=== PATIENT | male | born 1940 | race Caucasian/White ===

== ENCOUNTER 2019-11-06 11:01 | Inpatient (IN) ==
--- OUTSIDE RECORDS SUMMARY | 2019-11-06 11:04 | External Medical Summary | Continuity of Care Document ---
:1940 Author Name Aftab Messina Address Unavailable Unavailable , Care Team Providers Name Role Phone Greta DO Unavailable [email or web address] Unavailable Unavailable Problems Active medical history not documented Allergies and Adverse Reactions Allergy history not documented Medications Medications not documented Procedures Procedures not documented Immunizations Immunizations not documented Plan of Treatment Planned Observations Planned Goals not documented Results No Known Results Results not documented
--- OUTSIDE RECORDS SUMMARY | 2019-11-06 11:04 | External Medical Summary | Continuity of Care Document ---
:1940 Author Name Aftab Messina Address Unavailable Unavailable , Care Team Providers Name Role Phone Greta DO Unavailable [email or web address] Unavailable Unavailable Problems Active medical history not documented Allergies and Adverse Reactions Allergy history not documented Medications Medications not documented Procedures Procedures not documented Immunizations Immunizations not documented Plan of Treatment Planned Observations Planned Goals not documented Results No Known Results Results not documented
[2019-11-06] MEDS ORDERED: OPTIRAY 320 125ml IV PRN (11:25)
[2019-11-06 11:27] LABS: Basophils # (auto) 0.03 K/uL (0-0.2); Basophils % (auto) 0.4 %; Eosinophils # (auto) 0.34 K/uL (0-0.5); Eosinophils % (auto) 4.9 %; Hematocrit (blood only) 46.2 % (42-52); Hemoglobin 15.3 g/dL (14.0-18.0); Immature Granulocytes # (auto) 0.02 K/uL (0.00-0.02); Immature Granulocytes % (auto) 0.3 %; Lymphocytes # (auto) 1.77 K/uL (1.2-3.4); Lymphocytes % (auto) 25.2 %; Mean Corpuscular Hgb Conc 33.1 g/dL (32-36); Mean Corpuscular Volume 87.7 fL (80-100); Mean Platelet Volume 10.2 fL (7.4-10.4); Monocytes # (auto) 0.74 K/uL (0.11-0.59); Monocytes % (auto) 10.6 %; Neutrophils # (auto) 4.11 K/uL (1.4-6.5); Neutrophils % (auto) 58.6 %; Platelet Count 167 K/uL (130-400); RDW Coefficient of Variation 13.8 % (11.5-14.5); RDW Standard Deviation 44.4 fL (36.4-46.3); Red Blood Count 5.27 M/uL (4.7-6.1); White Blood Count 7.01 K/uL (4.8-10.8)
--- NOTE | 2019-11-06 11:38 | CT Scan Report ---
CT head/brain wo con CLINICAL HISTORY: Possible acute stroke COMPARISON STUDY: No previous studies for comparison. TECHNIQUE: Axial CT of the brain is performed from the vertex to the skull base. IV contrast was not administered for this examination. A dose lowering technique was utilized adhering to the principles of ALARA. CT DOSE: FINDINGS: No intra or extra-axial mass lesions are visualized. There is no CT evidence of acute cortical infarc tion. There is no evidence of midline shift. There is no acute hemorrhage. No calvarial fractures ar e visualized. There are mild white matter hypodensities likely on a small vessel basis. Minor ventricular prominence is felt to be secondary to volume loss. There is no evidence of acute sinusitis IMPRESSION: No acute intracranial findings ACT 112: Negative or not required by law. Electronically signed by: Martell Guerrero M.D. 11/06/2019 11:37 AM
[2019-11-06 11:39] LABS: INR 1.1 (0.9-1.1); Partial Thromboplastin Time 28.8 Seconds (21.0-31.0); Prothrombin Time 11.2 Seconds (9.0-12.0)
--- NOTE | 2019-11-06 11:44 | CT Scan Report ---
CT angio neck with con CLINICAL HISTORY: Stroke evaluation COMPARISON STUDY: No previous studies for comparison. TECHNIQUE: CT angiography was performed from the aortic arch to the skull base. MIP imaging was perfo rmed. The patient was scanned in a dynamic helical fashion during intravenous administration of 118 c c of Optiray 320. A dose lowering technique was utilized adhering to the principles of ALARA. CT DOSE: 1162.07 mGy.cm Technique: CT angiogram of the carotid and vertebral arteries was obtained using intravenous contrast and 3-D reconstruction. NASCET criteria was utilized. Findings: There is a 1 cm right lobe thyroid calcification. The right carotid revealed no evidence of aneurysm and no evidence of dissection. There is no evidenc e of hemodynamic significant stenosis. Atheromatous changes are present at the level of the carotid b ulb, and cavernous carotid. The left carotid revealed no evidence of hemodynamic significant stenosis. There is no evidence of an eurysm. There is no evidence of dissection. Atheromatous changes are present the level of the carotid bulb and cavernous carotid There is moderately extensive bilateral distal vertebral artery atheromatous calcification. The calci fication limits the accuracy for stenosis measurement. Bilateral vertebral artery stenosis in excess of 60% is however suspected. IMPRESSION: 1. No evidence of hemodynamically significant carotid stenosis 2. Bilateral distal vertebral artery stenosis which is difficult to quantify due to extensive atherom atous calcification ACT 112: Negative or not required by law. Electronically signed by: Martell Guerrero M.D. 11/06/2019 11:43 AM
[2019-11-06 11:46] LABS: Alanine Aminotransferase 28 U/L (12-78); Albumin Level 3.7 gm/dl (3.4-5.0); Aspartate Aminotransferase 19 U/L (15-37); BUN Creatinine Ratio 12.2 (10-20); Blood Urea Nitrogen 18 mg/dl (7-18); Calcium 9.2 mg/dl (8.5-10.1); Carbon Dioxide 27 mmol/L (21-32); Chloride 111 mmol/L (98-107); Creatinine Clr Calc Pharmacy 44.5 ml/min; Est GFR (African American) 52.4; Est GFR (Non-African American) 45.2; Glucose 94 mg/dl (70-99); Potassium 4.1 mmol/L (3.5-5.1); Sodium 138 mmol/L (136-145)
--- NOTE | 2019-11-06 11:48 | CT Scan Report ---
CT angio head w con CLINICAL HISTORY: Stroke evaluation TECHNIQUE: CT angiography of the head was performed in a dynamic helical fashion during intravenous a dministration of 118 cc of Optiray 320. MIP imaging was performed. A dose lowering technique was util ized adhering to the principles of ALARA. CT DOSE: COMPARISON STUDY: No previous studies for comparison. FINDINGS: There is bilateral distal vertebral artery stenosis. Atheromatous changes are present withi n the cavernous and supraclinoid carotids without evidence of hemodynamic significant stenosis. There is no major intracranial branch occlusion. There are no lesion suspicious for aneurysm. There are bi lateral posterior cerebral artery stenotic lesions. IMPRESSION: 1. Bilateral distal vertebral artery stenosis 2. No evidence of major intracranial branch occlusion 3. No evidence of aneurysm. 4. Bilateral posterior cerebral artery stenotic lesions. ACT 112: Negative or not required by law. Electronically signed by: Martell Guerrero M.D. 11/06/2019 11:47 AM
[2019-11-06 11:50] LABS: Alkaline Phosphatase 97 U/L (45-117); Bilirubin,Total 0.7 mg/dl (0.2-1); Globulin 3.6 gm/dl (2.5-4.0); Total Protein 7.3 gm/dl (6.4-8.2); Troponin I < 0.015 ng/ml (0-0.045)
[2019-11-06] MEDS ORDERED: SODIUM CHLORIDE 0.9% 1000ML 1,000 ML IV SCH (12:00)
--- NOTE | 2019-11-06 12:03 | Emergency Department Note ---
History of Present Illness General Chief complaint: Stroke/CVA Symptoms Stated complaint: RIGHT SIDED NUMBNESS, FACIAL DROOPING, DISORIENTED Time Seen by Provider: 11/06/19 11:07 Source: patient and family Mode of arrival: ambulatory Limitations: no limitations History of Present Illness Maximum Pain Intensity: 0 This patient comes in with a complaint of weakness on the right side and slurred speech. He was fine last evening and the son talked to him last around 9:00 PM. He said this morning when he saw him at 5:45 AM he was staggering and appeared to have a facial droop on the right and right-sided weakness. This is all new he also seemed a little confused. He is on Xarelto for A. fib. He had an episode about a month ago where he lost vision in his eye and was seen by Dr. Marion. This recovered. The patient has no visual changes at present. No chest pain or shortness of breath. No fever or chills or fall or trauma. No focal numbness or weakness. He was brought in through triage and placed in room B2. Home Medications Home Medications Medication Instructions Recorded Confirmed Type atenolol 12.5 mg PO BID 11/06/19 11/06/19 History glimepiride 2 mg PO QAM 11/06/19 11/06/19 History omeprazole 40 mg PO DAILY 11/06/19 11/06/19 History rivaroxaban [Xarelto] 15 mg PO PM 11/06/19 11/06/19 History simvastatin 40 mg PO HS 11/06/19 11/06/19 History Allergies Allergy/AdvReac Type Severity Reaction Status Date / Time No Known Allergies Allergy Unknown Verified 01/13/16 13:06 Past Med/Surg History Social History Preferred Language: Polish Feels Safe at Home: Yes Smoking Status: Never smoker Immunizations: Past medical history: Atrial fib, on Xarelto. He also has a history of type 2 diabetes. Hypertension. He had a visual loss that recuperated about a month ago and may have been an amaurosis fugax Social history, he does not smoke. He does not drink. He lives with his son Review of Systems A total of 10 systems reviewed and were otherwise negative Physical Exam Vital Signs Vital Signs - 24 hr 11/06/19 11:02 11/06/19 11:31 11/06/19 11:33 Temperature 36.8 C Temperature Source Oral Pulse Rate 47 L 51 L 53 L Pulse Rate from SpO2 Sensor 52 L 53 L Respiratory Rate 18 17 22 Respiratory Effort / Characteristics Non-Labored Spontaneous Respiratory Depth Normal Respiratory Pattern Regular Blood Pressure 193/87 H 174/75 H Blood Pressure Mean 122 111 Blood Pressure Position Sitting Pulse Oximetry 98 97 99 Oxygen Delivery Method Room Air Sepsis Recent Fever Within 48 Hours No Sepsis New/Unexplained Change in Mental Status No Sepsis Action Taken by Nursing No Action Required 11/06/19 11:40 11/06/19 11:52 11/06/19 12:00 Temperature Temperature Source Pulse Rate 49 L 45 L Pulse Rate from SpO2 Sensor 41 L Respiratory Rate 17 17 Respiratory Effort / Characteristics Respiratory Depth Respiratory Pattern Blood Pressure Blood Pressure Mean Blood Pressure Position Pulse Oximetry 97 96 Oxygen Delivery Method Room Air Sepsis Recent Fever Within 48 Hours Sepsis New/Unexplained Change in Mental Status Sepsis Action Taken by Nursing 11/06/19 12:01 11/06/19 12:02 11/06/19 12:30 Temperature Temperature Source Pulse Rate 47 L 46 L 45 L Pulse Rate from SpO2 Sensor 47 L 46 L 45 L Respiratory Rate 17 18 17 Respiratory Effort / Characteristics Respiratory Depth Respiratory Pattern Blood Pressure 151/83 H 144/91 H Blood Pressure Mean 103 111 Blood Pressure Position Pulse Oximetry 98 97 96 Oxygen Delivery Method Sepsis Recent Fever Within 48 Hours Sepsis New/Unexplained Change in Mental Status Sepsis Action Taken by Nursing 11/06/19 13:00 11/06/19 13:02 11/06/19 13:03 Temperature Temperature Source Pulse Rate 49 L 50 L 49 L Pulse Rate from SpO2 Sensor Respiratory Rate 20 24 21 Respiratory Effort / Characteristics Respiratory Depth Respiratory Pattern Blood Pressure 150/84 H Blood Pressure Mean 115 Blood Pressure Position Pulse Oximetry 98 Oxygen Delivery Method Sepsis Recent Fever Within 48 Hours Sepsis New/Unexplained Change in Mental Status Sepsis Action Taken by Nursing 11/06/19 13:30 11/06/19 13:31 Temperature Temperature Source Pulse Rate 46 L 46 L Pulse Rate from SpO2 Sensor 46 L 46 L Respiratory Rate 19 20 Respiratory Effort / Characteristics Respiratory Depth Respiratory Pattern Blood Pressure 162/79 H Blood Pressure Mean 104 Blood Pressure Position Pulse Oximetry 97 97 Oxygen Delivery Method Sepsis Recent Fever Within 48 Hours Sepsis New/Unexplained Change in Mental Status Sepsis Action Taken by Nursing General: Well developed well nourished older male who appears in no acute distress, breathing comfortably on room air. Normal speech is slightly thick compared to baseline according to his son HEENT: Normal cephalic atraumatic. He may have just a mild facial droop on the right pupils are equal round and reactive to light. Extraocular movements are intact. Oropharynx is pink with moist mucous membranes. No swelling of the mouth lips or tongue. Neck: Supple with a midline trachea. No meningeal signs or stiffness, no JVD or bruits. No Stridor. Chest: Clear to auscultation bilaterally. No wheezes or rhonchi. No increased work of breathing. Heart: Regular rate and rhythm without murmurs or gallops. Abdomen: Soft nontender, nondistended without rebound guarding or rigidity. Extremities: No cyanosis clubbing or edema. No calf tenderness or assymetry Spine/Back. Non tender to palpation. No CVA tenderness Skin: Good turgor without rashes. Neurologic exam: Cranial nerves two through 12 are intact. Motor and sensation are intact and symmetrical throughout. No pronator drift. Course Administered Medications Sodium Chloride (Nss 1000ml) 1,000 mls @ 125 mls/hr IV .Q8H ANASTASIA Stop: 12/06/19 11:59 Last Admin: 11/06/19 11:58 Dose: 125 mls/hr Documented by: [id number] Ioversol (Optiray 320 125ml) 118 ml IV ONCE PRN PRN Reason: Interaction Checking Stop: 11/10/19 11:24 Last Admin: 11/06/19 11:26 Dose: 118 ml Documented by: [id number] Critical Care Time Critical Care Time: Yes Total Critical Care Time: 35 Due to the patient's acute strokelike symptoms and potential need for time- limited interventions with frequent reassessment and consultation with stroke neurology needed, I have personally spent greater than 35 minutes of critical care time in the direct management of this patient. This includes bedside care, interpretation of diagnostic studies, and testing, discussion with consultants, patient, and family members, and other required patient management activities. This 35 minutes is in excess of all separately billable procedures. Medical Decision Making Differential Diagnosis Differential diagnosis includes CVA, intracranial hemorrhage, TIA, vascular disease, cardiac disease, anemia, hypoglycemia, electrolyte or metabolic abnormality, infection Medical Records Attestation: I reviewed the patient's medical records. Home Medications Current Medication List: was personally reviewed by me Laboratory Data Attestation: I reviewed the patient's lab results. Result diagrams: 11/06/19 11:15 11/06/19 11:15 Lab Results 11/06/19 11/06/19 11/06/19 Range/Units 11:15 11:15 11:15 WBC 7.01 (4.8-10.8) K/uL RBC 5.27 (4.7-6.1) M/uL Hgb 15.3 (14.0-18.0) g/dL Hct 46.2 (42-52) % MCV 87.7 (80-100) fL MCH 29.0 (25-34) pg MCHC 33.1 (32-36) g/dL RDW Std Deviation 44.4 (36.4-46.3) fL RDW Coeff of Bryanna 13.8 (11.5-14.5) % Plt Count 167 (130-400) K/uL MPV 10.2 (7.4-10.4) fL Immature Gran % (Auto) 0.3 % Neut % (Auto) 58.6 % Lymph % (Auto) 25.2 % Dickenson % (Auto) 10.6 % Eos % (Auto) 4.9 % Baso % (Auto) 0.4 % Immature Gran # (Auto) 0.02 (0.00-0.02) K/uL Neut # (Auto) 4.11 (1.4-6.5) K/uL Lymph # (Auto) 1.77 (1.2-3.4) K/uL Dickenson # (Auto) 0.74 H (0.11-0.59) K/uL Eos # (Auto) 0.34 (0-0.5) K/uL Baso # (Auto) 0.03 (0-0.2) K/uL PT 11.2 (9.0-12.0) Seconds INR 1.1 (0.9-1.1) APTT 28.8 (21.0-31.0) Seconds PTT Ratio 1.0 Sodium 138 (136-145) mmol/L Potassium 4.1 (3.5-5.1) mmol/L Chloride 111 H (98-107) mmol/L Carbon Dioxide 27 (21-32) mmol/L Anion Gap -1.0 L (3-11) BUN 18 (7-18) mg/dl Creatinine 1.44 H (0.6-1.4) mg/dl Est Cr Clr Drug Dosing 44.5 ml/min Est GFR ( Amer) 52.4 Est GFR (Non-Af Amer) 45.2 BUN/Creatinine Ratio 12.2 (10-20) Glucose 94 (70-99) mg/dl POC Glucose (70-99) mg/dl Calcium 9.2 (8.5-10.1) mg/dl Magnesium 2.0 (1.8-2.4) mg/dl Total Bilirubin 0.7 (0.2-1) mg/dl AST 19 (15-37) U/L ALT 28 (12-78) U/L Alkaline Phosphatase 97 (45-117) U/L Troponin I < 0.015 (0-0.045) ng/ml Total Protein 7.3 (6.4-8.2) gm/dl Albumin 3.7 (3.4-5.0) gm/dl Globulin 3.6 (2.5-4.0) gm/dl Albumin/Globulin Ratio 1.0 (0.9-2) Blood Type Antibody Screen 11/06/19 11/06/19 11/06/19 Range/Units 11:31 11:31 11:57 WBC (4.8-10.8) K/uL RBC (4.7-6.1) M/uL Hgb (14.0-18.0) g/dL Hct (42-52) % MCV (80-100) fL MCH (25-34) pg MCHC (32-36) g/dL RDW Std Deviation (36.4-46.3) fL RDW Coeff of Bryanna (11.5-14.5) % Plt Count (130-400) K/uL MPV (7.4-10.4) fL Immature Gran % (Auto) % Neut % (Auto) % Lymph % (Auto) % Dickenson % (Auto) % Eos % (Auto) % Baso % (Auto) % Immature Gran # (Auto) (0.00-0.02) K/uL Neut # (Auto) (1.4-6.5) K/uL Lymph # (Auto) (1.2-3.4) K/uL Dickenson # (Auto) (0.11-0.59) K/uL Eos # (Auto) (0-0.5) K/uL Baso # (Auto) (0-0.2) K/uL PT (9.0-12.0) Seconds INR (0.9-1.1) APTT (21.0-31.0) Seconds PTT Ratio Sodium (136-145) mmol/L Potassium (3.5-5.1) mmol/L Chloride (98-107) mmol/L Carbon Dioxide (21-32) mmol/L Anion Gap (3-11) BUN (7-18) mg/dl Creatinine (0.6-1.4) mg/dl Est Cr Clr Drug Dosing ml/min Est GFR ( Amer) Est GFR (Non-Af Amer) BUN/Creatinine Ratio (10-20) Glucose (70-99) mg/dl POC Glucose 87 (70-99) mg/dl Calcium (8.5-10.1) mg/dl Magnesium (1.8-2.4) mg/dl Total Bilirubin (0.2-1) mg/dl AST (15-37) U/L ALT (12-78) U/L Alkaline Phosphatase (45-117) U/L Troponin I (0-0.045) ng/ml Total Protein (6.4-8.2) gm/dl Albumin (3.4-5.0) gm/dl Globulin (2.5-4.0) gm/dl Albumin/Globulin Ratio (0.9-2) Blood Type Cancelled O Positive Antibody Screen Cancelled NEGATIVE Imaging Data Radiologist's Impression: CAT scan of the head: No Acute findings CTA of the head and the neck: He does have some atherosclerotic changes mostly posteriorly. Please refer to report ECG Data Attestation: I personally reviewed and interpreted this ECG as follows: Indication: + bradycardia Rate (beats per minute): 48 Rhythm: + sinus bradycardia ECG Intervals/blocks: + Normal QRS, + Normal QT and + Normal [place] ECG [place]: + Normal ECG ST segments: + Normal ST segments Comparison ECG Date: from (01/13/16) Change: no significant change MDM Narrative This patient comes in as described above. He was placed in room B2. I talked to the son and the patient promptly upon his arrival into the room B2 is concerned about his strokelike symptoms and called a stroke alert. It sounds like his last known well however was probably 9:00 last evening when the son saw him at 545 this morning he had symptoms. He is on Xarelto. He was evaluated by Dr. Devine. CAT scan the head was unremarkable CT of the neck and head show some atherosclerotic findings but no acute dissection or aneurysm. IV access had been established. Blood sugar was unremarkable. He has mildly elevated creatinine of 1.4. There is no other electrolyte or metabolic abnormalities. He has nothing to suggest infection. EKG shows sinus bradycardia at 48 however he is on the hypertensive side and tolerating this well. Dr. Devine feels that he does need to be admitted for further stroke evaluation and neurologic work-up. His symptoms have improved and I think he most likely did have a TIA. I have consulted Dr. Rivera to see him in the ER for these measures. Continuous senior project engineer note-due to the patient's strokelike symptoms he was placed on a senior project engineer. I did put an order in for it in the computer as well. He was monitored while he was in the emergency department he was found to be in a sinus bradycardia at a rate of 48 and remained in a sinus bradycardia in the high 40s low 50s. Impression & Plan Cerebrovascular accident, shelter (current) use of anticoagulants, Bradycardia, sinus, Acute right-sided weakness Discharge Plan Visit Data Chief Complaint: Stroke/CVA Symptoms Stated Complaint: RIGHT SIDED NUMBNESS, FACIAL DROOPING, DISORIENTED ED Provider: Jordy Hernandez Discharge Problem: Cerebrovascular accident, terminal clerk (current) use of anticoagulants, Bradycardia, sinus, Acute right-sided weakness Discharge Instructions Interventions: ED Discharge Assessment Last Done: 11/06/19 13:47 Forms Stand Alone Forms: [facility] [employer] Prescriptions Prescriptions: No Action atenolol 25 mg tablet 12.5 mg PO BID RF: 0 omeprazole 40 mg capsule,delayed release(DR/EC) 40 mg PO DAILY RF: 0 simvastatin 40 mg tablet 40 mg PO HS RF: 0 glimepiride 2 mg tablet 2 mg PO QAM RF: 0 Xarelto 15 mg tablet 15 mg PO PM RF: 0 Referrals Referrals: Harper Garcia CRNP [Primary Care Provider] - Discharge Problem: Cerebrovascular accident Qualifiers: CVA mechanism: unspecified Qualified Code(s): I63.9 - Cerebral infarction, unspecified
--- NOTE | 2019-11-06 13:24 | History & Physical Report ---
Date of Service November 06, 2019 Assessment & Plan (1) TIA (transient ischemic attack): Presented with right-sided weakness and right facial droop, slurred speech, significantly elevated blood pressures -Admit to PCU for arrhythmia monitoring Symptoms already almost completely resolved-consistent with likely TIA Not a candidate for TPA as his last known well was over 12 hours prior to presentation and is on Xarelto and is getting better CT angiogram of head and neck with bilateral vertebral artery stenosis approximately 60%-not related to current symptoms -Likely thrombotic event but could have been cardioembolic given his history of paroxysmal atrial fibrillation, however he is on Xarelto and is compliant with taking it -Stroke order set completed -Check MRI of the brain with and without contrast -Neurochecks -Neurology consultation requested -Continue Xarelto-consider adding on aspirin 81 mg daily but will defer to neurology -Continue simvastatin 40 mg daily and check lipid panel in the morning-consider switching to atorvastatin -Check hemoglobin A1c in the morning -Permissive hypertension -Check echo with bubble study -PT/OT/speech therapy consultations -Keep n.p.o. until can pass dysphagia screen -Gentle IV fluids while n.p.o. (2) Acute right-sided weakness: As above (3) Hypertensive urgency: Blood pressure elevated on admission at 198/83, likely response to TIA Permissive hypertension -Okay to continue home atenolol if heart rate will allow -Hydralazine 10 mg IV every 8 hours as needed SBP greater than 200 -Follow blood pressures (4) Paroxysmal atrial fibrillation: History of such, follows with Dr. Vaughn of [facility] cardiology In sinus bradycardia here with rates in the 40s -Continue atenolol 12.5 mg p.o. 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 fib (6) Diabetes mellitus: Patient on glimepiride at home-we will hold this -Sliding scale insulin, Accu-Cheks q. before meals at bedtime -Check hemoglobin A1c in the morning (7) HTN (hypertension), benign: Blood pressure elevated here as above -Continue home atenolol (8) Gout: No acute flares, follows with rheumatology -Continue prednisone 5 mg daily -Continue allopurinol 100 mg daily (9) BPH (benign prostatic hyperplasia): No acute issues -Continue tamsulosin 0.4 mg p.o. nightly (10) GERD (gastroesophageal reflux disease): No acute issues -Continue PPI daily (11) ARABELLA (acute kidney injury): Creatinine 1.44 on admission, suspect acute kidney injury but may be chronic kidney disease-unclear baseline -Follow BMP Renally dose medications as appropriate Avoid nephrotoxins (12) DVT prophylaxis: Xarelto Disposition-admit to PCU for stroke work-up History of Present Illness Chief Complaint: Strokelike symptoms Primary Care Provider: ADILENE Tesfaye This patient is an 79-year-old male with a history of paroxysmal atrial fibrillation on Xarelto, DM 2, HTN, gout, back pain and arthritis, GERD, BPH, nephrolithiasis, who presents to the ER with right-sided weakness and right- sided facial droop with slurred speech. The patient was last known well when seen by his son around 9:30 PM last evening before bed. The son reports when he woke up this morning around 545, his dad was already sitting in a chair in the living room and he noticed when his dad stood up and walked into the kitchen that he kept running his right side into things in his right arm was flopping around. He also noticed a right-sided facial droop at that time and slurred speech. The son reported that he thought maybe it could be due to the patient just taking his medications as a side effect and decided to wait a few hours and see if it would get better. The son went for a walk and when he came home, noted that his dad was still having significant slurred speech and persistent right upper extremity weakness. The patient was able to walk. The patient in the ER was already improving with his strength but continued with facial droop and slurred speech to some degree although much improved as per the son. A telemetry stroke neuro consult was obtained from [place]-they recommended CT angiogram of the head neck which just showed approximately 60% bilateral vertebral artery stenosis. No TPA indicated as last known well was last night and patient symptoms were improving, as well as the fact that he is on Xarelto. He was quite hypertensive in the ER and bradycardic in the 40s in a sinus rhythm. The patient denied headache or lightheadedness, no changes in vision, he is at baseline extremely hard of hearing. The patient denied chest pain or shortness of breath, no palpitations or passing out. Denied nausea or abdominal pain. No recent fevers/chills/sweats. The patient denied any recent cough or cold symptoms. He has been isolated at home and lives with his son. Allergies Allergy/AdvReac Type Severity Reaction Status Date / Time No Known Allergies Allergy Unknown Verified 01/13/16 13:06 Home Medications Home Medications Medication Instructions Recorded Confirmed Type acetaminophen 650 mg PO Q6 PRN 11/06/19 11/06/19 History allopurinol 100 mg PO DAILY 11/06/19 11/06/19 History atenolol 12.5 mg PO BID 11/06/19 11/06/19 History glimepiride 2 mg PO QAM 11/06/19 11/06/19 History omeprazole 40 mg PO DAILY 11/06/19 11/06/19 History prednisone 5 mg PO DAILY 11/06/19 11/06/19 History rivaroxaban [Xarelto] 15 mg PO PM 11/06/19 11/06/19 History simvastatin 40 mg PO HS 11/06/19 11/06/19 History tamsulosin 0.4 mg PO HS 11/06/19 11/06/19 History Past Med/Surg History Medical History BPH (benign prostatic hyperplasia) Chronic back pain Diabetes mellitus GERD (gastroesophageal reflux disease) Gout (Acute) HTN (hypertension), benign Nephrolithiasis Paroxysmal atrial fibrillation Family History Other Family history non-contributory Social History Preferred Language: Romanian Communication Ability: Effective Platemaker Required: No Beliefs That Will Affect Care: None Current Living Situation: Family Current Living Situation Comment: Lives with his son Other Information That Helps Us Care for You: No Feels Safe at Home: Yes Safety Concerns: Feels Safe At This Time Smoking Status: Never smoker Hx Alcohol Use: No Hx Substance Use: No Review of Systems Review of Systems: All systems reviewed & are unremarkable except as noted in HPI & below (Does have some chronic stable angina with exertion and chronic dyspnea on exertion) Physical Exam Constitutional: WD/WN, vitals as above Eyes: PERRL, conjunctivae normal, anicteric sclerae EOM intact bilaterally ENMT: external ear and nose normal, oropharynx normal Neck: trachea midline, no thyromegaly Respiratory: normal respiratory effort, lungs clear to auscultation Cardiovascular: Rate/Rhythm: regular rhythm and + bradycardic Heart Sounds: no murmur Extremities: no edema Chest (Breasts): Chest: normal inspection of chest Gastrointestinal (Abdomen): normal bowel sounds, soft, nontender, no hepatosplenomegaly Musculoskeletal: Extremities: extremities normal to inspection; no cyanosis and no clubbing Skin: no rashes, warm and dry Neurologic: deep tendon reflexes 2+ bilaterally (In biceps, triceps, brachioradialis, patellar; 1+ and Achilles bilaterally), moves all extremities and awake; + CN's not intact (Intact except with mild right facial droop and tongue protruding slightly to the left of midline), no focal motor deficits (5/5 strength throughout upper and lower extremities bilaterally) and not confused Speech / Cognition: + abnormal speech (Speech is slightly slurred); no expressive aphasia, no receptive aphasia and normal cognition Motor/Sensory: no tremor, no pronator drift and no sensory deficit (Intact to light touch throughout upper and lower extremities) Coordination: normal [id number] test and normal rapid alternating movements Psychiatric: A+Ox3, euthymic affect Lymphatic: no lymphedema Results & Data Results & Data ([facility]) Vital Signs (Past 12 Hours) Vital Signs Temp Pulse Resp BP Pulse Ox 11/06/19 13:02 50 L 24 150/84 H 98 11/06/19 13:00 49 L 20 11/06/19 12:30 45 L 17 144/91 H 96 11/06/19 12:02 46 L 18 97 11/06/19 12:01 47 L 17 151/83 H 98 11/06/19 12:00 45 L 17 96 11/06/19 11:52 97 11/06/19 11:40 49 L 17 11/06/19 11:33 53 L 22 174/75 H 99 11/06/19 11:31 51 L 17 97 11/06/19 11:02 36.8 C 47 L 18 193/87 H 98 Laboratory Results 11/06/19 11/06/19 11/06/19 Range/Units 16:20 11:57 11:31 WBC (4.8-10.8) K/uL RBC (4.7-6.1) M/uL Hgb (14.0-18.0) g/dL Hct (42-52) % MCV (80-100) fL MCH (25-34) pg MCHC (32-36) g/dL RDW Std Deviation (36.4-46.3) fL RDW Coeff of Bryanna (11.5-14.5) % Plt Count (130-400) K/uL MPV (7.4-10.4) fL Immature Gran % (Auto) % Neut % (Auto) % Lymph % (Auto) % [place] % (Auto) % Eos % (Auto) % Baso % (Auto) % Immature Gran # (Auto) (0.00-0.02) K/uL Neut # (Auto) (1.4-6.5) K/uL Lymph # (Auto) (1.2-3.4) K/uL [place] # (Auto) (0.11-0.59) K/uL Eos # (Auto) (0-0.5) K/uL Baso # (Auto) (0-0.2) K/uL PT (9.0-12.0) Seconds INR (0.9-1.1) APTT (21.0-31.0) Seconds PTT Ratio Sodium (136-145) mmol/L Potassium (3.5-5.1) mmol/L Chloride (98-107) mmol/L Carbon Dioxide (21-32) mmol/L Anion Gap (3-11) BUN (7-18) mg/dl Creatinine (0.6-1.4) mg/dl Est Cr Clr Drug Dosing ml/min Est GFR ( Amer) Est GFR (Non-Af Amer) BUN/Creatinine Ratio (10-20) Glucose (70-99) mg/dl POC Glucose 116 H 87 (70-99) mg/dl Estimat Average Glucose Hemoglobin A1c Calcium (8.5-10.1) mg/dl Magnesium (1.8-2.4) mg/dl Total Bilirubin (0.2-1) mg/dl AST (15-37) U/L ALT (12-78) U/L Alkaline Phosphatase (45-117) U/L Troponin I (0-0.045) ng/ml Total Protein (6.4-8.2) gm/dl Albumin (3.4-5.0) gm/dl Globulin (2.5-4.0) gm/dl Albumin/Globulin Ratio (0.9-2) Blood Type O Positive Antibody Screen NEGATIVE 11/06/19 11/06/19 11/06/19 Range/Units 11:31 11:16 11:15 WBC (4.8-10.8) K/uL RBC (4.7-6.1) M/uL Hgb (14.0-18.0) g/dL Hct (42-52) % MCV (80-100) fL MCH (25-34) pg MCHC (32-36) g/dL RDW Std Deviation (36.4-46.3) fL RDW Coeff of Bryanna (11.5-14.5) % Plt Count (130-400) K/uL MPV (7.4-10.4) fL Immature Gran % (Auto) % Neut % (Auto) % Lymph % (Auto) % [place] % (Auto) % Eos % (Auto) % Baso % (Auto) % Immature Gran # (Auto) (0.00-0.02) K/uL Neut # (Auto) (1.4-6.5) K/uL Lymph # (Auto) (1.2-3.4) K/uL [place] # (Auto) (0.11-0.59) K/uL Eos # (Auto) (0-0.5) K/uL Baso # (Auto) (0-0.2) K/uL PT (9.0-12.0) Seconds INR (0.9-1.1) APTT (21.0-31.0) Seconds PTT Ratio Sodium 138 (136-145) mmol/L Potassium 4.1 (3.5-5.1) mmol/L Chloride 111 H (98-107) mmol/L Carbon Dioxide 27 (21-32) mmol/L Anion Gap -1.0 L (3-11) BUN 18 (7-18) mg/dl Creatinine 1.44 H (0.6-1.4) mg/dl Est Cr Clr Drug Dosing 44.5 ml/min Est GFR ( Amer) 52.4 Est GFR (Non-Af Amer) 45.2 BUN/Creatinine Ratio 12.2 (10-20) Glucose 94 (70-99) mg/dl POC Glucose (70-99) mg/dl Estimat Average Glucose Pending Hemoglobin A1c Pending Calcium 9.2 (8.5-10.1) mg/dl Magnesium 2.0 (1.8-2.4) mg/dl Total Bilirubin 0.7 (0.2-1) mg/dl AST 19 (15-37) U/L ALT 28 (12-78) U/L Alkaline Phosphatase 97 (45-117) U/L Troponin I < 0.015 (0-0.045) ng/ml Total Protein 7.3 (6.4-8.2) gm/dl Albumin 3.7 (3.4-5.0) gm/dl Globulin 3.6 (2.5-4.0) gm/dl Albumin/Globulin Ratio 1.0 (0.9-2) Blood Type Cancelled Antibody Screen Cancelled 11/06/19 11/06/19 Range/Units 11:15 11:15 WBC 7.01 (4.8-10.8) K/uL RBC 5.27 (4.7-6.1) M/uL Hgb 15.3 (14.0-18.0) g/dL Hct 46.2 (42-52) % MCV 87.7 (80-100) fL MCH 29.0 (25-34) pg MCHC 33.1 (32-36) g/dL RDW Std Deviation 44.4 (36.4-46.3) fL RDW Coeff of Bryanna 13.8 (11.5-14.5) % Plt Count 167 (130-400) K/uL MPV 10.2 (7.4-10.4) fL Immature Gran % (Auto) 0.3 % Neut % (Auto) 58.6 % Lymph % (Auto) 25.2 % [place] % (Auto) 10.6 % Eos % (Auto) 4.9 % Baso % (Auto) 0.4 % Immature Gran # (Auto) 0.02 (0.00-0.02) K/uL Neut # (Auto) 4.11 (1.4-6.5) K/uL Lymph # (Auto) 1.77 (1.2-3.4) K/uL [place] # (Auto) 0.74 H (0.11-0.59) K/uL Eos # (Auto) 0.34 (0-0.5) K/uL Baso # (Auto) 0.03 (0-0.2) K/uL PT 11.2 (9.0-12.0) Seconds INR 1.1 (0.9-1.1) APTT 28.8 (21.0-31.0) Seconds PTT Ratio 1.0 Sodium (136-145) mmol/L Potassium (3.5-5.1) mmol/L Chloride (98-107) mmol/L Carbon Dioxide (21-32) mmol/L Anion Gap (3-11) BUN (7-18) mg/dl Creatinine (0.6-1.4) mg/dl Est Cr Clr Drug Dosing ml/min Est GFR ( Amer) Est GFR (Non-Af Amer) BUN/Creatinine Ratio (10-20) Glucose (70-99) mg/dl POC Glucose (70-99) mg/dl Estimat Average Glucose Hemoglobin A1c Calcium (8.5-10.1) mg/dl Magnesium (1.8-2.4) mg/dl Total Bilirubin (0.2-1) mg/dl AST (15-37) U/L ALT (12-78) U/L Alkaline Phosphatase (45-117) U/L Troponin I (0-0.045) ng/ml Total Protein (6.4-8.2) gm/dl Albumin (3.4-5.0) gm/dl Globulin (2.5-4.0) gm/dl Albumin/Globulin Ratio (0.9-2) Blood Type Antibody Screen Diagnostic Findings CT angio neck with con CLINICAL HISTORY: Stroke evaluation COMPARISON STUDY: No previous studies for comparison. TECHNIQUE: CT angiography was performed from the aortic arch to the skull base. MIP imaging was performed. The patient was scanned in a dynamic helical fashion during intravenous administration of 118 cc of Optiray 320. A dose lowering technique was utilized adhering to the principles of ALARA. CT DOSE: 1162.07 mGy.cm Technique: CT angiogram of the carotid and vertebral arteries was obtained using intravenous contrast and 3-D reconstruction. NASCET criteria was utilized. Findings: There is a 1 cm right lobe thyroid calcification. The right carotid revealed no evidence of aneurysm and no evidence of dissection. There is no evidence of hemodynamic significant stenosis. Atheromatous changes are present at the level of the carotid bulb, and cavernous carotid. The left carotid revealed no evidence of hemodynamic significant stenosis. There is no evidence of aneurysm. There is no evidence of dissection. Atheromatous changes are present the level of the carotid bulb and cavernous carotid There is moderately extensive bilateral distal vertebral artery atheromatous calcification. The calcification limits the accuracy for stenosis measurement. Bilateral vertebral artery stenosis in excess of 60% is however suspected. IMPRESSION: 1. No evidence of hemodynamically significant carotid stenosis 2. Bilateral distal vertebral artery stenosis which is difficult to quantify due to extensive atheromatous calcification CT angio head w con CLINICAL HISTORY: Stroke evaluation TECHNIQUE: CT angiography of the head was performed in a dynamic helical fashion during intravenous administration of 118 cc of Optiray 320. MIP imaging was performed. A dose lowering technique was utilized adhering to the principles of ALARA. CT DOSE: COMPARISON STUDY: No previous studies for comparison. FINDINGS: There is bilateral distal vertebral artery stenosis. Atheromatous changes are present within the cavernous and supraclinoid carotids without evidence of hemodynamic significant stenosis. There is no major intracranial branch occlusion. There are no lesion suspicious for aneurysm. There are bilateral posterior cerebral artery stenotic lesions. IMPRESSION: 1. Bilateral distal vertebral artery stenosis 2. No evidence of major intracranial branch occlusion 3. No evidence of aneurysm. 4. Bilateral posterior cerebral artery stenotic lesions. CT head noncontrast-no acute changes ECG Additional Comments: Sinus bradycardia, no ischemic changes, rate 48 Code Status & VTE Plan Code Status Full code VTE Prophylaxis Plan VTE Prophylaxis will be ordered: Yes PG Care Time/CCT Total # of Minutes Spent Total Time Spent with Patient: Total time spent is greater than 50% in coordination of care (as documented) at patient's floor/unit and/or counseling patient: Coding Level of Care Code 35807 Initial Inpt Care Lvl 3 Diagnoses TIA (transient ischemic attack) G45.9 Acute right-sided weakness R53.1 Hypertensive urgency I16.0 Paroxysmal atrial fibrillation I48.0 alf (current) use of anticoagulants Z79.01 Diabetes mellitus E11.9 HTN (hypertension), benign I10 Gout M10.9 BPH (benign prostatic hyperplasia) N40.0 GERD (gastroesophageal reflux disease) K21.9 ARABELLA (acute kidney injury) N17.9 DVT prophylaxis Z29.9
[2019-11-06] MEDS ORDERED: POLYETHYLENE (MIRALAX) 17 GM PACK PO PRN (14:23)
[2019-11-06] MEDS ORDERED: ONDANSETRON INJ 2 MG/ML 2 ML VIAL IV PRN (14:23)
[2019-11-06] MEDS ORDERED: MAGNESIUM HYDROXIDE SUSP 30 ML UDC PO PRN (14:23)
[2019-11-06] MEDS ORDERED: HydrALAZINE HCL 20 MG/ML VIAL IV PRN (14:23)
[2019-11-06] MEDS ORDERED: DEXTROSE 50% 50 ML SYRINGE IV PRN (14:23)
[2019-11-06] MEDS ORDERED: PHARMACIST DISCHARGE MED REC CONSULT PRN (14:23)
[2019-11-06] MEDS ORDERED: GLUCOSE 10 TABS/TUBE PO PRN (14:23)
[2019-11-06] MEDS ORDERED: GLUCOSE 40% GEL 15 GM TUBE PO PRN (14:23)
[2019-11-06] MEDS ORDERED: ACETAMINOPHEN 325 MG TAB PO PRN (14:23)
[2019-11-06] MEDS ORDERED: ALUMINUM/MAGNESIUM SUSP 30 ML UDC PO PRN (14:23)
[2019-11-06] MEDS ORDERED: CARBOHYDRATES FOR HYPOGLYCEMIA PO PRN (14:23)
[2019-11-06] MEDS ORDERED: GLUCAGON FOR INJ 1 MG VIAL SQ PRN (14:23)
[2019-11-06] MEDS: INSULIN ASPART 100 UNITS/ML 3 ML PEN SC SCH ×2 (16:31→20:31)
[2019-11-06] MEDS ORDERED: GADOBUTROL 10ML VIAL IV PRN (17:40)
--- NOTE | 2019-11-06 17:51 | Magnetic Resonance Report ---
MRI OF THE BRAIN WITHOUT AND WITH IV CONTRAST CLINICAL HISTORY: stroke symptoms SLURRED SPEECH AND RIGHT ARM NUMBNESS. COMPARISON STUDY: CT scan dated 11/06/2019 TECHNIQUE: MRI of the brain was performed from the vertex to the skull base utilizing various T1 and T2 weighted sequences. Following the IV administration of 10 mL of Gadavist contrast, additional enha nced images were obtained. FINDINGS: Sagittal T1, axial diffusion, proton density and T2 weighted axial, coronal FLAIR, and pre and post a xial T1-weighted images were acquired. These were supplemented with post gadolinium coronal T1 weight ed images. No intra or extra-axial mass lesions are visualized. Axial diffusion-weighted images reveal no evidence of acute or subacute infarction. There is mild ventricular prominence which is felt to be secondary to volume loss Proton density T2-weighted and FLAIR images reveal mild foci of increased T2 signal within the white matter, likely on a small vessel basis. There are no abnormal flow voids. There is no evidence of pathologic enhancement. IMPRESSION: 1. No acute intracranial findings 2. No evidence of acute or subacute infarction 3. No evidence of intracranial mass. ACT 112: Negative or not required by law. Electronically signed by: Martell Guerrero M.D. 11/06/2019 5:50 PM
[2019-11-06] MEDS: SODIUM CHLORIDE 0.45 % 1,000 ML IV SCH (18:01)
[2019-11-06] MEDS ORDERED: TAMSULOSIN HCL 0.4 MG CAP PO SCH (21:00)
[2019-11-06] MEDS ORDERED: ATENOLOL 25 MG TABLET PO SCH (21:00)
[2019-11-06] MEDS ORDERED: SIMVASTATIN 40 MG TAB PO SCH (21:00)
[2019-11-06] MEDS ORDERED: RIVAROXABAN 15 MG TAB PO SCH (21:00)
[2019-11-06] MEDS ORDERED: Heparin IV Low Dose *NO* Bolus IV ONE (21:52)
[2019-11-06] MEDS ORDERED: HEPARIN SODIUM/DEXTROSE 25,000 UNITS/500 ML BAG IV SCH (22:00)
--- NOTE | 2019-11-06 23:10 | Communication Note ---
Date of Service: November 06, 2019 Got notified by nursing that pt was NPO and had failed his dysphagia screen so could not receive his PO meds including his Xarelto and Tenormin. Pt stated that he did not take his Xarelto this morning before admission. He was subsequently started on a low dose heparin drip withOUT a bolus per protocol. Given his bradycardia into the 40s, his tenormin was also held. Resident Activity Tracking Resident Involvement: Adjunct Faculty Instructor Coverage Note Care Provided: Adult Hospital Medicine
[2019-11-07 04:37] LABS: Basophils # (auto) 0.02 K/uL (0-0.2); Basophils % (auto) 0.3 %; Eosinophils # (auto) 0.36 K/uL (0-0.5); Eosinophils % (auto) 5.5 %; Hematocrit (blood only) 42.5 % (42-52); Hemoglobin 14.5 g/dL (14.0-18.0); Immature Granulocytes # (auto) 0.01 K/uL (0.00-0.02); Immature Granulocytes % (auto) 0.2 %; Lymphocytes # (auto) 1.84 K/uL (1.2-3.4); Lymphocytes % (auto) 27.9 %; Mean Corpuscular Hemoglobin 29.5 pg (25-34); Mean Corpuscular Hgb Conc 34.1 g/dL (32-36); Mean Corpuscular Volume 86.4 fL (80-100); Mean Platelet Volume 10.3 fL (7.4-10.4); Monocytes # (auto) 0.69 K/uL (0.11-0.59); Monocytes % (auto) 10.5 %; Neutrophils # (auto) 3.67 K/uL (1.4-6.5); Neutrophils % (auto) 55.6 %; Platelet Count 150 K/uL (130-400); RDW Coefficient of Variation 13.5 % (11.5-14.5); RDW Standard Deviation 42.9 fL (36.4-46.3); Red Blood Count 4.92 M/uL (4.7-6.1); White Blood Count 6.59 K/uL (4.8-10.8)
[2019-11-07 04:55] LABS: BUN Creatinine Ratio 13.4 (10-20); Calcium 8.7 mg/dl (8.5-10.1); Creatinine Clr Calc Pharmacy 49.6 ml/min; Est GFR (African American) 56.2; Est GFR (Non-African American) 48.5; Potassium 3.8 mmol/L (3.5-5.1)
[2019-11-07 05:03] LABS: Partial Thromboplastin Ratio 1.7
[2019-11-07 05:06] LABS: Partial Thromboplastin Time 47.7 Seconds (21.0-31.0)
[2019-11-07] MEDS: SODIUM CHLORIDE 0.45 % 1,000 ML IV SCH (06:05)
[2019-11-07 06:41] LABS: Estimated Average Glucose 126 mg/dl
[2019-11-07] MEDS: INSULIN ASPART 100 UNITS/ML 3 ML PEN SC SCH ×2 (08:15→11:55)
[2019-11-07] MEDS ORDERED: allopurinoL 100 MG TAB PO SCH (09:00)
[2019-11-07] MEDS ORDERED: predniSONE 5 MG TAB PO SCH (09:00)
[2019-11-07] MEDS ORDERED: PANTOprazole 40 MG TAB PO SCH (09:00)
--- NOTE | 2019-11-07 09:09 | Neurology Consultation ---
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 TPA was not given due to being well out of the timeframe to give the medication. His symptoms cleared within 24 hours. MRI of the brain shows no acute stroke. All of this is consistent with a transient ischemic attack. 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 Patient is on Xarelto for paroxysmal atrial fibrillation. He is in normal sinus rhythm currently in the 40s and 50s. The patient has a history of hypertension which was not adequately controlled on admission. It is much improved this morning. He has a history of diabetes, but his hemoglobin A1c is 6.0. He has dyslipidemia on simvastatin but his lipid parameters are quite good. Recommendations: 1. Control blood pressure as you are doing, aiming for a mean arterial pressure of 95-100. 2. Continue Xarelto for for his paroxysmal atrial fibrillation but this will not control small vessel ischemic disease. 3. Add 81 mg aspirin tablet daily for small vessel ischemic disease 4. The patient is not a high dose statin candidate given his age and lipid parameters. Continue on current dose of simvastatin. 5. Increase activity as able. 6. Can follow up in Neurology in 3-4 weeks. Overall, I spent a total of 75 minutes with this case including review of records, review of MRI films, direct evaluation the patient at bedside, and discussing the case with the patient at bedside, RN at bedside, and Dr. Kulkarni, including differential diagnosis and treatment options. History of Present Illness Requesting Physician: The patient is an 79-year-old, who I was asked to see at the request of Dr. Rivera, for neurologic consultation regarding stroke versus TIA Attending Physician: Yassine Kulkarni, DO History of Present Illness patient has a history of atrial fibrillation diagnosed between 1 and 2 years ago currently on Xarelto. This was done in [facility] And through his PCP, Harper Garcia, in [place]. he also carries a diagnosis of hypertension and type 2 diabetes as well as gastroesophageal reflux disease and osteoarthritis particularly of the lumbar spine. Patient had gradual loss of vision over several minutes in the left eye approximately 1 month ago and it totally resolved by 15 minutes. There was a concern regarding amaurosis fugax. Patient was not totally blind and was not a curtain coming down but he had a teller of sparkles and colors during this time. There been no vision problem since. Patient was in his usual state of health and had a good day on November 04. He went to bed, between 0582-0410, feeling well. 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 He was not walking very steady. His son saw him sitting at 0545 and noticed the facial droop, slurred speech, confusion, and decreased ability to walk. Patient was not in pain. He had no headache or new vision problems. They waited thinking that it would go away over the next several hours but it did not. He arrived at the emergency room on November 05 at 1102 With a temperature of 36.8, pulse 47, respiratory rate 18, blood pressure 193/87, and O2 saturation 98%. He had somewhat improved speech, right-sided strength and balance. He still had some right facial droop. CBC and Chem profile were unremarkable. EKG was unremarkable. CT scan of the head was unremarkable CT angiography of the head showed bilateral posterior cerebral artery stenosis. CT angiography of the neck showed bilateral distal vertebral stenosis of greater than 60% MRI of the brain showed some mild nonspecific small vessel ischemic disease and moderate generalized atrophy but no acute stroke. Nursing reports no new events overnight and an NIH stroke scale of 0 this morning. Patient self has no pain or headache. No new vision problems and does not feel that he has any weakness, numbness, balance problems, speech or mentation problems. Blood pressure this morning was 145/77 and repeat CBC and Chem profile were unremarkable. Pulse this morning was 44. Triglycerides were 101 and total cholesterol 134. Allergies Allergy/AdvReac Type Severity Reaction Status Date / Time No Known Allergies Allergy Unknown Verified 01/13/16 13:06 Home Medications Home Medications Medication Instructions Recorded Confirmed Type acetaminophen 650 mg PO Q6 PRN 11/06/19 11/06/19 History allopurinol 100 mg PO DAILY 11/06/19 11/06/19 History atenolol 12.5 mg PO BID 11/06/19 11/06/19 History glimepiride 2 mg PO QAM 11/06/19 11/06/19 History omeprazole 40 mg PO DAILY 11/06/19 11/06/19 History prednisone 5 mg PO DAILY 11/06/19 11/06/19 History rivaroxaban [Xarelto] 15 mg PO PM 11/06/19 11/06/19 History simvastatin 40 mg PO HS 11/06/19 11/06/19 History tamsulosin 0.4 mg PO HS 11/06/19 11/06/19 History Patient History Medical History (Updated 11/07/19 @ 09:27 by Dequan Kirkpatrick III, MD) BPH (benign prostatic hyperplasia) Chronic back pain Diabetes mellitus GERD (gastroesophageal reflux disease) Gout (Acute) HTN (hypertension), benign Nephrolithiasis Paroxysmal atrial fibrillation Surgical History S/P cataract surgery Family History Mother , age 81 of ovarian cancer Ovarian cancer Father , in his early 80s of [place] and stroke. Myocardial infarction Stroke Other Family history non-contributory Social History Preferred Language: Brazilian Communication Ability: Effective Satellite Project Site Monitor Required: No Beliefs That Will Affect Care: None Current Living Situation: Family Current Living Situation Comment: Lives with his son current occupational status: retired current occupation: Retired in his early 70s from [employer] Other Information That Helps Us Care for You: No other: he worked outside on [employer] Feels Safe at Home: Yes Safety Concerns: Feels Safe At This Time Smoking Status: Never smoker Hx Alcohol Use: No Hx Substance Use: No Review of Systems Constitutional: no fever, no fatigue and no weakness Eyes: no diplopia, no eye pain and no worsening vision Ear, Nose, Mouth, Throat: + hearing loss ( bilateral); no ear pain, no tinnitus, no dizziness, no snoring, no hoarseness and no dysphagia Respiratory: no cough and no dyspnea Cardiovascular: no chest pain, no palpitations and no lightheadedness Gastrointestinal: no abdominal pain, no nausea and no vomiting Genitourinary: no dysuria and no urinary incontinence Musculoskeletal: + back pain; no neck pain, no radicular pain, no joint pain and no myalgia Integumentary: no rash and no lesions Neurologic: no gait abnormality, no localized weakness, no generalized weakness, no tingling, no numbness, no tremor(s), no abnormal movements, no headache(s), no abnormal speech, no confusion and no memory loss Psychiatric: no depression, no irritability, no anxiety, no difficulty concentrating, no confusion and no hallucinations Endocrine: no fatigue and no flushing Hematologic / Lymphatic: no easy bleeding and no easy bruising Allergy / Immunological: no urticaria and no problem reported Exam (Neuro) Physical Exam: The patient is right-handed. The patient is awake, alert, and attentive. Speech is normal without any aphasia. there may be some very slight dysarthria but he has poor dentition. He can name objects, repeat phrases, and has normal spontaneous speech. Mentation and thought processes are intact, with orientation to person, place and time, and normal fund of knowledge. Attention and concentration are normal. Mood and affect are normal and appropriate. General appearance and grooming are normal. Short and long-term memory are intact to conversation. The discs are sharp with positive venous pulsations bilaterally. There are no exudates, hemorrhages, or blood vessel changes seen. Pupils are 3 mm bilaterally and reactive to light. Extraocular eye muscles are intact without nystagmus. Visual acuity and visual hamm seem normal grossly to confrontation. There are no deficits to sensation in the face in all 3 distributions of the fifth cranial nerve bilaterally. Corneal reflexes are positive bilaterally. Facial strength and symmetry was normal bilaterally. Hearing seems normal to whisper and finger rub bilaterally. Palate moves well without asymmetry. There is normal sternocleidomastoid and trapezius (shoulder shrug) strength bilaterally. Tongue is midline with good strength bilaterally. Neck has a full range of motion without discomfort. There are no cervical bruits bilaterally. There are no cranial or ocular bruits. Heart is without murmur. There is a regular rhythm and rate in the 50s. Cervical, thoracic, and lumbar spine are nontender to palpation. Gait is slightly wide based, with good arm swing, turns, and stance. With outstretched arms there is no drift. There are no resting, postural, or action tremors. There is no ataxia with finger to nose testing. There is good facility in the hands. No other abnormal involuntary movements are noted. He is missing his right index finger (circular saw accident age 54). Motor strength is 5/5 diffusely in the arms bilaterally including deltoids, biceps, triceps, brachioradialis, wrist flexors and extensors, hydroelectric operator, and intrinsic hand muscles. Motor strength is 5/5 diffusely in the legs bilaterally including hip flexors, quadriceps, hamstrings, gastrocnemius, tibialis anterior, tibialis posterior, and Peroneii muscles. Toe extensors are normal and there is good bulk in the extensor digitorum brevis muscles bilaterally. The limbs have good tone without rigidity or spasticity. There is no atrophy noted in the muscles. Muscle bulk is normal, there is no tenderness to palpation, no myotonia to percussion, and no fasciculations seen. Sensory examination is intact to touch and pin throughout all 4 limbs diffusely. Reflexes are 1/4 in the biceps, triceps, brachioradialis, quadriceps, and Achilles tendons bilaterally. There is no clonus bilaterally. Toes are downgoing with plantar stimulation bilaterally. Peripheral pulses are present and of normal quality distally in all 4 limbs. There is no peripheral edema noted in the limbs. Results & Data ([facility]) Vital Signs (Past 12 Hours) Vital Signs Temp Pulse Pulse Resp BP Pulse Ox 11/07/19 07:19 36.6 C 44 L 18 145/77 H 95 11/07/19 03:59 36.3 C L 47 L 18 121/67 97 11/07/19 00:25 47 L 11/07/19 00:12 36.8 C 46 L 19 136/70 96 Diagnostic Findings MRI OF THE BRAIN WITHOUT AND WITH IV CONTRAST CLINICAL HISTORY: stroke symptoms SLURRED SPEECH AND RIGHT ARM NUMBNESS. COMPARISON STUDY: CT scan dated 11/06/2019 TECHNIQUE: MRI of the brain was performed from the vertex to the skull base utilizing various T1 and T2 weighted sequences. Following the IV administration of 10 mL of Gadavist contrast, additional enhanced images were obtained. FINDINGS: Sagittal T1, axial diffusion, proton density and T2 weighted axial, coronal FLAIR, and pre and post axial T1-weighted images were acquired. These were supplemented with post gadolinium coronal T1 weighted images. No intra or extra-axial mass lesions are visualized. Axial diffusion-weighted images reveal no evidence of acute or subacute infarction. There is mild ventricular prominence which is felt to be secondary to volume los s Proton density T2-weighted and FLAIR images reveal mild foci of increased T2 signal within the white matter, likely on a small vessel basis. There are no abnormal flow voids. There is no evidence of pathologic enhancement. IMPRESSION: 1. No acute intracranial findings 2. No evidence of acute or subacute infarction 3. No evidence of intracranial mass. ACT 112: Negative or not required by law. Electronically signed by: Martell Guerrero M.D. 11/06/2019 5:50 PM PG Care Time/CCT Total # of Minutes Spent Total Time Spent with Patient: Total time spent is greater than 50% in coordination of care (as documented) at patient's floor/unit and/or counseling patient: Coding Level of Care Code 50656 Initial Inpt Care Lvl 3 Diagnoses TIA (transient ischemic attack) G45.9 Paroxysmal atrial fibrillation I48.0 HTN (hypertension), benign I10 Diabetes mellitus E11.9 Acute right-sided weakness R53.1 Dysarthria R47.1 Time Spent (min) 75
--- NOTE | 2019-11-07 13:13 | Electrocardiogram Report ---
Test Reason : Blood Pressure : / mmHG Vent. Rate : 048 BPM Atrial Rate : 048 BPM P-R Int : 186 ms QRS Dur : 078 ms QT Int : 450 ms P-R-T Axes : 001 002 023 degrees QTc Int : 402 ms Sinus bradycardia Otherwise normal ECG When compared with ECG of 13-JAN-2016 13:17, Criteria for Inferior infarct are no longer Present Confirmed by Dinh Rodas ([id number]) on 11/07/2019 1:13:31 PM Referred By: Confirmed By:Dinh Rodas
[2019-11-07] MEDS ORDERED: STROKE PATIENT DISCHARGE STA (15:00)
--- NOTE | 2019-11-07 15:12 | Discharge Summary ---
Date of Service November 07, 2019 Admission HPI Per Admitting Provider This patient is an 79-year-old male with a history of paroxysmal atrial fibrillation on Xarelto, DM 2, HTN, gout, back pain and arthritis, GERD, BPH, nephrolithiasis, who presents to the ER with right-sided weakness and right- sided facial droop with slurred speech. The patient was last known well when seen by his son around 9:30 PM last evening before bed. The son reports when he woke up this morning around 545, his dad was already sitting in a chair in the living room and he noticed when his dad stood up and walked into the kitchen that he kept running his right side into things in his right arm was flopping around. He also noticed a right-sided facial droop at that time and slurred speech. The son reported that he thought maybe it could be due to the patient just taking his medications as a side effect and decided to wait a few hours and see if it would get better. The son went for a walk and when he came home, noted that his dad was still having significant slurred speech and persistent right upper extremity weakness. The patient was able to walk. The patient in the ER was already improving with his strength but continued with facial droop and slurred speech to some degree although much improved as per the son. A telemetry stroke neuro consult was obtained from [facility]-they recommended CT angiogram of the head neck which just showed approximately 60% bilateral vertebral artery stenosis. No TPA indicated as last known well was last night and patient symptoms were improving, as well as the fact that he is on Xarelto. He was quite hypertensive in the ER and bradycardic in the 40s in a sinus rhythm. The patient denied headache or lightheadedness, no changes in vision, he is at baseline extremely hard of hearing. The patient denied chest pain or shortness of breath, no palpitations or passing out. Denied nausea or abdominal pain. No recent fevers/chills/sweats. The patient denied any recent cough or cold symptoms. He has been isolated at home and lives with his son. Principal Diagnosis Transient ischemic attack Discharge Exam Constitutional WD/WN, vitals as above Eyes PERRL, conjunctivae normal, anicteric sclerae ENMT external ear and nose normal, oropharynx normal Neck trachea midline, no thyromegaly Respiratory normal respiratory effort, lungs clear to auscultation Cardiovascular Rate/Rhythm: + bradycardic and + irregularly irregular Heart Sounds: normal S1 and normal S2 Vessels: no JVD Extremities: normal capillary refill; no edema Gastrointestinal (Abdomen) normal bowel sounds, soft, nontender, no hepatosplenomegaly Musculoskeletal no cyanosis or clubbing, extremities motor strength 5/5 Skin no rashes, warm and dry Neurologic patellar DTR's 2+ bilat, sensation intact and PERRL, EOMI, accommodation nl, no face palsy, no dysarthria Psychiatric A+Ox3, euthymic affect Lymphatic no cervical or axillary lymphadenopathy Discharge Data Allergies Allergy/AdvReac Type Severity Reaction Status Date / Time No Known Allergies Allergy Unknown Verified 01/13/16 13:06 Consultations 11/06/19 12:03 ED Decision to Admit Stat 11/06/19 14:23 Consult Case Management - Discharge Planning Routine Consult Neurology Routine Ordered Studies 11/06/19 11:16 CT angio head w con Stat CT angio neck with con Stat CT head/brain wo con Stat 11/06/19 15:29 MR brain wo/w con Urgent Hospital Course (1) TIA (transient ischemic attack): Presented with right-sided weakness and right facial droop, slurred speech, significantly elevated blood pressures -Admit to PCU MRI brain without any evidence of acute ischemic stroke evidence of atherosclerosis on CTA head and neck, no severe stenosis to suggest etiology already on anticoagulation for h/o paroxysmal afib Dr. Kirkpatrick evaluated, he recommends adding daily aspirin 81mg daily continue on Simvastatin 40mg, no need for high intensity therapy Hb A1c is 6.0% so it is at goal for blood pressure control, continue on Atenolol 12.5mg daily (he only takes this in the morning under direction of cardiology) will add Lisinopril 20mg daily recommend follow up in one week with PCP for blood pressure check 4-6 weeks for follow up with neurology if possible (2) Acute right-sided weakness: As above completely resolved (3) Hypertensive urgency: Blood pressure elevated on admission at 198/83, likely response to TIA Permissive hypertension as above, resume Atenolol add Lisinopril 20mg daily follow up one week for BP check, adjust medication dosing as needed (4) Paroxysmal atrial fibrillation: History of such, follows with Dr. Vaughn of [facility] cardiology In sinus bradycardia here with rates in the 50's -Continue atenolol 12.5 mg p.o. DAILY (this is how he takes at home, under direction of cardiology) -Telemetry monitoring -Continue Xarelto 15 mg daily (5) MCFP (current) use of anticoagulants: Continue Xarelto for history of A. fib (6) Diabetes mellitus: Patient on glimepiride at home-we will hold this while admitted -Sliding scale insulin, Accu-Cheks q. before meals at bedtime -Check hemoglobin A1c - 6% so he is at goal as far as secondary stroke prevention (7) HTN (hypertension), benign: see above (8) Gout: No acute flares, follows with rheumatology -Continue prednisone 5 mg daily -Continue allopurinol 100 mg daily (9) BPH (benign prostatic hyperplasia): No acute issues -Continue tamsulosin 0.4 mg p.o. nightly (10) GERD (gastroesophageal reflux disease): No acute issues -Continue PPI daily (11) ARABELLA (acute kidney injury): this was initially suspected Cr is 1.36 today, was 1.44 yesterday making adequate urine more accurately reflects his CKD, would not classify this as ARABELLA (12) DVT prophylaxis: Xarelto Disposition - d/c to home Total Time Total Time Spent Total Time Spent (In Minutes): 32 minutes Total Time Includes: Examination of the Patient, Discharge Planning, Medication Reconciliation and Communication With Other Providers (discussion with Dr. Kirkpatrick) Discharge Plan Discharge Items Patient Disposition: Home - Self-Care Reason For Visit: STROKE Discharge Diagnosis: Transient ischemic attack Atrial fibrillation Condition on Discharge: Good Goals: improve medical management of stroke risk factors follow low fat, low sodium diet Activity: Resume your previous activity Driving/Machine Use: Resume 3 days after discharge Weightbearing: Full weightbearing Non-emergency contact: Primary Care Provider and Neurologist Call non-emergency contact if: you have any medication questions and your symptoms worsen Follow-up/Referrals: Harper Garcia CRNP [Primary Care Provider] - (one week, needs seen for stroke follow up and blood pressure check in the office) Diet: Carb Consistent or DM2 and Heart Healthy Addtl Attending Provider Instructions: Medications: - ATENOLOL: continue to take 12.5mg just once in the morning - LISINOPRIL: 20mg daily, this is new blood pressure medication, will give you a dose prior to discharge, start tomorrow at home - ASPIRIN: 81mg daily, Dr. Kirkpatrick, neurology, recommends taking this Transient ischemic attack as we discussed, there were no clear changes on the MRI of your brain neurology has diagnosed you with a TIA recommend adding aspirin 81mg daily and need to improve blood pressure control will add Lisinopril to the Atenolol, please follow up in one week with PCP for blood pressure check in the office continue simvastatin for cholesterol control continue to follow a diabetic diet, your diabetes is well controlled at this time with HbA1c of 6.0% Risk Factors for Stroke: You can reduce your chances of stroke by working with your medical provider to adopt a healthy lifestyle. Some specific ways to lower your chance of stroke are: * If you are a smoker, now is the time to stop smoking cigarettes * If you are diabetic, improve the control of your blood sugars * Avoid excessive amounts of alcohol * Control high blood pressure * Lose weight if you are overweight * Be sure to lead an active lifestyle * Eat a healthy diet low in salt, cholesterol and fat You should know about other risk factors for stroke that you are unable to control. These include: * Age 55 years or older * Male gender * Certain racial groups: , or / * Family History of Stroke, Mini stroke or Heart Attack * Sickle Cell Disease Follow Up: It is important for you to keep your follow up appointments with your medical provider. Who to Call and When: Medical Emergencies: Call 911 immediately if you experience any of the following warning signs and symptoms of Stroke: * Sudden numbness or weakness of the face, arm or leg, especially on one side of the body * Sudden confusion, trouble speaking or understanding * Sudden trouble seeing in one or both eyes * Sudden trouble walking, dizziness, loss of balance or coordination * Sudden severe headache with no cause Do not delay calling 911 if you experience any warning signs or symptoms of a stroke. Delay in seeking medical attention may affect what treatments can be given to you. . Pending Studies at Discharge: No Stand-Alone Forms: My [facility] [employer] Information, Smoking Cessation Medications and DC Order Prescriptions: New lisinopril 20 mg tablet 20 mg PO DAILY Qty: 30 RF: 3 atenolol 25 mg tablet 12.5 mg PO DAILY Qty: 15 RF: 2 aspirin [Aspirin Low Dose] 81 mg tablet,delayed release (DR/EC) 81 mg PO DAILY Qty: 30 RF: 5 Continued omeprazole 40 mg capsule,delayed release(DR/EC) 40 mg PO DAILY RF: 0 simvastatin 40 mg tablet 40 mg PO HS RF: 0 glimepiride 2 mg tablet 2 mg PO QAM RF: 0 Xarelto 15 mg tablet 15 mg PO PM RF: 0 acetaminophen 325 mg Tablet 650 mg PO Q6 PRN (Reason: Pain) RF: 0 prednisone 5 mg tablet 5 mg PO DAILY RF: 0 allopurinol 100 mg tablet 100 mg PO DAILY RF: 0 tamsulosin 0.4 mg capsule 0.4 mg PO HS RF: 0 Discontinued atenolol 25 mg tablet 12.5 mg PO BID RF: 0 Discharge Orders: Discharge Order (Routine); Ordered 11/07/19 Ordered By: Yassine Saenz/Other Patient Handouts: Hypoglycemia, TIA, Atherosclerosis Aspirin Therapy, Atenolol tablets, Lisinopril tablets Admission Data Admit Date/Time: 11/06/19 13:22 Attending Provider: Yassine Kulkarni Admit Provider: Mulu Rivera Primary Care Provider: Harper Garcia Other Providers: Mulu Rivera ; Jordy Esparza Other Interventions: Discharge Summary Assessment (RN) Last Done: 11/07/19 15:53 DC Date/Time DO NOT enter until pt leaves facility: 11/07/19 16:40 Coding Level of Care Code D/C Day Management >30 mins Diagnoses TIA (transient ischemic attack) G45.9 Acute right-sided weakness R53.1 Hypertensive urgency I16.0 Paroxysmal atrial fibrillation I48.0 MCFP (current) use of anticoagulants Z79.01 Diabetes mellitus E11.9 HTN (hypertension), benign I10 Gout M10.9 BPH (benign prostatic hyperplasia) N40.0 GERD (gastroesophageal reflux disease) K21.9 ARABELLA (acute kidney injury) N17.9 DVT prophylaxis Z29.9
--- NOTE | 2019-11-07 15:34 | Pharmacy Report ---
Pharmacist Stroke Counseling - Date of Service November 07, 2019 - Scope: Pharmacy has been consulted to provide medication discharge counseling for this patient admitted with [ischemic stroke] [hemorrhagic stroke] [transient ischemic attack] as per the Pharmacist Discharge Counseling for Stroke Patients Protoc . - Medications on Discharge: Home Medications Medication Instructions Recorded Confirmed acetaminophen 650 mg PO Q6 PRN 11/06/19 11/06/19 allopurinol 100 mg PO DAILY 11/06/19 11/06/19 atenolol 12.5 mg PO DAILY glimepiride 2 mg PO QAM 11/06/19 11/06/19 omeprazole 40 mg PO DAILY 11/06/19 11/06/19 prednisone 5 mg PO DAILY 11/06/19 11/06/19 rivaroxaban [Xarelto] 15 mg PO PM 11/06/19 11/06/19 simvastatin 40 mg PO HS 11/06/19 11/06/19 tamsulosin 0.4 mg PO HS 11/06/19 11/06/19 New Rx's Medication Instructions Recorded aspirin 81 mg PO DAILY lisinopril 20 mg PO DAILY #30 tab 11/07/19 - Action: The above medications, specifically ones for stroke treatment/prophylaxis, have been reviewed in detail with the patient and/or patient insurance verification representative(s) prior to discharge. This includes indication, common adverse reactions, drug interactions, and medication administration. Medication counseling has been employed using the teach-back method to ensure understanding. - Outcome: The patient and/or patient insurance verification representative(s) have demonstrated understanding of the medications. Please note, they are aware that the pharmacist will call them within 72 hours post-discharge to confirm that the appropriate medications are being taken and answer any further medication related questions the patient might have at that time. Contact information Individual to be contacted: patient Relationship to patient (if applicable): n/a Phone number: [phone] Best time to call: any Additional comments: Spoke with patient over the phone to provide discharge counseling. Patient informs me that he lives at home with his son who helps to manage his medications. Confirmed with provider new medications on discharge were lisinopril 20 mg daily, and aspirin 81 mg daily. Spoke with patient regarding new medications and side effects. Provider had mentioned to me that the atenolol 12.5 mg daily was actually a medication the patient had been on prior to admission and was just listed incorrectly on med rec. Confirmed all other medications with patient. Recommended he sits down with his son when he gets home to review discharge papers and makes sure he has all of his medications. States he already uses a pill box at home. No other questions on discharge from patient. Aware we will follow up with him in a couple days. Thank you for allowing pharmacy to be involved in the care of this patient. Please call [phone] or [phone] with any additional questions
[2019-11-07] MEDS ORDERED: lisinopriL 20 MG TAB PO STA (15:46)
--- NOTE | 2019-11-08 09:57 | Pharmacy Report ---
Pharmacist Post D/C Phone Note - Phone Note: Date of phone call: November 08, 2019. Individual with whom pharmacist spoke to: JAGDEEP MENDEZ SR The following questions were reviewed during the phone call with responses listed below each: Can you tell me the medications that you are currently taking as well as when and how you take each medication? -See Table Below When have you missed any doses of your medications? - Patient was just discharged yesterday, will be picking up new medications today What side effects are you having from your medications, specifically, the new medications you were started on? - None, no dizziness, no bruising/bleeding What questions do you have about your medications? - Patient wanted to know if new medications would interact with his current ones. I told him there would be no issues. What problems are you having obtaining your medications? - None. 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 I reminded him that both of these need to be started today. When is your next appointment with your primary care doctor? - Discharge instructions note to f/u in 1 week for BP check As per the Pharmacist Discharge Counseling for Stroke Patients Protocol, this phone call has been completed within 72 hours of discharge. Thank you for allowing us to be involved in the care of this patient. - Home Medications: Home Medications Medication Instructions Recorded Confirmed Xarelto 15 mg PO PM 11/06/19 11/06/19 acetaminophen 650 mg PO Q6 PRN 11/06/19 11/06/19 allopurinol 100 mg PO DAILY 11/06/19 11/06/19 glimepiride 2 mg PO QAM 11/06/19 11/06/19 omeprazole 40 mg PO DAILY 11/06/19 11/06/19 prednisone 5 mg PO DAILY 11/06/19 11/06/19 simvastatin 40 mg PO HS 11/06/19 11/06/19 tamsulosin 0.4 mg PO HS 11/06/19 11/06/19 New Rx's Medication Instructions Recorded aspirin [Aspirin Low Dose] 81 mg PO DAILY #30 tab 11/07/19 atenolol - not a new med, continued from prior to admission 12.5 mg PO DAILY #15 tab 11/07/19 lisinopril 20 mg PO DAILY #30 tab 11/07/19
== END 2019-11-07 16:40 | disposition home or self-care (01) | DRG 69 ==
LOC: ED 11:01 → 2S 13:22 → SUATTDRO 13:22 → 2S 13:47

== ENCOUNTER 2022-01-09 21:14 | Inpatient (IN) ==
[2022-01-09] MEDS ORDERED: SODIUM CHLORIDE 0.9% 1000ML 500 ML IV ONE (21:42)
[2022-01-09] MEDS ORDERED: cefTRIAXone SODIUM 2,000 MG/70 ML BAG IV STA (21:43)
[2022-01-09] MEDS ORDERED: ACETAMINOPHEN 1,000 MG/100 ML VIAL IV STA (21:47)
--- NOTE | 2022-01-09 22:14 | Emergency Department Note ---
History of Present Illness General Chief complaint: Leg Injury/Pain Stated complaint: NEUROPOTHY IN LEGS Time Seen by Provider: 01/09/22 21:29 History of Present Illness This 81-year-old with dementia who lives with the son that gives a history presents to the ER complaining of worsening dementia with increasing leg pain and swelling concerning for infection though started on Keflex today by the GP Location: Lower legs Quality: Red and swollen Severity: Moderate Duration: Past few days Timing: Started few days ago Context: Son was concerned and brought the patient in Modifying factors: better with rest; worse with palpation Patient has dementia and unable to obtain history. History is obtained from the son. Son states he has been more confused this past few days and his legs have become more red and swollen. The family doctor advised him to come to the ER for admission. Home Medications Medication Instructions Recorded Confirmed Type allopurinol 100 mg tablet 100 mg PO DAILY 11/06/19 01/09/22 History glimepiride 2 mg tablet 2 mg PO QAM 11/06/19 01/09/22 History omeprazole 40 mg capsule,delayed 40 mg PO DAILY 11/06/19 01/09/22 History release prednisone 5 mg tablet 5 mg PO DAILY 11/06/19 01/09/22 History rivaroxaban 15 mg tablet (Xarelto) 15 mg PO PM 11/06/19 01/09/22 History tamsulosin 0.4 mg capsule 0.4 mg PO HS 11/06/19 01/09/22 History atenolol 25 mg tablet 12.5 mg PO DAILY #15 tab 11/07/19 01/09/22 Rx lisinopril 20 mg tablet 20 mg PO DAILY #30 tab 11/07/19 01/09/22 Rx atorvastatin 40 mg tablet 40 mg PO DAILY 11/24/21 01/09/22 History empagliflozin 10 mg tablet 10 mg PO DAILY 11/24/21 01/09/22 History (Jardiance) mupirocin 2 % topical ointment 1 applic TOPICAL TID 11/24/21 01/09/22 History torsemide 10 mg tablet 10 mg PO DAILY 11/24/21 01/09/22 History acetaminophen 650 mg 1,300 mg PO Q8H PRN 01/01/22 01/09/22 History tablet,extended release cephalexin 500 mg capsule 500 mg PO BID 01/09/22 01/09/22 History Allergies Allergy/AdvReac Type Severity Reaction Status Date / Time coal tar AdvReac Intermediate INCREASES Verified 01/09/22 21:43 BLEEDING Past Med/Surg History Medical History Atrial fibrillation BPH (benign prostatic hyperplasia) Chronic back pain Diabetes mellitus GERD (gastroesophageal reflux disease) Gout HTN (hypertension), benign Nephrolithiasis Paroxysmal atrial fibrillation Surgical History S/P cataract surgery Family History Mother , age 81 of ovarian cancer Ovarian cancer Father , in his early 80s of [place] and stroke. Myocardial infarction Stroke Other Family history non-contributory Social History Smoking Status: Never smoker Hx Alcohol Use: No Hx Substance Use: No Preferred Language: [place] Communication Ability: Effective Bi Application Developer Required: No Beliefs That Will Affect Care: None Current Living Situation: Family Current Living Situation Comment: Lives with his son current occupational status: retired current occupation: Retired in his early 70s from [employer] other: he worked outside on [employer] Feels Safe at Home: Yes Assistive Devices: None Review of Systems Unobtainable due to cognitive status Physical Exam Vital Signs Vital Signs - 24 hr 01/09/22 21:19 01/09/22 21:30 01/09/22 21:45 Temperature 36.7 C 36.7 C 36.6 C Temperature Source Temporal Artery Scan Oral Oral Pulse Rate 98 H 96 H Pulse Rate [Apical] 96 H 96 H Pulse Rhythm Regular Pulse Rhythm [Apical] Regular Regular Pulse Strength [Apical] Normal Normal Respiratory Rate 18 18 18 Respiratory Effort / Characteristics Non-Labored Spontaneous Non-Labored Spontaneous Non-Labored Spontaneous Respiratory Depth Normal Normal Normal Respiratory Pattern Regular Regular Blood Pressure 195/109 H Blood Pressure [Right Arm] 181/130 H 183/130 H Blood Pressure Mean 137 Blood Pressure Mean [Right Arm] 147 147 Blood Pressure Position [Right Arm] Lying Lying Pulse Oximetry 97 98 96 Oxygen Delivery Method Room Air Room Air Room Air Sepsis Recent Fever Within 48 Hours No Sepsis New/Unexplained Change in Mental Status No Sepsis Action Taken by Nursing No Action Required 01/09/22 23:00 Temperature Temperature Source Pulse Rate Pulse Rate [Apical] 82 Pulse Rhythm Pulse Rhythm [Apical] Regular Pulse Strength [Apical] Normal Respiratory Rate 18 Respiratory Effort / Characteristics Non-Labored Spontaneous Respiratory Depth Normal Respiratory Pattern Regular Blood Pressure Blood Pressure [Right Arm] 162/101 H Blood Pressure Mean Blood Pressure Mean [Right Arm] 121 Blood Pressure Position [Right Arm] Lying Pulse Oximetry 97 Oxygen Delivery Method Room Air Sepsis Recent Fever Within 48 Hours Sepsis New/Unexplained Change in Mental Status Sepsis Action Taken by Nursing VITALS: Vitals are noted on the nurse's note and reviewed by myself. Vital signs hypertensive. GENERAL: Elderly demented male appears comfortable in no acute distress, nondiaphoretic, well-developed well-nourished. SKIN: Lower legs erythematous right greater than left with drainage, the rest of the skin was without rashes, erythema, edema, or bruising. There is no tenting of the skin. Capillary reflex less than 2 seconds. HEAD: Normocephalic atraumatic. EARS: External auditory canals clear, EYES: Pupils equal round and reactive to light and accommodation. Conjunctivae without injection, sclerae without icterus. Extraocular movements intact. NOSE: Patent, turbinates without inflammation or discharge. MOUTH: Mucous membranes moist. Pharynx without erythema or exudate. Uvula midline. Airway patent. Tongue does not deviate. NECK: Supple without nuchal rigidity. No lymphadenopathy. No thyromegaly. Cervical spine is nontender. No JVD. HEART: Regular rate and rhythm LUNGS: Clear to auscultation bilaterally without wheezes, rales or rhonchi. No retractions or accessory muscle use. ABDOMEN: Positive bowel sounds x 4. Normal tympanic percussion. Soft, nontender, without masses or organomegaly. Thapa sign negative. No guarding or rebound tenderness. No CVA tenderness MUSCULOSKELETAL: No muscle atrophy noted. NEURO: Patient was alert but not oriented to person place and time. Normal sensation to light and sharp touch. No focal neurological deficits. Course Administered Medications Discontinued Medications Sodium Chloride (Nss 1000ml) 500 mls @ 999 mls/hr IV .Q31M ONE Stop: 01/09/22 22:12 Last Infusion: 01/09/22 22:20 Dose: 0 mls/hr Documented by: [id number] Admin: 01/09/22 22:07 Dose: 999 mls/hr Documented by: [id number] Ceftriaxone Sodium (Rocephin) 2,000 mg in 70 mls @ 140 mls/hr IV NOW STA Stop: 01/09/22 22:12 Last Infusion: 01/09/22 22:44 Dose: 0 mls/hr Documented by: [id number] Admin: 01/09/22 22:08 Dose: 140 mls/hr Documented by: [id number] Acetaminophen (Ofirmev) 1,000 mg in 100 mls @ 400 mls/hr IV NOW STA Stop: 01/09/22 22:01 Last Infusion: 01/09/22 22:20 Dose: 0 mls/hr Documented by: [id number] Admin: 01/09/22 22:07 Dose: 400 mls/hr Documented by: [id number] Medical Decision Making Medical Records Attestation: I reviewed the patient's medical records. Home Medications Current Medication List: was personally reviewed by me Laboratory Data Attestation: I reviewed the patient's lab results. Result diagrams: 01/09/22 22:00 01/09/22 22:00 Lab Results 01/09/22 01/09/22 01/09/22 Range/Units 21:51 22:00 22:00 WBC 8.12 (4.8-10.8) K/uL RBC 5.30 (4.7-6.1) M/uL Hgb 15.6 (14.0-18.0) g/dL Hct 46.0 (42-52) % MCV 86.8 (80-100) fL MCH 29.4 (25-34) pg MCHC 33.9 (32-36) g/dL RDW Std Deviation 40.2 (36.4-46.3) fL RDW Coeff of Bryanna 12.6 (11.5-14.5) % Plt Count 209 (130-400) K/uL MPV 10.6 H (7.4-10.4) fL Immature Gran % (Auto) 0.4 % Neut % (Auto) 54.9 % Lymph % (Auto) 28.3 % [place] % (Auto) 11.5 % Eos % (Auto) 4.4 % Baso % (Auto) 0.5 % Neut # (Auto) 4.46 (1.4-6.5) K/uL Lymph # (Auto) 2.30 (1.2-3.4) K/uL [place] # (Auto) 0.93 H (0.11-0.59) K/uL Eos # (Auto) 0.36 (0-0.5) K/uL Baso # (Auto) 0.04 (0-0.2) K/uL Immature Gran # (Auto) 0.03 H (0.00-0.02) K/uL PT 10.6 (9.0-12.0) Seconds INR 1.0 (0.9-1.1) APTT 26.6 (21.0-31.0) Seconds PTT Ratio 1.0 Sodium (136-145) mmol/L Potassium (3.5-5.1) mmol/L Chloride (98-107) mmol/L Carbon Dioxide (21-32) mmol/L Anion Gap (3-11) BUN (6-23) mg/dl Creatinine (0.6-1.4) mg/dl Est Cr Clr Drug Dosing ml/min Est GFR ( Amer) ml/min Est GFR (Non-Af Amer) ml/min BUN/Creatinine Ratio (10-20) Glucose (70-99(Fasting)) mg/dl POC Glucose 218 H (70-99) mg/dl Lactate (0.4-2.0) mmol/L Calcium (8.5-10.1) mg/dl Magnesium (1.7-2.4) mg/dl Total Bilirubin (0.2-1.0) mg/dl AST (13-39) U/L ALT (7-52) U/L Alkaline Phosphatase (34-104) U/L Troponin I High Sens (0-20) pg/ml Total Protein (6.0-8.3) gm/dl Albumin (3.4-5.0) gm/dl Globulin (2.5-4.0) gm/dl Albumin/Globulin Ratio (0.9-2) Procalcitonin (0-0.5) ng/ml SARS-CoV-2 (PCR) (Negative) Influenza Type A (PCR) (Neg) Influenza Type B (PCR) (Neg) RSV (RT-PCR) (Neg) 06/16/22 06/16/22 06/16/22 Range/Units 22:00 22:00 22:00 WBC (4.8-10.8) K/uL RBC (4.7-6.1) M/uL Hgb (14.0-18.0) g/dL Hct (42-52) % MCV (80-100) fL MCH (25-34) pg MCHC (32-36) g/dL RDW Std Deviation (36.4-46.3) fL RDW Coeff of Bryanna (11.5-14.5) % Plt Count (130-400) K/uL MPV (7.4-10.4) fL Immature Gran % (Auto) % Neut % (Auto) % Lymph % (Auto) % [place] % (Auto) % Eos % (Auto) % Baso % (Auto) % Neut # (Auto) (1.4-6.5) K/uL Lymph # (Auto) (1.2-3.4) K/uL [place] # (Auto) (0.11-0.59) K/uL Eos # (Auto) (0-0.5) K/uL Baso # (Auto) (0-0.2) K/uL Immature Gran # (Auto) (0.00-0.02) K/uL PT (9.0-12.0) Seconds INR (0.9-1.1) APTT (21.0-31.0) Seconds PTT Ratio Sodium 137 (136-145) mmol/L Potassium 4.0 (3.5-5.1) mmol/L Chloride 103 (98-107) mmol/L Carbon Dioxide 29 (21-32) mmol/L Anion Gap 5 (3-11) BUN 21 (6-23) mg/dl Creatinine 1.33 (0.6-1.4) mg/dl Est Cr Clr Drug Dosing 47.6 ml/min Est GFR ( Amer) 56.9 ml/min Est GFR (Non-Af Amer) 49.1 ml/min BUN/Creatinine Ratio 15.8 (10-20) Glucose 225 H (70-99(Fasting)) mg/dl POC Glucose (70-99) mg/dl Lactate 1.0 (0.4-2.0) mmol/L Calcium 9.1 (8.5-10.1) mg/dl Magnesium 2.0 (1.7-2.4) mg/dl Total Bilirubin 0.7 (0.2-1.0) mg/dl AST 14 (13-39) U/L ALT 12 (7-52) U/L Alkaline Phosphatase 107 H (34-104) U/L Troponin I High Sens 4.8 (0-20) pg/ml Total Protein 6.9 (6.0-8.3) gm/dl Albumin 4.0 (3.4-5.0) gm/dl Globulin 2.9 (2.5-4.0) gm/dl Albumin/Globulin Ratio 1.4 (0.9-2) Procalcitonin < 0.05 (0-0.5) ng/ml SARS-CoV-2 (PCR) (Negative) Influenza Type A (PCR) (Neg) Influenza Type B (PCR) (Neg) RSV (RT-PCR) (Neg) 01/09/22 Range/Units 22:35 WBC (4.8-10.8) K/uL RBC (4.7-6.1) M/uL Hgb (14.0-18.0) g/dL Hct (42-52) % MCV (80-100) fL MCH (25-34) pg MCHC (32-36) g/dL RDW Std Deviation (36.4-46.3) fL RDW Coeff of Bryanna (11.5-14.5) % Plt Count (130-400) K/uL MPV (7.4-10.4) fL Immature Gran % (Auto) % Neut % (Auto) % Lymph % (Auto) % [place] % (Auto) % Eos % (Auto) % Baso % (Auto) % Neut # (Auto) (1.4-6.5) K/uL Lymph # (Auto) (1.2-3.4) K/uL [place] # (Auto) (0.11-0.59) K/uL Eos # (Auto) (0-0.5) K/uL Baso # (Auto) (0-0.2) K/uL Immature Gran # (Auto) (0.00-0.02) K/uL PT (9.0-12.0) Seconds INR (0.9-1.1) APTT (21.0-31.0) Seconds PTT Ratio Sodium (136-145) mmol/L Potassium (3.5-5.1) mmol/L Chloride (98-107) mmol/L Carbon Dioxide (21-32) mmol/L Anion Gap (3-11) BUN (6-23) mg/dl Creatinine (0.6-1.4) mg/dl Est Cr Clr Drug Dosing ml/min Est GFR ( Amer) ml/min Est GFR (Non-Af Amer) ml/min BUN/Creatinine Ratio (10-20) Glucose (70-99(Fasting)) mg/dl POC Glucose (70-99) mg/dl Lactate (0.4-2.0) mmol/L Calcium (8.5-10.1) mg/dl Magnesium (1.7-2.4) mg/dl Total Bilirubin (0.2-1.0) mg/dl AST (13-39) U/L ALT (7-52) U/L Alkaline Phosphatase (34-104) U/L Troponin I High Sens (0-20) pg/ml Total Protein (6.0-8.3) gm/dl Albumin (3.4-5.0) gm/dl Globulin (2.5-4.0) gm/dl Albumin/Globulin Ratio (0.9-2) Procalcitonin (0-0.5) ng/ml SARS-CoV-2 (PCR) NEGATIVE (Negative) Influenza Type A (PCR) Negative (Neg) Influenza Type B (PCR) Negative (Neg) RSV (RT-PCR) Negative (Neg) Imaging Data Attestation: I personally reviewed and interpreted this imaging study as follows: MDM Narrative Prior records reviewed and summarized as above. Triage Nursing notes reviewed. Additional history obtained from family. The patient's history was concerning for swelling and redness of the skin. Differential diagnosis: Etiologies such as cellulitis, abscess, MRSA infection, DVT, necrotizing fasciitis, dermatitis, drug eruption, as well as others were entertained.. Physical examination: The physical examination was consistent with cellulitis ER treatment provided: Rocephin, IV fluids On reassessment the patient felt better. Diagnostics interpreted by me: EKG ordered for increased confusion EKG: Irregularly irregular ventricular rate [address]-T wave changes. Impression A. fib rate controlled interpreted by myself EKG shows no interval abnormalities such as QT prolongation or WPW. There are no findings to suggest Brugada syndrome. Cardiac monitoring in the emergency department reveals no tachycardic or bradycardic dysrhythmia. Hypertrophic cardiomyopathy was considered but there are no clear historical elements pointing toward this. EKG is not suggestive. The QRS voltage is not extremely large and there are no suggestive Q waves. The labs revealed no worrisome leukocytosis Wound culture pending, blood cultures pending Negative lactic. Imaging studies: Chest x-ray with cardiomegaly without acute consolidation pneumothorax or free air per my interpretation Consultation: A consultation was placed with the hospitalist. The case was discussed and diagnostics were reviewed. The patient was evaluated in the ER for further treatment. This appears to be extensive lower leg cellulitis. Patient is more confused than baseline. Medicine was consulted. He will be admitted. By the evaluation outlined above emergent etiologies such as abscess, necrotizing fasciitis, DVT, as well as others were deemed relatively unlikely. The family informed about the findings as listed above. All questions were ans wered and pleased with the treatment. The chart was completed utilizing [employer] Speech voice recognition software. Grammatical errors, random word insertions, pronoun errors, and incomplete sentences are an occassional consequence of this system due to software limitations, ambient noise, and hardware issues. Any formal questions or concerns about the content, text, or information contained within the body of this dictation should be directly addressed to the physician assistant in nursing for clarification. Impression & Plan Cellulitis of lower leg, AMS (altered mental status) Discharge Plan Visit Data Chief Complaint: Leg Injury/Pain Stated Complaint: NEUROPOTHY IN LEGS ED Provider: Aric Tony ED Midlevel Provider: Archana Lundberg Discharge Problem: Cellulitis of lower leg, AMS (altered mental status) Patient Disposition: Admitted As Inpatient Condition: Fair Forms Stand Alone Forms: My [facility] Listen Up Prescriptions Prescriptions: No Action omeprazole 40 mg capsule,delayed release(DR/EC) 40 mg PO DAILY RF: 0 glimepiride 2 mg tablet 2 mg PO QAM RF: 0 Xarelto 15 mg tablet 15 mg PO PM RF: 0 prednisone 5 mg tablet 5 mg PO DAILY RF: 0 allopurinol 100 mg tablet 100 mg PO DAILY RF: 0 tamsulosin 0.4 mg capsule 0.4 mg PO HS RF: 0 lisinopril 20 mg tablet 20 mg PO DAILY Qty: 30 RF: 3 atenolol 25 mg tablet 12.5 mg PO DAILY Qty: 15 RF: 2 atorvastatin 40 mg tablet 40 mg PO DAILY RF: 0 torsemide 10 mg Tablet 10 mg PO DAILY RF: 0 Jardiance 10 mg Tablet 10 mg PO DAILY RF: 0 mupirocin 2 % Ointment 1 applic TOPICAL TID RF: 0 acetaminophen [Tylenol Arthritis] 650 mg Tablet Extended Release 1,300 mg PO Q8H PRN (Reason: Pain) RF: 0 cephalexin 500 mg capsule 500 mg PO BID RF: 0 Referrals Referrals: Larry Diego DO [Primary Care Provider] -
[2022-01-09 22:21] LABS: Basophils # (auto) 0.04 K/uL (0-0.2); Basophils % (auto) 0.5 %; Eosinophils # (auto) 0.36 K/uL (0-0.5); Eosinophils % (auto) 4.4 %; Hemoglobin 15.6 g/dL (14.0-18.0); Immature Granulocytes # (auto) 0.03 K/uL (0.00-0.02); Immature Granulocytes % (auto) 0.4 %; Lymphocytes % (auto) 28.3 %; Mean Corpuscular Hemoglobin 29.4 pg (25-34); Mean Corpuscular Hgb Conc 33.9 g/dL (32-36); Mean Corpuscular Volume 86.8 fL (80-100); Mean Platelet Volume 10.6 fL (7.4-10.4); Monocytes # (auto) 0.93 K/uL (0.11-0.59); Monocytes % (auto) 11.5 %; Neutrophils # (auto) 4.46 K/uL (1.4-6.5); Neutrophils % (auto) 54.9 %; Platelet Count 209 K/uL (130-400); RDW Coefficient of Variation 12.6 % (11.5-14.5); RDW Standard Deviation 40.2 fL (36.4-46.3); White Blood Count 8.12 K/uL (4.8-10.8)
[2022-01-09 22:32] LABS: Partial Thromboplastin Time 26.6 Seconds (21.0-31.0); Prothrombin Time 10.6 Seconds (9.0-12.0)
[2022-01-09 22:40] LABS: Albumin Globulin Ratio 1.4 (0.9-2); BUN Creatinine Ratio 15.8 (10-20); Bilirubin,Total 0.7 mg/dl (0.2-1.0); Calcium 9.1 mg/dl (8.5-10.1); Creatinine Clr Calc Pharmacy 47.6 ml/min; Est GFR (African American) 56.9 ml/min; Est GFR (Non-African American) 49.1 ml/min; Globulin 2.9 gm/dl (2.5-4.0); Total Protein 6.9 gm/dl (6.0-8.3)
[2022-01-09 22:42] LABS: Troponin I High Sensitivity 4.8 pg/ml (0-20)
--- NOTE | 2022-01-09 23:19 | Emergency Department Note ---
ED Visit Note I was consulted by the Advanced Practice Provider. I saw the patient personally and performed a substantive portion of the visit. This includes aspects of the HPI, MDM, diagnostic interpretations, and disposition/plan. .
[2022-01-09 23:24] LABS: Influenza A virus by PCR Negative (Neg); Influenza B virus by PCR Negative (Neg); RSV by PCR Negative (Neg); SARS CoV2 RNA(COVID-19) InHosp NEGATIVE (Negative)
[2022-01-10] MEDS ORDERED: hydrALAZINE HCL 20 MG/ML VIAL IV ONE (00:59)
[2022-01-10] MEDS ORDERED: POLYETHYLENE (MIRALAX) 17 GM PACK PO PRN (02:11)
[2022-01-10] MEDS ORDERED: hydrALAZINE HCL 20 MG/ML VIAL IV PRN (02:11)
[2022-01-10] MEDS ORDERED: DEXTROSE 50% 50 ML SYRINGE IV PRN (02:30)
[2022-01-10] MEDS ORDERED: GLUCAGON FOR INJ 1 MG VIAL IM PRN (02:30)
[2022-01-10] MEDS ORDERED: GLUCOSE 10 TAB/TUBE PO PRN (02:30)
[2022-01-10] MEDS ORDERED: GLUCOSE 40% GEL 15 GM TUBE PO PRN (02:30)
--- NOTE | 2022-01-10 02:52 | History and Physical Report ---
DATE OF ADMISSION: 01/09/2022. CHIEF COMPLAINT: Lower extremity cellulitis and wounds. HISTORY OF PRESENT ILLNESS: This is an 81-year-old male with past medical history significant for type 2 diabetes, hyperlipidemia, history of hyperkalemia, hypertension, history of sinus bradycardia, history of longstanding persistent atrial fibrillation, history of calculus of kidney, history of BPH, chronic kidney disease stage III, gout, aspirin intolerance. The patient lives with his son, was brought in because of ongoing infection of lower extremities. Son says this infection has been going on since last summer. He used to see the family doctor, office was closed and he did not follow through with doctors for a long time, and saw this [facility] doctor recently, and also advised to come to the hospital because he is a diabetic and infection is not getting better. The son says also since May he is getting more delirious and hallucinating at home. He speaks to the people who are not in the house. He is falling frequently. He has no concentration. Sometimes in the middle of night, he runs outside flashing light on the neighbor's house. He says that he is having a difficult time to take care of him at home. Son is also on disability. He wanted to be admitted to the hospital and decide what to do next. Son also says the patient had TIAs, mini strokes in the past. In October 2019, when he was in the hospital, MRI scan was done without any evidence of stroke. At that time, he had acute right-sided weakness, which has completely resolved. He is on Xarelto and atenolol for his AFib. He is on prednisone for gout. As per son, he eats regular food. Once in a while, when he eats fast he sometimes chokes. He ambulates without any support, but falls frequently. Denies any recent fevers. Denies any nausea or vomiting. Denies any abdominal pain. No recent diarrhea, he uses stool softeners for a long time for constipation. The patient is alert and awake, oriented to name only. Could not get much history from the patient. ALLERGIES: COAL TAR. PAST MEDICAL HISTORY: As mentioned above. PAST SURGICAL HISTORY: Cystouretheroscopy for stone removal, fissurectomy, sphincterotomy, tonsillectomy, cataracts, bilateral. MEDICATIONS: The patient is on Tylenol Arthritis 1000 mg p.o. q. 8 hours p.r.n., allopurinol 100 mg p.o. daily, atenolol 12.5 mg p.o. daily, atorvastatin 40 mg p.o. daily, cephalexin 500 mg p.o. b.i.d., Jardiance 10 mg p.o. daily, glimepiride 2 mg p.o. daily, lisinopril 20 mg p.o. daily, mupirocin one application topical t.i.d., omeprazole 40 mg p.o. daily, prednisone 5 mg p.o. daily, Flomax 0.4 mg p.o. at bedtime, torsemide 10 mg p.o. daily, Xarelto 15 mg p.o. p.m. FAMILY HISTORY: Significant for mother has colon cancer; father has diabetes, heart disorder and stroke. SOCIAL HISTORY: , no smoking, no alcohol, no drug use. REVIEW OF SYSTEMS: As per HPI. Rest of review of systems is negative. PHYSICAL EXAMINATION: GENERAL: The patient is old and frail, not in acute distress. VITAL SIGNS: Temperature 36.6, pulse 82, respiratory rate 18, blood pressure 162/101, oxygen 97% on room air. HEENT: Pupils equal, round and reactive to light. Oral mucosa moist. NECK: No JVD, no neck masses. CARDIOVASCULAR: S1 and S2 heard. Regular rate and rhythm. No murmur, no gallop. RESPIRATORY SYSTEM: Normal AP diameter. No accessory muscle use. No wheezing, no crackles. ABDOMEN: Soft. Bowel sounds are present, nontender, no distention. CENTRAL NERVOUS SYSTEM: Alert and awake, oriented to name only. No facial droop. Sometimes obeys simple commands. Moves extremities. EXTREMITIES: Bilateral lower extremity edema present with erythematous changes. On the right otto in the posterior aspect, a 4 x 4 cm open ulcer seen. LABORATORY DATA: WBC 8.1, hemoglobin 15.6, hematocrit 46, platelets 209. PT 10.6, INR 1, APTT 26.6. Sodium 137, potassium 4, chloride 103, bicarbonate 29, BUN 21, creatinine 1.3, serum glucose 225, lactate 1, calcium 9.1, magnesium 2, total bilirubin 0.7, AST 14, ALT 12, alkaline phosphatase 107. Troponin 1 high sensitivity 4.8. Procalcitonin less than 0.05. SARS-CoV-2 PCR negative. Influenza A and B PCR negative. RSV PCR negative. IMAGING DATA: Chest x-ray, no acute findings. EKG: Atrial fibrillation at the rate of 88, no significant change was found. ASSESSMENT AND PLAN: This is an 81-year-old male who presents with worsening dementia and hallucinations at home and son having a hard time taking care of him and also ongoing lower extremity infection and wounds. 1. Bilateral lower extremity cellulitis: Right lower extremity wound. ER started on Rocephin, which will be continued, wound care, monitor any for response. 2. Dementia: Worsening. Delirium, hallucinations at home. Son who is on disability having a hard time taking care of him, may need placement. Social service to help with placement. 3. Diabetes: Hold glimepiride and Jardiance. Will place on insulin sliding scale. Monitor the blood sugar, follow HbA1c level. 4. History of atrial fibrillation: On atenolol and Xarelto. 5. History of gout: On allopurinol and prednisone. 6. History of hypertension: On lisinopril. 7. Chronic diastolic congestive heart failure and lower extremity edema: On torsemide. 8. Gastroesophageal reflux disease: On PPI. 9. Benign prostatic hypertrophy: On Flomax. 10. Deep venous thrombosis prophylaxis: The patient is on Xarelto. DISPOSITION: Admit to medical floor. PT/OT. Social service to help with discharge planning. CODE STATUS: DNR/DNI as per my discussion with the son. Job ID: [id number] MTDD
[2022-01-10 04:10] LABS: Appearance Urine Clear (Clear); Bilirubin Urine Negative (Negative); Blood Urine Negative (Negative); Color Urine Yellow; Glucose Urine UA Trace (Negative); Ketones Urine Negative (Negative); Leukocyte Esterase Urine Negative (Negative); Nitrite Urine Negative (Negative); Protein Urine Negative (Negative); Specific Gravity Urine 1.016 (1.000-1.030); Urobilinogen Urine Negative (Negative)
[2022-01-10 06:27] LABS: Basophils # (auto) 0.03 K/uL (0-0.2); Basophils % (auto) 0.3 %; Eosinophils # (auto) 0.27 K/uL (0-0.5); Eosinophils % (auto) 2.8 %; Hematocrit (blood only) 46.5 % (42-52); Hemoglobin 15.8 g/dL (14.0-18.0); Immature Granulocytes # (auto) 0.01 K/uL (0.00-0.02); Immature Granulocytes % (auto) 0.1 %; Lymphocytes # (auto) 2.15 K/uL (1.2-3.4); Lymphocytes % (auto) 22.7 %; Mean Corpuscular Hemoglobin 29.4 pg (25-34); Mean Corpuscular Volume 86.6 fL (80-100); Mean Platelet Volume 10.3 fL (7.4-10.4); Monocytes # (auto) 1.11 K/uL (0.11-0.59); Monocytes % (auto) 11.7 %; Neutrophils # (auto) 5.92 K/uL (1.4-6.5); Neutrophils % (auto) 62.4 %; Platelet Count 200 K/uL (130-400); RDW Coefficient of Variation 12.6 % (11.5-14.5); Red Blood Count 5.37 M/uL (4.7-6.1); White Blood Count 9.49 K/uL (4.8-10.8)
[2022-01-10 06:58] LABS: Creatinine Clr Calc Pharmacy 54.3 ml/min; Est GFR (African American) 68.5 ml/min; Est GFR (Non-African American) 59.1 ml/min; Magnesium 1.8 mg/dl (1.7-2.4); Potassium 4.3 mmol/L (3.5-5.1)
[2022-01-10] MEDS: ACETAMINOPHEN 325 MG TAB PO PRN ×2 (07:06→19:27)
[2022-01-10 07:47] LABS: Estimated Average Glucose 237 mg/dl; Hemoglobin A1C 9.9 % (4.5-5.6)
--- NOTE | 2022-01-10 08:16 | XRay Report ---
SINGLE VIEW CHEST CLINICAL HISTORY: Sepsis. Lower extremity edema FINDINGS: An AP, portable, upright chest radiograph is compared to study dated 01/01/2022. The heart is enlarged noting atherosclerotic calcification of the thoracic aorta. The pulmonary vasculature is no ncongested. Chronic interstitial thickening is similar to previous. Scarring/atelectasis is noted at the lung bases. The lungs and pleural spaces are otherwise clear. No pneumothorax is seen. The skelet al structures are osteopenic. The bony thorax is grossly intact. IMPRESSION: Cardiomegaly with no active disease in the chest. ACT 112: Negative or not required by law. Electronically signed by: David Ramirez M.D. 01/10/2022 8:14 AM
[2022-01-10] MEDS: INSULIN ASPART PER UNIT SC SCH ×4 (08:25→21:01)
[2022-01-10] MEDS: predniSONE 5 MG TAB PO SCH (08:26)
[2022-01-10] MEDS: ATORVASTATIN 40 MG TAB PO SCH (08:26)
[2022-01-10] MEDS: TORSEMIDE 10 MG TAB PO SCH (08:26)
[2022-01-10] MEDS: allopurinoL 100 MG TAB PO SCH (08:26)
[2022-01-10] MEDS: ATENOLOL 25 MG TABLET PO SCH (08:26)
[2022-01-10] MEDS: lisinopril 20 MG TAB PO SCH (08:27)
[2022-01-10] MEDS: MUPIROCIN 2% OINT 22 GM TUBE TOP SCH ×3 (08:27→20:53)
[2022-01-10] MEDS: PANTOprazole 40 MG TAB PO SCH (08:27)
--- NOTE | 2022-01-10 11:36 | Electrocardiogram Report ---
Test Reason : Blood Pressure : / mmHG Vent. Rate : 088 BPM Atrial Rate : 241 BPM P-R Int : 000 ms QRS Dur : 092 ms QT Int : 346 ms P-R-T Axes : 000 003 -30 degrees QTc Int : 418 ms Poor data quality, interpretation may be adversely affected Atrial fibrillation Abnormal ECG When compared with ECG of 01-JAN-2022 13:15, No significant change was found Confirmed by Keshawn Abreu ([id number]) on 01/10/2022 11:36:22 AM Referred By: Larry Diego Confirmed By:Orlando Abreu
[2022-01-10] MEDS: RIVAROXABAN 15 MG TAB PO SCH (18:00)
[2022-01-10] MEDS: cefTRIAXone SODIUM 2,000 MG in DEXTROSE 5% 50 ML IV SCH (20:48)
[2022-01-10] MEDS: TAMSULOSIN HCL 0.4 MG CAP PO SCH (20:52)
--- NOTE | 2022-01-10 22:19 | Hospitalist Progress Note ---
Date of Service January 10, 2022 Assessment & Plan (1) Cellulitis: Plan: Bilateral lower extremity cellulitis: Currently on IV Rocephin Blood cx no growth Will get RLE arterial doppler Continue monitor Dementia: Will monitor for delirium Pt will need social service tlike placement Diabetes type 2 Recent hab1c 9.9 Continue to hold glimepiride and Jardiance. Continue Lantus and novolog sliding scale History of atrial fibrillation: Rate control Continue atenolol and Xarelto. History of gout: On allopurinol and prednisone. Hypertension Continue lisinopril. Chronic diastolic congestive heart failure Continue Torsemide Gastroesophageal reflux disease Continue PPI. BPH Continue Flomax. Deep venous thrombosis prophylaxis: On Xarelto. Admission and Anticipated Discharge Date Admission Date: January 09, 2022 Subjective Patient was seen and evaluated for follow-up. There on extremity cellulitis Lying in bed with no acute distress eating lunch Denies any chest pain, palpitation, dizziness, shortness of breath, and fever. Review of Systems Review of Systems: All systems reviewed & are unremarkable except as noted in Subjective Physical Exam Physical Exam: General- No acute distress Head- atraumatic Eyes- PERRL, EOMI, ENT- oropharynx clear Neck- supple, no JVD Lungs- clear to auscultation Heart- regular rhythm; no murmur Abdomen- normal bowel sounds, soft, nontender Extremities- no calf tenderness, Bilateral lower extremity edema and erythematous, + 4x4 cm ulcer in posterior right otto Neuro- alert, oriented, PERRL, EOMI; no facial palsy; no dysarthria Skin- warm & dry Results & Data Results & Data ([facility]) Vital Signs (Past 12 Hours) Vital Signs Temp Pulse Resp BP Pulse Ox 01/10/22 22:09 36.7 C 75 16 120/63 95 01/10/22 14:55 36.7 C 72 16 126/60 94
[2022-01-10] MEDS ORDERED: OLANZapine 10 MG/2.1 ML SDV IM STA (22:59)
[2022-01-11] MEDS ORDERED: OLANZapine 10 MG/2.1 ML SDV IM ONE (01:02)
[2022-01-11] MEDS ORDERED: OLANZapine 10 MG/2.1 ML SDV IM STA (01:20)
[2022-01-11] MEDS ORDERED: OLANZapine 10 MG/2.1 ML SDV IM PRN (07:46)
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
[2022-01-11] MEDS: INSULIN ASPART PER UNIT SC SCH ×4 (08:58→21:34)
[2022-01-11] MEDS: lisinopril 20 MG TAB PO SCH ×2 (09:03→09:23)
[2022-01-11] MEDS: ATORVASTATIN 40 MG TAB PO SCH (09:03)
[2022-01-11] MEDS: MUPIROCIN 2% OINT 22 GM TUBE TOP SCH ×3 (09:03→21:34)
[2022-01-11] MEDS: PANTOprazole 40 MG TAB PO SCH (09:03)
[2022-01-11] MEDS: TORSEMIDE 10 MG TAB PO SCH ×2 (09:03→09:23)
[2022-01-11] MEDS: ATENOLOL 25 MG TABLET PO SCH ×2 (09:03→09:23)
[2022-01-11] MEDS: allopurinoL 100 MG TAB PO SCH (09:03)
[2022-01-11] MEDS: predniSONE 5 MG TAB PO SCH ×2 (09:03→09:23)
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
[2022-01-11] MEDS: OLANZapine 5 MG TABLET PO SCH ×3 (13:15→21:39)
[2022-01-11] MEDS: RIVAROXABAN 15 MG TAB PO SCH (17:25)
[2022-01-11] MEDS: cefTRIAXone SODIUM 2,000 MG in DEXTROSE 5% 50 ML IV SCH (21:29)
[2022-01-11] MEDS: TAMSULOSIN HCL 0.4 MG CAP PO SCH ×2 (21:37→21:39)
--- NOTE | 2022-01-11 23:24 | Hospitalist Progress Note ---
Date of Service January 11, 2022 Assessment & Plan (1) Cellulitis: Plan: Bilateral lower extremity cellulitis: Currently on IV Rocephin Blood cx no growth Arterial Doppler of right lower extremity pending Continue monitor Dementia: Delirium with agitation Psych on board Continue Zyprexa 5 mg p.o. twice daily and as needed IV Will report to DMV about his driving license Pt will need social service like placement Diabetes type 2 Recent hab1c 9.9 Continue to hold glimepiride and Jardiance. Continue Lantus and novolog sliding scale History of atrial fibrillation: Rate control Continue atenolol and Xarelto. History of gout: On allopurinol and prednisone. Hypertension Continue lisinopril. Chronic diastolic congestive heart failure Continue Torsemide Gastroesophageal reflux disease Continue PPI. BPH Continue Flomax. Deep venous thrombosis prophylaxis: On Xarelto. Admission and Anticipated Discharge Date Admission Date: January 09, 2022 Subjective Patient was seen and evaluated for follow-up of lower extremity cellulitis Confused and agitated. he was placed on soft restraint Denies any chest pain, palpitation, dizziness, shortness of breath, and fever. Review of Systems Review of Systems: All systems reviewed & are unremarkable except as noted in Subjective Physical Exam Physical Exam: General-confused, agitated Head- atraumatic Eyes- PERRL, EOMI, ENT- oropharynx clear Neck- supple, no JVD Lungs- clear to auscultation Heart- regular rhythm; no murmur Abdomen- normal bowel sounds, soft, nontender Extremities- no calf tenderness, Bilateral lower extremity edema and erythematous, + 4x4 cm ulcer in posterior right otto Neuro- alert, oriented, PERRL, EOMI; no facial palsy; no dysarthria Skin- warm & dry Results & Data Results & Data ([facility]) Vital Signs (Past 12 Hours) Vital Signs Temp Pulse Resp BP Pulse Ox 01/11/22 22:20 36.7 C 84 18 141/92 H 96 01/11/22 15:33 37.2 C 85 18 122/79 92 01/11/22 11:45 93 H 22 146/75 H 93
[2022-01-12] MEDS: INSULIN ASPART PER UNIT SC SCH ×4 (08:35→20:43)
[2022-01-12] MEDS: OLANZapine 5 MG TABLET PO SCH ×2 (09:02→22:04)
[2022-01-12] MEDS: ATENOLOL 25 MG TABLET PO SCH (09:03)
[2022-01-12] MEDS: TORSEMIDE 10 MG TAB PO SCH (09:04)
[2022-01-12] MEDS: predniSONE 5 MG TAB PO SCH (09:04)
[2022-01-12] MEDS: lisinopril 20 MG TAB PO SCH (09:04)
[2022-01-12] MEDS: MUPIROCIN 2% OINT 22 GM TUBE TOP SCH ×3 (09:04→20:40)
[2022-01-12] MEDS: allopurinoL 100 MG TAB PO SCH (09:13)
[2022-01-12] MEDS: ATORVASTATIN 40 MG TAB PO SCH (09:13)
[2022-01-12] MEDS: PANTOprazole 40 MG TAB PO SCH (09:14)
[2022-01-12] MEDS: RIVAROXABAN 15 MG TAB PO SCH (16:54)
[2022-01-12] MEDS: cefTRIAXone SODIUM 2,000 MG in DEXTROSE 5% 50 ML IV SCH (20:34)
[2022-01-12] MEDS: TAMSULOSIN HCL 0.4 MG CAP PO SCH (22:04)
--- NOTE | 2022-01-12 23:35 | Hospitalist Progress Note ---
Date of Service January 12, 2022 Assessment & Plan (1) Cellulitis: Plan: Bilateral lower extremity cellulitis: Wound cx grew staph aureus MSSA Currently on IV Rocephin Blood cx no growth Arterial Doppler of right lower extremity pending clinically improves Dementia: Delirium with agitation Psych on board Continue Zyprexa 5 mg p.o. twice daily and as needed IV Will report to DMV about his driving license Pt will need social service like placement Diabetes type 2 Recent hab1c 9.9 Continue to hold glimepiride and Jardiance. Continue Lantus and novolog sliding scale History of atrial fibrillation: Rate control Continue atenolol and Xarelto. History of gout: On allopurinol and prednisone. Hypertension Continue lisinopril. Chronic diastolic congestive heart failure Continue Torsemide Gastroesophageal reflux disease Continue PPI. BPH Continue Flomax. Deep venous thrombosis prophylaxis: On Xarelto. Admission and Anticipated Discharge Date Admission Date: January 09, 2022 Subjective Patient was seen and evaluated for follow-up of lower extremity cellulitis He was less agitated and confused this morning Look more awake today Lower extremity cellulitis improve Denies any chest pain, palpitation, dizziness, shortness of breath, and fever. Review of Systems Review of Systems: All systems reviewed & are unremarkable except as noted in Subjective Physical Exam Physical Exam: General-confused, agitated Head- atraumatic Eyes- PERRL, EOMI, ENT- oropharynx clear Neck- supple, no JVD Lungs- clear to auscultation Heart- regular rhythm; no murmur Abdomen- normal bowel sounds, soft, nontender Extremities- no calf tenderness, Bilateral lower extremity edema and erythematous, + 4x4 cm ulcer in posterior right otto Neuro- alert, oriented, PERRL, EOMI; no facial palsy; no dysarthria Skin- warm & dry Results & Data Results & Data ([facility]) Vital Signs (Past 12 Hours) Vital Signs Temp Pulse Resp BP Pulse Ox 01/12/22 22:14 36.5 C 95 H 20 150/82 H 94 01/12/22 15:53 36.4 C L 96 H 24 111/71 92
[2022-01-13 08:05] LABS: Hematocrit (blood only) 50.8 % (42-52); Hemoglobin 17.4 g/dL (14.0-18.0); Mean Corpuscular Hemoglobin 30.1 pg (25-34); Mean Corpuscular Hgb Conc 34.3 g/dL (32-36); Mean Corpuscular Volume 87.9 fL (80-100); Mean Platelet Volume 10.6 fL (7.4-10.4); Platelet Count 237 K/uL (130-400); RDW Coefficient of Variation 12.8 % (11.5-14.5); RDW Standard Deviation 41.2 fL (36.4-46.3); Red Blood Count 5.78 M/uL (4.7-6.1); White Blood Count 11.65 K/uL (4.8-10.8)
[2022-01-13 08:32] LABS: BUN Creatinine Ratio 24.4 (10-20); Calcium 9.6 mg/dl (8.5-10.1); Creatinine Clr Calc Pharmacy 38.7 ml/min; Est GFR (African American) 45.5 ml/min; Est GFR (Non-African American) 39.3 ml/min; Potassium 3.9 mmol/L (3.5-5.1)
[2022-01-13] MEDS: OLANZapine 5 MG TABLET PO SCH ×2 (09:19→21:13)
[2022-01-13] MEDS: lisinopril 20 MG TAB PO SCH (09:19)
[2022-01-13] MEDS: allopurinoL 100 MG TAB PO SCH (09:19)
[2022-01-13] MEDS: PANTOprazole 40 MG TAB PO SCH (09:19)
[2022-01-13] MEDS: predniSONE 5 MG TAB PO SCH (09:19)
[2022-01-13] MEDS: MUPIROCIN 2% OINT 22 GM TUBE TOP SCH ×3 (09:19→21:17)
[2022-01-13] MEDS: ATENOLOL 25 MG TABLET PO SCH (09:19)
[2022-01-13] MEDS: ATORVASTATIN 40 MG TAB PO SCH (09:19)
[2022-01-13] MEDS: TORSEMIDE 10 MG TAB PO SCH (09:19)
[2022-01-13] MEDS: INSULIN ASPART PER UNIT SC SCH ×4 (09:25→21:17)
--- NOTE | 2022-01-13 14:59 | Ultrasound Report ---
US arterial duplex LE RT CLINICAL HISTORY: right LE ulcer TECHNIQUE: Real-time grayscale and color and spectral Doppler ultrasound imaging of the bilateral low er extremity arteries was performed. Measurements calculated based on NASCET criteria. COMPARISON: None available at the time of this dictation. FINDINGS: Exam is limited by patient tolerance. Ankle brachial index cannot be performed. RIGHT: Common femoral artery: Triphasic waveforms. Peak systolic velocity (PSV) 64 cm/s. Deep femoral artery: Triphasic waveforms. PSV 57 cm/s. Superficial femoral artery: Triphasic waveforms. PSV 54 cm/s. Popliteal artery: Triphasic waveforms. PSV 32 cm/s. Anterior tibial artery: Monophasic waveforms. PSV 36 cm/s. Posterior tibial artery: Monophasic waveforms. PSV 42 cm/s. Peroneal artery: Monophasic waveforms. PSV 63 cm/s. Dorsalis pedis: Monophasic waveforms. PSV 39 cm/s. Moderate atherosclerotic plaque is seen. Reference ranges: Normal Ankle/Brachial Index (GUILLE) 1.0-1.4; 0.91-0.99 borderline; < or = 0.9 abnormal (0.7-0.89 mild, 0.51-0.69 moderate, < or = 0.5 severe peripheral arterial disease). Normal Toe/Brachial Index (TBI) > or = 0.6; < 0.6 abnormal (0.34-0.59 mild, 0.12-0.34 moderate, < or = 0.11 severe peripheral arterial disease). IMPRESSION: Moderate atherosclerotic plaque is seen. No elevated velocities are seen, however monophasic flow is seen below the popliteal artery. ACT 112: Negative or not required by law. Electronically signed by: Yassine Archer M.D. 01/13/2022 2:57 PM
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
[2022-01-13] MEDS: RIVAROXABAN 15 MG TAB PO SCH (17:41)
[2022-01-13] MEDS: SODIUM CHLORIDE 0.9% 500 ML IV SCH (18:13)
[2022-01-13] MEDS: cefTRIAXone SODIUM 2,000 MG in DEXTROSE 5% 50 ML IV SCH (20:23)
[2022-01-13] MEDS: TAMSULOSIN HCL 0.4 MG CAP PO SCH (21:13)
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
[2022-01-14 06:04] LABS: Hematocrit (blood only) 48.9 % (42-52); Hemoglobin 16.4 g/dL (14.0-18.0); Mean Corpuscular Hemoglobin 29.2 pg (25-34); Mean Corpuscular Hgb Conc 33.5 g/dL (32-36); Mean Platelet Volume 10.7 fL (7.4-10.4); Platelet Count 215 K/uL (130-400); RDW Coefficient of Variation 12.8 % (11.5-14.5); RDW Standard Deviation 40.9 fL (36.4-46.3); Red Blood Count 5.62 M/uL (4.7-6.1); White Blood Count 9.45 K/uL (4.8-10.8)
[2022-01-14] MEDS: SODIUM CHLORIDE 0.9% 500 ML IV SCH (06:18)
[2022-01-14 06:29] LABS: BUN Creatinine Ratio 28.6 (10-20); Calcium 8.9 mg/dl (8.5-10.1); Creatinine Clr Calc Pharmacy 36.8 ml/min; Est GFR (African American) 42.9 ml/min
[2022-01-14] MEDS: predniSONE 5 MG TAB PO SCH (07:40)
[2022-01-14] MEDS: OLANZapine 5 MG TABLET PO SCH ×2 (07:40→21:18)
[2022-01-14] MEDS: ATENOLOL 25 MG TABLET PO SCH (07:40)
[2022-01-14] MEDS: ATORVASTATIN 40 MG TAB PO SCH (07:40)
[2022-01-14] MEDS: PANTOprazole 40 MG TAB PO SCH (07:40)
[2022-01-14] MEDS: allopurinoL 100 MG TAB PO SCH (07:40)
[2022-01-14] MEDS: MUPIROCIN 2% OINT 22 GM TUBE TOP SCH ×3 (07:41→21:18)
[2022-01-14] MEDS: INSULIN ASPART PER UNIT SC SCH ×4 (08:32→21:14)
--- NOTE | 2022-01-14 13:35 | Hospitalist Progress Note ---
Date of Service January 14, 2022 Assessment & Plan (1) Cellulitis: Plan: Bilateral lower extremity cellulitis: Wound cx grew staph aureus MSSA Currently on IV Rocephin Blood cx no growth Arterial Doppler of right lower extremity showed Moderate atherosclerotic plaque is seen. No elevated velocities are seen, however monophasic flow is seen below the popliteal artery. clinically improves Dementia: Delirium with agitation Continue to show abnormal behavior and code grew called Psych on board Continue Zyprexa 5 mg p.o. twice daily and as needed IV Continue restraint as needed if pt becomes violent Consider 1 to 1 observation for now Completed report to DM about his driving license Pt will need dementia unit for placement Diabetes type 2 Recent hab1c 9.9 Continue to hold glimepiride and Jardiance. Continue Lantus and novolog sliding scale History of atrial fibrillation: Rate control Continue atenolol and Xarelto. History of gout: On allopurinol and prednisone. Hypertension Continue lisinopril. Chronic diastolic congestive heart failure Continue Torsemide Gastroesophageal reflux disease Continue PPI. BPH Continue Flomax. Deep venous thrombosis prophylaxis: On Xarelto. Admission and Anticipated Discharge Date Admission Date: January 09, 2022 Subjective Patient was seen and evaluated for follow-up of lower extremity cellulitis and agitation Early today pt was calm and was able to follow command But later code colindres called because pt was trying to get to another patient home Currently he is on restraint and calm after Zyprexa IM given Denies any chest pain, palpitation, dizziness, shortness of breath, and fever. Review of Systems 2 Review of Systems: All systems reviewed & are unremarkable except as noted in Subjective Physical Exam Physical Exam: General-confused, agitated Head- atraumatic Eyes- PERRL, EOMI, ENT- oropharynx clear Neck- supple, no JVD Lungs- clear to auscultation Heart- regular rhythm; no murmur Abdomen- normal bowel sounds, soft, nontender Extremities- no calf tenderness,Bilateral lower extremity edema and erythematous, + 4x4 cm ulcer in posterior right otto Neuro- alert, oriented, PERRL, EOMI; no facial palsy; no dysarthria Skin- warm & dry Results & Data Results & Data ([facility]) Vital Signs (Past 12 Hours) Vital Signs Temp Pulse Resp BP Pulse Ox 01/14/22 07:30 36.6 C 105 H 16 109/63 93
--- NOTE | 2022-01-14 16:20 | Communication Note ---
Date of Service: January 14, 2022 Interim progress reviewed. Notes reflect less agitation yesterday compared to am prior but code schmidt this afternoon, back in soft restraints. Minor elevation in CPK this am. Did require IM, now increased to [address] Panda. In case where 5 mg IM Zyprexa is ineffective on top of regular dose, option would be for repeat or Haldol 5 mg IM (IV if on tele) as can be coadmin with IM Ativan 1 mg or IV (Zyprexa cannot). Could consider shifting am dose of Zyprexa or adding clonidine patch to taget afternoon.
[2022-01-14] MEDS: RIVAROXABAN 15 MG TAB PO SCH (17:45)
[2022-01-14] MEDS ORDERED: SODIUM CHLORIDE 0.9% 1000ML 1,000 ML IV SCH (19:00)
[2022-01-14] MEDS: cefTRIAXone SODIUM 2,000 MG in DEXTROSE 5% 50 ML IV SCH (21:11)
[2022-01-14] MEDS: TAMSULOSIN HCL 0.4 MG CAP PO SCH (21:18)
[2022-01-15] MEDS: ACETAMINOPHEN 325 MG TAB PO PRN (00:37)
[2022-01-15] MEDS: INSULIN ASPART PER UNIT SC SCH ×4 (08:56→21:27)
[2022-01-15] MEDS: allopurinoL 100 MG TAB PO SCH (08:56)
[2022-01-15] MEDS: ATENOLOL 25 MG TABLET PO SCH (08:56)
[2022-01-15] MEDS: MUPIROCIN 2% OINT 22 GM TUBE TOP SCH ×3 (08:57→21:16)
[2022-01-15] MEDS: PANTOprazole 40 MG TAB PO SCH (08:57)
[2022-01-15] MEDS: ATORVASTATIN 40 MG TAB PO SCH (08:57)
[2022-01-15] MEDS: predniSONE 5 MG TAB PO SCH (08:57)
[2022-01-15] MEDS: OLANZapine 5 MG TABLET PO SCH ×2 (12:51→21:16)
--- NOTE | 2022-01-15 15:58 | Psychiatric Progress Note ---
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 Intermittent agitation responds to Zyprexa. (1) AMS (altered mental status): continue current medication regimen as ordered by hospitalist. will follow. Interval History Identifying Information 81 yo male who lives with his son in [place]. Patient admit for cellulitis and mental status change. Consult if for agitation. Chief Complaint management of agitation Subjective Subjective Patient was seen & assessed and interval progress reviewed with nursing. remains in soft restraints. less agitated today. no IMs since last review. Physical Exam Psychiatric unable to provide meaningful history/updates Vital Signs (Past 24 Hours) Last Vital Signs Temp 37.2 C 01/15/22 15:22 Pulse 92 H 01/15/22 06:13 Resp 24 01/15/22 15:22 BP 128/84 01/15/22 15:22 Pulse Ox 92 01/15/22 15:22 Results & Data ([facility]) Laboratory Results Laboratory Results - last 24 hr 01/14/22 01/14/22 01/15/22 17:10 20:53 08:07 POC Glucose 188 H 96 165 H 01/15/22 11:51 POC Glucose 200 H Current Inpatient Medications Current Inpatient Medications: Current Inpatient Medications Acetaminophen (Acetaminophen 325 Mg Tab) 650 mg PO Q4H PRN PRN Reason: pain/fever Stop: 02/09/22 02:10 Last Admin: 01/15/22 00:37 Dose: 650 mg Documented by: Allopurinol (Allopurinol 100 Mg Tab) 100 mg PO DAILY [facility] Stop: 02/09/22 08:59 Last Admin: 01/15/22 08:56 Dose: 100 mg Documented by: Atenolol (Atenolol 25 Mg Tablet) 12.5 mg PO DAILY [facility] Stop: 02/09/22 08:59 Last Admin: 01/15/22 08:56 Dose: 12.5 mg Documented by: Atorvastatin Calcium (Atorvastatin 40 Mg Tab) 40 mg PO DAILY [facility] Stop: 02/09/22 08:59 Last Admin: 01/15/22 08:57 Dose: 40 mg Documented by: Dextrose (Dextrose 50% 50 Ml Syringe) 25 - 50 ml IV UD PRN; Protocol PRN Reason: Hypoglycemia Protocol Stop: 02/09/22 02:29 Glucagon (Glucagon For Inj 1 Mg Vial) 1 mg IM UD PRN; Protocol PRN Reason: Hypoglycemia Protocol Stop: 02/09/22 02:29 Glucose (Glucose 40% Gel 15 Gm Tube) 15 - 30 gm PO UD PRN; Protocol PRN Reason: Hypoglycemia Protocol Stop: 02/09/22 02:29 Glucose (Glucose 10 Tabs/Tube) 4 - 8 tabs PO UD PRN; Protocol PRN Reason: Hypoglycemia Protocol Stop: 02/09/22 02:29 Hydralazine HCl (Hydralazine Hcl 20 Mg/Ml Vial) 5 mg IV Q6H PRN PRN Reason: Hypertension Stop: 02/09/22 02:10 Cefazolin Sodium (Ancef 1000mg) 1,000 mg in 7.5 mls @ 2.5 mls/min IV Q8H [facility]; Protocol Stop: 01/17/22 19:59 Insulin Aspart (Insulin Aspart Per Unit) 0 units SC ACHS [facility] Stop: 02/09/22 07:29 Last Admin: 01/15/22 12:51 Dose: 7 units Documented by: Lisinopril (Lisinopril 20 Mg Tab) 20 mg PO DAILY [facility] Stop: 02/09/22 08:59 Last Admin: 01/13/22 09:19 Dose: 20 mg Documented by: Miscellaneous (Carbohydrates For Hypoglycemia ) 15 - 30 gm PO UD PRN PRN Reason: Hypoglycemia Treatment Stop: 02/09/22 02:29 Mupirocin (Mupirocin 2% Oint 22 Gm Tube) 1 appln TOP TID [facility] Stop: 02/09/22 08:59 Last Admin: 01/15/22 12:52 Dose: 1 appln Documented by: Olanzapine (Olanzapine 10 Mg/2.1 Ml Sdv) 5 mg IM Q8H PRN PRN Reason: agitation Stop: 02/10/22 07:59 Olanzapine (Olanzapine 5 Mg Tablet) 5 mg PO HS [facility] Stop: 02/13/22 20:59 Last Admin: 01/14/22 21:18 Dose: 5 mg Documented by: Olanzapine (Olanzapine 5 Mg Tablet) 5 mg PO DAILY@1300 [facility] Stop: 02/14/22 12:59 Last Admin: 01/15/22 12:51 Dose: 5 mg Documented by: Pantoprazole Sodium (Pantoprazole 40 Mg Tab) 40 mg PO DAILY [facility] Stop: 02/09/22 08:59 Last Admin: 01/15/22 08:57 Dose: 40 mg Documented by: Polyethylene Glycol (Polyethylene (Miralax) 17 Gm Pack) 17 gm PO DAILY PRN PRN Reason: Constipation Stop: 02/09/22 02:10 Prednisone (Prednisone 5 Mg Tab) 5 mg PO DAILY [facility] Stop: 02/09/22 08:59 Last Admin: 01/15/22 08:57 Dose: 5 mg Documented by: Rivaroxaban (Rivaroxaban 15 Mg Tab) 15 mg PO QDD [facility] Stop: 02/09/22 16:29 Last Admin: 01/14/22 17:45 Dose: 15 mg Documented by: Tamsulosin HCl (Tamsulosin Hcl 0.4 Mg Cap) 0.4 mg PO HS [facility] Stop: 02/09/22 20:59 Last Admin: 01/14/22 21:18 Dose: 0.4 mg Documented by: Torsemide (Torsemide 10 Mg Tab) 10 mg PO DAILY [facility] Stop: 02/09/22 08:59 Last Admin: 01/13/22 09:19 Dose: 10 mg Documented by:
--- NOTE | 2022-01-15 17:06 | Hospitalist Progress Note ---
Date of Service January 15, 2022 Assessment & Plan (1) Cellulitis: Plan: Bilateral lower extremity cellulitis: Wound cx grew staph aureus MSSA Currently on IV Rocephin-has been changed to intravenous cefazolin from 01/15/2022 Blood cx no growth Arterial Doppler of right lower extremity showed Moderate atherosclerotic plaque is seen. No elevated velocities are seen, however monophasic flow is seen below the popliteal artery. clinically improves -we will continue current intravenous antibiotic Likely to switch to oral Keflex on discharge Dementia: Delirium with agitation Continue to show abnormal behavior and code grew called Psych on board Continue Zyprexa 5 mg p.o. twice daily and as needed IV Continue restraint as needed if pt becomes violent Consider 1 to 1 observation for now Completed report to [employer] about his driving license Pt will need dementia unit for placement -awaiting placement Still requiring restraint Diabetes type 2 Recent hab1c 9.9 Continue to hold glimepiride and Jardiance. Continue Lantus and novolog sliding scale History of atrial fibrillation: Rate control Continue atenolol and Xarelto. History of gout: On allopurinol and prednisone. Hypertension Continue lisinopril. Chronic diastolic congestive heart failure Continue Torsemide Gastroesophageal reflux disease Continue PPI. BPH Continue Flomax. Deep venous thrombosis prophylaxis: On Xarelto. Admission and Anticipated Discharge Date Admission Date: January 09, 2022 Subjective 01/15/2022 The patient was seen and examined in medical floor He has significant dementia but not being aggressive today Denies any significant symptoms Review of Systems Review of Systems: Unobtainable due to cognitive status Physical Exam Physical Exam: Lying in bed comfortably Constitutional: well developed, well nourished and + obese Eyes: PERRL, conjunctivae normal, anicteric sclerae ENMT: external ear and nose normal, oropharynx normal Neck: trachea midline, no thyromegaly Respiratory: no respiratory distress Auscultation: lungs clear to auscultation bilaterally Cardiovascular: Rate/Rhythm: regular rate and regular rhythm; not tachycardic Heart Sounds: normal S1 and normal S2; no murmur Extremities: no edema Gastrointestinal (Abdomen): Inspection/Auscultation: normal bowel sounds; abdomen not distended Percussion/Palpation: abdomen soft; abdomen nontender Musculoskeletal: No acute arthritis in any joint Neurologic: Alert and awake. Pleasantly confused with profound dementia Lymphatic: no cervical or axillary lymphadenopathy Results & Data Results & Data ([facility]) Vital Signs (Past 12 Hours) Vital Signs Temp Pulse Resp BP Pulse Ox 01/15/22 15:22 37.2 C 24 128/84 92 01/15/22 06:13 36.4 C L 92 H 18 147/75 H 96 Medications Administered Current Inpatient Medications Acetaminophen (Acetaminophen 325 Mg Tab) 650 mg PO Q4H PRN PRN Reason: pain/fever Stop: 02/09/22 02:10 Last Admin: 01/15/22 00:37 Dose: 650 mg Documented by: Allopurinol (Allopurinol 100 Mg Tab) 100 mg PO DAILY [facility] Stop: 02/09/22 08:59 Last Admin: 01/15/22 08:56 Dose: 100 mg Documented by: Atenolol (Atenolol 25 Mg Tablet) 12.5 mg PO DAILY [facility] Stop: 02/09/22 08:59 Last Admin: 01/15/22 08:56 Dose: 12.5 mg Documented by: Atorvastatin Calcium (Atorvastatin 40 Mg Tab) 40 mg PO DAILY [facility] Stop: 02/09/22 08:59 Last Admin: 01/15/22 08:57 Dose: 40 mg Documented by: Dextrose (Dextrose 50% 50 Ml Syringe) 25 - 50 ml IV UD PRN; Protocol PRN Reason: Hypoglycemia Protocol Stop: 02/09/22 02:29 Glucagon (Glucagon For Inj 1 Mg Vial) 1 mg IM UD PRN; Protocol PRN Reason: Hypoglycemia Protocol Stop: 02/09/22 02:29 Glucose (Glucose 40% Gel 15 Gm Tube) 15 - 30 gm PO UD PRN; Protocol PRN Reason: Hypoglycemia Protocol Stop: 02/09/22 02:29 Glucose (Glucose 10 Tabs/Tube) 4 - 8 tabs PO UD PRN; Protocol PRN Reason: Hypoglycemia Protocol Stop: 02/09/22 02:29 Hydralazine HCl (Hydralazine Hcl 20 Mg/Ml Vial) 5 mg IV Q6H PRN PRN Reason: Hypertension Stop: 02/09/22 02:10 Cefazolin Sodium (Ancef 1000mg) 1,000 mg in 7.5 mls @ 2.5 mls/min IV Q8H [facility]; Protocol Stop: 01/17/22 19:59 Insulin Aspart (Insulin Aspart Per Unit) 0 units SC ACHS [facility] Stop: 02/09/22 07:29 Last Admin: 01/15/22 12:51 Dose: 7 units Documented by: Lisinopril (Lisinopril 20 Mg Tab) 20 mg PO DAILY [facility] Stop: 02/09/22 08:59 Last Admin: 01/13/22 09:19 Dose: 20 mg Documented by: Miscellaneous (Carbohydrates For Hypoglycemia ) 15 - 30 gm PO UD PRN PRN Reason: Hypoglycemia Treatment Stop: 02/09/22 02:29 Mupirocin (Mupirocin 2% Oint 22 Gm Tube) 1 appln TOP TID [facility] Stop: 02/09/22 08:59 Last Admin: 01/15/22 12:52 Dose: 1 appln Documented by: Olanzapine (Olanzapine 10 Mg/2.1 Ml Sdv) 5 mg IM Q8H PRN PRN Reason: agitation Stop: 02/10/22 07:59 Olanzapine (Olanzapine 5 Mg Tablet) 5 mg PO HS [facility] Stop: 02/13/22 20:59 Last Admin: 01/14/22 21:18 Dose: 5 mg Documented by: Olanzapine (Olanzapine 5 Mg Tablet) 5 mg PO DAILY@1300 [facility] Stop: 02/14/22 12:59 Last Admin: 01/15/22 12:51 Dose: 5 mg Documented by: Pantoprazole Sodium (Pantoprazole 40 Mg Tab) 40 mg PO DAILY [facility] Stop: 02/09/22 08:59 Last Admin: 01/15/22 08:57 Dose: 40 mg Documented by: Polyethylene Glycol (Polyethylene (Miralax) 17 Gm Pack) 17 gm PO DAILY PRN PRN Reason: Constipation Stop: 02/09/22 02:10 Prednisone (Prednisone 5 Mg Tab) 5 mg PO DAILY [facility] Stop: 02/09/22 08:59 Last Admin: 01/15/22 08:57 Dose: 5 mg Documented by: Rivaroxaban (Rivaroxaban 15 Mg Tab) 15 mg PO QDD [facility] Stop: 02/09/22 16:29 Last Admin: 01/14/22 17:45 Dose: 15 mg Documented by: Tamsulosin HCl (Tamsulosin Hcl 0.4 Mg Cap) 0.4 mg PO HS [facility] Stop: 02/09/22 20:59 Last Admin: 01/14/22 21:18 Dose: 0.4 mg Documented by: Torsemide (Torsemide 10 Mg Tab) 10 mg PO DAILY [facility] Stop: 02/09/22 08:59 Last Admin: 01/13/22 09:19 Dose: 10 mg Documented by:
[2022-01-15] MEDS: RIVAROXABAN 15 MG TAB PO SCH (18:01)
[2022-01-15] MEDS: ceFAZolin 1000MG 1,000 MG/7.5 ML SYR IV SCH (21:15)
[2022-01-15] MEDS: TAMSULOSIN HCL 0.4 MG CAP PO SCH (21:16)
[2022-01-16] MEDS: ceFAZolin 1000MG 1,000 MG/7.5 ML SYR IV SCH ×2 (04:57→13:00)
[2022-01-16] MEDS: ATENOLOL 25 MG TABLET PO SCH (08:08)
[2022-01-16] MEDS: allopurinoL 100 MG TAB PO SCH (08:08)
[2022-01-16] MEDS: ACETAMINOPHEN 325 MG TAB PO PRN (08:08)
[2022-01-16] MEDS: PANTOprazole 40 MG TAB PO SCH (08:08)
[2022-01-16] MEDS: ATORVASTATIN 40 MG TAB PO SCH (08:08)
[2022-01-16] MEDS: predniSONE 5 MG TAB PO SCH (08:08)
[2022-01-16] MEDS: MUPIROCIN 2% OINT 22 GM TUBE TOP SCH ×3 (08:09→21:56)
[2022-01-16] MEDS: INSULIN ASPART PER UNIT SC SCH ×4 (08:49→21:45)
[2022-01-16] MEDS: OLANZapine 5 MG TABLET PO SCH ×2 (13:00→21:56)
--- NOTE | 2022-01-16 16:46 | Hospitalist Progress Note ---
Date of Service January 16, 2022 Assessment & Plan (1) Cellulitis: Plan: Bilateral lower extremity cellulitis: Wound cx grew staph aureus MSSA Currently on IV Rocephin-has been changed to intravenous cefazolin from 01/15/2022 Blood cx no growth Arterial Doppler of right lower extremity showed Moderate atherosclerotic plaque is seen. No elevated velocities are seen, however monophasic flow is seen below the popliteal artery. clinically improves -we will continue current intravenous antibiotic Likely to switch to oral Keflex on discharge Cellulitis is much better and will change antibiotic to oral Keflex Dementia: Delirium with agitation Continue to show abnormal behavior and code grew called Psych on board Continue Zyprexa 5 mg p.o. twice daily and as needed IV Continue restraint as needed if pt becomes violent Consider 1 to 1 observation for now Completed report to [employer] about his driving license Pt will need dementia unit for placement -awaiting placement Still requiring restraint- Diabetes type 2 Recent hab1c 9.9 Continue to hold glimepiride and Jardiance. Continue Lantus and novolog sliding scale History of atrial fibrillation: Rate control Continue atenolol and Xarelto. History of gout: On allopurinol and prednisone. Hypertension Continue lisinopril. Chronic diastolic congestive heart failure Continue Torsemide Gastroesophageal reflux disease Continue PPI. BPH Continue Flomax. Deep venous thrombosis prophylaxis: On Xarelto. Admission and Anticipated Discharge Date Admission Date: January 09, 2022 Subjective 01/15/2022 The patient was seen and examined in medical floor He has significant dementia but not being aggressive today Denies any significant symptoms 01/16/2022 The patient was seen and examined in medical floor in presence of the son He remains stable Still requiring restraint in bed Has not been aggressive Speech is not clear Review of Systems Review of Systems: Unobtainable due to cognitive status Physical Exam Physical Exam: Lying in bed comfortably Constitutional: well developed, well nourished and + obese Eyes: PERRL, conjunctivae normal, anicteric sclerae ENMT: external ear and nose normal, oropharynx normal Neck: trachea midline, no thyromegaly Respiratory: no respiratory distress Auscultation: lungs clear to auscultation bilaterally Cardiovascular: Rate/Rhythm: regular rate and regular rhythm; not tachycardic Heart Sounds: normal S1 and normal S2; no murmur Extremities: no edema Gastrointestinal (Abdomen): Inspection/Auscultation: normal bowel sounds; abdomen not distended Percussion/Palpation: abdomen soft; abdomen nontender Neurologic: Alert and awake. Confused. Moving all extremities Lymphatic: no cervical or axillary lymphadenopathy Results & Data Results & Data ([facility]) Vital Signs (Past 12 Hours) Vital Signs Temp Pulse Resp BP BP Pulse Ox 01/16/22 15:32 36.6 C 83 18 137/84 90 01/16/22 08:05 36.6 C 92 H 18 156/84 H 98 Medications Administered Current Inpatient Medications Acetaminophen (Acetaminophen 325 Mg Tab) 650 mg PO Q4H PRN PRN Reason: pain/fever Stop: 02/09/22 02:10 Last Admin: 01/16/22 08:08 Dose: 650 mg Documented by: Allopurinol (Allopurinol 100 Mg Tab) 100 mg PO DAILY [facility] Stop: 02/09/22 08:59 Last Admin: 01/16/22 08:08 Dose: 100 mg Documented by: Atenolol (Atenolol 25 Mg Tablet) 12.5 mg PO DAILY [facility] Stop: 02/09/22 08:59 Last Admin: 01/16/22 08:08 Dose: 12.5 mg Documented by: Atorvastatin Calcium (Atorvastatin 40 Mg Tab) 40 mg PO DAILY [facility] Stop: 02/09/22 08:59 Last Admin: 01/16/22 08:08 Dose: 40 mg Documented by: Dextrose (Dextrose 50% 50 Ml Syringe) 25 - 50 ml IV UD PRN; Protocol PRN Reason: Hypoglycemia Protocol Stop: 02/09/22 02:29 Glucagon (Glucagon For Inj 1 Mg Vial) 1 mg IM UD PRN; Protocol PRN Reason: Hypoglycemia Protocol Stop: 02/09/22 02:29 Glucose (Glucose 40% Gel 15 Gm Tube) 15 - 30 gm PO UD PRN; Protocol PRN Reason: Hypoglycemia Protocol Stop: 02/09/22 02:29 Glucose (Glucose 10 Tabs/Tube) 4 - 8 tabs PO UD PRN; Protocol PRN Reason: Hypoglycemia Protocol Stop: 02/09/22 02:29 Hydralazine HCl (Hydralazine Hcl 20 Mg/Ml Vial) 5 mg IV Q6H PRN PRN Reason: Hypertension Stop: 02/09/22 02:10 Cefazolin Sodium (Ancef 1000mg) 1,000 mg in 7.5 mls @ 2.5 mls/min IV Q8H [facility]; Protocol Stop: 01/17/22 19:59 Last Admin: 01/16/22 13:00 Dose: 2.5 mls/min Documented by: Insulin Aspart (Insulin Aspart Per Unit) 0 units SC ACHS [facility] Stop: 02/09/22 07:29 Last Admin: 01/16/22 12:49 Dose: 3 units Documented by: Lisinopril (Lisinopril 20 Mg Tab) 20 mg PO DAILY [facility] Stop: 02/09/22 08:59 Last Admin: 01/13/22 09:19 Dose: 20 mg Documented by: Miscellaneous (Carbohydrates For Hypoglycemia ) 15 - 30 gm PO UD PRN PRN Reason: Hypoglycemia Treatment Stop: 02/09/22 02:29 Mupirocin (Mupirocin 2% Oint 22 Gm Tube) 1 appln TOP TID [facility] Stop: 02/09/22 08:59 Last Admin: 01/16/22 13:01 Dose: 1 appln Documented by: Olanzapine (Olanzapine 10 Mg/2.1 Ml Sdv) 5 mg IM Q8H PRN PRN Reason: agitation Stop: 02/10/22 07:59 Olanzapine (Olanzapine 5 Mg Tablet) 5 mg PO HS [facility] Stop: 02/13/22 20:59 Last Admin: 01/15/22 21:16 Dose: 5 mg Documented by: Olanzapine (Olanzapine 5 Mg Tablet) 5 mg PO DAILY@1300 [facility] Stop: 02/14/22 12:59 Last Admin: 01/16/22 13:00 Dose: 5 mg Documented by: Pantoprazole Sodium (Pantoprazole 40 Mg Tab) 40 mg PO DAILY [facility] Stop: 02/09/22 08:59 Last Admin: 01/16/22 08:08 Dose: 40 mg Documented by: Polyethylene Glycol (Polyethylene (Miralax) 17 Gm Pack) 17 gm PO DAILY PRN PRN Reason: Constipation Stop: 02/09/22 02:10 Prednisone (Prednisone 5 Mg Tab) 5 mg PO DAILY [facility] Stop: 02/09/22 08:59 Last Admin: 01/16/22 08:08 Dose: 5 mg Documented by: Rivaroxaban (Rivaroxaban 15 Mg Tab) 15 mg PO QDD [facility] Stop: 02/09/22 16:29 Last Admin: 01/15/22 18:01 Dose: 15 mg Documented by: Tamsulosin HCl (Tamsulosin Hcl 0.4 Mg Cap) 0.4 mg PO HS [facility] Stop: 02/09/22 20:59 Last Admin: 01/15/22 21:16 Dose: 0.4 mg Documented by: Torsemide (Torsemide 10 Mg Tab) 10 mg PO DAILY [facility] Stop: 02/09/22 08:59 Last Admin: 01/13/22 09:19 Dose: 10 mg Documented by:
[2022-01-16] MEDS: RIVAROXABAN 15 MG TAB PO SCH (17:22)
[2022-01-16] MEDS: TAMSULOSIN HCL 0.4 MG CAP PO SCH (21:56)
[2022-01-16] MEDS: cephALEXin 500 MG CAP PO SCH (21:56)
[2022-01-17] MEDS: cephALEXin 500 MG CAP PO SCH ×3 (08:26→19:17)
[2022-01-17] MEDS: PANTOprazole 40 MG TAB PO SCH (08:26)
[2022-01-17] MEDS: allopurinoL 100 MG TAB PO SCH (08:26)
[2022-01-17] MEDS: ATENOLOL 25 MG TABLET PO SCH (08:26)
[2022-01-17] MEDS: ATORVASTATIN 40 MG TAB PO SCH (08:26)
[2022-01-17] MEDS: predniSONE 5 MG TAB PO SCH (08:27)
[2022-01-17] MEDS: MUPIROCIN 2% OINT 22 GM TUBE TOP SCH ×3 (08:27→19:17)
[2022-01-17] MEDS: INSULIN ASPART PER UNIT SC SCH ×4 (08:28→21:59)
[2022-01-17 09:43] LABS: Creatinine Clr Calc Pharmacy 54.7 ml/min; Est GFR (African American) 69.3 ml/min; Est GFR (Non-African American) 59.8 ml/min
[2022-01-17] MEDS ORDERED: COUGH DROP (SUGAR FREE) LOZ 24 LOZ/1 BOX BUCCAL ONE (09:47)
[2022-01-17] MEDS: OLANZapine 5 MG TABLET PO SCH ×2 (13:06→19:17)
--- NOTE | 2022-01-17 13:34 | Communication Note ---
Date of Service: January 17, 2022 Interim progress reviewed. No IM since last contact. Comfortable in bed upon rounding. Tolerating Zyprexa. No additional recs at this time.
[2022-01-17] MEDS: ACETAMINOPHEN 325 MG TAB PO PRN (14:11)
--- NOTE | 2022-01-17 16:24 | Hospitalist Progress Note ---
Date of Service January 17, 2022 Assessment & Plan (1) Cellulitis: Plan: Bilateral lower extremity cellulitis: Wound cx grew staph aureus MSSA Currently on IV Rocephin-has been changed to intravenous cefazolin from 01/15/2022 Blood cx no growth Arterial Doppler of right lower extremity showed Moderate atherosclerotic plaque is seen. No elevated velocities are seen, however monophasic flow is seen below the popliteal artery. clinically improves -we will continue current intravenous antibiotic Likely to switch to oral Keflex on discharge Cellulitis is much better and will change antibiotic to oral Keflex Will finish the course of antibiotic Dementia: Delirium with agitation Continue to show abnormal behavior and code grew called Psych on board Continue Zyprexa 5 mg p.o. twice daily and as needed IV Continue restraint as needed if pt becomes violent Consider 1 to 1 observation for now Completed report to [employer] about his driving license Pt will need dementia unit for placement -awaiting placement On office-based today without any evidence of vegetation, confusion and communicating normally Has not been requiring any restraint Diabetes type 2 Recent hab1c 9.9 Continue to hold glimepiride and Jardiance. Continue Lantus and novolog sliding scale History of atrial fibrillation: Rate control Continue atenolol and Xarelto. History of gout: On allopurinol and prednisone. Hypertension Continue lisinopril. Chronic diastolic congestive heart failure Continue Torsemide Gastroesophageal reflux disease Continue PPI. BPH Continue Flomax. Deep venous thrombosis prophylaxis: On Xarelto. Admission and Anticipated Discharge Date Admission Date: January 09, 2022 Subjective 01/15/2022 The patient was seen and examined in medical floor He has significant dementia but not being aggressive today Denies any significant symptoms 01/16/2022 The patient was seen and examined in medical floor in presence of the son He remains stable Still requiring restraint in bed Has not been aggressive Speech is not clear 01/17/2022 The patient was seen and examined in medical floor He is in his best today Has had a normal conversation with me this morning Has been feeling a lot better and has not been requiring any restraint Physical Exam Physical Exam: Lying in bed comfortably Constitutional: well developed, well nourished and + obese Eyes: PERRL, conjunctivae normal, anicteric sclerae ENMT: external ear and nose normal, oropharynx normal Neck: trachea midline, no thyromegaly Respiratory: no respiratory distress Auscultation: lungs clear to auscultation bilaterally Cardiovascular: Rate/Rhythm: regular rate and regular rhythm; not tachycardic Heart Sounds: normal S1 and normal S2; no murmur Extremities: no edema Gastrointestinal (Abdomen): Inspection/Auscultation: normal bowel sounds; abdomen not distended Percussion/Palpation: abdomen soft; abdomen nontender Musculoskeletal: No acute arthritis in any joint Neurologic: Alert and awake today. Conversing normally. Moving all extremities Lymphatic: no cervical or axillary lymphadenopathy Results & Data Results & Data ([facility]) Vital Signs (Past 12 Hours) Vital Signs Temp Pulse Resp BP BP Pulse Ox 01/17/22 15:39 36.6 C 86 17 116/81 97 01/17/22 07:22 36.6 C 80 18 143/91 H 98 Laboratory Results [facility] 01/17/22 08:46 Creatinine 1.13 Medications Administered Current Inpatient Medications Acetaminophen (Acetaminophen 325 Mg Tab) 650 mg PO Q4H PRN PRN Reason: pain/fever Stop: 02/09/22 02:10 Last Admin: 01/17/22 14:11 Dose: 650 mg Documented by: Allopurinol (Allopurinol 100 Mg Tab) 100 mg PO DAILY [facility] Stop: 02/09/22 08:59 Last Admin: 01/17/22 08:26 Dose: 100 mg Documented by: Atenolol (Atenolol 25 Mg Tablet) 12.5 mg PO DAILY [facility] Stop: 02/09/22 08:59 Last Admin: 01/17/22 08:26 Dose: 12.5 mg Documented by: Atorvastatin Calcium (Atorvastatin 40 Mg Tab) 40 mg PO DAILY [facility] Stop: 02/09/22 08:59 Last Admin: 01/17/22 08:26 Dose: 40 mg Documented by: Cephalexin HCl (Cephalexin 500 Mg Cap) 500 mg PO BID [facility]; Protocol Stop: 01/23/22 20:59 Dextrose (Dextrose 50% 50 Ml Syringe) 25 - 50 ml IV UD PRN; Protocol PRN Reason: Hypoglycemia Protocol Stop: 02/09/22 02:29 Glucagon (Glucagon For Inj 1 Mg Vial) 1 mg IM UD PRN; Protocol PRN Reason: Hypoglycemia Protocol Stop: 02/09/22 02:29 Glucose (Glucose 40% Gel 15 Gm Tube) 15 - 30 gm PO UD PRN; Protocol PRN Reason: Hypoglycemia Protocol Stop: 02/09/22 02:29 Glucose (Glucose 10 Tabs/Tube) 4 - 8 tabs PO UD PRN; Protocol PRN Reason: Hypoglycemia Protocol Stop: 02/09/22 02:29 Hydralazine HCl (Hydralazine Hcl 20 Mg/Ml Vial) 5 mg IV Q6H PRN PRN Reason: Hypertension Stop: 02/09/22 02:10 Insulin Aspart (Insulin Aspart Per Unit) 0 units SC ACHS [facility] Stop: 02/09/22 07:29 Last Admin: 01/17/22 13:04 Dose: 9 units Documented by: Lisinopril (Lisinopril 20 Mg Tab) 20 mg PO DAILY [facility] Stop: 02/09/22 08:59 Last Admin: 01/13/22 09:19 Dose: 20 mg Documented by: Miscellaneous (Carbohydrates For Hypoglycemia ) 15 - 30 gm PO UD PRN PRN Reason: Hypoglycemia Treatment Stop: 02/09/22 02:29 Mupirocin (Mupirocin 2% Oint 22 Gm Tube) 1 appln TOP TID [facility] Stop: 02/09/22 08:59 Last Admin: 01/17/22 13:07 Dose: 1 appln Documented by: Olanzapine (Olanzapine 10 Mg/2.1 Ml Sdv) 5 mg IM Q8H PRN PRN Reason: agitation Stop: 02/10/22 07:59 Olanzapine (Olanzapine 5 Mg Tablet) 5 mg PO HS [facility] Stop: 02/13/22 20:59 Last Admin: 01/16/22 21:56 Dose: 5 mg Documented by: Olanzapine (Olanzapine 5 Mg Tablet) 5 mg PO DAILY@1300 [facility] Stop: 02/14/22 12:59 Last Admin: 01/17/22 13:06 Dose: 5 mg Documented by: Pantoprazole Sodium (Pantoprazole 40 Mg Tab) 40 mg PO DAILY [facility] Stop: 02/09/22 08:59 Last Admin: 01/17/22 08:26 Dose: 40 mg Documented by: Polyethylene Glycol (Polyethylene (Miralax) 17 Gm Pack) 17 gm PO DAILY PRN PRN Reason: Constipation Stop: 02/09/22 02:10 Prednisone (Prednisone 5 Mg Tab) 5 mg PO DAILY [facility] Stop: 02/09/22 08:59 Last Admin: 01/17/22 08:27 Dose: 5 mg Documented by: Rivaroxaban (Rivaroxaban 15 Mg Tab) 15 mg PO QDD [facility] Stop: 02/09/22 16:29 Last Admin: 01/16/22 17:22 Dose: 15 mg Documented by: Tamsulosin HCl (Tamsulosin Hcl 0.4 Mg Cap) 0.4 mg PO HS [facility] Stop: 02/09/22 20:59 Last Admin: 01/16/22 21:56 Dose: 0.4 mg Documented by: Torsemide (Torsemide 10 Mg Tab) 10 mg PO DAILY [facility] Stop: 02/09/22 08:59 Last Admin: 01/13/22 09:19 Dose: 10 mg Documented by:
[2022-01-17] MEDS: RIVAROXABAN 15 MG TAB PO SCH (17:22)
[2022-01-17] MEDS: OLANZapine 10 MG/2.1 ML SDV IM PRN (18:50)
[2022-01-17] MEDS: TAMSULOSIN HCL 0.4 MG CAP PO SCH (19:17)
[2022-01-18] MEDS: allopurinoL 100 MG TAB PO SCH (09:19)
[2022-01-18] MEDS: ATENOLOL 25 MG TABLET PO SCH (09:19)
[2022-01-18] MEDS: MUPIROCIN 2% OINT 22 GM TUBE TOP SCH ×3 (09:19→20:18)
[2022-01-18] MEDS: PANTOprazole 40 MG TAB PO SCH (09:19)
[2022-01-18] MEDS: ATORVASTATIN 40 MG TAB PO SCH (09:19)
[2022-01-18] MEDS: predniSONE 5 MG TAB PO SCH (09:19)
[2022-01-18] MEDS: cephALEXin 500 MG CAP PO SCH ×2 (09:19→20:18)
[2022-01-18] MEDS: INSULIN ASPART PER UNIT SC SCH ×4 (09:22→21:13)
[2022-01-18] MEDS: OLANZapine 5 MG TABLET PO SCH ×2 (12:44→20:18)
--- NOTE | 2022-01-18 14:48 | Hospitalist Progress Note ---
Date of Service January 18, 2022 Assessment & Plan (1) Cellulitis: Plan: Bilateral lower extremity cellulitis: Wound cx grew staph aureus MSSA Currently on IV Rocephin-has been changed to intravenous cefazolin from 01/15/2022 Blood cx no growth Arterial Doppler of right lower extremity showed Moderate atherosclerotic plaque is seen. No elevated velocities are seen, however monophasic flow is seen below the popliteal artery. clinically improves -we will continue current intravenous antibiotic Likely to switch to oral Keflex on discharge Cellulitis is much better and will change antibiotic to oral Keflex Will finish the course of antibiotic Cellulitis seems to be resolved Dementia: Delirium with agitation Continue to show abnormal behavior and code grew called Psych on board Continue Zyprexa 5 mg p.o. twice daily and as needed IV Continue restraint as needed if pt becomes violent Consider 1 to 1 observation for now Completed report to [employer] about his driving license Pt will need dementia unit for placement -awaiting placement On office-based today without any evidence of vegetation, confusion and communicating normally Has not been requiring any restraint Remains medically stable for the last 2-3 days and has not been requiring any sitter and restraint Diabetes type 2 Recent hab1c 9.9 Continue to hold glimepiride and Jardiance. Continue Lantus and novolog sliding scale History of atrial fibrillation: Rate control Continue atenolol and Xarelto. History of gout: On allopurinol and prednisone. Hypertension Continue lisinopril. Chronic diastolic congestive heart failure Continue Torsemide Gastroesophageal reflux disease Continue PPI. BPH Continue Flomax. Deep venous thrombosis prophylaxis: On Xarelto. Admission and Anticipated Discharge Date Admission Date: January 09, 2022 Subjective 01/15/2022 The patient was seen and examined in medical floor He has significant dementia but not being aggressive today Denies any significant symptoms 01/16/2022 The patient was seen and examined in medical floor in presence of the son He remains stable Still requiring restraint in bed Has not been aggressive Speech is not clear 01/17/2022 The patient was seen and examined in medical floor He is in his best today Has had a normal conversation with me this morning Has been feeling a lot better and has not been requiring any restraint 01/18/2022 The patient was seen and examined in medical floor He remains stable and has been eating and drinking normally Complains some pain at the back Review of Systems Review of Systems: Unobtainable due to cognitive status Physical Exam Physical Exam: Lying in bed comfortably Constitutional: well developed, well nourished and + obese Eyes: PERRL, conjunctivae normal, anicteric sclerae ENMT: external ear and nose normal, oropharynx normal Neck: trachea midline, no thyromegaly Respiratory: no respiratory distress Auscultation: lungs clear to auscultation bilaterally Cardiovascular: Rate/Rhythm: regular rate and regular rhythm; not tachycardic Heart Sounds: normal S1 and normal S2; no murmur Extremities: no edema Gastrointestinal (Abdomen): Inspection/Auscultation: normal bowel sounds; abdomen not distended Percussion/Palpation: abdomen soft; abdomen nontender Musculoskeletal: No acute arthritis in any joint Neurologic: Alert and awake. Communicating reasonably. Pleasantly confused Lymphatic: no cervical or axillary lymphadenopathy Results & Data Results & Data ([facility]) Vital Signs (Past 12 Hours) Vital Signs Temp Pulse Resp BP Pulse Ox 01/18/22 14:19 36.8 C 82 17 118/80 99 01/18/22 07:08 36.7 C 76 17 119/76 97 Medications Administered Current Inpatient Medications Acetaminophen (Acetaminophen 325 Mg Tab) 650 mg PO Q4H PRN PRN Reason: pain/fever Stop: 02/09/22 02:10 Last Admin: 01/17/22 14:11 Dose: 650 mg Documented by: Allopurinol (Allopurinol 100 Mg Tab) 100 mg PO DAILY [facility] Stop: 02/09/22 08:59 Last Admin: 01/18/22 09:19 Dose: 100 mg Documented by: Atenolol (Atenolol 25 Mg Tablet) 12.5 mg PO DAILY [facility] Stop: 02/09/22 08:59 Last Admin: 01/18/22 09:19 Dose: 12.5 mg Documented by: Atorvastatin Calcium (Atorvastatin 40 Mg Tab) 40 mg PO DAILY [facility] Stop: 02/09/22 08:59 Last Admin: 01/18/22 09:19 Dose: 40 mg Documented by: Cephalexin HCl (Cephalexin 500 Mg Cap) 500 mg PO BID [facility]; Protocol Stop: 01/23/22 20:59 Last Admin: 01/18/22 09:19 Dose: 500 mg Documented by: Dextrose (Dextrose 50% 50 Ml Syringe) 25 - 50 ml IV UD PRN; Protocol PRN Reason: Hypoglycemia Protocol Stop: 02/09/22 02:29 Glucagon (Glucagon For Inj 1 Mg Vial) 1 mg IM UD PRN; Protocol PRN Reason: Hypoglycemia Protocol Stop: 02/09/22 02:29 Glucose (Glucose 40% Gel 15 Gm Tube) 15 - 30 gm PO UD PRN; Protocol PRN Reason: Hypoglycemia Protocol Stop: 02/09/22 02:29 Glucose (Glucose 10 Tabs/Tube) 4 - 8 tabs PO UD PRN; Protocol PRN Reason: Hypoglycemia Protocol Stop: 02/09/22 02:29 Hydralazine HCl (Hydralazine Hcl 20 Mg/Ml Vial) 5 mg IV Q6H PRN PRN Reason: Hypertension Stop: 02/09/22 02:10 Insulin Aspart (Insulin Aspart Per Unit) 0 units SC [facility] Stop: 02/09/22 07:29 Last Admin: 01/18/22 12:43 Dose: 6 units Documented by: Lisinopril (Lisinopril 20 Mg Tab) 20 mg PO DAILY [facility] Stop: 02/09/22 08:59 Last Admin: 01/13/22 09:19 Dose: 20 mg Documented by: Miscellaneous (Carbohydrates For Hypoglycemia ) 15 - 30 gm PO UD PRN PRN Reason: Hypoglycemia Treatment Stop: 02/09/22 02:29 Mupirocin (Mupirocin 2% Oint 22 Gm Tube) 1 appln TOP TID [facility] Stop: 02/09/22 08:59 Last Admin: 01/18/22 09:19 Dose: 1 appln Documented by: Olanzapine (Olanzapine 10 Mg/2.1 Ml Sdv) 5 mg IM Q8H PRN PRN Reason: agitation Stop: 02/10/22 07:59 Last Admin: 01/17/22 18:50 Dose: 5 mg Documented by: Olanzapine (Olanzapine 5 Mg Tablet) 5 mg PO HS [facility] Stop: 02/13/22 20:59 Last Admin: 01/17/22 19:17 Dose: 5 mg Documented by: Olanzapine (Olanzapine 5 Mg Tablet) 5 mg PO DAILY@1300 [facility] Stop: 02/14/22 12:59 Last Admin: 01/18/22 12:44 Dose: 5 mg Documented by: Pantoprazole Sodium (Pantoprazole 40 Mg Tab) 40 mg PO DAILY [facility] Stop: 02/09/22 08:59 Last Admin: 01/18/22 09:19 Dose: 40 mg Documented by: Polyethylene Glycol (Polyethylene (Miralax) 17 Gm Pack) 17 gm PO DAILY PRN PRN Reason: Constipation Stop: 02/09/22 02:10 Prednisone (Prednisone 5 Mg Tab) 5 mg PO DAILY [facility] Stop: 02/09/22 08:59 Last Admin: 01/18/22 09:19 Dose: 5 mg Documented by: Rivaroxaban (Rivaroxaban 15 Mg Tab) 15 mg PO QDD [facility] Stop: 02/09/22 16:29 Last Admin: 01/17/22 17:22 Dose: 15 mg Documented by: Tamsulosin HCl (Tamsulosin Hcl 0.4 Mg Cap) 0.4 mg PO HS [facility] Stop: 02/09/22 20:59 Last Admin: 01/17/22 19:17 Dose: 0.4 mg Documented by: Torsemide (Torsemide 10 Mg Tab) 10 mg PO DAILY [facility] Stop: 02/09/22 08:59 Last Admin: 01/13/22 09:19 Dose: 10 mg Documented by:
[2022-01-18] MEDS: RIVAROXABAN 15 MG TAB PO SCH (16:27)
[2022-01-18] MEDS: ACETAMINOPHEN 325 MG TAB PO PRN (16:27)
[2022-01-18] MEDS: TAMSULOSIN HCL 0.4 MG CAP PO SCH (20:18)
[2022-01-19 06:12] LABS: Creatinine Clr Calc Pharmacy 63.1 ml/min; Est GFR (African American) 82.3 ml/min
[2022-01-19] MEDS: cephALEXin 500 MG CAP PO SCH ×4 (08:05→20:22)
[2022-01-19] MEDS: ATENOLOL 25 MG TABLET PO SCH (08:06)
[2022-01-19] MEDS: MUPIROCIN 2% OINT 22 GM TUBE TOP SCH ×3 (08:06→20:23)
[2022-01-19] MEDS: ATORVASTATIN 40 MG TAB PO SCH (08:06)
[2022-01-19] MEDS: PANTOprazole 40 MG TAB PO SCH (08:06)
[2022-01-19] MEDS: predniSONE 5 MG TAB PO SCH (08:06)
[2022-01-19] MEDS: allopurinoL 100 MG TAB PO SCH (08:06)
[2022-01-19] MEDS: INSULIN ASPART PER UNIT SC SCH ×4 (08:44→21:02)
[2022-01-19] MEDS: ACETAMINOPHEN 325 MG TAB PO PRN ×2 (09:07→23:09)
[2022-01-19] MEDS: OLANZapine 5 MG TABLET PO SCH ×2 (12:35→20:22)
[2022-01-19] MEDS: RIVAROXABAN 15 MG TAB PO SCH (16:57)
[2022-01-19] MEDS: TAMSULOSIN HCL 0.4 MG CAP PO SCH (20:22)
[2022-01-20] MEDS: OLANZapine 10 MG/2.1 ML SDV IM PRN (00:36)
[2022-01-20] MEDS: allopurinoL 100 MG TAB PO SCH (07:59)
[2022-01-20] MEDS: PANTOprazole 40 MG TAB PO SCH (07:59)
[2022-01-20] MEDS: cephALEXin 500 MG CAP PO SCH ×4 (07:59→21:41)
[2022-01-20] MEDS: predniSONE 5 MG TAB PO SCH (07:59)
[2022-01-20] MEDS: ATENOLOL 25 MG TABLET PO SCH (07:59)
[2022-01-20] MEDS: ATORVASTATIN 40 MG TAB PO SCH (07:59)
[2022-01-20] MEDS: MUPIROCIN 2% OINT 22 GM TUBE TOP SCH ×3 (08:00→21:42)
[2022-01-20] MEDS: INSULIN ASPART PER UNIT SC SCH ×4 (08:28→20:38)
[2022-01-20] MEDS: LIDOCAINE 5% 1 PATCH TD SCH (08:58)
[2022-01-20] MEDS: OLANZapine 5 MG TABLET PO SCH ×2 (12:10→21:42)
--- NOTE | 2022-01-20 15:58 | Hospitalist Progress Note ---
Date of Service January 19, 2022 Assessment & Plan (1) Cellulitis: Plan: Bilateral lower extremity cellulitis: Wound cx grew staph aureus MSSA Currently on IV Rocephin-has been changed to intravenous cefazolin from 01/15/2022 Blood cx no growth Arterial Doppler of right lower extremity showed Moderate atherosclerotic plaque is seen. No elevated velocities are seen, however monophasic flow is seen below the popliteal artery. clinically improves -we will continue current intravenous antibiotic Likely to switch to oral Keflex on discharge Cellulitis is much better and will change antibiotic to oral Keflex Will finish the course of antibiotic Cellulitis seems to be resolved Dementia: Delirium with agitation Continue to show abnormal behavior and code grew called Psych on board Continue Zyprexa 5 mg p.o. twice daily and as needed IV Continue restraint as needed if pt becomes violent Consider 1 to 1 observation for now Completed report to [facility] about his driving license Pt will need dementia unit for placement -awaiting placement On office-based today without any evidence of vegetation, confusion and communicating normally Has not been requiring any restraint Remains medically stable for the last 2-3 days and has not been requiring any sitter and restraint No further issues Diabetes type 2 Recent hab1c 9.9 Continue to hold glimepiride and Jardiance. Continue Lantus and novolog sliding scale History of atrial fibrillation: Rate control Continue atenolol and Xarelto. History of gout: On allopurinol and prednisone. Hypertension Continue lisinopril. Chronic diastolic congestive heart failure Continue Torsemide Gastroesophageal reflux disease Continue PPI. BPH Continue Flomax. Deep venous thrombosis prophylaxis: On Xarelto. Admission and Anticipated Discharge Date Admission Date: January 09, 2022 Subjective 01/15/2022 The patient was seen and examined in medical floor He has significant dementia but not being aggressive today Denies any significant symptoms 01/16/2022 The patient was seen and examined in medical floor in presence of the son He remains stable Still requiring restraint in bed Has not been aggressive Speech is not clear 01/17/2022 The patient was seen and examined in medical floor He is in his best today Has had a normal conversation with me this morning Has been feeling a lot better and has not been requiring any restraint 01/18/2022 The patient was seen and examined in medical floor He remains stable and has been eating and drinking normally Complains some pain at the back 01/19/2022 The patient was seen and examined in medical floor He has been stable without any significant symptoms Physical Exam Physical Exam: Lying in bed comfortably Constitutional: well developed, well nourished and + obese Eyes: PERRL, conjunctivae normal, anicteric sclerae ENMT: external ear and nose normal, oropharynx normal Neck: trachea midline, no thyromegaly Respiratory: no respiratory distress Auscultation: lungs clear to auscultation bilaterally Cardiovascular: Rate/Rhythm: regular rate and regular rhythm; not tachycardic Heart Sounds: normal S1 and normal S2; no murmur Extremities: no edema Gastrointestinal (Abdomen): Inspection/Auscultation: normal bowel sounds; abdomen not distended Percussion/Palpation: abdomen soft; abdomen nontender Lymphatic: no cervical or axillary lymphadenopathy Results & Data Results & Data ([facility]) Vital Signs (Past 12 Hours) Vital Signs Temp Pulse Resp BP Pulse Ox 01/20/22 15:53 36.6 C 77 16 134/63 97 01/20/22 08:07 36.6 C 70 16 126/87 95 Medications Administered Current Inpatient Medications Acetaminophen (Acetaminophen 325 Mg Tab) 650 mg PO Q4H PRN PRN Reason: pain/fever Stop: 02/09/22 02:10 Last Admin: 01/19/22 23:09 Dose: 650 mg Documented by: Allopurinol (Allopurinol 100 Mg Tab) 100 mg PO DAILY [facility] Stop: 02/09/22 08:59 Last Admin: 01/20/22 07:59 Dose: 100 mg Documented by: Atenolol (Atenolol 25 Mg Tablet) 12.5 mg PO DAILY [facility] Stop: 02/09/22 08:59 Last Admin: 01/20/22 07:59 Dose: 12.5 mg Documented by: Atorvastatin Calcium (Atorvastatin 40 Mg Tab) 40 mg PO DAILY [facility] Stop: 02/09/22 08:59 Last Admin: 01/20/22 07:59 Dose: 40 mg Documented by: Cephalexin HCl (Cephalexin 500 Mg Cap) 500 mg PO QID [facility]; Protocol Stop: 01/24/22 20:59 Last Admin: 01/20/22 12:10 Dose: 500 mg Documented by: Dextrose (Dextrose 50% 50 Ml Syringe) 25 - 50 ml IV UD PRN; Protocol PRN Reason: Hypoglycemia Protocol Stop: 02/09/22 02:29 Diclofenac Sodium (Diclofenac Sod 1% Gel 100 Gm Tube) 2 gm EXT QID PRN; Protocol PRN Reason: joint pain Stop: 02/19/22 04:31 Glucagon (Glucagon For Inj 1 Mg Vial) 1 mg IM UD PRN; Protocol PRN Reason: Hypoglycemia Protocol Stop: 02/09/22 02:29 Glucose (Glucose 40% Gel 15 Gm Tube) 15 - 30 gm PO UD PRN; Protocol PRN Reason: Hypoglycemia Protocol Stop: 02/09/22 02:29 Glucose (Glucose 10 Tabs/Tube) 4 - 8 tabs PO UD PRN; Protocol PRN Reason: Hypoglycemia Protocol Stop: 02/09/22 02:29 Hydralazine HCl (Hydralazine Hcl 20 Mg/Ml Vial) 5 mg IV Q6H PRN PRN Reason: Hypertension Stop: 02/09/22 02:10 Insulin Aspart (Insulin Aspart Per Unit) 0 units SC ACHS [facility] Stop: 02/09/22 07:29 Last Admin: 01/20/22 12:11 Dose: 12 units Documented by: Lidocaine (Lidocaine 5% 1 Patch) 1 patch TD QAM [facility] Stop: 02/19/22 04:34 Last Admin: 01/20/22 08:58 Dose: 1 patch Documented by: Lisinopril (Lisinopril 20 Mg Tab) 20 mg PO DAILY [facility] Stop: 02/09/22 08:59 Last Admin: 01/13/22 09:19 Dose: 20 mg Documented by: Miscellaneous (Carbohydrates For Hypoglycemia ) 15 - 30 gm PO UD PRN PRN Reason: Hypoglycemia Treatment Stop: 02/09/22 02:29 Miscellaneous (Remove Lidoderm Patch) 1 ea N/A DAILY@2100 [facility] Stop: 02/19/22 20:59 Mupirocin (Mupirocin 2% Oint 22 Gm Tube) 1 appln TOP TID [facility] Stop: 02/09/22 08:59 Last Admin: 01/20/22 13:23 Dose: 1 appln Documented by: Olanzapine (Olanzapine 10 Mg/2.1 Ml Sdv) 5 mg IM Q8H PRN PRN Reason: agitation Stop: 02/10/22 07:59 Last Admin: 01/20/22 00:36 Dose: 5 mg Documented by: Olanzapine (Olanzapine 5 Mg Tablet) 5 mg PO HS [facility] Stop: 02/13/22 20:59 Last Admin: 01/19/22 20:22 Dose: 5 mg Documented by: Olanzapine (Olanzapine 5 Mg Tablet) 5 mg PO DAILY@1300 [facility] Stop: 02/14/22 12:59 Last Admin: 01/20/22 12:10 Dose: 5 mg Documented by: Pantoprazole Sodium (Pantoprazole 40 Mg Tab) 40 mg PO DAILY [facility] Stop: 02/09/22 08:59 Last Admin: 01/20/22 07:59 Dose: 40 mg Documented by: Polyethylene Glycol (Polyethylene (Miralax) 17 Gm Pack) 17 gm PO DAILY PRN PRN Reason: Constipation Stop: 02/09/22 02:10 Prednisone (Prednisone 5 Mg Tab) 5 mg PO DAILY [facility] Stop: 02/09/22 08:59 Last Admin: 01/20/22 07:59 Dose: 5 mg Documented by: Rivaroxaban (Rivaroxaban 15 Mg Tab) 15 mg PO QDD [facility] Stop: 02/09/22 16:29 Last Admin: 01/19/22 16:57 Dose: 15 mg Documented by: Tamsulosin HCl (Tamsulosin Hcl 0.4 Mg Cap) 0.4 mg PO HS [facility] Stop: 02/09/22 20:59 Last Admin: 01/19/22 20:22 Dose: 0.4 mg Documented by: Torsemide (Torsemide 10 Mg Tab) 10 mg PO DAILY [facility] Stop: 02/09/22 08:59 Last Admin: 01/13/22 09:19 Dose: 10 mg Documented by:
--- NOTE | 2022-01-20 16:03 | Hospitalist Progress Note ---
Date of Service January 20, 2022 Assessment & Plan (1) Cellulitis: Plan: Bilateral lower extremity cellulitis: Wound cx grew staph aureus MSSA Currently on IV Rocephin-has been changed to intravenous cefazolin from 01/15/2022 Blood cx no growth Arterial Doppler of right lower extremity showed Moderate atherosclerotic plaque is seen. No elevated velocities are seen, however monophasic flow is seen below the popliteal artery. clinically improves -we will continue current intravenous antibiotic Likely to switch to oral Keflex on discharge Cellulitis is much better and will change antibiotic to oral Keflex Will finish the course of antibiotic Cellulitis is resolved Dementia: Delirium with agitation Continue to show abnormal behavior and code grew called Psych on board Continue Zyprexa 5 mg p.o. twice daily and as needed IV Continue restraint as needed if pt becomes violent Consider 1 to 1 observation for now Completed report to [facility] about his driving license Pt will need dementia unit for placement -awaiting placement On office-based today without any evidence of vegetation, confusion and communicating normally Has not been requiring any restraint Remains medically stable for the last 2-3 days and has not been requiring any sitter and restraint Awaiting placement Diabetes type 2 Recent hab1c 9.9 Continue to hold glimepiride and Jardiance. Continue Lantus and novolog sliding scale History of atrial fibrillation: Rate control Continue atenolol and Xarelto. History of gout: On allopurinol and prednisone. Hypertension Continue lisinopril. Chronic diastolic congestive heart failure Continue Torsemide Gastroesophageal reflux disease Continue PPI. BPH Continue Flomax. Deep venous thrombosis prophylaxis: On Xarelto. Admission and Anticipated Discharge Date Admission Date: January 09, 2022 Subjective 01/15/2022 The patient was seen and examined in medical floor He has significant dementia but not being aggressive today Denies any significant symptoms 01/16/2022 The patient was seen and examined in medical floor in presence of the son He remains stable Still requiring restraint in bed Has not been aggressive Speech is not clear 01/17/2022 The patient was seen and examined in medical floor He is in his best today Has had a normal conversation with me this morning Has been feeling a lot better and has not been requiring any restraint 01/18/2022 The patient was seen and examined in medical floor He remains stable and has been eating and drinking normally Complains some pain at the back 01/19/2022 The patient was seen and examined in medical floor He has been stable without any significant symptoms 01/20/2022 The patient was seen and examined in medical floor He has been stable for the last few days Remains confused but not been aggressive and has been listening Review of Systems Review of Systems: Unobtainable due to cognitive status Physical Exam Physical Exam: Lying in bed comfortably Constitutional: well developed, well nourished and + obese Eyes: PERRL, conjunctivae normal, anicteric sclerae ENMT: external ear and nose normal, oropharynx normal Neck: trachea midline, no thyromegaly Respiratory: no respiratory distress Auscultation: lungs clear to auscultation bilaterally Cardiovascular: Rate/Rhythm: regular rate and regular rhythm; not tachycardic Heart Sounds: normal S1 and normal S2; no murmur Extremities: no edema Gastrointestinal (Abdomen): Inspection/Auscultation: normal bowel sounds; abdomen not distended Percussion/Palpation: abdomen soft; abdomen nontender Musculoskeletal: No acute arthritis in any joint Neurologic: Alert, awake. Pleasantly confused with history of dementia Lymphatic: no cervical or axillary lymphadenopathy Results & Data Results & Data ([facility]) Vital Signs (Past 12 Hours) Vital Signs Temp Pulse Resp BP Pulse Ox 01/20/22 15:53 36.6 C 77 16 134/63 97 01/20/22 08:07 36.6 C 70 16 126/87 95 Medications Administered Current Inpatient Medications Acetaminophen (Acetaminophen 325 Mg Tab) 650 mg PO Q4H PRN PRN Reason: pain/fever Stop: 02/09/22 02:10 Last Admin: 01/19/22 23:09 Dose: 650 mg Documented by: Allopurinol (Allopurinol 100 Mg Tab) 100 mg PO DAILY [facility] Stop: 02/09/22 08:59 Last Admin: 01/20/22 07:59 Dose: 100 mg Documented by: Atenolol (Atenolol 25 Mg Tablet) 12.5 mg PO DAILY [facility] Stop: 02/09/22 08:59 Last Admin: 01/20/22 07:59 Dose: 12.5 mg Documented by: Atorvastatin Calcium (Atorvastatin 40 Mg Tab) 40 mg PO DAILY [facility] Stop: 02/09/22 08:59 Last Admin: 01/20/22 07:59 Dose: 40 mg Documented by: Cephalexin HCl (Cephalexin 500 Mg Cap) 500 mg PO QID [facility]; Protocol Stop: 01/24/22 20:59 Last Admin: 01/20/22 12:10 Dose: 500 mg Documented by: Dextrose (Dextrose 50% 50 Ml Syringe) 25 - 50 ml IV UD PRN; Protocol PRN Reason: Hypoglycemia Protocol Stop: 02/09/22 02:29 Diclofenac Sodium (Diclofenac Sod 1% Gel 100 Gm Tube) 2 gm EXT QID PRN; Protocol PRN Reason: joint pain Stop: 02/19/22 04:31 Glucagon (Glucagon For Inj 1 Mg Vial) 1 mg IM UD PRN; Protocol PRN Reason: Hypoglycemia Protocol Stop: 02/09/22 02:29 Glucose (Glucose 40% Gel 15 Gm Tube) 15 - 30 gm PO UD PRN; Protocol PRN Reason: Hypoglycemia Protocol Stop: 02/09/22 02:29 Glucose (Glucose 10 Tabs/Tube) 4 - 8 tabs PO UD PRN; Protocol PRN Reason: Hypoglycemia Protocol Stop: 02/09/22 02:29 Hydralazine HCl (Hydralazine Hcl 20 Mg/Ml Vial) 5 mg IV Q6H PRN PRN Reason: Hypertension Stop: 02/09/22 02:10 Insulin Aspart (Insulin Aspart Per Unit) 0 units SC ACHS [facility] Stop: 02/09/22 07:29 Last Admin: 01/20/22 12:11 Dose: 12 units Documented by: Lidocaine (Lidocaine 5% 1 Patch) 1 patch TD QAM [facility] Stop: 02/19/22 04:34 Last Admin: 01/20/22 08:58 Dose: 1 patch Documented by: Lisinopril (Lisinopril 20 Mg Tab) 20 mg PO DAILY [facility] Stop: 02/09/22 08:59 Last Admin: 01/13/22 09:19 Dose: 20 mg Documented by: Miscellaneous (Carbohydrates For Hypoglycemia ) 15 - 30 gm PO UD PRN PRN Reason: Hypoglycemia Treatment Stop: 02/09/22 02:29 Miscellaneous (Remove Lidoderm Patch) 1 ea N/A DAILY@2100 [facility] Stop: 02/19/22 20:59 Mupirocin (Mupirocin 2% Oint 22 Gm Tube) 1 appln TOP TID [facility] Stop: 02/09/22 08:59 Last Admin: 01/20/22 13:23 Dose: 1 appln Documented by: Olanzapine (Olanzapine 10 Mg/2.1 Ml Sdv) 5 mg IM Q8H PRN PRN Reason: agitation Stop: 02/10/22 07:59 Last Admin: 01/20/22 00:36 Dose: 5 mg Documented by: Olanzapine (Olanzapine 5 Mg Tablet) 5 mg PO HS [facility] Stop: 02/13/22 20:59 Last Admin: 01/19/22 20:22 Dose: 5 mg Documented by: Olanzapine (Olanzapine 5 Mg Tablet) 5 mg PO DAILY@1300 [facility] Stop: 02/14/22 12:59 Last Admin: 01/20/22 12:10 Dose: 5 mg Documented by: Pantoprazole Sodium (Pantoprazole 40 Mg Tab) 40 mg PO DAILY [facility] Stop: 02/09/22 08:59 Last Admin: 01/20/22 07:59 Dose: 40 mg Documented by: Polyethylene Glycol (Polyethylene (Miralax) 17 Gm Pack) 17 gm PO DAILY PRN PRN Reason: Constipation Stop: 02/09/22 02:10 Prednisone (Prednisone 5 Mg Tab) 5 mg PO DAILY [facility] Stop: 02/09/22 08:59 Last Admin: 01/20/22 07:59 Dose: 5 mg Documented by: Rivaroxaban (Rivaroxaban 15 Mg Tab) 15 mg PO QDD [facility] Stop: 02/09/22 16:29 Last Admin: 01/19/22 16:57 Dose: 15 mg Documented by: Tamsulosin HCl (Tamsulosin Hcl 0.4 Mg Cap) 0.4 mg PO HS [facility] Stop: 02/09/22 20:59 Last Admin: 01/19/22 20:22 Dose: 0.4 mg Documented by: Torsemide (Torsemide 10 Mg Tab) 10 mg PO DAILY [facility] Stop: 02/09/22 08:59 Last Admin: 01/13/22 09:19 Dose: 10 mg Documented by:
[2022-01-20] MEDS: RIVAROXABAN 15 MG TAB PO SCH (16:51)
[2022-01-20] MEDS: TAMSULOSIN HCL 0.4 MG CAP PO SCH (21:42)
[2022-01-21] MEDS: ACETAMINOPHEN 325 MG TAB PO PRN (00:07)
[2022-01-21] MEDS: DICLOFENAC SOD 1% GEL 100 GM TUBE EXT PRN (03:04)
[2022-01-21 06:32] LABS: Creatinine Clr Calc Pharmacy 52.4 ml/min; Est GFR (African American) 65.7 ml/min; Est GFR (Non-African American) 56.7 ml/min
[2022-01-21] MEDS: PANTOprazole 40 MG TAB PO SCH (08:37)
[2022-01-21] MEDS: MUPIROCIN 2% OINT 22 GM TUBE TOP SCH ×3 (08:37→20:49)
[2022-01-21] MEDS: predniSONE 5 MG TAB PO SCH (08:37)
[2022-01-21] MEDS: cephALEXin 500 MG CAP PO SCH ×2 (08:37→20:50)
[2022-01-21] MEDS: allopurinoL 100 MG TAB PO SCH (08:37)
[2022-01-21] MEDS: LIDOCAINE 5% 1 PATCH TD SCH (08:37)
[2022-01-21] MEDS: ATORVASTATIN 40 MG TAB PO SCH (08:37)
[2022-01-21] MEDS: ATENOLOL 25 MG TABLET PO SCH (08:37)
[2022-01-21] MEDS: INSULIN ASPART PER UNIT SC SCH ×4 (08:43→20:47)
[2022-01-21] MEDS: OLANZapine 5 MG TABLET PO SCH ×2 (12:20→20:50)
[2022-01-21] MEDS: INSULIN GLARGINE SOLOSTAR 100 UNITS/ML 3 ML PEN SC SCH (12:20)
[2022-01-21] MEDS: RIVAROXABAN 15 MG TAB PO SCH (17:16)
--- NOTE | 2022-01-21 17:53 | Hospitalist Progress Note ---
Date of Service January 21, 2022 Assessment & Plan (1) Cellulitis: Plan: Bilateral lower extremity cellulitis: Wound cx grew staph aureus MSSA Currently on IV Rocephin-has been changed to intravenous cefazolin from 01/15/2022 Blood cx no growth Arterial Doppler of right lower extremity showed Moderate atherosclerotic plaque is seen. No elevated velocities are seen, however monophasic flow is seen below the popliteal artery. clinically improves -we will continue current intravenous antibiotic Likely to switch to oral Keflex on discharge Cellulitis is much better and will change antibiotic to oral Keflex Will finish the course of antibiotic Cellulitis is resolved Dementia: Delirium with agitation Continue to show abnormal behavior and code grew called Psych on board Continue Zyprexa 5 mg p.o. twice daily and as needed IV Continue restraint as needed if pt becomes violent Consider 1 to 1 observation for now Completed report to [facility] about his driving license Pt will need dementia unit for placement -awaiting placement On office-based today without any evidence of vegetation, confusion and communicating normally Has not been requiring any restraint Remains medically stable for the last 2-3 days and has not been requiring any sitter and restraint Awaiting placement-has been having his best days for the last few days No acute confusion and has been listening Diabetes type 2 Recent hab1c 9.9 Continue to hold glimepiride and Jardiance. Continue Lantus and novolog sliding scale Can be given oral hypoglycemic agent on discharge History of atrial fibrillation: Rate control Continue atenolol and Xarelto. History of gout: On allopurinol and prednisone. Hypertension Continue lisinopril. Chronic diastolic congestive heart failure Continue Torsemide Gastroesophageal reflux disease Continue PPI. BPH Continue Flomax. Deep venous thrombosis prophylaxis: On Xarelto. Admission and Anticipated Discharge Date Admission Date: January 09, 2022 Subjective 01/15/2022 The patient was seen and examined in medical floor He has significant dementia but not being aggressive today Denies any significant symptoms 01/16/2022 The patient was seen and examined in medical floor in presence of the son He remains stable Still requiring restraint in bed Has not been aggressive Speech is not clear 01/17/2022 The patient was seen and examined in medical floor He is in his best today Has had a normal conversation with me this morning Has been feeling a lot better and has not been requiring any restraint 01/18/2022 The patient was seen and examined in medical floor He remains stable and has been eating and drinking normally Complains some pain at the back 01/19/2022 The patient was seen and examined in medical floor He has been stable without any significant symptoms 01/20/2022 The patient was seen and examined in medical floor He has been stable for the last few days Remains confused but not been aggressive and has been listening 01/21/2022 The patient was seen and examined in medical floor He was seen in presence of the son He remains pleasantly confused but otherwise asymptomatic Review of Systems Review of Systems: All systems reviewed and are unremarkable except as noted below Physical Exam Physical Exam: Lying in bed comfortably Constitutional: well developed, well nourished and + obese Eyes: PERRL, conjunctivae normal, anicteric sclerae ENMT: external ear and nose normal, oropharynx normal Neck: trachea midline, no thyromegaly Respiratory: no respiratory distress Auscultation: lungs clear to auscultation bilaterally Cardiovascular: Rate/Rhythm: regular rate and regular rhythm; not tachycardic Heart Sounds: normal S1 and normal S2; no murmur Extremities: no edema Gastrointestinal (Abdomen): Inspection/Auscultation: normal bowel sounds; a bdomen not distended Percussion/Palpation: abdomen soft; abdomen nontender Musculoskeletal: No acute arthritis in any joint Neurologic: Alert and awake. Pleasantly confused with severe dementia. Moves all extremities Lymphatic: no cervical or axillary lymphadenopathy Results & Data Results & Data ([facility]) Vital Signs (Past 12 Hours) Vital Signs Temp Pulse Resp BP Pulse Ox 01/21/22 15:49 36.8 C 91 H 16 117/63 96 01/21/22 07:28 36.9 C 73 16 122/77 97 Medications Administered Current Inpatient Medications Acetaminophen (Acetaminophen 325 Mg Tab) 650 mg PO Q4H PRN PRN Reason: pain/fever Stop: 02/09/22 02:10 Last Admin: 01/21/22 00:07 Dose: 650 mg Documented by: Allopurinol (Allopurinol 100 Mg Tab) 100 mg PO DAILY [facility] Stop: 02/09/22 08:59 Last Admin: 01/21/22 08:37 Dose: 100 mg Documented by: Atenolol (Atenolol 25 Mg Tablet) 12.5 mg PO DAILY [facility] Stop: 02/09/22 08:59 Last Admin: 01/21/22 08:37 Dose: 12.5 mg Documented by: Atorvastatin Calcium (Atorvastatin 40 Mg Tab) 40 mg PO DAILY [facility] Stop: 02/09/22 08:59 Last Admin: 01/21/22 08:37 Dose: 40 mg Documented by: Cephalexin HCl (Cephalexin 500 Mg Cap) 500 mg PO BID [facility]; Protocol Stop: 01/24/22 20:59 Last Admin: 01/21/22 08:37 Dose: 500 mg Documented by: Dextrose (Dextrose 50% 50 Ml Syringe) 25 - 50 ml IV UD PRN; Protocol PRN Reason: Hypoglycemia Protocol Stop: 02/09/22 02:29 Diclofenac Sodium (Diclofenac Sod 1% Gel 100 Gm Tube) 2 gm EXT QID PRN; Protocol PRN Reason: joint pain Stop: 02/19/22 04:31 Last Admin: 01/21/22 03:04 Dose: 2 gm Documented by: Glucagon (Glucagon For Inj 1 Mg Vial) 1 mg IM UD PRN; Protocol PRN Reason: Hypoglycemia Protocol Stop: 02/09/22 02:29 Glucose (Glucose 40% Gel 15 Gm Tube) 15 - 30 gm PO UD PRN; Protocol PRN Reason: Hypoglycemia Protocol Stop: 02/09/22 02:29 Glucose (Glucose 10 Tabs/Tube) 4 - 8 tabs PO UD PRN; Protocol PRN Reason: Hypoglycemia Protocol Stop: 02/09/22 02:29 Hydralazine HCl (Hydralazine Hcl 20 Mg/Ml Vial) 5 mg IV Q6H PRN PRN Reason: Hypertension Stop: 02/09/22 02:10 Insulin Aspart (Insulin Aspart Per Unit) 0 units SC ACHS [facility] Stop: 02/09/22 07:29 Last Admin: 01/21/22 17:16 Dose: 9 units Documented by: Insulin Glargine (Insulin Glargine Solostar 100 Units/Ml 3 Ml Pen) 10 units SC DAILY [facility] Stop: 02/20/22 11:29 Last Admin: 01/21/22 12:20 Dose: 10 units Documented by: Lidocaine (Lidocaine 5% 1 Patch) 1 patch TD QAM [facility] Stop: 02/19/22 04:34 Last Admin: 01/21/22 08:37 Dose: 1 patch Documented by: Lisinopril (Lisinopril 20 Mg Tab) 20 mg PO DAILY [facility] Stop: 02/09/22 08:59 Last Admin: 01/13/22 09:19 Dose: 20 mg Documented by: Miscellaneous (Carbohydrates For Hypoglycemia ) 15 - 30 gm PO UD PRN PRN Reason: Hypoglycemia Treatment Stop: 02/09/22 02:29 Miscellaneous (Remove Lidoderm Patch) 1 ea N/A DAILY@2100 [facility] Stop: 02/19/22 20:59 Last Admin: 01/20/22 21:42 Dose: 1 ea Documented by: Mupirocin (Mupirocin 2% Oint 22 Gm Tube) 1 appln TOP TID [facility] Stop: 02/09/22 08:59 Last Admin: 01/21/22 13:21 Dose: 1 appln Documented by: Olanzapine (Olanzapine 10 Mg/2.1 Ml Sdv) 5 mg IM Q8H PRN PRN Reason: agitation Stop: 02/10/22 07:59 Last Admin: 01/20/22 00:36 Dose: 5 mg Documented by: Olanzapine (Olanzapine 5 Mg Tablet) 5 mg PO HS [facility] Stop: 02/13/22 20:59 Last Admin: 01/20/22 21:42 Dose: 5 mg Documented by: Olanzapine (Olanzapine 5 Mg Tablet) 5 mg PO DAILY@1300 [facility] Stop: 02/14/22 12:59 Last Admin: 01/21/22 12:20 Dose: 5 mg Documented by: Pantoprazole Sodium (Pantoprazole 40 Mg Tab) 40 mg PO DAILY [facility] Stop: 02/09/22 08:59 Last Admin: 01/21/22 08:37 Dose: 40 mg Documented by: Polyethylene Glycol (Polyethylene (Miralax) 17 Gm Pack) 17 gm PO DAILY PRN PRN Reason: Constipation Stop: 02/09/22 02:10 Prednisone (Prednisone 5 Mg Tab) 5 mg PO DAILY [facility] Stop: 02/09/22 08:59 Last Admin: 01/21/22 08:37 Dose: 5 mg Documented by: Rivaroxaban (Rivaroxaban 15 Mg Tab) 15 mg PO QDD [facility] Stop: 02/09/22 16:29 Last Admin: 01/21/22 17:16 Dose: 15 mg Documented by: Tamsulosin HCl (Tamsulosin Hcl 0.4 Mg Cap) 0.4 mg PO HS [facility] Stop: 02/09/22 20:59 Last Admin: 01/20/22 21:42 Dose: 0.4 mg Documented by: Torsemide (Torsemide 10 Mg Tab) 10 mg PO DAILY [facility] Stop: 02/09/22 08:59 Last Admin: 01/13/22 09:19 Dose: 10 mg Documented by:
[2022-01-21] MEDS: TAMSULOSIN HCL 0.4 MG CAP PO SCH (20:49)
[2022-01-22 07:12] LABS: Creatinine Clr Calc Pharmacy 54.3 ml/min; Est GFR (African American) 68.5 ml/min; Est GFR (Non-African American) 59.1 ml/min
[2022-01-22] MEDS: allopurinoL 100 MG TAB PO SCH (07:53)
[2022-01-22] MEDS: predniSONE 5 MG TAB PO SCH (07:53)
[2022-01-22] MEDS: PANTOprazole 40 MG TAB PO SCH (07:53)
[2022-01-22] MEDS: ATENOLOL 25 MG TABLET PO SCH (07:53)
[2022-01-22] MEDS: cephALEXin 500 MG CAP PO SCH ×2 (07:54→20:45)
[2022-01-22] MEDS: ATORVASTATIN 40 MG TAB PO SCH (07:54)
[2022-01-22] MEDS: MUPIROCIN 2% OINT 22 GM TUBE TOP SCH ×3 (07:55→20:46)
[2022-01-22] MEDS: LIDOCAINE 5% 1 PATCH TD SCH (07:55)
[2022-01-22] MEDS: INSULIN GLARGINE SOLOSTAR 100 UNITS/ML 3 ML PEN SC SCH (08:21)
[2022-01-22] MEDS: INSULIN ASPART PER UNIT SC SCH ×4 (08:22→21:00)
[2022-01-22] MEDS: OLANZapine 5 MG TABLET PO SCH ×2 (12:24→20:45)
--- NOTE | 2022-01-22 15:16 | Hospitalist Progress Note ---
Date of Service January 22, 2022 Assessment & Plan (1) Cellulitis: Plan: Bilateral lower extremity cellulitis: Wound cx grew staph aureus MSSA Completed a course of antibiotics during his hospital stay and no further evidence of cellulitis. Wound present on admission has healed. Arterial Doppler of right lower extremity showed Moderate atherosclerotic plaque is seen. No elevated velocities are seen, however monophasic flow is seen below the popliteal artery. Clinically improved. Dementia: Delirium with agitation Prior provider completed report to [employer] about his driving license Pt will need dementia unit for placement -awaiting placement Currently cooperative. Diabetes type 2-at inpatient goal Recent hab1c 9.9 Continue to hold glimepiride and Jardiance. Continue Lantus and novolog sliding scale History of atrial fibrillation: Rate control Continue atenolol and Xarelto. History of gout: On allopurinol and chronic low dose prednisone. Hypertension Continue lisinopril. Chronic diastolic congestive heart failure-chronic, stable. Continue Torsemide Gastroesophageal reflux disease-chronic, stable. Continue PPI. BPH Continue Flomax. Xarelto Full Code Dispo-to SNF DO Derek Perry Hospitalist Admission and Anticipated Discharge Date Admission Date: January 09, 2022 Subjective 81-year-old demented male presented with increased leg pain and concerns for infection. Admitted for bilateral lower extremity cellulitis and started on Rocephin. Source is a traumatic ulceration on right posterior calf, treated with wound care. He is completed a full course of antibiotics at this point and has no complaints. Review of Systems Review of Systems: Patient denies pain, or other issues. Review of systems is limited secondary to dementia. Physical Exam Physical Exam: CONSTITUTIONAL: WNWD, vitals as above, generally well- appearing, NAD EYES: normal conjunctivae, no scleral icterus ENT: external ear and nose normal, MMM NECK: trachea midline, RESPIRATORY: clear to auscultation bilaterally, no crackles, rales or wheezes, normal respiratory effort CARDIOVASCULAR: regular rate and rhythm, S1 and 2 heard without murmurs, gallops or rubs, no JVD, no peripheral edema, CHEST: inspection of chest was normal GASTROINTESTINAL: soft, nontender, ND, no guarding MUSCULOSKELETAL: strength 5/5 throughout, head is normocephalic and atraumatic, neck supple, normal palpation of chest wall without tenderness SKIN: warm and dry NEUROLOGIC: CN 2-12 grossly intact, cannot obtain if sensation deficit 2/2 de mentia, normal cognition, normal speech, no tremor PSYCHIATRIC: alert cooperative and disoriented. Pleasant Results & Data Results & Data ([facility]) Vital Signs (Past 12 Hours) Vital Signs Temp Pulse Resp BP Pulse Ox 01/22/22 07:56 36.5 C 60 16 156/90 H 99 Laboratory Results BMP 01/22/22 06:13 Creatinine 1.14 Medications Administered Current Inpatient Medications Acetaminophen (Acetaminophen 325 Mg Tab) 650 mg PO Q4H PRN PRN Reason: pain/fever Stop: 02/09/22 02:10 Last Admin: 01/21/22 00:07 Dose: 650 mg Documented by: Allopurinol (Allopurinol 100 Mg Tab) 100 mg PO DAILY [facility] Stop: 02/09/22 08:59 Last Admin: 01/22/22 07:53 Dose: 100 mg Documented by: Atenolol (Atenolol 25 Mg Tablet) 12.5 mg PO DAILY [facility] Stop: 02/09/22 08:59 Last Admin: 01/22/22 07:53 Dose: 12.5 mg Documented by: Atorvastatin Calcium (Atorvastatin 40 Mg Tab) 40 mg PO DAILY [facility] Stop: 02/09/22 08:59 Last Admin: 01/22/22 07:54 Dose: 40 mg Documented by: Cephalexin HCl (Cephalexin 500 Mg Cap) 500 mg PO BID [facility]; Protocol Stop: 01/24/22 20:59 Last Admin: 01/22/22 07:54 Dose: 500 mg Documented by: Dextrose (Dextrose 50% 50 Ml Syringe) 25 - 50 ml IV UD PRN; Protocol PRN Reason: Hypoglycemia Protocol Stop: 02/09/22 02:29 Diclofenac Sodium (Diclofenac Sod 1% Gel 100 Gm Tube) 2 gm EXT QID PRN; Pro tocol PRN Reason: joint pain Stop: 02/19/22 04:31 Last Admin: 01/21/22 03:04 Dose: 2 gm Documented by: Glucagon (Glucagon For Inj 1 Mg Vial) 1 mg IM UD PRN; Protocol PRN Reason: Hypoglycemia Protocol Stop: 02/09/22 02:29 Glucose (Glucose 40% Gel 15 Gm Tube) 15 - 30 gm PO UD PRN; Protocol PRN Reason: Hypoglycemia Protocol Stop: 02/09/22 02:29 Glucose (Glucose 10 Tabs/Tube) 4 - 8 tabs PO UD PRN; Protocol PRN Reason: Hypoglycemia Protocol Stop: 02/09/22 02:29 Insulin Aspart (Insulin Aspart Per Unit) 0 units SC ACHS [facility] Stop: 02/09/22 07:29 Last Admin: 01/22/22 12:23 Dose: 9 units Documented by: Insulin Glargine (Insulin Glargine Solostar 100 Units/Ml 3 Ml Pen) 10 units SC DAILY [facility] Stop: 02/20/22 11:29 Last Admin: 01/22/22 08:21 Dose: 10 units Documented by: Lidocaine (Lidocaine 5% 1 Patch) 1 patch TD QAM [facility] Stop: 02/19/22 04:34 Last Admin: 01/22/22 07:55 Dose: 1 patch Documented by: Lisinopril (Lisinopril 20 Mg Tab) 20 mg PO DAILY [facility] Stop: 02/09/22 08:59 Last Admin: 01/13/22 09:19 Dose: 20 mg Documented by: Miscellaneous (Carbohydrates For Hypoglycemia ) 15 - 30 gm PO UD PRN PRN Reason: Hypoglycemia Treatment Stop: 02/09/22 02:29 Miscellaneous (Remove Lidoderm Patch) 1 ea N/A DAILY@2100 [facility] Stop: 02/19/22 20:59 Last Admin: 01/21/22 20:49 Dose: 1 ea Documented by: Mupirocin (Mupirocin 2% Oint 22 Gm Tube) 1 appln TOP TID [facility] Stop: 02/09/22 08:59 Last Admin: 01/22/22 13:00 Dose: 1 appln Documented by: Olanzapine (Olanzapine 5 Mg Tablet) 5 mg PO HS [facility] Stop: 02/13/22 20:59 Last Admin: 01/21/22 20:50 Dose: 5 mg Documented by: Olanzapine (Olanzapine 5 Mg Tablet) 5 mg PO DAILY@1300 [facility] Stop: 02/14/22 12:59 Last Admin: 01/22/22 12:24 Dose: 5 mg Documented by: Pantoprazole Sodium (Pantoprazole 40 Mg Tab) 40 mg PO DAILY [facility] Stop: 02/09/22 08:59 Last Admin: 01/22/22 07:53 Dose: 40 mg Documented by: Polyethylene Glycol (Polyethylene (Miralax) 17 Gm Pack) 17 gm PO DAILY PRN PRN Reason: Constipation Stop: 02/09/22 02:10 Prednisone (Prednisone 5 Mg Tab) 5 mg PO DAILY [facility] Stop: 02/09/22 08:59 Last Admin: 01/22/22 07:53 Dose: 5 mg Documented by: Rivaroxaban (Rivaroxaban 15 Mg Tab) 15 mg PO QDD [facility] Stop: 02/09/22 16:29 Last Admin: 01/21/22 17:16 Dose: 15 mg Documented by: Tamsulosin HCl (Tamsulosin Hcl 0.4 Mg Cap) 0.4 mg PO HS [facility] Stop: 02/09/22 20:59 Last Admin: 01/21/22 20:49 Dose: 0.4 mg Documented by: Torsemide (Torsemide 10 Mg Tab) 10 mg PO DAILY [facility] Stop: 02/09/22 08:59 Last Admin: 01/13/22 09:19 Dose: 10 mg Documented by:
[2022-01-22] MEDS: RIVAROXABAN 15 MG TAB PO SCH (17:29)
[2022-01-22] MEDS: TAMSULOSIN HCL 0.4 MG CAP PO SCH (20:46)
[2022-01-23] MEDS: ACETAMINOPHEN 325 MG TAB PO PRN (00:09)
[2022-01-23 06:40] LABS: Mean Corpuscular Hgb Conc 34.1 g/dL (32-36); Platelet Count 222 K/uL (130-400); RDW Coefficient of Variation 12.6 % (11.5-14.5); RDW Standard Deviation 39.9 fL (36.4-46.3); White Blood Count 11.47 K/uL (4.8-10.8)
[2022-01-23 07:09] LABS: BUN Creatinine Ratio 19.5 (10-20); Calcium 8.7 mg/dl (8.5-10.1); Creatinine Clr Calc Pharmacy 54.7 ml/min; Est GFR (African American) 69.3 ml/min; Est GFR (Non-African American) 59.8 ml/min; Potassium 3.9 mmol/L (3.5-5.1)
[2022-01-23] MEDS: PANTOprazole 40 MG TAB PO SCH (08:27)
[2022-01-23] MEDS: ATORVASTATIN 40 MG TAB PO SCH (08:27)
[2022-01-23] MEDS: predniSONE 5 MG TAB PO SCH (08:27)
[2022-01-23] MEDS: TORSEMIDE 10 MG TAB PO SCH (08:28)
[2022-01-23] MEDS: allopurinoL 100 MG TAB PO SCH (08:29)
[2022-01-23] MEDS: ATENOLOL 25 MG TABLET PO SCH (08:29)
[2022-01-23] MEDS: cephALEXin 500 MG CAP PO SCH ×2 (08:30→20:56)
[2022-01-23] MEDS: LIDOCAINE 5% 1 PATCH TD SCH (08:31)
[2022-01-23] MEDS: lisinopril 20 MG TAB PO SCH (08:31)
[2022-01-23] MEDS: INSULIN GLARGINE SOLOSTAR 100 UNITS/ML 3 ML PEN SC SCH (08:32)
[2022-01-23] MEDS: MUPIROCIN 2% OINT 22 GM TUBE TOP SCH ×3 (08:34→20:56)
[2022-01-23] MEDS: INSULIN ASPART PER UNIT SC SCH ×4 (09:24→20:55)
[2022-01-23] MEDS: OLANZapine 5 MG TABLET PO SCH ×2 (13:23→20:56)
--- NOTE | 2022-01-23 13:53 | Hospitalist Progress Note ---
Date of Service January 23, 2022 Assessment & Plan (1) Cellulitis: Plan: Bilateral lower extremity cellulitis: Wound cx grew staph aureus MSSA Completed a course of antibiotics during his hospital stay and no further evidence of cellulitis. Wound present on admission has healed. Arterial Doppler of right lower extremity showed Moderate atherosclerotic plaque is seen. No elevated velocities are seen, however monophasic flow is seen below the popliteal artery. Clinically improved. Dementia: Delirium with agitation Prior provider completed report to [employer] about his driving license Pt will need dementia unit for placement -awaiting placement Currently cooperative. Diabetes type 2-at inpatient goal Recent hab1c 9.9 Continue to hold glimepiride and Jardiance. Continue Lantus and novolog sliding scale History of atrial fibrillation: Rate control Continue atenolol and Xarelto. History of gout: On allopurinol and chronic low dose prednisone. Hypertension Continue lisinopril. Chronic diastolic congestive heart failure-chronic, stable. Continue Torsemide Gastroesophageal reflux disease-chronic, stable. Continue PPI. BPH Continue Flomax. Xarelto Full Code Dispo-to SNF awaiting placement. Esme Jamison DO [facility] Hospitalist Admission and Anticipated Discharge Date Admission Date: January 09, 2022 Subjective 81-year-old demented male presented with increased leg pain and concerns for infection. Admitted for bilateral lower extremity cellulitis and started on Rocephin. Source is a traumatic ulceration on right posterior calf, treated with wound care. He is completed a full course of antibiotics at this point and has no complaints. Review of Systems Review of Systems: Patient denies pain, or other issues. Review of systems is limited secondary to dementia. Physical Exam Physical Exam: CONSTITUTIONAL: WNWD, vitals as above, generally well- appearing, NAD EYES: normal conjunctivae, no scleral icterus ENT: external ear and nose normal, MMM NECK: trachea midline, RESPIRATORY: clear to auscultation bilaterally, no crackles, rales or wheezes, normal respiratory effort CARDIOVASCULAR: regular rate and rhythm, S1 and 2 heard without murmurs, gallops or rubs, no JVD, no peripheral edema, CHEST: inspection of chest was normal GASTROINTESTINAL: soft, nontender, ND, no guarding MUSCULOSKELETAL: strength 5/5 throughout, head is normocephalic and atraumatic, neck supple, normal palpation of chest wall without tenderness SKIN: warm and dry NEUROLOGIC: CN 2-12 grossly intact, cannot obtain if sensation deficit 2/2 dementia, normal cognition, normal speech, no tremor PSYCHIATRIC: alert cooperative and disoriented. Pleasant Results & Data Results & Data ([facility]) Vital Signs (Past 12 Hours) Vital Signs Temp Pulse Resp BP Pulse Ox 01/23/22 08:30 78 131/81 01/23/22 07:10 36.6 C 67 16 118/80 97 Laboratory Results Short CBC 01/23/22 Range/Units 06:12 WBC 11.47 H (4.8-10.8) K/uL Hgb 15.0 (14.0-18.0) g/dL Hct 44.0 (42-52) % Plt Count 222 (130-400) K/uL BMP 01/23/22 06:12 Sodium 141 Potassium 3.9 Chloride 105 Carbon Dioxide 31 BUN 22 Creatinine 1.13 Glucose 122 H Calcium 8.7 Medications Administered Current Inpatient Medications Acetaminophen (Acetaminophen 325 Mg Tab) 650 mg PO Q4H PRN PRN Reason: pain/fever Stop: 02/09/22 02:10 Last Admin: 01/23/22 00:09 Dose: 650 mg Documented by: Allopurinol (Allopurinol 100 Mg Tab) 100 mg PO DAILY [facility] Stop: 02/09/22 08:59 Last Admin: 01/23/22 08:29 Dose: 100 mg Documented by: Atenolol (Atenolol 25 Mg Tablet) 12.5 mg PO DAILY [facility] Stop: 02/09/22 08:59 Last Admin: 01/23/22 08:29 Dose: 12.5 mg Documented by: Atorvastatin Calcium (Atorvastatin 40 Mg Tab) 40 mg PO DAILY [facility] Stop: 02/09/22 08:59 Last Admin: 01/23/22 08:27 Dose: 40 mg Documented by: Cephalexin HCl (Cephalexin 500 Mg Cap) 500 mg PO BID [facility]; Protocol Stop: 01/24/22 20:59 Last Admin: 01/23/22 08:30 Dose: 500 mg Documented by: Dextrose (Dextrose 50% 50 Ml Syringe) 25 - 50 ml IV UD PRN; Protocol PRN Reason: Hypoglycemia Protocol Stop: 02/09/22 02:29 Diclofenac Sodium (Diclofenac Sod 1% Gel 100 Gm Tube) 2 gm EXT QID PRN; Protocol PRN Reason: joint pain Stop: 02/19/22 04:31 Last Admin: 01/21/22 03:04 Dose: 2 gm Documented by: Glucagon (Glucagon For Inj 1 Mg Vial) 1 mg IM UD PRN; Protocol PRN Reason: Hypoglycemia Protocol Stop: 02/09/22 02:29 Glucose (Glucose 40% Gel 15 Gm Tube) 15 - 30 gm PO UD PRN; Protocol PRN Reason: Hypoglycemia Protocol Stop: 02/09/22 02:29 Glucose (Glucose 10 Tabs/Tube) 4 - 8 tabs PO UD PRN; Protocol PRN Reason: Hypoglycemia Protocol Stop: 02/09/22 02:29 Insulin Aspart (Insulin Aspart Per Unit) 0 units SC ACHS [facility] Stop: 02/09/22 07:29 Last Admin: 01/23/22 12:24 Dose: 13 units Documented by: Insulin Glargine (Insulin Glargine Solostar 100 Units/Ml 3 Ml Pen) 10 units SC DAILY [facility] Stop: 02/20/22 11:29 Last Admin: 01/23/22 08:32 Dose: 10 units Documented by: Lidocaine (Lidocaine 5% 1 Patch) 1 patch TD QAM [facility] Stop: 02/19/22 04:34 Last Admin: 01/23/22 08:31 Dose: 1 patch Documented by: Lisinopril (Lisinopril 20 Mg Tab) 20 mg PO DAILY [facility] Stop: 02/09/22 08:59 Last Admin: 01/23/22 08:31 Dose: 20 mg Documented by: Miscellaneous (Carbohydrates For Hypoglycemia ) 15 - 30 gm PO UD PRN PRN Reason: Hypoglycemia Treatment Stop: 02/09/22 02:29 Miscellaneous (Remove Lidoderm Patch) 1 ea N/A DAILY@2100 [facility] Stop: 02/19/22 20:59 Last Admin: 01/22/22 20:46 Dose: 1 ea Documented by: Mupirocin (Mupirocin 2% Oint 22 Gm Tube) 1 appln TOP TID [facility] Stop: 02/09/22 08:59 Last Admin: 01/23/22 08:34 Dose: 1 appln Documented by: Olanzapine (Olanzapine 5 Mg Tablet) 5 mg PO HS [facility] Stop: 02/13/22 20:59 Last Admin: 01/22/22 20:45 Dose: 5 mg Documented by: Olanzapine (Olanzapine 5 Mg Tablet) 5 mg PO DAILY@1300 [facility] Stop: 02/14/22 12:59 Last Admin: 01/23/22 13:23 Dose: 5 mg Documented by: Pantoprazole Sodium (Pantoprazole 40 Mg Tab) 40 mg PO DAILY [facility] Stop: 02/09/22 08:59 Last Admin: 01/23/22 08:27 Dose: 40 mg Documented by: Polyethylene Glycol (Polyethylene (Miralax) 17 Gm Pack) 17 gm PO DAILY PRN PRN Reason: Constipation Stop: 02/09/22 02:10 Prednisone (Prednisone 5 Mg Tab) 5 mg PO DAILY [facility] Stop: 02/09/22 08:59 Last Admin: 01/23/22 08:27 Dose: 5 mg Documented by: Rivaroxaban (Rivaroxaban 15 Mg Tab) 15 mg PO QDD [facility] Stop: 02/09/22 16:29 Last Admin: 01/22/22 17:29 Dose: 15 mg Documented by: Tamsulosin HCl (Tamsulosin Hcl 0.4 Mg Cap) 0.4 mg PO HS [facility] Stop: 02/09/22 20:59 Last Admin: 01/22/22 20:46 Dose: 0.4 mg Documented by: Torsemide (Torsemide 10 Mg Tab) 10 mg PO DAILY [facility] Stop: 02/09/22 08:59 Last Admin: 01/23/22 08:28 Dose: 10 mg Documented by:
[2022-01-23] MEDS: RIVAROXABAN 15 MG TAB PO SCH (17:11)
[2022-01-23] MEDS: TAMSULOSIN HCL 0.4 MG CAP PO SCH (20:56)
[2022-01-24] MEDS: ACETAMINOPHEN 325 MG TAB PO PRN ×2 (04:10→15:34)
[2022-01-24] MEDS: cephALEXin 500 MG CAP PO SCH (07:43)
[2022-01-24] MEDS: allopurinoL 100 MG TAB PO SCH (07:44)
[2022-01-24] MEDS: predniSONE 5 MG TAB PO SCH (07:44)
[2022-01-24] MEDS: ATENOLOL 25 MG TABLET PO SCH (07:44)
[2022-01-24] MEDS: TORSEMIDE 10 MG TAB PO SCH (07:44)
[2022-01-24] MEDS: ATORVASTATIN 40 MG TAB PO SCH (07:46)
[2022-01-24] MEDS: lisinopril 20 MG TAB PO SCH (07:46)
[2022-01-24] MEDS: LIDOCAINE 5% 1 PATCH TD SCH (07:46)
[2022-01-24] MEDS: PANTOprazole 40 MG TAB PO SCH (07:46)
[2022-01-24] MEDS: MUPIROCIN 2% OINT 22 GM TUBE TOP SCH ×3 (07:47→20:45)
[2022-01-24] MEDS: INSULIN ASPART PER UNIT SC SCH ×4 (08:54→20:45)
[2022-01-24] MEDS: INSULIN GLARGINE SOLOSTAR 100 UNITS/ML 3 ML PEN SC SCH (08:55)
[2022-01-24] MEDS: OLANZapine 5 MG TABLET PO SCH ×2 (12:55→20:45)
[2022-01-24] MEDS: RIVAROXABAN 15 MG TAB PO SCH (17:36)
--- NOTE | 2022-01-24 18:18 | Hospitalist Progress Note ---
Date of Service January 24, 2022 Assessment & Plan (1) Cellulitis: Plan: Bilateral lower extremity cellulitis: Wound cx grew staph aureus MSSA Completed a course of antibiotics during his hospital stay and no further evidence of cellulitis. Wound present on admission has healed. Arterial Doppler of right lower extremity showed Moderate atherosclerotic plaque is seen. No elevated velocities are seen, however monophasic flow is seen below the popliteal artery. Clinically improved. Dementia: Delirium with agitation Prior provider completed report to [employer] about his driving license Pt will need dementia unit for placement -awaiting placement Currently cooperative. Diabetes type 2-at inpatient goal Recent hab1c 9.9 Continue to hold glimepiride and Jardiance. Continue Lantus and novolog sliding scale History of atrial fibrillation: Rate control Continue atenolol and Xarelto. History of gout: On allopurinol and chronic low dose prednisone. Hypertension Continue lisinopril. Chronic diastolic congestive heart failure-chronic, stable. Continue Torsemide Gastroesophageal reflux disease-chronic, stable. Continue PPI. BPH Continue Flomax. Xarelto Full Code Dispo-to SNF awaiting placement. Esme Jamison DO [facility] Hospitalist Admission and Anticipated Discharge Date Admission Date: January 09, 2022 Subjective 81-year-old demented male presented with increased leg pain and concerns for infection. Admitted for bilateral lower extremity cellulitis and started on Rocephin. Source is a traumatic ulceration on right posterior calf, treated with wound care. He is completed a full course of antibiotics at this point and has no complaints. Pleasant, watching TV in bed No issues today Tolerating PO Awaiting rehab placement Review of Systems Review of Systems: Patient denies pain, or other issues. Review of systems is limited secondary to dementia. Physical Exam Physical Exam: CONSTITUTIONAL: WNWD, vitals as above, generally well- appearing, NAD EYES: normal conjunctivae, no scleral icterus ENT: external ear and nose normal, MMM NECK: trachea midline, RESPIRATORY: clear to auscultation bilaterally, no crackles, rales or wheezes, normal respiratory effort CARDIOVASCULAR: regular rate and rhythm, S1 and 2 heard without murmurs, gallops or rubs, no JVD, no peripheral edema, CHEST: inspection of chest was normal GASTROINTESTINAL: soft, nontender, ND, no guarding MUSCULOSKELETAL: strength 5/5 throughout, head is normocephalic and atraumatic, neck supple, normal palpation of chest wall without tenderness SKIN: warm and dry NEUROLOGIC: CN 2-12 grossly intact, cannot obtain if sensation deficit 2/2 dementia, normal cognition, normal speech, no tremor PSYCHIATRIC: alert cooperative and disoriented. Pleasant Results & Data Results & Data ([facility]) Vital Signs (Past 12 Hours) Vital Signs Temp Pulse Resp BP Pulse Ox 01/24/22 15:03 36.6 C 82 16 104/72 95 01/24/22 06:40 36.7 C 61 18 104/69 97
[2022-01-24] MEDS: TAMSULOSIN HCL 0.4 MG CAP PO SCH (20:45)
[2022-01-25] MEDS: ACETAMINOPHEN 325 MG TAB PO PRN ×2 (06:51→14:02)
[2022-01-25] MEDS: INSULIN ASPART PER UNIT SC SCH ×4 (08:54→20:51)
[2022-01-25] MEDS: INSULIN GLARGINE SOLOSTAR 100 UNITS/ML 3 ML PEN SC SCH ×2 (08:54→20:51)
[2022-01-25] MEDS: MUPIROCIN 2% OINT 22 GM TUBE TOP SCH ×3 (09:18→20:42)
[2022-01-25] MEDS: TORSEMIDE 10 MG TAB PO SCH (09:18)
[2022-01-25] MEDS: LIDOCAINE 5% 1 PATCH TD SCH (09:18)
[2022-01-25] MEDS: ATENOLOL 25 MG TABLET PO SCH (09:19)
[2022-01-25] MEDS: allopurinoL 100 MG TAB PO SCH (09:19)
[2022-01-25] MEDS: PANTOprazole 40 MG TAB PO SCH (09:19)
[2022-01-25] MEDS: lisinopril 20 MG TAB PO SCH (09:19)
[2022-01-25] MEDS: ATORVASTATIN 40 MG TAB PO SCH (09:19)
[2022-01-25] MEDS: predniSONE 5 MG TAB PO SCH (09:19)
--- NOTE | 2022-01-25 13:31 | Hospitalist Progress Note ---
Date of Service January 25, 2022 Assessment & Plan (1) Cellulitis: Plan: Bilateral lower extremity cellulitis: Wound cx grew staph aureus MSSA Completed a course of antibiotics during his hospital stay and no further evidence of cellulitis. Wound present on admission has healed. Arterial Doppler of right lower extremity showed Moderate atherosclerotic plaque is seen. No elevated velocities are seen, however monophasic flow is seen below the popliteal artery. Clinically improved. Dementia: Delirium with agitation Prior provider completed report to [employer] about his driving license Pt will need dementia unit for placement -awaiting placement Currently cooperative. Diabetes type 2-at inpatient goal Recent hab1c 9.9 Continue to hold glimepiride and Jardiance. Continue Lantus and novolog sliding scale History of atrial fibrillation: Rate control Continue atenolol and Xarelto. History of gout: On allopurinol and chronic low dose prednisone. Hypertension Continue lisinopril. Chronic diastolic congestive heart failure-chronic, stable. Continue Torsemide Gastroesophageal reflux disease-chronic, stable. Continue PPI. BPH Continue Flomax. Xarelto Full Code Dispo-to SNF awaiting placement. Esme Jamison DO [facility] Hospitalist Admission and Anticipated Discharge Date Admission Date: January 09, 2022 Subjective 81-year-old demented male presented with increased leg pain and concerns for infection. Admitted for bilateral lower extremity cellulitis and started on Rocephin. Source is a traumatic ulceration on right posterior calf, treated with wound care. He is completed a full course of antibiotics at this point and has no complaints. Pleasant, reading newspaper in bedside chair today No issues Denies pain Tolerating PO Awaiting rehab placement Review of Systems Review of Systems: Patient denies pain, or other issues. Physical Exam Physical Exam: CONSTITUTIONAL: WNWD, vitals as above, generally well- appearing, NAD EYES: normal conjunctivae, no scleral icterus ENT: external ear and nose normal, MMM NECK: trachea midline, RESPIRATORY: clear to auscultation bilaterally, no crackles, rales or wheezes, normal respiratory effort CARDIOVASCULAR: regular rate and rhythm, S1 and 2 heard without murmurs, gallops or rubs, no JVD, no peripheral edema, CHEST: inspection of chest was normal GASTROINTESTINAL: soft, nontender, ND, no guarding MUSCULOSKELETAL: strength 5/5 throughout, head is normocephalic and atraumatic, neck supple, normal palpation of chest wall without tenderness SKIN: warm and dry NEUROLOGIC: CN 2-12 grossly intact, cannot obtain if sensation deficit 2/2 dementia, normal cognition, normal speech, no tremor PSYCHIATRIC: alert cooperative and oriented to self. Pleasant Results & Data Results & Data ([facility]) Vital Signs (Past 12 Hours) Vital Signs Temp Pulse Resp BP Pulse Ox 01/25/22 07:59 36.6 C 73 16 113/72 98 Medications Administered Current Inpatient Medications Acetaminophen (Acetaminophen 325 Mg Tab) 650 mg PO Q4H PRN PRN Reason: pain/fever Stop: 02/09/22 02:10 Last Admin: 01/25/22 06:51 Dose: 650 mg Documented by: Allopurinol (Allopurinol 100 Mg Tab) 100 mg PO DAILY [facility] Stop: 02/09/22 08:59 Last Admin: 01/25/22 09:19 Dose: 100 mg Documented by: Atenolol (Atenolol 25 Mg Tablet) 12.5 mg PO DAILY [facility] Stop: 02/09/22 08:59 Last Admin: 01/25/22 09:19 Dose: 12.5 mg Documented by: Atorvastatin Calcium (Atorvastatin 40 Mg Tab) 40 mg PO DAILY [facility] Stop: 02/09/22 08:59 Last Admin: 01/25/22 09:19 Dose: 40 mg Documented by: Dextrose (Dextrose 50% 50 Ml Syringe) 25 - 50 ml IV UD PRN; Protocol PRN Reason: Hypoglycemia Protocol Stop: 02/09/22 02:29 Diclofenac Sodium (Diclofenac Sod 1% Gel 100 Gm Tube) 2 gm EXT QID PRN; Protocol PRN Reason: joint pain Stop: 02/19/22 04:31 Last Admin: 01/21/22 03:04 Dose: 2 gm Documented by: Glucagon (Glucagon For Inj 1 Mg Vial) 1 mg IM UD PRN; Protocol PRN Reason: Hypoglycemia Protocol Stop: 02/09/22 02:29 Glucose (Glucose 40% Gel 15 Gm Tube) 15 - 30 gm PO UD PRN; Protocol PRN Reason: Hypoglycemia Protocol Stop: 02/09/22 02:29 Glucose (Glucose 10 Tabs/Tube) 4 - 8 tabs PO UD PRN; Protocol PRN Reason: Hypoglycemia Protocol Stop: 02/09/22 02:29 Insulin Aspart (Insulin Aspart Per Unit) 0 units SC ACHS [facility] Stop: 02/09/22 07:29 Last Admin: 01/25/22 12:52 Dose: 7 units Documented by: Insulin Glargine (Insulin Glargine Solostar 100 Units/Ml 3 Ml Pen) 15 units SC BID [facility] Stop: 02/24/22 08:59 Last Admin: 01/25/22 08:54 Dose: 15 units Documented by: Lidocaine (Lidocaine 5% 1 Patch) 1 patch TD QAM [facility] Stop: 02/19/22 04:34 Last Admin: 01/25/22 09:18 Dose: 1 patch Documented by: Lisinopril (Lisinopril 20 Mg Tab) 20 mg PO DAILY [facility] Stop: 02/09/22 08:59 Last Admin: 01/25/22 09:19 Dose: 20 mg Documented by: Miscellaneous (Carbohydrates For Hypoglycemia ) 15 - 30 gm PO UD PRN PRN Reason: Hypoglycemia Treatment Stop: 02/09/22 02:29 Miscellaneous (Remove Lidoderm Patch) 1 ea N/A DAILY@2100 [facility] Stop: 02/19/22 20:59 Last Admin: 01/24/22 20:44 Dose: 1 ea Documented by: Mupirocin (Mupirocin 2% Oint 22 Gm Tube) 1 appln TOP TID [facility] Stop: 02/09/22 08:59 Last Admin: 01/25/22 09:18 Dose: 1 appln Documented by: Olanzapine (Olanzapine 5 Mg Tablet) 5 mg PO HS [facility] Stop: 02/13/22 20:59 Last Admin: 01/24/22 20:45 Dose: 5 mg Documented by: Olanzapine (Olanzapine 5 Mg Tablet) 5 mg PO DAILY@1300 [facility] Stop: 02/14/22 12:59 Last Admin: 01/24/22 12:55 Dose: 5 mg Documented by: Pantoprazole Sodium (Pantoprazole 40 Mg Tab) 40 mg PO DAILY [facility] Stop: 02/09/22 08:59 Last Admin: 01/25/22 09:19 Dose: 40 mg Documented by: Polyethylene Glycol (Polyethylene (Miralax) 17 Gm Pack) 17 gm PO DAILY PRN PRN Reason: Constipation Stop: 02/09/22 02:10 Prednisone (Prednisone 5 Mg Tab) 5 mg PO DAILY [facility] Stop: 02/09/22 08:59 Last Admin: 01/25/22 09:19 Dose: 5 mg Documented by: Rivaroxaban (Rivaroxaban 15 Mg Tab) 15 mg PO QDD [facility] Stop: 02/09/22 16:29 Last Admin: 01/24/22 17:36 Dose: 15 mg Documented by: Tamsulosin HCl (Tamsulosin Hcl 0.4 Mg Cap) 0.4 mg PO HS [facility] Stop: 02/09/22 20:59 Last Admin: 01/24/22 20:45 Dose: 0.4 mg Documented by: Torsemide (Torsemide 10 Mg Tab) 10 mg PO DAILY [facility] Stop: 02/09/22 08:59 Last Admin: 01/25/22 09:18 Dose: 10 mg Documented by:
[2022-01-25] MEDS: OLANZapine 5 MG TABLET PO SCH ×2 (13:57→20:43)
[2022-01-25] MEDS: DICLOFENAC SOD 1% GEL 100 GM TUBE EXT PRN ×2 (13:57→20:42)
[2022-01-25] MEDS: ACETAMINOPHEN 500 MG TAB PO SCH ×2 (14:26→20:53)
[2022-01-25] MEDS: RIVAROXABAN 15 MG TAB PO SCH (17:26)
--- NOTE | 2022-01-25 17:49 | XRay Report ---
XR lumbar spine 2-3V CLINICAL HISTORY: lower back pain, flank pain on right, dementia TECHNIQUE: 3 views of the lumbar spine were obtained. Comparison: Comparison is made to lumbar spine radiographs 07/16/2020 FINDINGS: There is no evidence of an acute fracture. Degenerative changes are seen in the lumbar spine. The ali gnment is normal. Vascular calcifications are noted. IMPRESSION: Severe degenerative change without evidence of acute fracture. ACT 112: Negative or not required by law. Electronically signed by: Yassine Archer M.D. 01/25/2022 5:47 PM
[2022-01-25] MEDS: TAMSULOSIN HCL 0.4 MG CAP PO SCH (20:43)
[2022-01-26] MEDS: ACETAMINOPHEN 500 MG TAB PO SCH ×3 (05:54→21:10)
[2022-01-26] MEDS: TORSEMIDE 10 MG TAB PO SCH (08:39)
[2022-01-26] MEDS: PANTOprazole 40 MG TAB PO SCH (08:39)
[2022-01-26] MEDS: lisinopril 20 MG TAB PO SCH (08:39)
[2022-01-26] MEDS: MUPIROCIN 2% OINT 22 GM TUBE TOP SCH ×3 (08:40→20:26)
[2022-01-26] MEDS: allopurinoL 100 MG TAB PO SCH (08:40)
[2022-01-26] MEDS: LIDOCAINE 5% 1 PATCH TD SCH (08:40)
[2022-01-26] MEDS: predniSONE 5 MG TAB PO SCH (08:40)
[2022-01-26] MEDS: ATENOLOL 25 MG TABLET PO SCH (08:40)
[2022-01-26] MEDS: ATORVASTATIN 40 MG TAB PO SCH (08:40)
[2022-01-26] MEDS: INSULIN GLARGINE SOLOSTAR 100 UNITS/ML 3 ML PEN SC SCH ×2 (08:49→20:24)
[2022-01-26] MEDS: INSULIN ASPART PER UNIT SC SCH ×4 (08:49→20:32)
[2022-01-26] MEDS ORDERED: IBUPROFEN 200 MG TAB PO STA (09:55)
[2022-01-26] MEDS: OLANZapine 5 MG TABLET PO SCH ×2 (12:59→20:25)
--- NOTE | 2022-01-26 14:12 | Hospitalist Progress Note ---
Date of Service January 26, 2022 Assessment & Plan (1) Cellulitis: Plan: Bilateral lower extremity cellulitis: Wound cx grew staph aureus MSSA Completed a course of antibiotics during his hospital stay and no further evidence of cellulitis. Wound present on admission has healed. Arterial Doppler of right lower extremity showed Moderate atherosclerotic plaque is seen. No elevated velocities are seen, however monophasic flow is seen below the popliteal artery. Clinically improved. Cont medical management of PAD. Further workup of this as outpatient as needed. Dysphagia- Just reported today Nurse reports no observed chking or coughing with meals recently Pt is a poor historian. 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 Prior provider completed report to [employer] about his driving license Pt will need dementia unit for placement -awaiting placement Currently cooperative. Diabetes type 2-at inpatient goal Recent hab1c 9.9 Continue to hold glimepiride and Jardiance. Continue Lantus and novolog sliding scale Currently at inpatient goal. History of atrial fibrillation: Rate control Continueatenolol and Xarelto. History of gout: On allopurinol and chronic low dose prednisone. Hypertension Continue lisinopril. Chronic diastolic congestive heart failure-chronic, stable. Continue Torsemide Gastroesophageal reflux disease-chronic, stable. Continue PPI. BPH Continue Flomax. Xarelto Full Code Dispo-to SNF awaiting placement. Esme Jamison DO [facility] Hospitalist Admission and Anticipated Discharge Date Admission Date: January 09, 2022 Subjective 81-year-old demented male presented with increased leg pain and concerns for infection. Admitted for bilateral lower extremity cellulitis and started on Rocephin. Source is a traumatic ulceration on right posterior calf, treated with wound care. He is completed a full course of antibiotics at this point. Patient is pleasant and mentating better today Clearly articulates that he is having coughing in response to eating and has had difficulty swallowing for the past 3 months Also reports a persistent lower back pain, evidence of severe osteoarthritis on x-ray last night. Improved after ibuprofen per nurse. Review of Systems Review of Systems: All systems reviewed negative except as indicated above. Physical Exam Physical Exam: CONSTITUTIONAL: WNWD, vitals as above, generally well- appearing, NAD EYES: normal conjunctivae, no scleral icterus ENT: external ear and nose normal, MMM NECK: trachea midline, RESPIRATORY: clear to auscultation bilaterally, no crackles, rales or wheezes, normal respiratory effort CARDIOVASCULAR: regular rate and rhythm, S1 and 2 heard without murmurs, gallops or rubs, no JVD, no peripheral edema, CHEST: inspection of chest was normal GASTROINTESTINAL: soft, nontender, ND, no guarding MUSCULOSKELETAL: strength 5/5 throughout, head is normocephalic and atraumatic, neck supple, normal palpation of chest wall without tenderness SKIN: warm and dry NEUROLOGIC: CN 2-12 grossly intact, cannot obtain if sensation deficit 2/2 dementia, normal cognition, normal speech, no tremor PSYCHIATRIC: alert cooperative and oriented to self. Pleasant Results & Data Results & Data ([facility]) Vital Signs (Past 12 Hours) Vital Signs Temp Pulse Resp BP Pulse Ox 01/26/22 08:01 36.5 C 67 16 122/72 97 Medications Administered Current Inpatient Medications Acetaminophen (Acetaminophen 500 Mg Tab) 1,000 mg PO Q8 [facility] Stop: 02/24/22 14:29 Last Admin: 01/26/22 05:54 Dose: 1,000 mg Documented by: Allopurinol (Allopurinol 100 Mg Tab) 100 mg PO DAILY [facility] Stop: 02/09/22 08:59 Last Admin: 01/26/22 08:40 Dose: 100 mg Documented by: Atenolol (Atenolol 25 Mg Tablet) 12.5 mg PO DAILY [facility] Stop: 02/09/22 08:59 Last Admin: 01/26/22 08:40 Dose: 12.5 mg Documented by: Atorvastatin Calcium (Atorvastatin 40 Mg Tab) 40 mg PO DAILY [facility] Stop: 02/09/22 08:59 Last Admin: 01/26/22 08:40 Dose: 40 mg Documented by: Dextrose (Dextrose 50% 50 Ml Syringe) 25 - 50 ml IV UD PRN; Protocol PRN Reason: Hypoglycemia Protocol Stop: 02/09/22 02:29 Diclofenac Sodium (Diclofenac Sod 1% Gel 100 Gm Tube) 2 gm EXT QID PRN; Protocol PRN Reason: joint pain Stop: 02/19/22 04:31 Last Admin: 01/25/22 20:42 Dose: 2 gm Documented by: Glucagon (Glucagon For Inj 1 Mg Vial) 1 mg IM UD PRN; Protocol PRN Reason: Hypoglycemia Protocol Stop: 02/09/22 02:29 Glucose (Glucose 40% Gel 15 Gm Tube) 15 - 30 gm PO UD PRN; Protocol PRN Reason: Hypoglycemia Protocol Stop: 02/09/22 02:29 Glucose (Glucose 10 Tabs/Tube) 4 - 8 tabs PO UD PRN; Protocol PRN Reason: Hypoglycemia Protocol Stop: 02/09/22 02:29 Insulin Aspart (Insulin Aspart Per Unit) 0 units SC ACHS [facility] Stop: 02/09/22 07:29 Last Admin: 01/26/22 12:49 Dose: 13 units Documented by: Insulin Glargine (Insulin Glargine Solostar 100 Units/Ml 3 Ml Pen) 15 units SC BID [facility] Stop: 02/24/22 08:59 Last Admin: 01/26/22 08:49 Dose: 15 units Documented by: Lidocaine (Lidocaine 5% 1 Patch) 1 patch TD QAM [facility] Stop: 02/19/22 04:34 Last Admin: 01/26/22 08:40 Dose: 1 patch Documented by: Lisinopril (Lisinopril 20 Mg Tab) 20 mg PO DAILY [facility] Stop: 02/09/22 08:59 Last Admin: 01/26/22 08:39 Dose: 20 mg Documented by: Miscellaneous (Carbohydrates For Hypoglycemia ) 15 - 30 gm PO UD PRN PRN Reason: Hypoglycemia Treatment Stop: 02/09/22 02:29 Miscellaneous (Remove Lidoderm Patch) 1 ea N/A DAILY@2100 [facility] Stop: 02/19/22 20:59 Last Admin: 01/25/22 20:43 Dose: 1 ea Documented by: Mupirocin (Mupirocin 2% Oint 22 Gm Tube) 1 appln TOP TID [facility] Stop: 02/09/22 08:59 Last Admin: 01/26/22 08:40 Dose: 1 appln Documented by: Olanzapine (Olanzapine 5 Mg Tablet) 5 mg PO HS [facility] Stop: 02/13/22 20:59 Last Admin: 01/25/22 20:43 Dose: 5 mg Documented by: Olanzapine (Olanzapine 5 Mg Tablet) 5 mg PO DAILY@1300 [facility] Stop: 02/14/22 12:59 Last Admin: 01/26/22 12:59 Dose: 5 mg Documented by: Pantoprazole Sodium (Pantoprazole 40 Mg Tab) 40 mg PO DAILY [facility] Stop: 02/09/22 08:59 Last Admin: 01/26/22 08:39 Dose: 40 mg Documented by: Polyethylene Glycol (Polyethylene (Miralax) 17 Gm Pack) 17 gm PO DAILY PRN PRN Reason: Constipation Stop: 02/09/22 02:10 Prednisone (Prednisone 5 Mg Tab) 5 mg PO DAILY [facility] Stop: 02/09/22 08:59 Last Admin: 01/26/22 08:40 Dose: 5 mg Documented by: Rivaroxaban (Rivaroxaban 15 Mg Tab) 15 mg PO QDD [facility] Stop: 02/09/22 16:29 Last Admin: 01/25/22 17:26 Dose: 15 mg Documented by: Tamsulosin HCl (Tamsulosin Hcl 0.4 Mg Cap) 0.4 mg PO HS [facility] Stop: 02/09/22 20:59 Last Admin: 01/25/22 20:43 Dose: 0.4 mg Documented by: Torsemide (Torsemide 10 Mg Tab) 10 mg PO DAILY [facility] Stop: 02/09/22 08:59 Last Admin: 01/26/22 08:39 Dose: 10 mg Documented by:
[2022-01-26] MEDS: RIVAROXABAN 15 MG TAB PO SCH (17:00)
[2022-01-26] MEDS: TAMSULOSIN HCL 0.4 MG CAP PO SCH (20:25)
[2022-01-26] MEDS: DICLOFENAC SOD 1% GEL 100 GM TUBE EXT PRN (20:26)
[2022-01-27] MEDS: ACETAMINOPHEN 500 MG TAB PO SCH ×3 (05:31→20:39)
[2022-01-27] MEDS: allopurinoL 100 MG TAB PO SCH (07:30)
[2022-01-27] MEDS: TORSEMIDE 10 MG TAB PO SCH (07:30)
[2022-01-27] MEDS: ATORVASTATIN 40 MG TAB PO SCH (07:30)
[2022-01-27] MEDS: PANTOprazole 40 MG TAB PO SCH (07:30)
[2022-01-27] MEDS: lisinopril 20 MG TAB PO SCH (07:30)
[2022-01-27] MEDS: predniSONE 5 MG TAB PO SCH (07:31)
[2022-01-27] MEDS: ATENOLOL 25 MG TABLET PO SCH (07:31)
[2022-01-27] MEDS: LIDOCAINE 5% 1 PATCH TD SCH (07:32)
[2022-01-27] MEDS: MUPIROCIN 2% OINT 22 GM TUBE TOP SCH ×3 (07:32→20:40)
[2022-01-27] MEDS: INSULIN GLARGINE SOLOSTAR 100 UNITS/ML 3 ML PEN SC SCH ×2 (08:13→20:46)
[2022-01-27] MEDS: INSULIN ASPART PER UNIT SC SCH ×4 (08:14→20:40)
[2022-01-27] MEDS: OLANZapine 5 MG TABLET PO SCH ×2 (12:16→20:39)
--- NOTE | 2022-01-27 14:10 | Hospitalist Progress Note ---
Date of Service January 27, 2022 Assessment & Plan (1) Cellulitis: Plan: Bilateral lower extremity cellulitis: Wound cx grew staph aureus MSSA Completed a course of antibiotics during his hospital stay and no further evidence of cellulitis. Wound present on admission has healed. Arterial Doppler of right lower extremity showed Moderate atherosclerotic plaque is seen. No elevated velocities are seen, however monophasic flow is seen below the popliteal artery. Clinically improved. Cont medical management of PAD. Further workup of this as outpatient as needed. Dry cough We will give Mucinex Dysphagia- Just reported today Nurse reports no observed chking or coughing with meals recently Pt is a poor historian. 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 Prior provider completed report to [employer] about his driving license Pt will need dementia unit for placement -awaiting placement Currently cooperative. Diabetes type 2-at inpatient goal Recent hab1c 9.9 Continue to hold glimepiride and Jardiance. Continue Lantus and novolog sliding scale Currently at inpatient goal. History of atrial fibrillation: Rate control Continueatenolol and Xarelto. History of gout: On allopurinol and chronic low dose prednisone. Hypertension Continue lisinopril. Chronic diastolic congestive heart failure-chronic, stable. Continue Torsemide Gastroesophageal reflux disease-chronic, stable. Continue PPI. BPH Continue Flomax. Xarelto Full Code Dispo-to SNF awaiting placement. Admission and Anticipated Discharge Date Admission Date: January 09, 2022 Subjective 01/27/2022 The patient was seen and examined in medical floor He remains stable and complains to have some cough without any phlegm He recognized me and communicating normally Review of Systems Review of Systems: All systems reviewed and are unremarkable except as noted below Respiratory: Has cough without any phlegm Musculoskeletal: Back pain seems to be minimal Physical Exam Physical Exam: Lying in bed comfortably Constitutional: well developed, well nourished and + obese Eyes: PERRL, conjunctivae normal, anicteric sclerae ENMT: external ear and nose normal, oropharynx normal Neck: trachea midline, no thyromegaly Respiratory: no respiratory distress Auscultation: lungs clear to auscultation bilaterally Cardiovascular: Rate/Rhythm: regular rate and regular rhythm; not tachycardic Heart Sounds: normal S1 and normal S2; no murmur Extremities: no edema Gastrointestinal (Abdomen): Inspection/Auscultation: normal bowel sounds; abdomen not distended Percussion/Palpation: abdomen soft; abdomen nontender Musculoskeletal: No acute arthritis in any joint Neurologic: Pleasantly confused Lymphatic: no cervical or axillary lymphadenopathy Results & Data Results & Data ([facility]) Vital Signs (Past 12 Hours) Vital Signs Temp Pulse Resp BP Pulse Ox 01/27/22 07:26 36.6 C 73 16 100/67 97 Medications Administered Current Inpatient Medications Acetaminophen (Acetaminophen 500 Mg Tab) 1,000 mg PO Q8 [facility] Stop: 02/24/22 14:29 Last Admin: 01/27/22 12:16 Dose: 1,000 mg Documented by: Allopurinol (Allopurinol 100 Mg Tab) 100 mg PO DAILY [facility] Stop: 02/09/22 08:59 Last Admin: 01/27/22 07:30 Dose: 100 mg Documented by: Atenolol (Atenolol 25 Mg Tablet) 12.5 mg PO DAILY [facility] Stop: 02/09/22 08:59 Last Admin: 01/27/22 07:31 Dose: 12.5 mg Documented by: Atorvastatin Calcium (Atorvastatin 40 Mg Tab) 40 mg PO DAILY [facility] Stop: 02/09/22 08:59 Last Admin: 01/27/22 07:30 Dose: 40 mg Documented by: Dextrose (Dextrose 50% 50 Ml Syringe) 25 - 50 ml IV UD PRN; Protocol PRN Reason: Hypoglycemia Protocol Stop: 02/09/22 02:29 Diclofenac Sodium (Diclofenac Sod 1% Gel 100 Gm Tube) 2 gm EXT QID PRN; Protocol PRN Reason: joint pain Stop: 02/19/22 04:31 Last Admin: 01/26/22 20:26 Dose: 2 gm Documented by: Glucagon (Glucagon For Inj 1 Mg Vial) 1 mg IM UD PRN; Protocol PRN Reason: Hypoglycemia Protocol Stop: 02/09/22 02:29 Glucose (Glucose 40% Gel 15 Gm Tube) 15 - 30 gm PO UD PRN; Protocol PRN Reason: Hypoglycemia Protocol Stop: 02/09/22 02:29 Glucose (Glucose 10 Tabs/Tube) 4 - 8 tabs PO UD PRN; Protocol PRN Reason: Hypoglycemia Protocol Stop: 02/09/22 02:29 Insulin Aspart (Insulin Aspart Per Unit) 0 units SC ACHS [facility] Stop: 02/09/22 07:29 Last Admin: 01/27/22 12:12 Dose: 9 units Documented by: Insulin Glargine (Insulin Glargine Solostar 100 Units/Ml 3 Ml Pen) 15 units SC BID [facility] Stop: 02/24/22 08:59 Last Admin: 01/27/22 08:13 Dose: 15 units Documented by: Lidocaine (Lidocaine 5% 1 Patch) 1 patch TD QAM [facility] Stop: 02/19/22 04:34 Last Admin: 01/27/22 07:32 Dose: 1 patch Documented by: Lisinopril (Lisinopril 20 Mg Tab) 20 mg PO DAILY [facility] Stop: 02/09/22 08:59 Last Admin: 01/27/22 07:30 Dose: 20 mg Documented by: Miscellaneous (Carbohydrates For Hypoglycemia ) 15 - 30 gm PO UD PRN PRN Reason: Hypoglycemia Treatment Stop: 02/09/22 02:29 Miscellaneous (Remove Lidoderm Patch) 1 ea N/A DAILY@2100 [facility] Stop: 02/19/22 20:59 Last Admin: 01/26/22 20:26 Dose: 1 ea Documented by: Mupirocin (Mupirocin 2% Oint 22 Gm Tube) 1 appln TOP TID [facility] Stop: 02/09/22 08:59 Last Admin: 01/27/22 12:16 Dose: 1 appln Documented by: Olanzapine (Olanzapine 5 Mg Tablet) 5 mg PO HS [facility] Stop: 02/13/22 20:59 Last Admin: 01/26/22 20:25 Dose: 5 mg Documented by: Olanzapine (Olanzapine 5 Mg Tablet) 5 mg PO DAILY@1300 [facility] Stop: 02/14/22 12:59 Last Admin: 01/27/22 12:16 Dose: 5 mg Documented by: Pantoprazole Sodium (Pantoprazole 40 Mg Tab) 40 mg PO DAILY [facility] Stop: 02/09/22 08:59 Last Admin: 01/27/22 07:30 Dose: 40 mg Documented by: Polyethylene Glycol (Polyethylene (Miralax) 17 Gm Pack) 17 gm PO DAILY PRN PRN Reason: Constipation Stop: 02/09/22 02:10 Prednisone (Prednisone 5 Mg Tab) 5 mg PO DAILY [facility] Stop: 02/09/22 08:59 Last Admin: 01/27/22 07:31 Dose: 5 mg Documented by: Rivaroxaban (Rivaroxaban 15 Mg Tab) 15 mg PO QDD [facility] Stop: 02/09/22 16:29 Last Admin: 01/26/22 17:00 Dose: 15 mg Documented by: Tamsulosin HCl (Tamsulosin Hcl 0.4 Mg Cap) 0.4 mg PO HS [facility] Stop: 02/09/22 20:59 Last Admin: 01/26/22 20:25 Dose: 0.4 mg Documented by: Torsemide (Torsemide 10 Mg Tab) 10 mg PO DAILY [facility] Stop: 02/09/22 08:59 Last Admin: 01/27/22 07:30 Dose: 10 mg Documented by:
[2022-01-27] MEDS: RIVAROXABAN 15 MG TAB PO SCH (17:04)
[2022-01-27] MEDS: TAMSULOSIN HCL 0.4 MG CAP PO SCH (20:39)
[2022-01-27] MEDS: guaiFENesin 600 MG TABCR PO SCH (20:39)
[2022-01-28] MEDS: ACETAMINOPHEN 500 MG TAB PO SCH ×3 (05:03→20:26)
[2022-01-28] MEDS: ATORVASTATIN 40 MG TAB PO SCH (08:16)
[2022-01-28] MEDS: predniSONE 5 MG TAB PO SCH (08:16)
[2022-01-28] MEDS: TORSEMIDE 10 MG TAB PO SCH (08:16)
[2022-01-28] MEDS: PANTOprazole 40 MG TAB PO SCH (08:16)
[2022-01-28] MEDS: ATENOLOL 25 MG TABLET PO SCH (08:16)
[2022-01-28] MEDS: lisinopril 20 MG TAB PO SCH (08:17)
[2022-01-28] MEDS: allopurinoL 100 MG TAB PO SCH (08:17)
[2022-01-28] MEDS: LIDOCAINE 5% 1 PATCH TD SCH (08:18)
[2022-01-28] MEDS: guaiFENesin 600 MG TABCR PO SCH ×2 (08:18→20:25)
[2022-01-28] MEDS: INSULIN GLARGINE SOLOSTAR 100 UNITS/ML 3 ML PEN SC SCH ×2 (08:18→20:42)
[2022-01-28] MEDS: INSULIN ASPART PER UNIT SC SCH ×4 (08:19→20:41)
[2022-01-28] MEDS: MUPIROCIN 2% OINT 22 GM TUBE TOP SCH ×3 (08:19→20:26)
[2022-01-28] MEDS: OLANZapine 5 MG TABLET PO SCH ×2 (12:28→20:26)
--- NOTE | 2022-01-28 16:58 | Hospitalist Progress Note ---
Date of Service January 28, 2022 Assessment & Plan (1) Cellulitis: Plan: Bilateral lower extremity cellulitis: Wound cx grew staph aureus MSSA Completed a course of antibiotics during his hospital stay and no further evidence of cellulitis. Wound present on admission has healed. Arterial Doppler of right lower extremity showed Moderate atherosclerotic plaque is seen. No elevated velocities are seen, however monophasic flow is seen below the popliteal artery. Clinically improved. Cont medical management of PAD. Further workup of this as outpatient as needed. Dry cough We will give Mucinex No more cough today Dysphagia- Just reported today Nurse reports no observed chking or coughing with meals recently Pt is a poor historian. 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 Prior provider completed report to [employer] about his driving license Pt will need dementia unit for placement -awaiting placement Currently cooperative. Diabetes type 2-at inpatient goal Recent hab1c 9.9 Continue to hold glimepiride and Jardiance. Continue Lantus and novolog sliding scale Currently at inpatient goal. History of atrial fibrillation: Rate control Continueatenolol and Xarelto. History of gout: On allopurinol and chronic low dose prednisone. Hypertension Continue lisinopril. Chronic diastolic congestive heart failure-chronic, stable. Continue Torsemide Gastroesophageal reflux disease-chronic, stable. Continue PPI. BPH Continue Flomax. Xarelto Full Code Dispo-to SNF awaiting placement. Admission and Anticipated Discharge Date Admission Date: January 09, 2022 Subjective 01/27/2022 The patient was seen and examined in medical floor He remains stable and complains to have some cough without any phlegm He recognized me and communicating normally 01/28/2022 Patient was seen and examined in medical floor He remained stable for the last few days Pleasantly confused but has been conversing normally and denies any significant symptoms Review of Systems Review of Systems: All systems reviewed and are unremarkable except as noted below Respiratory: Has cough without any phlegm Musculoskeletal: Back pain seems to be minimal Physical Exam Physical Exam: Lying in bed comfortably Constitutional: well developed, well nourished and + obese Eyes: PERRL, conjunctivae normal, anicteric sclerae ENMT: external ear and nose normal, oropharynx normal Neck: trachea midline, no thyromegaly Respiratory: no respiratory distress Auscultation: lungs clear to auscultation bilaterally Cardiovascular: Rate/Rhythm: regular rate and regular rhythm; not tachycardic Heart Sounds: normal S1 and normal S2; no murmur Extremities: no edema Gastrointestinal (Abdomen): Inspection/Auscultation: normal bowel sounds; abdomen not distended Percussion/Palpation: abdomen soft; abdomen nontender Musculoskeletal: No more back pain Neurologic: Alert, awake. Pleasantly confused Lymphatic: no cervical or axillary lymphadenopathy Results & Data Results & Data ([facility]) Vital Signs (Past 12 Hours) Vital Signs Temp Pulse Resp BP Pulse Ox 01/28/22 14:27 36.6 C 93 H 16 90/57 L 98 01/28/22 07:08 36.6 C 66 16 100/65 96 Medications Administered Current Inpatient Medications Acetaminophen (Acetaminophen 500 Mg Tab) 1,000 mg PO Q8 [facility] Stop: 02/24/22 14:29 Last Admin: 01/28/22 13:36 Dose: 1,000 mg Documented by: Allopurinol (Allopurinol 100 Mg Tab) 100 mg PO DAILY [facility] Stop: 02/09/22 08:59 Last Admin: 01/28/22 08:17 Dose: 100 mg Documented by: Atenolol (Atenolol 25 Mg Tablet) 12.5 mg PO DAILY [facility] Stop: 02/09/22 08:59 Last Admin: 01/28/22 08:16 Dose: 12.5 mg Documented by: Atorvastatin Calcium (Atorvastatin 40 Mg Tab) 40 mg PO DAILY [facility] Stop: 02/09/22 08:59 Last Admin: 01/28/22 08:16 Dose: 40 mg Documented by: Dextrose (Dextrose 50% 50 Ml Syringe) 25 - 50 ml IV UD PRN; Protocol PRN Reason: Hypoglycemia Protocol Stop: 02/09/22 02:29 Diclofenac Sodium (Diclofenac Sod 1% Gel 100 Gm Tube) 2 gm EXT QID PRN; Protocol PRN Reason: joint pain Stop: 02/19/22 04:31 Last Admin: 01/26/22 20:26 Dose: 2 gm Documented by: Glucagon (Glucagon For Inj 1 Mg Vial) 1 mg IM UD PRN; Protocol PRN Reason: Hypoglycemia Protocol Stop: 02/09/22 02:29 Glucose (Glucose 40% Gel 15 Gm Tube) 15 - 30 gm PO UD PRN; Protocol PRN Reason: Hypoglycemia Protocol Stop: 02/09/22 02:29 Glucose (Glucose 10 Tabs/Tube) 4 - 8 tabs PO UD PRN; Protocol PRN Reason: Hypoglycemia Protocol Stop: 02/09/22 02:29 Guaifenesin (Guaifenesin 600 Mg Tabcr) 600 mg PO Q12 [facility] Stop: 02/26/22 20:59 Last Admin: 01/28/22 08:18 Dose: 600 mg Documented by: Insulin Aspart (Insulin Aspart Per Unit) 0 units SC ACHS [facility] Stop: 02/09/22 07:29 Last Admin: 01/28/22 12:27 Dose: 8 units Documented by: Insulin Glargine (Insulin Glargine Solostar 100 Units/Ml 3 Ml Pen) 15 units SC BID [facility] Stop: 02/24/22 08:59 Last Admin: 01/28/22 08:18 Dose: 15 units Documented by: Lidocaine (Lidocaine 5% 1 Patch) 1 patch TD QAM [facility] Stop: 02/19/22 04:34 Last Admin: 01/28/22 08:18 Dose: 1 patch Documented by: Lisinopril (Lisinopril 20 Mg Tab) 20 mg PO DAILY [facility] Stop: 02/09/22 08:59 Last Admin: 01/28/22 08:17 Dose: 20 mg Documented by: Miscellaneous (Carbohydrates For Hypoglycemia ) 15 - 30 gm PO UD PRN PRN Reason: Hypoglycemia Treatment Stop: 02/09/22 02:29 Miscellaneous (Remove Lidoderm Patch) 1 ea N/A DAILY@2100 [facility] Stop: 02/19/22 20:59 Last Admin: 01/27/22 20:39 Dose: 1 ea Documented by: Mupirocin (Mupirocin 2% Oint 22 Gm Tube) 1 appln TOP TID [facility] Stop: 02/09/22 08:59 Last Admin: 01/28/22 13:39 Dose: 1 appln Documented by: Olanzapine (Olanzapine 5 Mg Tablet) 5 mg PO HS [facility] Stop: 02/13/22 20:59 Last Admin: 01/27/22 20:39 Dose: 5 mg Documented by: Olanzapine (Olanzapine 5 Mg Tablet) 5 mg PO DAILY@1300 [facility] Stop: 02/14/22 12:59 Last Admin: 01/28/22 12:28 Dose: 5 mg Documented by: Pantoprazole Sodium (Pantoprazole 40 Mg Tab) 40 mg PO DAILY [facility] Stop: 02/09/22 08:59 Last Admin: 01/28/22 08:16 Dose: 40 mg Documented by: Polyethylene Glycol (Polyethylene (Miralax) 17 Gm Pack) 17 gm PO DAILY PRN PRN Reason: Constipation Stop: 02/09/22 02:10 Prednisone (Prednisone 5 Mg Tab) 5 mg PO DAILY [facility] Stop: 02/09/22 08:59 Last Admin: 01/28/22 08:16 Dose: 5 mg Documented by: Rivaroxaban (Rivaroxaban 15 Mg Tab) 15 mg PO QDD [facility] Stop: 02/09/22 16:29 Last Admin: 01/27/22 17:04 Dose: 15 mg Documented by: Tamsulosin HCl (Tamsulosin Hcl 0.4 Mg Cap) 0.4 mg PO HS [facility] Stop: 02/09/22 20:59 Last Admin: 01/27/22 20:39 Dose: 0.4 mg Documented by: Torsemide (Torsemide 10 Mg Tab) 10 mg PO DAILY [facility] Stop: 02/09/22 08:59 Last Admin: 01/28/22 08:16 Dose: 10 mg Documented by:
[2022-01-28] MEDS: RIVAROXABAN 15 MG TAB PO SCH (17:27)
[2022-01-28] MEDS: TAMSULOSIN HCL 0.4 MG CAP PO SCH (20:26)
[2022-01-29] MEDS: ACETAMINOPHEN 500 MG TAB PO SCH ×3 (05:49→21:32)
[2022-01-29] MEDS: guaiFENesin 600 MG TABCR PO SCH ×2 (07:59→21:31)
[2022-01-29] MEDS: lisinopril 20 MG TAB PO SCH (07:59)
[2022-01-29] MEDS: ATORVASTATIN 40 MG TAB PO SCH (07:59)
[2022-01-29] MEDS: TORSEMIDE 10 MG TAB PO SCH (08:00)
[2022-01-29] MEDS: allopurinoL 100 MG TAB PO SCH (08:00)
[2022-01-29] MEDS: predniSONE 5 MG TAB PO SCH (08:00)
[2022-01-29] MEDS: ATENOLOL 25 MG TABLET PO SCH (08:00)
[2022-01-29] MEDS: PANTOprazole 40 MG TAB PO SCH (08:00)
[2022-01-29] MEDS: LIDOCAINE 5% 1 PATCH TD SCH (08:01)
[2022-01-29] MEDS: MUPIROCIN 2% OINT 22 GM TUBE TOP SCH ×3 (08:01→21:30)
[2022-01-29] MEDS: INSULIN GLARGINE SOLOSTAR 100 UNITS/ML 3 ML PEN SC SCH ×2 (08:07→21:35)
[2022-01-29] MEDS: INSULIN ASPART PER UNIT SC SCH ×4 (08:08→21:35)
[2022-01-29] MEDS: OLANZapine 5 MG TABLET PO SCH ×2 (12:12→21:30)
--- NOTE | 2022-01-29 16:27 | Hospitalist Progress Note ---
Date of Service January 29, 2022 Assessment & Plan (1) Cellulitis: Plan: Bilateral lower extremity cellulitis: Wound cx grew staph aureus MSSA Completed a course of antibiotics during his hospital stay and no further evidence of cellulitis. Wound present on admission has healed. Arterial Doppler of right lower extremity showed Moderate atherosclerotic plaque is seen. No elevated velocities are seen, however monophasic flow is seen below the popliteal artery. Clinically improved. Cont medical management of PAD. Further workup of this as outpatient as needed. No more cellulitis but has chronic skin changes in the legs Dry cough We will give Mucinex No more cough today Dysphagia- Just reported today Nurse reports no observed chking or coughing with meals recently Pt is a poor historian. 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 Prior provider completed report to [employer] about his driving license Pt will need dementia unit for placement -awaiting placement Currently cooperative without any evidence of delirium Diabetes type 2-at inpatient goal Recent hab1c 9.9 Continue to hold glimepiride and Jardiance. Continue Lantus and novolog sliding scale Currently at inpatient goal. History of atrial fibrillation: Rate control Continueatenolol and Xarelto. History of gout: On allopurinol and chronic low dose prednisone. Hypertension Continue lisinopril. Chronic diastolic congestive heart failure-chronic, stable. Continue Torsemide Gastroesophageal reflux disease-chronic, stable. Continue PPI. BPH Continue Flomax. Xarelto Full Code Dispo-to SNF awaiting placement. Admission and Anticipated Discharge Date Admission Date: January 09, 2022 Subjective 01/27/2022 The patient was seen and examined in medical floor He remains stable and complains to have some cough without any phlegm He recognized me and communicating normally 01/28/2022 Patient was seen and examined in medical floor He remained stable for the last few days Pleasantly confused but has been conversing normally and denies any significant symptoms 01/29/2022 The patient was seen and examined in medical floor He remained stable and is ready to be discharged from the hospital Awaiting placement Review of Systems Review of Systems: All systems reviewed and are unremarkable except as noted below Respiratory: Has cough without any phlegm Musculoskeletal: Back pain seems to be minimal Physical Exam Physical Exam: Lying in bed comfortably Constitutional: well developed, well nourished and + obese Eyes: PERRL, conjunctivae normal, anicteric sclerae ENMT: external ear and nose normal, oropharynx normal Neck: trachea midline, no thyromegaly Respiratory: no respiratory distress Auscultation: lungs clear to auscultation bilaterally Cardiovascular: Rate/Rhythm: regular rate and regular rhythm; not tachycardic Heart Sounds: normal S1 and normal S2; no murmur Extremities: no edema Gastrointestinal (Abdomen): Inspection/Auscultation: normal bowel sounds; abdomen not distended Percussion/Palpation: abdomen soft; abdomen nontender Musculoskeletal: Complains to have some back pain but no other significant symptoms Skin: Chronic skin color changes in the lower extremities Neurologic: Alert and awake. Pleasantly confused. Communicating reasonably Lymphatic: no cervical or axillary lymphadenopathy Results & Data Results & Data ([facility]) Vital Signs (Past 12 Hours) Vital Signs Temp Pulse Resp BP Pulse Ox 01/29/22 15:03 36.7 C 75 16 90/65 L 97 01/29/22 07:29 36.7 C 66 16 115/73 98 Medications Administered Current Inpatient Medications Acetaminophen (Acetaminophen 500 Mg Tab) 1,000 mg PO Q8 [facility] Stop: 02/24/22 14:29 Last Admin: 01/29/22 12:52 Dose: 1,000 mg Documented by: Allopurinol (Allopurinol 100 Mg Tab) 100 mg PO DAILY [facility] Stop: 02/09/22 08:59 Last Admin: 01/29/22 08:00 Dose: 100 mg Documented by: Atenolol (Atenolol 25 Mg Tablet) 12.5 mg PO DAILY [facility] Stop: 02/09/22 08:59 Last Admin: 01/29/22 08:00 Dose: 12.5 mg Documented by: Atorvastatin Calcium (Atorvastatin 40 Mg Tab) 40 mg PO DAILY [facility] Stop: 02/09/22 08:59 Last Admin: 01/29/22 07:59 Dose: 40 mg Documented by: Dextrose (Dextrose 50% 50 Ml Syringe) 25 - 50 ml IV UD PRN; Protocol PRN Reason: Hypoglycemia Protocol Stop: 02/09/22 02:29 Diclofenac Sodium (Diclofenac Sod 1% Gel 100 Gm Tube) 2 gm EXT QID PRN; Protocol PRN Reason: joint pain Stop: 02/19/22 04:31 Last Admin: 01/26/22 20:26 Dose: 2 gm Documented by: Glucagon (Glucagon For Inj 1 Mg Vial) 1 mg IM UD PRN; Protocol PRN Reason: Hypoglycemia Protocol Stop: 02/09/22 02:29 Glucose (Glucose 40% Gel 15 Gm Tube) 15 - 30 gm PO UD PRN; Protocol PRN Reason: Hypoglycemia Protocol Stop: 02/09/22 02:29 Glucose (Glucose 10 Tabs/Tube) 4 - 8 tabs PO UD PRN; Protocol PRN Reason: Hypoglycemia Protocol Stop: 02/09/22 02:29 Guaifenesin (Guaifenesin 600 Mg Tabcr) 600 mg PO Q12 [facility] Stop: 02/26/22 20:59 Last Admin: 01/29/22 07:59 Dose: 600 mg Documented by: Insulin Aspart (Insulin Aspart Per Unit) 0 units SC ACHS [facility] Stop: 02/09/22 07:29 Last Admin: 01/29/22 12:12 Dose: 8 units Documented by: Insulin Glargine (Insulin Glargine Solostar 100 Units/Ml 3 Ml Pen) 15 units SC BID [facility] Stop: 02/24/22 08:59 Last Admin: 01/29/22 08:07 Dose: 15 units Documented by: Lidocaine (Lidocaine 5% 1 Patch) 1 patch TD QAM [facility] Stop: 02/19/22 04:34 Last Admin: 01/29/22 08:01 Dose: 1 patch Documented by: Lisinopril (Lisinopril 20 Mg Tab) 20 mg PO DAILY [facility] Stop: 02/09/22 08:59 Last Admin: 01/29/22 07:59 Dose: 20 mg Documented by: Miscellaneous (Carbohydrates For Hypoglycemia ) 15 - 30 gm PO UD PRN PRN Reason: Hypoglycemia Treatment Stop: 02/09/22 02:29 Miscellaneous (Remove Lidoderm Patch) 1 ea N/A DAILY@2100 [facility] Stop: 02/19/22 20:59 Last Admin: 01/28/22 20:26 Dose: 1 ea Documented by: Mupirocin (Mupirocin 2% Oint 22 Gm Tube) 1 appln TOP TID [facility] Stop: 02/09/22 08:59 Last Admin: 01/29/22 12:52 Dose: 1 appln Documented by: Olanzapine (Olanzapine 5 Mg Tablet) 5 mg PO HS [facility] Stop: 02/13/22 20:59 Last Admin: 01/28/22 20:26 Dose: 5 mg Documented by: Olanzapine (Olanzapine 5 Mg Tablet) 5 mg PO DAILY@1300 [facility] Stop: 02/14/22 12:59 Last Admin: 01/29/22 12:12 Dose: 5 mg Documented by: Pantoprazole Sodium (Pantoprazole 40 Mg Tab) 40 mg PO DAILY [facility] Stop: 02/09/22 08:59 Last Admin: 01/29/22 08:00 Dose: 40 mg Documented by: Polyethylene Glycol (Polyethylene (Miralax) 17 Gm Pack) 17 gm PO DAILY PRN PRN Reason: Constipation Stop: 02/09/22 02:10 Prednisone (Prednisone 5 Mg Tab) 5 mg PO DAILY [facility] Stop: 02/09/22 08:59 Last Admin: 01/29/22 08:00 Dose: 5 mg Documented by: Rivaroxaban (Rivaroxaban 15 Mg Tab) 15 mg PO QDD [facility] Stop: 02/09/22 16:29 Last Admin: 01/28/22 17:27 Dose: 15 mg Documented by: Tamsulosin HCl (Tamsulosin Hcl 0.4 Mg Cap) 0.4 mg PO HS [facility] Stop: 02/09/22 20:59 Last Admin: 01/28/22 20:26 Dose: 0.4 mg Documented by: Torsemide (Torsemide 10 Mg Tab) 10 mg PO DAILY [facility] Stop: 02/09/22 08:59 Last Admin: 01/29/22 08:00 Dose: 10 mg Documented by:
[2022-01-29] MEDS: RIVAROXABAN 15 MG TAB PO SCH (17:11)
[2022-01-29] MEDS: TAMSULOSIN HCL 0.4 MG CAP PO SCH (21:32)
[2022-01-30] MEDS: ACETAMINOPHEN 500 MG TAB PO SCH ×3 (05:42→21:00)
[2022-01-30] MEDS: ATORVASTATIN 40 MG TAB PO SCH (08:05)
[2022-01-30] MEDS: LIDOCAINE 5% 1 PATCH TD SCH (08:05)
[2022-01-30] MEDS: PANTOprazole 40 MG TAB PO SCH (08:05)
[2022-01-30] MEDS: TORSEMIDE 10 MG TAB PO SCH (08:05)
[2022-01-30] MEDS: predniSONE 5 MG TAB PO SCH (08:06)
[2022-01-30] MEDS: ATENOLOL 25 MG TABLET PO SCH (08:06)
[2022-01-30] MEDS: allopurinoL 100 MG TAB PO SCH (08:07)
[2022-01-30] MEDS: lisinopril 20 MG TAB PO SCH (08:07)
[2022-01-30] MEDS: MUPIROCIN 2% OINT 22 GM TUBE TOP SCH ×3 (08:08→20:55)
[2022-01-30] MEDS: guaiFENesin 600 MG TABCR PO SCH ×2 (08:09→20:57)
[2022-01-30] MEDS: INSULIN GLARGINE SOLOSTAR 100 UNITS/ML 3 ML PEN SC SCH ×2 (09:02→20:54)
[2022-01-30] MEDS: INSULIN ASPART PER UNIT SC SCH ×4 (09:05→20:58)
[2022-01-30] MEDS: OLANZapine 5 MG TABLET PO SCH ×2 (12:45→20:57)
--- NOTE | 2022-01-30 16:35 | Hospitalist Progress Note ---
Date of Service January 30, 2022 Assessment & Plan (1) Cellulitis: Plan: Bilateral lower extremity cellulitis: Wound cx grew staph aureus MSSA Completed a course of antibiotics during his hospital stay and no further evidence of cellulitis. Wound present on admission has healed. Arterial Doppler of right lower extremity showed Moderate atherosclerotic plaque is seen. No elevated velocities are seen, however monophasic flow is seen below the popliteal artery. Clinically improved. Cont medical management of PAD. Further workup of this as outpatient as needed. No more cellulitis but has chronic skin changes in the legs Dry cough We will give Mucinex No more cough today Dysphagia- Just reported today Nurse reports no observed chking or coughing with meals recently Pt is a poor historian. 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 Prior provider completed report to [employer] about his driving license Pt will need dementia unit for placement -awaiting placement Currently cooperative without any evidence of delirium No acute delirium Diabetes type 2-at inpatient goal Recent hab1c 9.9 Continue to hold glimepiride and Jardiance. Continue Lantus and novolog sliding scale Currently at inpatient goal. History of atrial fibrillation: Rate control Continueatenolol and Xarelto. History of gout: On allopurinol and chronic low dose prednisone. Hypertension Continue lisinopril. Chronic diastolic congestive heart failure-chronic, stable. Continue Torsemide We will check PRP tomorrow Gastroesophageal reflux disease-chronic, stable. Continue PPI. BPH Continue Flomax. Xarelto Full Code Dispo-to SNF awaiting placement. Admission and Anticipated Discharge Date Admission Date: January 09, 2022 Subjective 01/27/2022 The patient was seen and examined in medical floor He remains stable and complains to have some cough without any phlegm He recognized me and communicating normally 01/28/2022 Patient was seen and examined in medical floor He remained stable for the last few days Pleasantly confused but has been conversing normally and denies any significant symptoms 01/29/2022 The patient was seen and examined in medical floor He remained stable and is ready to be discharged from the hospital Awaiting placement 01/30/2022 The patient was seen and examined in medical floor He denies any more symptoms and has been stable Waiting to be transferred Review of Systems Review of Systems: All systems reviewed and are unremarkable except as noted below Respiratory: Has cough without any phlegm Musculoskeletal: Back pain seems to be minimal Physical Exam Physical Exam: Lying in bed comfortably Constitutional: well developed, well nourished and + obese Eyes: PERRL, conjunctivae normal, anicteric sclerae ENMT: external ear and nose normal, oropharynx normal Neck: trachea midline, no thyromegaly Respiratory: no respiratory distress Auscultation: lungs clear to auscultation bilaterally Cardiovascular: Rate/Rhythm: regular rate and regular rhythm; not tachycardic Heart Sounds: normal S1 and normal S2; no murmur Extremities: no edema Gastrointestinal (Abdomen): Inspection/Auscultation: normal bowel sounds; abdomen not distended Percussion/Palpation: abdomen soft; abdomen nontender Musculoskeletal: Minimal back pain at rest. No acute arthritis in any other joint Neurologic: Alert and awake. Communicating normally. Pleasantly confused Lymphatic: no cervical or axillary lymphadenopathy Results & Data Results & Data ([facility]) Vital Signs (Past 12 Hours) Vital Signs Temp Pulse Resp BP Pulse Ox 01/30/22 14:44 36.6 C 60 16 115/70 98 01/30/22 08:04 54 L 110/75 01/30/22 07:31 36.4 C L 58 L 16 160/69 H 97 Medications Administered Current Inpatient Medications Acetaminophen (Acetaminophen 500 Mg Tab) 1,000 mg PO Q8 [facility] Stop: 02/24/22 14:29 Last Admin: 01/30/22 13:35 Dose: 1,000 mg Documented by: Allopurinol (Allopurinol 100 Mg Tab) 100 mg PO DAILY [facility] Stop: 02/09/22 08:59 Last Admin: 01/30/22 08:07 Dose: 100 mg Documented by: Atenolol (Atenolol 25 Mg Tablet) 12.5 mg PO DAILY [facility] Stop: 02/09/22 08:59 Last Admin: 01/30/22 08:06 Dose: Not Given Documented by: Atorvastatin Calcium (Atorvastatin 40 Mg Tab) 40 mg PO DAILY [facility] Stop: 02/09/22 08:59 Last Admin: 01/30/22 08:05 Dose: 40 mg Documented by: Dextrose (Dextrose 50% 50 Ml Syringe) 25 - 50 ml IV UD PRN; Protocol PRN Reason: Hypoglycemia Protocol Stop: 02/09/22 02:29 Diclofenac Sodium (Diclofenac Sod 1% Gel 100 Gm Tube) 2 gm EXT QID PRN; Protocol PRN Reason: joint pain Stop: 02/19/22 04:31 Last Admin: 01/26/22 20:26 Dose: 2 gm Documented by: Glucagon (Glucagon For Inj 1 Mg Vial) 1 mg IM UD PRN; Protocol PRN Reason: Hypoglycemia Protocol Stop: 02/09/22 02:29 Glucose (Glucose 40% Gel 15 Gm Tube) 15 - 30 gm PO UD PRN; Protocol PRN Reason: Hypoglycemia Protocol Stop: 02/09/22 02:29 Glucose (Glucose 10 Tabs/Tube) 4 - 8 tabs PO UD PRN; Protocol PRN Reason: Hypoglycemia Protocol Stop: 02/09/22 02:29 Guaifenesin (Guaifenesin 600 Mg Tabcr) 600 mg PO Q12 [facility] Stop: 02/26/22 20:59 Last Admin: 01/30/22 08:09 Dose: 600 mg Documented by: Insulin Aspart (Insulin Aspart Per Unit) 0 units SC ACHS [facility] Stop: 02/09/22 07:29 Last Admin: 01/30/22 12:42 Dose: 11 units Documented by: Insulin Glargine (Insulin Glargine Solostar 100 Units/Ml 3 Ml Pen) 15 units SC BID [facility] Stop: 02/24/22 08:59 Last Admin: 01/30/22 09:02 Dose: 15 units Documented by: Lidocaine (Lidocaine 5% 1 Patch) 1 patch TD QAM [facility] Stop: 02/19/22 04:34 Last Admin: 01/30/22 08:05 Dose: 1 patch Documented by: Lisinopril (Lisinopril 20 Mg Tab) 20 mg PO DAILY [facility] Stop: 02/09/22 08:59 Last Admin: 01/30/22 08:07 Dose: 20 mg Documented by: Miscellaneous (Carbohydrates For Hypoglycemia ) 15 - 30 gm PO UD PRN PRN Reason: Hypoglycemia Treatment Stop: 02/09/22 02:29 Miscellaneous (Remove Lidoderm Patch) 1 ea N/A DAILY@2100 [facility] Stop: 02/19/22 20:59 Last Admin: 01/29/22 21:32 Dose: 1 ea Documented by: Mupirocin (Mupirocin 2% Oint 22 Gm Tube) 1 appln TOP TID [facility] Stop: 02/09/22 08:59 Last Admin: 01/30/22 13:34 Dose: 1 appln Documented by: Olanzapine (Olanzapine 5 Mg Tablet) 5 mg PO HS [facility] Stop: 02/13/22 20:59 Last Admin: 01/29/22 21:30 Dose: 5 mg Documented by: Olanzapine (Olanzapine 5 Mg Tablet) 5 mg PO DAILY@1300 [facility] Stop: 02/14/22 12:59 Last Admin: 01/30/22 12:45 Dose: 5 mg Documented by: Pantoprazole Sodium (Pantoprazole 40 Mg Tab) 40 mg PO DAILY [facility] Stop: 02/09/22 08:59 Last Admin: 01/30/22 08:05 Dose: 40 mg Documented by: Polyethylene Glycol (Polyethylene (Miralax) 17 Gm Pack) 17 gm PO DAILY PRN PRN Reason: Constipation Stop: 02/09/22 02:10 Prednisone (Prednisone 5 Mg Tab) 5 mg PO DAILY [facility] Stop: 02/09/22 08:59 Last Admin: 01/30/22 08:06 Dose: 5 mg Documented by: Rivaroxaban (Rivaroxaban 15 Mg Tab) 15 mg PO QDD [facility] Stop: 02/09/22 16:29 Last Admin: 01/29/22 17:11 Dose: 15 mg Documented by: Tamsulosin HCl (Tamsulosin Hcl 0.4 Mg Cap) 0.4 mg PO HS [facility] Stop: 02/09/22 20:59 Last Admin: 01/29/22 21:32 Dose: 0.4 mg Documented by: Torsemide (Torsemide 10 Mg Tab) 10 mg PO DAILY [facility] Stop: 02/09/22 08:59 Last Admin: 01/30/22 08:05 Dose: 10 mg Documented by:
[2022-01-30] MEDS: RIVAROXABAN 15 MG TAB PO SCH (16:51)
[2022-01-30] MEDS: TAMSULOSIN HCL 0.4 MG CAP PO SCH (20:56)
[2022-01-31] MEDS: ACETAMINOPHEN 500 MG TAB PO SCH ×3 (06:09→21:33)
[2022-01-31 06:46] LABS: BUN Creatinine Ratio 33.6 (10-20); Calcium 8.9 mg/dl (8.5-10.1); Creatinine Clr Calc Pharmacy 50.7 ml/min; Est GFR (African American) 63.2 ml/min; Est GFR (Non-African American) 54.5 ml/min; Potassium 4.1 mmol/L (3.5-5.1)
[2022-01-31] MEDS: INSULIN GLARGINE SOLOSTAR 100 UNITS/ML 3 ML PEN SC SCH ×2 (08:39→21:30)
[2022-01-31] MEDS: INSULIN ASPART PER UNIT SC SCH ×4 (08:39→21:30)
[2022-01-31] MEDS: TORSEMIDE 10 MG TAB PO SCH (08:44)
[2022-01-31] MEDS: predniSONE 5 MG TAB PO SCH (08:44)
[2022-01-31] MEDS: PANTOprazole 40 MG TAB PO SCH (08:44)
[2022-01-31] MEDS: lisinopril 20 MG TAB PO SCH (08:44)
[2022-01-31] MEDS: ATORVASTATIN 40 MG TAB PO SCH (08:45)
[2022-01-31] MEDS: ATENOLOL 25 MG TABLET PO SCH (08:45)
[2022-01-31] MEDS: guaiFENesin 600 MG TABCR PO SCH ×2 (08:45→21:32)
[2022-01-31] MEDS: LIDOCAINE 5% 1 PATCH TD SCH (08:46)
[2022-01-31] MEDS: allopurinoL 100 MG TAB PO SCH (08:46)
[2022-01-31] MEDS: MUPIROCIN 2% OINT 22 GM TUBE TOP SCH ×3 (08:47→21:32)
[2022-01-31] MEDS: OLANZapine 5 MG TABLET PO SCH ×2 (13:39→21:31)
--- NOTE | 2022-01-31 15:18 | Hospitalist Progress Note ---
Date of Service January 31, 2022 Assessment & Plan (1) Cellulitis: Plan: Bilateral lower extremity cellulitis: Wound cx grew staph aureus MSSA Completed a course of antibiotics during his hospital stay and no further evidence of cellulitis. Wound present on admission has healed. Arterial Doppler of right lower extremity showed Moderate atherosclerotic plaque is seen. No elevated velocities are seen, however monophasic flow is seen below the popliteal artery. Clinically improved. Cont medical management of PAD. Further workup of this as outpatient as needed. No more cellulitis but has chronic skin changes in the legs No edema of the legs and no more evidence of cellulitis Dry cough We will give Mucinex No more cough today Dysphagia- Just reported today Nurse reports no observed chking or coughing with meals recently Pt is a poor historian. 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 Prior provider completed report to [employer] about his driving license Pt will need dementia unit for placement -awaiting placement Currently cooperative without any evidence of delirium No acute delirium Diabetes type 2-at inpatient goal Recent hab1c 9.9 Continue to hold glimepiride and Jardiance. Continue Lantus and novolog sliding scale Currently at inpatient goal. History of atrial fibrillation: Rate control Continueatenolol and Xarelto. History of gout: On allopurinol and chronic low dose prednisone. Hypertension Continue lisinopril. Chronic diastolic congestive heart failure-chronic, stable. Continue Torsemide We will check PRP tomorrow Gastroesophageal reflux disease-chronic, stable. Continue PPI. BPH Continue Flomax. Xarelto Full Code Dispo-to SNF awaiting placement. Admission and Anticipated Discharge Date Admission Date: January 09, 2022 Subjective 01/27/2022 The patient was seen and examined in medical floor He remains stable and complains to have some cough without any phlegm He recognized me and communicating normally 01/28/2022 Patient was seen and examined in medical floor He remained stable for the last few days Pleasantly confused but has been conversing normally and denies any significant symptoms 01/29/2022 The patient was seen and examined in medical floor He remained stable and is ready to be discharged from the hospital Awaiting placement 01/30/2022 The patient was seen and examined in medical floor He denies any more symptoms and has been stable Waiting to be transferred 01/31/2022 The patient was seen and examined in medical floor He remains stable without any complaints He was asking when he is getting out of the hospital Review of Systems Review of Systems: All systems reviewed and are unremarkable except as noted below Respiratory: Has cough without any phlegm Musculoskeletal: Back pain seems to be minimal Physical Exam Physical Exam: Lying in bed comfortably Constitutional: well developed, well nourished and + obese Eyes: PERRL, conjunctivae normal, anicteric sclerae ENMT: external ear and nose normal, oropharynx normal Neck: trachea midline, no thyromegaly Respiratory: no respiratory distress Auscultation: lungs clear to auscultation bilaterally Cardiovascular: Rate/Rhythm: regular rate and regular rhythm; not tachycardic Heart Sounds: normal S1 and normal S2; no murmur Extremities: no edema Gastrointestinal (Abdomen): Inspection/Auscultation: normal bowel sounds; abdomen not distended Percussion/Palpation: abdomen soft; abdomen nontender Musculoskeletal: No acute arthritis in any joint Neurologic: Alert, awake and pleasantly confused. Conversing normally Lymphatic: no cervical or axillary lymphadenopathy Results & Data Results & Data ([facility]) Vital Signs (Past 12 Hours) Vital Signs Temp Pulse Resp BP Pulse Ox 01/31/22 06:44 36.7 C 87 18 103/69 96 Laboratory Results [facility] 01/31/22 06:03 Sodium 139 Potassium 4.1 Chloride 106 Carbon Dioxide 28 BUN 41 H Creatinine 1.22 Glucose 137 H Calcium 8.9 Medications Administered Current Inpatient Medications Acetaminophen (Acetaminophen 500 Mg Tab) 1,000 mg PO Q8 [facility] Stop: 02/24/22 14:29 Last Admin: 01/31/22 13:39 Dose: 1,000 mg Documented by: Allopurinol (Allopurinol 100 Mg Tab) 100 mg PO DAILY [facility] Stop: 02/09/22 08:59 Last Admin: 01/31/22 08:46 Dose: 100 mg Documented by: Atenolol (Atenolol 25 Mg Tablet) 12.5 mg PO DAILY [facility] Stop: 02/09/22 08:59 Last Admin: 01/31/22 08:45 Dose: 12.5 mg Documented by: Atorvastatin Calcium (Atorvastatin 40 Mg Tab) 40 mg PO DAILY [facility] Stop: 02/09/22 08:59 Last Admin: 01/31/22 08:45 Dose: 40 mg Documented by: Dextrose (Dextrose 50% 50 Ml Syringe) 25 - 50 ml IV UD PRN; Protocol PRN Reason: Hypoglycemia Protocol Stop: 02/09/22 02:29 Diclofenac Sodium (Diclofenac Sod 1% Gel 100 Gm Tube) 2 gm EXT QID PRN; Protocol PRN Reason: joint pain Stop: 02/19/22 04:31 Last Admin: 01/26/22 20:26 Dose: 2 gm Documented by: Glucagon (Glucagon For Inj 1 Mg Vial) 1 mg IM UD PRN; Protocol PRN Reason: Hypoglycemia Protocol Stop: 02/09/22 02:29 Glucose (Glucose 40% Gel 15 Gm Tube) 15 - 30 gm PO UD PRN; Protocol PRN Reason: Hypoglycemia Protocol Stop: 02/09/22 02:29 Glucose (Glucose 10 Tabs/Tube) 4 - 8 tabs PO UD PRN; Protocol PRN Reason: Hypoglycemia Protocol Stop: 02/09/22 02:29 Guaifenesin (Guaifenesin 600 Mg Tabcr) 600 mg PO Q12 [facility] Stop: 02/26/22 20:59 Last Admin: 01/31/22 08:45 Dose: 600 mg Documented by: Insulin Aspart (Insulin Aspart Per Unit) 0 units SC ACHS [facility] Stop: 02/09/22 07:29 Last Admin: 01/31/22 13:34 Dose: 8 units Documented by: Insulin Glargine (Insulin Glargine Solostar 100 Units/Ml 3 Ml Pen) 15 units SC BID [facility] Stop: 02/24/22 08:59 Last Admin: 01/31/22 08:39 Dose: 15 units Documented by: Lidocaine (Lidocaine 5% 1 Patch) 1 patch TD QAM [facility] Stop: 02/19/22 04:34 Last Admin: 01/31/22 08:46 Dose: 1 patch Documented by: Lisinopril (Lisinopril 20 Mg Tab) 20 mg PO DAILY [facility] Stop: 02/09/22 08:59 Last Admin: 01/31/22 08:44 Dose: 20 mg Documented by: Miscellaneous (Carbohydrates For Hypoglycemia ) 15 - 30 gm PO UD PRN PRN Reason: Hypoglycemia Treatment Stop: 02/09/22 02:29 Miscellaneous (Remove Lidoderm Patch) 1 ea N/A DAILY@2100 [facility] Stop: 02/19/22 20:59 Last Admin: 01/30/22 20:50 Dose: Not Given Documented by: Mupirocin (Mupirocin 2% Oint 22 Gm Tube) 1 appln TOP TID [facility] Stop: 02/09/22 08:59 Last Admin: 01/31/22 13:40 Dose: 1 appln Documented by: Olanzapine (Olanzapine 5 Mg Tablet) 5 mg PO HS [facility] Stop: 02/13/22 20:59 Last Admin: 01/30/22 20:57 Dose: 5 mg Documented by: Olanzapine (Olanzapine 5 Mg Tablet) 5 mg PO DAILY@1300 [facility] Stop: 02/14/22 12:59 Last Admin: 01/31/22 13:39 Dose: 5 mg Documented by: Pantoprazole Sodium (Pantoprazole 40 Mg Tab) 40 mg PO DAILY [facility] Stop: 02/09/22 08:59 Last Admin: 01/31/22 08:44 Dose: 40 mg Documented by: Polyethylene Glycol (Polyethylene (Miralax) 17 Gm Pack) 17 gm PO DAILY PRN PRN Reason: Constipation Stop: 02/09/22 02:10 Prednisone (Prednisone 5 Mg Tab) 5 mg PO DAILY [facility] Stop: 02/09/22 08:59 Last Admin: 01/31/22 08:44 Dose: 5 mg Documented by: Rivaroxaban (Rivaroxaban 15 Mg Tab) 15 mg PO QDD [facility] Stop: 02/09/22 16:29 Last Admin: 01/30/22 16:51 Dose: 15 mg Documented by: Tamsulosin HCl (Tamsulosin Hcl 0.4 Mg Cap) 0.4 mg PO HS [facility] Stop: 02/09/22 20:59 Last Admin: 01/30/22 20:56 Dose: 0.4 mg Documented by: Torsemide (Torsemide 10 Mg Tab) 10 mg PO DAILY [facility] Stop: 02/09/22 08:59 Last Admin: 01/31/22 08:44 Dose: 10 mg Documented by:
[2022-01-31] MEDS: RIVAROXABAN 15 MG TAB PO SCH (16:34)
[2022-01-31] MEDS: TAMSULOSIN HCL 0.4 MG CAP PO SCH (21:33)
[2022-02-01] MEDS: ACETAMINOPHEN 500 MG TAB PO SCH ×3 (05:50→22:19)
[2022-02-01] MEDS: LIDOCAINE 5% 1 PATCH TD SCH (07:58)
[2022-02-01] MEDS: ATORVASTATIN 40 MG TAB PO SCH (08:01)
[2022-02-01] MEDS: lisinopril 20 MG TAB PO SCH (08:01)
[2022-02-01] MEDS: MUPIROCIN 2% OINT 22 GM TUBE TOP SCH ×3 (08:01→22:18)
[2022-02-01] MEDS: ATENOLOL 25 MG TABLET PO SCH (08:02)
[2022-02-01] MEDS: guaiFENesin 600 MG TABCR PO SCH ×2 (08:02→22:16)
[2022-02-01] MEDS: allopurinoL 100 MG TAB PO SCH (08:02)
[2022-02-01] MEDS: predniSONE 5 MG TAB PO SCH (08:02)
[2022-02-01] MEDS: TORSEMIDE 10 MG TAB PO SCH (08:02)
[2022-02-01] MEDS: PANTOprazole 40 MG TAB PO SCH (08:02)
[2022-02-01] MEDS: INSULIN ASPART PER UNIT SC SCH ×4 (08:48→22:17)
[2022-02-01] MEDS: INSULIN GLARGINE SOLOSTAR 100 UNITS/ML 3 ML PEN SC SCH ×2 (08:49→22:17)
[2022-02-01] MEDS: OLANZapine 5 MG TABLET PO SCH ×2 (12:59→22:18)
--- NOTE | 2022-02-01 14:35 | Hospitalist Progress Note ---
Date of Service February 01, 2022 Assessment & Plan (1) Cellulitis: Plan: Bilateral lower extremity cellulitis: Wound cx grew staph aureus MSSA Completed a course of antibiotics during his hospital stay and no further evidence of cellulitis. Wound present on admission has healed. Arterial Doppler of right lower extremity showed Moderate atherosclerotic plaque is seen. No elevated velocities are seen, however monophasic flow is seen below the popliteal artery. Clinically improved. Cont medical management of PAD. Further workup of this as outpatient as needed. No more cellulitis but has chronic skin changes in the legs No edema of the legs and no more evidence of cellulitis Dry cough We will give Mucinex No more cough today Dysphagia- Just reported today Nurse reports no observed chking or coughing with meals recently Pt is a poor historian. 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 Prior provider completed report to [employer] about his driving license Pt will need dementia unit for placement -awaiting placement Currently cooperative without any evidence of delirium No acute delirium Diabetes type 2-at inpatient goal Recent hab1c 9.9 Continue to hold glimepiride and Jardiance. Continue Lantus and novolog sliding scale Currently at inpatient goal. History of atrial fibrillation: Rate control Continueatenolol and Xarelto. History of gout: On allopurinol and chronic low dose prednisone. Hypertension Continue lisinopril. Chronic diastolic congestive heart failure-chronic, stable. Continue Torsemide We will check PRP tomorrow Gastroesophageal reflux disease-chronic, stable. Continue PPI. BPH Continue Flomax. Xarelto Full Code Dispo-to SNF awaiting placement. Medically stable and awaiting placement Admission and Anticipated Discharge Date Admission Date: January 09, 2022 Subjective 01/27/2022 The patient was seen and examined in medical floor He remains stable and complains to have some cough without any phlegm He recognized me and communicating normally 01/28/2022 Patient was seen and examined in medical floor He remained stable for the last few days Pleasantly confused but has been conversing normally and denies any significant symptoms 01/29/2022 The patient was seen and examined in medical floor He remained stable and is ready to be discharged from the hospital Awaiting placement 01/30/2022 The patient was seen and examined in medical floor He denies any more symptoms and has been stable Waiting to be transferred 01/31/2022 The patient was seen and examined in medical floor He remains stable without any complaints He was asking when he is getting out of the hospital 02/01/2022 Patient was seen and examined in the medical floor He has been stable without any complaints Review of Systems Review of Systems: All systems reviewed and are unremarkable except as noted below Respiratory: Has cough without any phlegm Musculoskeletal: Back pain seems to be minimal Physical Exam Physical Exam: Sitting on a chair without any acute distress Constitutional: well developed, well nourished and + obese Eyes: PERRL, conjunctivae normal, anicteric sclerae ENMT: external ear and nose normal, oropharynx normal Neck: trachea midline, no thyromegaly Respiratory: no respiratory distress Auscultation: lungs clear to auscultation bilaterally Cardiovascular: Rate/Rhythm: regular rate and regular rhythm; not tachycardic Heart Sounds: normal S1 and normal S2; no murmur Extremities: no edema Gastrointestinal (Abdomen): Inspection/Auscultation: normal bowel sounds; abdomen not distended Percussion/Palpation: abdomen soft; abdomen nontender Musculoskeletal: No more back pain and denies any pain in the legs Neurologic: Alert, awake. Pleasantly confused Lymphatic: no cervical or axillary lymphadenopathy Results & Data Results & Data ([facility]) Vital Signs (Past 12 Hours) Vital Signs Temp Pulse Resp BP Pulse Ox 02/01/22 07:12 36.6 C 74 16 111/70 97 Diagnostic Findings Current Inpatient Medications Acetaminophen (Acetaminophen 500 Mg Tab) 1,000 mg PO Q8 [facility] Stop: 02/24/22 14:29 Last Admin: 02/01/22 12:59 Dose: 1,000 mg Documented by: Allopurinol (Allopurinol 100 Mg Tab) 100 mg PO DAILY [facility] Stop: 02/09/22 08:59 Last Admin: 02/01/22 08:02 Dose: 100 mg Documented by: Atenolol (Atenolol 25 Mg Tablet) 12.5 mg PO DAILY [facility] Stop: 02/09/22 08:59 Last Admin: 02/01/22 08:02 Dose: 12.5 mg Documented by: Atorvastatin Calcium (Atorvastatin 40 Mg Tab) 40 mg PO DAILY [facility] Stop: 02/09/22 08:59 Last Admin: 02/01/22 08:01 Dose: 40 mg Documented by: Dextrose (Dextrose 50% 50 Ml Syringe) 25 - 50 ml IV UD PRN; Protocol PRN Reason: Hypoglycemia Protocol Stop: 02/09/22 02:29 Diclofenac Sodium (Diclofenac Sod 1% Gel 100 Gm Tube) 2 gm EXT QID PRN; Protocol PRN Reason: joint pain Stop: 02/19/22 04:31 Last Admin: 01/26/22 20:26 Dose: 2 gm Documented by: Glucagon (Glucagon For Inj 1 Mg Vial) 1 mg IM UD PRN; Protocol PRN Reason: Hypoglycemia Protocol Stop: 02/09/22 02:29 Glucose (Glucose 40% Gel 15 Gm Tube) 15 - 30 gm PO UD PRN; Protocol PRN Reason: Hypoglycemia Protocol Stop: 02/09/22 02:29 Glucose (Glucose 10 Tabs/Tube) 4 - 8 tabs PO UD PRN; Protocol PRN Reason: Hypoglycemia Protocol Stop: 02/09/22 02:29 Guaifenesin (Guaifenesin 600 Mg Tabcr) 600 mg PO Q12 [facility] Stop: 02/26/22 20:59 Last Admin: 02/01/22 08:02 Dose: 600 mg Documented by: Insulin Aspart (Insulin Aspart Per Unit) 0 units SC ACHS [facility] Stop: 02/09/22 07:29 Last Admin: 02/01/22 12:57 Dose: 8 units Documented by: Insulin Glargine (Insulin Glargine Solostar 100 Units/Ml 3 Ml Pen) 15 units SC BID [facility] Stop: 02/24/22 08:59 Last Admin: 02/01/22 08:49 Dose: 15 units Documented by: Lidocaine (Lidocaine 5% 1 Patch) 1 patch TD QAM [facility] Stop: 02/19/22 04:34 Last Admin: 02/01/22 07:58 Dose: 1 patch Documented by: Lisinopril (Lisinopril 20 Mg Tab) 20 mg PO DAILY [facility] Stop: 02/09/22 08:59 Last Admin: 02/01/22 08:01 Dose: 20 mg Documented by: Miscellaneous (Carbohydrates For Hypoglycemia ) 15 - 30 gm PO UD PRN PRN Reason: Hypoglycemia Treatment Stop: 02/09/22 02:29 Miscellaneous (Remove Lidoderm Patch) 1 ea N/A DAILY@2100 [facility] Stop: 02/19/22 20:59 Last Admin: 01/31/22 21:35 Dose: 1 ea Documented by: Mupirocin (Mupirocin 2% Oint 22 Gm Tube) 1 appln TOP TID [facility] Stop: 02/09/22 08:59 Last Admin: 02/01/22 12:59 Dose: 1 appln Documented by: Olanzapine (Olanzapine 5 Mg Tablet) 5 mg PO HS [facility] Stop: 02/13/22 20:59 Last Admin: 01/31/22 21:31 Dose: 5 mg Documented by: Olanzapine (Olanzapine 5 Mg Tablet) 5 mg PO DAILY@1300 [facility] Stop: 02/14/22 12:59 Last Admin: 02/01/22 12:59 Dose: 5 mg Documented by: Pantoprazole Sodium (Pantoprazole 40 Mg Tab) 40 mg PO DAILY [facility] Stop: 02/09/22 08:59 Last Admin: 02/01/22 08:02 Dose: 40 mg Documented by: Polyethylene Glycol (Polyethylene (Miralax) 17 Gm Pack) 17 gm PO DAILY PRN PRN Reason: Constipation Stop: 02/09/22 02:10 Prednisone (Prednisone 5 Mg Tab) 5 mg PO DAILY [facility] Stop: 02/09/22 08:59 Last Admin: 02/01/22 08:02 Dose: 5 mg Documented by: Rivaroxaban (Rivaroxaban 15 Mg Tab) 15 mg PO QDD [facility] Stop: 02/09/22 16:29 Last Admin: 01/31/22 16:34 Dose: 15 mg Documented by: Tamsulosin HCl (Tamsulosin Hcl 0.4 Mg Cap) 0.4 mg PO HS [facility] Stop: 02/09/22 20:59 Last Admin: 01/31/22 21:33 Dose: 0.4 mg Documented by: Torsemide (Torsemide 10 Mg Tab) 10 mg PO DAILY [facility] Stop: 02/09/22 08:59 Last Admin: 02/01/22 08:02 Dose: 10 mg Documented by:
[2022-02-01] MEDS: RIVAROXABAN 15 MG TAB PO SCH (15:34)
[2022-02-01] MEDS: TAMSULOSIN HCL 0.4 MG CAP PO SCH (22:20)
[2022-02-02] MEDS: ACETAMINOPHEN 500 MG TAB PO SCH ×3 (06:04→20:03)
[2022-02-02] MEDS ORDERED: OLANZapine 10 MG/2.1 ML SDV IM STA (06:47)
[2022-02-02] MEDS ORDERED: OLANZapine 10 MG/2.1 ML SDV IM ONE (06:49)
[2022-02-02] MEDS ORDERED: SODIUM CHLORIDE 0.9% 1000ML 1,000 ML IV ONE (07:06)
[2022-02-02 07:28] LABS: Basophils # (auto) 0.06 K/uL (0-0.2); Basophils % (auto) 0.7 %; Eosinophils # (auto) 0.22 K/uL (0-0.50); Eosinophils % (auto) 2.5 %; Hemoglobin 15.9 g/dl (14.0-18.0); Immature Granulocytes # (auto) 0.05 K/uL (0.00-0.02); Immature Granulocytes % (auto) 0.6 %; Lymphocytes # (auto) 3.08 K/uL (1.2-3.4); Lymphocytes % (auto) 34.7 %; Mean Corpuscular Hemoglobin 28.8 pg (25.0-34.0); Mean Corpuscular Hgb Conc 33.1 g/dL (32.0-36.0); Mean Platelet Volume 10.5 fL (9.4-12.4); Monocytes # (auto) 0.71 K/uL (0.24-0.82); Neutrophils # (auto) 4.76 K/uL (1.4-6.5); Neutrophils % (auto) 53.5 %; Platelet Count 195 K/uL (130-400); RDW Coefficient of Variation 12.5 % (11.5-14.5); RDW Standard Deviation 39.7 fL (36.4-46.3); Red Blood Count 5.52 M/uL (4.63-6.08); White Blood Count 8.88 K/ul (4.8-10.8)
[2022-02-02 07:45] LABS: BUN Creatinine Ratio 30.8 (10-20); Calcium 9.3 mg/dl (8.5-10.1); Creatinine Clr Calc Pharmacy 51.6 ml/min; Est GFR (African American) 64.4 ml/min; Est GFR (Non-African American) 55.6 ml/min; Magnesium 1.9 mg/dl (1.7-2.4); Potassium 3.9 mmol/L (3.5-5.1)
[2022-02-02] MEDS: ATORVASTATIN 40 MG TAB PO SCH (09:23)
[2022-02-02] MEDS: guaiFENesin 600 MG TABCR PO SCH ×2 (09:23→20:03)
[2022-02-02] MEDS: predniSONE 5 MG TAB PO SCH (09:24)
[2022-02-02] MEDS: ATENOLOL 25 MG TABLET PO SCH (09:24)
[2022-02-02] MEDS: PANTOprazole 40 MG TAB PO SCH (09:25)
[2022-02-02] MEDS: lisinopril 20 MG TAB PO SCH (09:26)
[2022-02-02] MEDS: allopurinoL 100 MG TAB PO SCH (09:26)
[2022-02-02] MEDS: LIDOCAINE 5% 1 PATCH TD SCH (09:26)
[2022-02-02] MEDS: MUPIROCIN 2% OINT 22 GM TUBE TOP SCH ×3 (09:27→20:04)
[2022-02-02] MEDS: INSULIN ASPART PER UNIT SC SCH ×4 (09:31→21:14)
[2022-02-02] MEDS: INSULIN GLARGINE SOLOSTAR 100 UNITS/ML 3 ML PEN SC SCH (09:39)
[2022-02-02] MEDS: LANTUS PER UNIT CHARGE SC SCH ×2 (09:42→21:57)
[2022-02-02 09:59] LABS: Appearance Urine Clear (Clear); Bilirubin Urine Negative (Negative); Blood Urine Negative (Negative); Color Urine Yellow; Glucose Urine UA Negative (Negative); Ketones Urine Negative (Negative); Leukocyte Esterase Urine Negative (Negative); Nitrite Urine Negative (Negative); Protein Urine Negative (Negative); Specific Gravity Urine 1.016 (1.000-1.030); Urobilinogen Urine Negative (Negative); pH Urine 5.5 (4.5-7.5)
[2022-02-02] MEDS: OLANZapine 5 MG TABLET PO SCH ×2 (12:10→20:03)
--- NOTE | 2022-02-02 14:14 | Hospitalist Progress Note ---
Date of Service February 02, 2022 Assessment & Plan (1) Cellulitis: Plan: Acute confusion last night Received a dose of Zyprexa Relevant blood counts are unremarkable Condition resolved this morning He is upset that he has been in this hospital so long and wants to get out associate project manager is trying to find a place for him Overall condition is stable as below Bilateral lower extremity cellulitis: Wound cx grew staph aureus MSSA Completed a course of antibiotics during his hospital stay and no further evidence of cellulitis. Wound present on admission has healed. Arterial Doppler of right lower extremity showed Moderate atherosclerotic plaque is seen. No elevated velocities are seen, however monophasic flow is seen below the popliteal artery. Clinically improved. Cont medical management of PAD. Further workup of this as outpatient as needed. No more cellulitis but has chronic skin changes in the legs No edema of the legs and no more evidence of cellulitis Dry cough We will give Mucinex No more cough today Dysphagia- Just reported today Nurse reports no observed chking or coughing with meals recently Pt is a poor historian. 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 Prior provider completed report to [employer] about his driving license Pt will need dementia unit for placement -awaiting placement Currently cooperative without any evidence of delirium No acute delirium Diabetes type 2-at inpatient goal Recent hab1c 9.9 Continue to hold glimepiride and Jardiance. Continue Lantus and novolog sliding scale Currently at inpatient goal. History of atrial fibrillation: Rate control Continueatenolol and Xarelto. History of gout: On allopurinol and chronic low dose prednisone. Hypertension Continue lisinopril. Chronic diastolic congestive heart failure-chronic, stable. Continue Torsemide We will check PRP tomorrow Gastroesophageal reflux disease-chronic, stable. Continue PPI. BPH Continue Flomax. Xarelto Full Code Dispo-to SNF awaiting placement. Medically stable and awaiting placement Admission and Anticipated Discharge Date Admission Date: January 09, 2022 Subjective 01/27/2022 The patient was seen and examined in medical floor He remains stable and complains to have some cough without any phlegm He recognized me and communicating normally 01/28/2022 Patient was seen and examined in medical floor He remained stable for the last few days Pleasantly confused but has been conversing normally and denies any significant symptoms 01/29/2022 The patient was seen and examined in medical floor He remained stable and is ready to be discharged from the hospital Awaiting placement 01/30/2022 The patient was seen and examined in medical floor He denies any more symptoms and has been stable Waiting to be transferred 01/31/2022 The patient was seen and examined in medical floor He remains stable without any complaints He was asking when he is getting out of the hospital 02/01/2022 Patient was seen and examined in the medical floor He has been stable without any complaints 02/02/2022 The patient was seen and examined in medical floor He has had agitation with aggressiveness last night and required administration of Zyprexa He has been behaving during the examination Has been upset that he is in the hospital for so long Review of Systems Review of Systems: All systems reviewed and are unremarkable except as noted below Respiratory: Has cough without any phlegm Musculoskeletal: Back pain seems to be minimal Physical Exam Physical Exam: Sitting on a chair without any acute distress Constitutional: well developed, well nourished and + obese Eyes: PERRL, conjunctivae normal, anicteric sclerae ENMT: external ear and nose normal, oropharynx normal Neck: trachea midline, no thyromegaly Respiratory: no respiratory distress Auscultation: lungs clear to auscultation bilaterally Cardiovascular: Rate/Rhythm: regular rate and regular rhythm; not tachycardic Heart Sounds: normal S1 and normal S2; no murmur Extremities: no edema Gastrointestinal (Abdomen): Inspection/Auscultation: normal bowel sounds; abdomen not distended Percussion/Palpation: abdomen soft; abdomen nontender Musculoskeletal: No acute arthritis involving any joint Neurologic: Alert and awake. Communicating normally. May be pleasantly co nfused from dementia Lymphatic: no cervical or axillary lymphadenopathy Results & Data Results & Data ([facility]) Vital Signs (Past 12 Hours) Vital Signs Temp Pulse Resp BP Pulse Ox 02/02/22 09:17 80 102/71 02/02/22 07:44 36.5 C 73 16 137/83 99 Laboratory Results Short CBC 02/02/22 Range/Units 07:14 WBC 8.88 (4.8-10.8) K/ul Hgb 15.9 (14.0-18.0) g/dl Hct 48.0 (40.1-51.0) % Plt Count 195 (130-400) K/uL BMP 02/02/22 07:14 Sodium 138 Potassium 3.9 Chloride 102 Carbon Dioxide 31 BUN 37 H Creatinine 1.20 Glucose 106 H Calcium 9.3 Urine 02/02/22 Range/Units 09:55 Urine Color Yellow Urine Appearance Clear (Clear) Urine pH 5.5 (4.5-7.5) Ur Specific [place] 1.016 (1.000-1.030) Urine Protein Negative (Negative) Urine Glucose (UA) Negative (Negative) Medications Administered Current Inpatient Medications Acetaminophen (Acetaminophen 500 Mg Tab) 1,000 mg PO Q8 [facility] Stop: 02/24/22 14:29 Last Admin: 02/02/22 06:04 Dose: 1,000 mg Documented by: Allopurinol (Allopurinol 100 Mg Tab) 100 mg PO DAILY [facility] Stop: 02/09/22 08:59 Last Admin: 02/02/22 09:26 Dose: 100 mg Documented by: Atenolol (Atenolol 25 Mg Tablet) 12.5 mg PO DAILY [facility] Stop: 02/09/22 08:59 Last Admin: 02/02/22 09:24 Dose: 12.5 mg Documented by: Atorvastatin Calcium (Atorvastatin 40 Mg Tab) 40 mg PO DAILY [facility] Stop: 02/09/22 08:59 Last Admin: 02/02/22 09:23 Dose: 40 mg Documented by: Dextrose (Dextrose 50% 50 Ml Syringe) 25 - 50 ml IV UD PRN; Protocol PRN Reason: Hypoglycemia Protocol Stop: 02/09/22 02:29 Diclofenac Sodium (Diclofenac Sod 1% Gel 100 Gm Tube) 2 gm EXT QID PRN; Protocol PRN Reason: joint pain Stop: 02/19/22 04:31 Last Admin: 01/26/22 20:26 Dose: 2 gm Documented by: Glucagon (Glucagon For Inj 1 Mg Vial) 1 mg IM UD PRN; Protocol PRN Reason: Hypoglycemia Protocol Stop: 02/09/22 02:29 Glucose (Glucose 40% Gel 15 Gm Tube) 15 - 30 gm PO UD PRN; Protocol PRN Reason: Hypoglycemia Protocol Stop: 02/09/22 02:29 Glucose (Glucose 10 Tabs/Tube) 4 - 8 tabs PO UD PRN; Protocol PRN Reason: Hypoglycemia Protocol Stop: 02/09/22 02:29 Guaifenesin (Guaifenesin 600 Mg Tabcr) 600 mg PO Q12 [facility] Stop: 02/26/22 20:59 Last Admin: 02/02/22 09:23 Dose: 600 mg Documented by: Sodium Chloride (Nss 1000ml) 1,000 mls @ 60 mls/hr IV .[id number] Stop: 02/02/22 23:45 Insulin Aspart (Insulin Aspart Per Unit) 0 units SC ACHS [facility] Stop: 02/09/22 07:29 Last Admin: 02/02/22 13:17 Dose: 10 units Documented by: Insulin Glargine (Lantus Per Unit Charge) 15 units SC BID [facility] Stop: 03/04/22 09:44 Last Admin: 02/02/22 09:42 Dose: 15 units Documented by: Lidocaine (Lidocaine 5% 1 Patch) 1 patch TD QAM [facility] Stop: 02/19/22 04:34 Last Admin: 02/02/22 09:26 Dose: 1 patch Documented by: Lisinopril (Lisinopril 20 Mg Tab) 20 mg PO DAILY [facility] Stop: 02/09/22 08:59 Last Admin: 02/02/22 09:26 Dose: 20 mg Documented by: Miscellaneous (Carbohydrates For Hypoglycemia ) 15 - 30 gm PO UD PRN PRN Reason: Hypoglycemia Treatment Stop: 02/09/22 02:29 Miscellaneous (Remove Lidoderm Patch) 1 ea N/A DAILY@2100 [facility] Stop: 02/19/22 20:59 Last Admin: 02/01/22 22:20 Dose: 1 ea Documented by: Mupirocin (Mupirocin 2% Oint 22 Gm Tube) 1 appln TOP TID [facility] Stop: 02/09/22 08:59 Last Admin: 02/02/22 09:27 Dose: 1 appln Documented by: Olanzapine (Olanzapine 5 Mg Tablet) 5 mg PO HS [facility] Stop: 02/13/22 20:59 Last Admin: 02/01/22 22:18 Dose: 5 mg Documented by: Olanzapine (Olanzapine 5 Mg Tablet) 5 mg PO DAILY@1300 [facility] Stop: 02/14/22 12:59 Last Admin: 02/02/22 12:10 Dose: 5 mg Documented by: Olanzapine (Olanzapine 10 Mg/2.1 Ml Sdv) 2.5 mg IM Q4H PRN PRN Reason: Anxiety/Agitation Stop: 03/04/22 06:47 Pantoprazole Sodium (Pantoprazole 40 Mg Tab) 40 mg PO DAILY [facility] Stop: 02/09/22 08:59 Last Admin: 02/02/22 09:25 Dose: 40 mg Documented by: Polyethylene Glycol (Polyethylene (Miralax) 17 Gm Pack) 17 gm PO DAILY PRN PRN Reason: Constipation Stop: 02/09/22 02:10 Prednisone (Prednisone 5 Mg Tab) 5 mg PO DAILY [facility] Stop: 02/09/22 08:59 Last Admin: 02/02/22 09:24 Dose: 5 mg Documented by: Rivaroxaban (Rivaroxaban 15 Mg Tab) 15 mg PO QDD [facility] Stop: 02/09/22 16:29 Last Admin: 02/01/22 15:34 Dose: 15 mg Documented by: Tamsulosin HCl (Tamsulosin Hcl 0.4 Mg Cap) 0.4 mg PO HS [facility] Stop: 02/09/22 20:59 Last Admin: 02/01/22 22:20 Dose: 0.4 mg Documented by: Torsemide (Torsemide 10 Mg Tab) 10 mg PO DAILY [facility] Stop: 02/09/22 08:59 Last Admin: 02/01/22 08:02 Dose: 10 mg Documented by:
[2022-02-02] MEDS: RIVAROXABAN 15 MG TAB PO SCH (17:10)
[2022-02-02] MEDS: TAMSULOSIN HCL 0.4 MG CAP PO SCH (20:03)
[2022-02-03] MEDS: ACETAMINOPHEN 500 MG TAB PO SCH ×4 (04:57→23:05)
[2022-02-03] MEDS: PANTOprazole 40 MG TAB PO SCH (08:50)
[2022-02-03] MEDS: predniSONE 5 MG TAB PO SCH (08:50)
[2022-02-03] MEDS: allopurinoL 100 MG TAB PO SCH (08:50)
[2022-02-03] MEDS: guaiFENesin 600 MG TABCR PO SCH ×2 (08:50→21:56)
[2022-02-03] MEDS: ATORVASTATIN 40 MG TAB PO SCH (08:50)
[2022-02-03] MEDS: lisinopril 20 MG TAB PO SCH (08:50)
[2022-02-03] MEDS: ATENOLOL 25 MG TABLET PO SCH (08:51)
[2022-02-03] MEDS: INSULIN ASPART PER UNIT SC SCH ×4 (08:55→21:49)
[2022-02-03] MEDS: LANTUS PER UNIT CHARGE SC SCH ×2 (08:55→21:49)
[2022-02-03] MEDS: LIDOCAINE 5% 1 PATCH TD SCH (09:07)
[2022-02-03] MEDS: MUPIROCIN 2% OINT 22 GM TUBE TOP SCH ×3 (09:08→21:54)
--- NOTE | 2022-02-03 13:14 | Hospitalist Progress Note ---
Date of Service February 03, 2022 Assessment & Plan (1) Cellulitis: Plan: Acute confusion last night Received a dose of Zyprexa Relevant blood counts are unremarkable Condition resolved this morning He is upset that he has been in this hospital so long and wants to get out manager safe is trying to find a place for him And another episode of agitation last night but remained calm this morning without any significant symptoms Bilateral lower extremity cellulitis: Wound cx grew staph aureus MSSA Completed a course of antibiotics during his hospital stay and no further evidence of cellulitis. Wound present on admission has healed. Arterial Doppler of right lower extremity showed Moderate atherosclerotic plaque is seen. No elevated velocities are seen, however monophasic flow is seen below the popliteal artery. Clinically improved. Cont medical management of PAD. Further workup of this as outpatient as needed. No more cellulitis but has chronic skin changes in the legs No edema of the legs and no more evidence of cellulitis Dry cough We will give Mucinex No more cough today Dysphagia- Just reported today Nurse reports no observed chking or coughing with meals recently Pt is a poor historian. 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 Prior provider completed report to [employer] about his driving license Pt will need dementia unit for placement -awaiting placement Currently cooperative without any evidence of delirium Has had an attack of agitation last night but none since this morning Diabetes type 2-at inpatient goal Recent hab1c 9.9 Continue to hold glimepiride and Jardiance. Continue Lantus and novolog sliding scale Currently at inpatient goal. History of atrial fibrillation: Rate control Continueatenolol and Xarelto. History of gout: On allopurinol and chronic low dose prednisone. Hypertension Continue lisinopril. Chronic diastolic congestive heart failure-chronic, stable. Continue Torsemide We will check PRP tomorrow Gastroesophageal reflux disease-chronic, stable. Continue PPI. BPH Continue Flomax. Xarelto Full Code Dispo-to SNF awaiting placement. Medically stable and awaiting placement Admission and Anticipated Discharge Date Admission Date: January 09, 2022 Subjective 01/27/2022 The patient was seen and examined in medical floor He remains stable and complains to have some cough without any phlegm He recognized me and communicating normally 01/28/2022 Patient was seen and examined in medical floor He remained stable for the last few days Pleasantly confused but has been conversing normally and denies any significant symptoms 01/29/2022 The patient was seen and examined in medical floor He remained stable and is ready to be discharged from the hospital Awaiting placement 01/30/2022 The patient was seen and examined in medical floor He denies any more symptoms and has been stable Waiting to be transferred 01/31/2022 The patient was seen and examined in medical floor He remains stable without any complaints He was asking when he is getting out of the hospital 02/01/2022 Patient was seen and examined in the medical floor He has been stable without any complaints 02/02/2022 The patient was seen and examined in medical floor He has had agitation with aggressiveness last night and required administration of Zyprexa He has been behaving during the examination Has been upset that he is in the hospital for so long 02/03/2022 The patient was seen and examined in medical floor He has had another episode of agitation last night Remained quite stable this morning and wants to leave the hospital Denies any significant symptoms Review of Systems Review of Systems: Unobtainable due to cognitive status Physical Exam Physical Exam: Sitting on a chair without any acute distress Constitutional: well developed, well nourished and + obese Eyes: PERRL, conjunctivae normal, anicteric sclerae ENMT: external ear and nose normal, oropharynx normal Neck: trachea midline, no thyromegaly Respiratory: no respiratory distress Auscultation: lungs clear to auscultation bilaterally Cardiovascular: Rate/Rhythm: regular rate and regular rhythm; not tachycardic Heart Sounds: normal S1 and normal S2; no murmur Extremities: no edema Gastrointestinal (Abdomen): Inspection/Auscultation: normal bowel sounds; abdomen not distended Percussion/Palpation: abdomen soft; abdomen nontender Musculoskeletal: No acute arthritis involving any joint Neurologic: Alert and awake. Pleasantly confused. No focal neurodeficit Lymphatic: no cervical or axillary lymphadenopathy Results & Data Results & Data ([facility]) Vital Signs (Past 12 Hours) Vital Signs Temp Pulse Resp BP Pulse Ox 02/03/22 07:36 36.5 C 85 16 130/84 99 Medications Administered Current Inpatient Medications Acetaminophen (Acetaminophen 500 Mg Tab) 1,000 mg PO Q8 [facility] Stop: 02/24/22 14:29 Last Admin: 02/03/22 04:57 Dose: 1,000 mg Documented by: Allopurinol (Allopurinol 100 Mg Tab) 100 mg PO DAILY [facility] Stop: 02/09/22 08:59 Last Admin: 02/03/22 08:50 Dose: 100 mg Documented by: Atenolol (Atenolol 25 Mg Tablet) 12.5 mg PO DAILY [facility] Stop: 02/09/22 08:59 Last Admin: 02/03/22 08:51 Dose: 12.5 mg Documented by: Atorvastatin Calcium (Atorvastatin 40 Mg Tab) 40 mg PO DAILY [facility] Stop: 02/09/22 08:59 Last Admin: 02/03/22 08:50 Dose: 40 mg Documented by: Dextrose (Dextrose 50% 50 Ml Syringe) 25 - 50 ml IV UD PRN; Protocol PRN Reason: Hypoglycemia Protocol Stop: 02/09/22 02:29 Diclofenac Sodium (Diclofenac Sod 1% Gel 100 Gm Tube) 2 gm EXT QID PRN; Protocol PRN Reason: joint pain Stop: 02/19/22 04:31 Last Admin: 01/26/22 20:26 Dose: 2 gm Documented by: Glucagon (Glucagon For Inj 1 Mg Vial) 1 mg IM UD PRN; Protocol PRN Reason: Hypoglycemia Protocol Stop: 02/09/22 02:29 Glucose (Glucose 40% Gel 15 Gm Tube) 15 - 30 gm PO UD PRN; Protocol PRN Reason: Hypoglycemia Protocol Stop: 02/09/22 02:29 Glucose (Glucose 10 Tabs/Tube) 4 - 8 tabs PO UD PRN; Protocol PRN Reason: Hypoglycemia Protocol Stop: 02/09/22 02:29 Guaifenesin (Guaifenesin 600 Mg Tabcr) 600 mg PO Q12 [facility] Stop: 02/26/22 20:59 Last Admin: 02/03/22 08:50 Dose: 600 mg Documented by: Insulin Aspart (Insulin Aspart Per Unit) 0 units SC ACHS [facility] Stop: 02/09/22 07:29 Last Admin: 02/03/22 13:03 Dose: 12 units Documented by: Insulin Glargine (Lantus Per Unit Charge) 15 units SC BID [facility] Stop: 03/04/22 09:44 Last Admin: 02/03/22 08:55 Dose: 15 units Documented by: Lidocaine (Lidocaine 5% 1 Patch) 1 patch TD QAM [facility] Stop: 02/19/22 04:34 Last Admin: 02/03/22 09:07 Dose: 1 patch Documented by: Lisinopril (Lisinopril 20 Mg Tab) 20 mg PO DAILY [facility] Stop: 02/09/22 08:59 Last Admin: 02/03/22 08:50 Dose: 20 mg Documented by: Miscellaneous (Carbohydrates For Hypoglycemia ) 15 - 30 gm PO UD PRN PRN Reason: Hypoglycemia Treatment Stop: 02/09/22 02:29 Miscellaneous (Remove Lidoderm Patch) 1 ea N/A DAILY@2100 [facility] Stop: 02/19/22 20:59 Last Admin: 02/02/22 21:15 Dose: 1 ea Documented by: Mupirocin (Mupirocin 2% Oint 22 Gm Tube) 1 appln TOP TID [facility] Stop: 02/09/22 08:59 Last Admin: 02/03/22 09:08 Dose: 1 appln Documented by: Olanzapine (Olanzapine 5 Mg Tablet) 5 mg PO HS [facility] Stop: 02/13/22 20:59 Last Admin: 02/02/22 20:03 Dose: 5 mg Documented by: Olanzapine (Olanzapine 5 Mg Tablet) 5 mg PO DAILY@1300 [facility] Stop: 02/14/22 12:59 Last Admin: 02/02/22 12:10 Dose: 5 mg Documented by: Olanzapine (Olanzapine 10 Mg/2.1 Ml Sdv) 2.5 mg IM Q4H PRN PRN Reason: Anxiety/Agitation Stop: 03/04/22 06:47 Pantoprazole Sodium (Pantoprazole 40 Mg Tab) 40 mg PO DAILY [facility] Stop: 02/09/22 08:59 Last Admin: 02/03/22 08:50 Dose: 40 mg Documented by: Polyethylene Glycol (Polyethylene (Miralax) 17 Gm Pack) 17 gm PO DAILY PRN PRN Reason: Constipation Stop: 02/09/22 02:10 Prednisone (Prednisone 5 Mg Tab) 5 mg PO DAILY [facility] Stop: 02/09/22 08:59 Last Admin: 02/03/22 08:50 Dose: 5 mg Documented by: Rivaroxaban (Rivaroxaban 15 Mg Tab) 15 mg PO QDD [facility] Stop: 02/09/22 16:29 Last Admin: 02/02/22 17:10 Dose: 15 mg Documented by: Tamsulosin HCl (Tamsulosin Hcl 0.4 Mg Cap) 0.4 mg PO HS [facility] Stop: 02/09/22 20:59 Last Admin: 02/02/22 20:03 Dose: 0.4 mg Documented by: Torsemide (Torsemide 10 Mg Tab) 10 mg PO DAILY [facility] Stop: 02/09/22 08:59 Last Admin: 02/01/22 08:02 Dose: 10 mg Documented by:
[2022-02-03] MEDS: OLANZapine 5 MG TABLET PO SCH ×2 (15:24→20:02)
[2022-02-03] MEDS: RIVAROXABAN 15 MG TAB PO SCH (16:56)
[2022-02-03] MEDS: OLANZapine 10 MG/2.1 ML SDV IM PRN (19:03)
[2022-02-03] MEDS ORDERED: OLANZapine 10 MG/2.1 ML SDV IM STA (19:54)
[2022-02-03] MEDS: TAMSULOSIN HCL 0.4 MG CAP PO SCH (21:56)
[2022-02-03] MEDS ORDERED: HALOPERIDOL LACTATE 5 MG/ML 1 ML VIAL IM STA (22:36)
[2022-02-03 23:22] LABS: Basophils # (auto) 0.05 K/uL (0-0.2); Basophils % (auto) 0.5 %; Eosinophils # (auto) 0.14 K/uL (0-0.50); Eosinophils % (auto) 1.3 %; Hematocrit (blood only) 43.2 % (40.1-51.0); Hemoglobin 14.4 g/dl (14.0-18.0); Immature Granulocytes # (auto) 0.05 K/uL (0.00-0.02); Immature Granulocytes % (auto) 0.5 %; Lymphocytes # (auto) 2.27 K/uL (1.2-3.4); Lymphocytes % (auto) 21.2 %; Mean Corpuscular Hgb Conc 33.3 g/dL (32.0-36.0); Mean Corpuscular Volume 86.9 fL (80.0-100.0); Mean Platelet Volume 10.7 fL (9.4-12.4); Monocytes # (auto) 0.73 K/uL (0.24-0.82); Monocytes % (auto) 6.8 %; Neutrophils # (auto) 7.49 K/uL (1.4-6.5); Neutrophils % (auto) 69.7 %; Platelet Count 185 K/uL (130-400); RDW Coefficient of Variation 12.5 % (11.5-14.5); RDW Standard Deviation 39.6 fL (36.4-46.3); Red Blood Count 4.97 M/uL (4.63-6.08); White Blood Count 10.73 K/ul (4.8-10.8)
[2022-02-03 23:45] LABS: BUN Creatinine Ratio 30.5 (10-20); Calcium 9.3 mg/dl (8.5-10.1); Creatinine Clr Calc Pharmacy 58.9 ml/min; Est GFR (African American) 75.7 ml/min; Est GFR (Non-African American) 65.3 ml/min; Potassium 4.1 mmol/L (3.5-5.1)
[2022-02-04] MEDS: ACETAMINOPHEN 500 MG TAB PO SCH ×3 (05:55→21:06)
[2022-02-04] MEDS: MUPIROCIN 2% OINT 22 GM TUBE TOP SCH ×3 (09:01→20:02)
[2022-02-04] MEDS: INSULIN ASPART PER UNIT SC SCH ×4 (09:42→21:03)
[2022-02-04] MEDS ORDERED: OLANZapine 5 MG TABLET PO STA (10:55)
--- NOTE | 2022-02-04 10:57 | Communication Note ---
Date of Service: February 04, 2022 1 to 1 sitter Please take of restraint for now.can be applied later if combative
[2022-02-04] MEDS: LIDOCAINE 5% 1 PATCH TD SCH (11:12)
[2022-02-04] MEDS: predniSONE 5 MG TAB PO SCH (11:13)
[2022-02-04] MEDS: PANTOprazole 40 MG TAB PO SCH (11:13)
[2022-02-04] MEDS: guaiFENesin 600 MG TABCR PO SCH ×2 (11:13→20:01)
[2022-02-04] MEDS: lisinopril 20 MG TAB PO SCH (11:13)
[2022-02-04] MEDS: ATENOLOL 25 MG TABLET PO SCH (11:14)
[2022-02-04] MEDS: ATORVASTATIN 40 MG TAB PO SCH (11:14)
[2022-02-04] MEDS: allopurinoL 100 MG TAB PO SCH (11:15)
[2022-02-04] MEDS: LANTUS PER UNIT CHARGE SC SCH ×2 (11:19→21:03)
[2022-02-04] MEDS: OLANZapine 5 MG TABLET PO SCH ×2 (11:37→20:01)
--- NOTE | 2022-02-04 16:00 | Hospitalist Progress Note ---
Date of Service February 04, 2022 Assessment & Plan (1) Cellulitis: Plan: Acute confusion last night-this happens to be mostly at night Received a dose of Zyprexa Relevant blood counts are unremarkable Condition resolved this morning He is upset that he has been in this hospital so long and wants to get out manager client service is trying to find a place for him And another episode of agitation last night but remained calm this morning without any significant symptoms He has been cooperative with me this morning and the restraint where discontinued He was given his Zyprexa early in of this morning and was put on one-to-one sitter He needs tender loving care Bilateral lower extremity cellulitis: Wound cx grew staph aureus MSSA Completed a course of antibiotics during his hospital stay and no further evidence of cellulitis. Wound present on admission has healed. Arterial Doppler of right lower extremity showed Moderate atherosclerotic plaque is seen. No elevated velocities are seen, however monophasic flow is seen below the popliteal artery. Clinically improved. Cont medical management of PAD. Further workup of this as outpatient as needed. No more cellulitis but has chronic skin changes in the legs No edema of the legs and no more evidence of cellulitis Dry cough We will give Mucinex No more cough today Dysphagia- Just reported today Nurse reports no observed chking or coughing with meals recently Pt is a poor historian. 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 Prior provider completed report to [employer] about his driving license Pt will need dementia unit for placement -awaiting placement Currently cooperative without any evidence of delirium Has had an attack of agitation last night but none since this morning Diabetes type 2-at inpatient goal Recent hab1c 9.9 Continue to hold glimepiride and Jardiance. Continue Lantus and novolog sliding scale Currently at inpatient goal. History of atrial fibrillation: Rate control Continueatenolol and Xarelto. History of gout: On allopurinol and chronic low dose prednisone. Hypertension Continue lisinopril. Chronic diastolic congestive heart failure-chronic, stable. Continue Torsemide We will check PRP tomorrow Gastroesophageal reflux disease-chronic, stable. Continue PPI. BPH Continue Flomax. Xarelto Full Code Dispo-to SNF awaiting placement. Medically stable and awaiting placement Admission and Anticipated Discharge Date Admission Date: January 09, 2022 Subjective 01/27/2022 The patient was seen and examined in medical floor He remains stable and complains to have some cough without any phlegm He recognized me and communicating normally 01/28/2022 Patient was seen and examined in medical floor He remained stable for the last few days Pleasantly confused but has been conversing normally and denies any significant symptoms 01/29/2022 The patient was seen and examined in medical floor He remained stable and is ready to be discharged from the hospital Awaiting placement 01/30/2022 The patient was seen and examined in medical floor He denies any more symptoms and has been stable Waiting to be transferred 01/31/2022 The patient was seen and examined in medical floor He remains stable without any complaints He was asking when he is getting out of the hospital 02/01/2022 Patient was seen and examined in the medical floor He has been stable without any complaints 02/02/2022 The patient was seen and examined in medical floor He has had agitation with aggressiveness last night and required administration of Zyprexa He has been behaving during the examination Has been upset that he is in the hospital for so long 02/03/2022 The patient was seen and examined in medical floor He has had another episode of agitation last night Remained quite stable this morning and wants to leave the hospital Denies any significant symptoms 02/04/2022 The patient was seen and examined in medical floor He has had episode of agitation last night and early this morning which required physical restraint When I saw him he was still in restraint and asked for help He is behaving normally, he does not have any aggressiveness and he wanted to follow the plan of management Review of Systems Review of Systems: All systems reviewed and are unremarkable except as noted below Respiratory: Has cough without any phlegm Musculoskeletal: Back pain seems to be minimal Physical Exam Physical Exam: Lying in bed without any acute distress but is very anxious and did not look angry Constitutional: well developed, well nourished and + obese Eyes: PERRL, conjunctivae normal, anicteric sclerae ENMT: external ear and nose normal, oropharynx normal Neck: trachea midline, no thyromegaly Respiratory: no respiratory distress Auscultation: lungs clear to auscultation bilaterally Cardiovascular: Rate/Rhythm: regular rate and regular rhythm; not tachycardic Heart Sounds: normal S1 and normal S2; no murmur Extremities: no edema Gastrointestinal (Abdomen): Inspection/Auscultation: normal bowel sounds; abdomen not distended Percussion/Palpation: abdomen soft; abdomen nontender Musculoskeletal: No acute arthritis in any joint Neurologic: Alert and awake. Pleasantly confused but communicating normally Lymphatic: no cervical or axillary lymphadenopathy Results & Data Results & Data ([facility]) Vital Signs (Past 12 Hours) Vital Signs Temp Pulse Resp BP Pulse Ox 02/04/22 07:36 36.4 C L 81 16 126/66 97
[2022-02-04] MEDS: RIVAROXABAN 15 MG TAB PO SCH (17:32)
[2022-02-04] MEDS: TAMSULOSIN HCL 0.4 MG CAP PO SCH (20:02)
[2022-02-04] MEDS: OLANZapine 10 MG/2.1 ML SDV IM PRN (20:11)
[2022-02-05] MEDS: OLANZapine 10 MG/2.1 ML SDV IM PRN (01:18)
[2022-02-05] MEDS: ACETAMINOPHEN 500 MG TAB PO SCH ×3 (06:41→21:05)
[2022-02-05] MEDS: CARBOHYDRATES FOR HYPOGLYCEMIA PO PRN (08:37)
[2022-02-05] MEDS: guaiFENesin 600 MG TABCR PO SCH ×2 (08:41→19:26)
[2022-02-05] MEDS: PANTOprazole 40 MG TAB PO SCH (08:41)
[2022-02-05] MEDS: predniSONE 5 MG TAB PO SCH (08:41)
[2022-02-05] MEDS: lisinopril 20 MG TAB PO SCH (08:41)
[2022-02-05] MEDS: ATORVASTATIN 40 MG TAB PO SCH (08:42)
[2022-02-05] MEDS: ATENOLOL 25 MG TABLET PO SCH (08:42)
[2022-02-05] MEDS: allopurinoL 100 MG TAB PO SCH (08:43)
[2022-02-05] MEDS: MUPIROCIN 2% OINT 22 GM TUBE TOP SCH ×3 (08:45→19:26)
[2022-02-05] MEDS: LIDOCAINE 5% 1 PATCH TD SCH (08:47)
[2022-02-05] MEDS: INSULIN ASPART PER UNIT SC SCH ×4 (10:07→21:04)
[2022-02-05] MEDS: LANTUS PER UNIT CHARGE SC SCH ×2 (10:11→21:05)
[2022-02-05] MEDS: OLANZapine 5 MG TABLET PO SCH (12:02)
[2022-02-05] MEDS: RIVAROXABAN 15 MG TAB PO SCH (16:47)
--- NOTE | 2022-02-05 18:07 | Hospitalist Progress Note ---
Date of Service February 05, 2022 Assessment & Plan (1) Cellulitis: Plan Dementia Delirium -Has been receiving Zyprexa 5mg at 1pm and 5pm at 9pm -Remains calm and cooperative during day but appears to have more confusion overnight requiring restraints and IM zyprexa -will increase 9pm Zyprexa to 7.5mg -Prior provider completed report to [facility] about his driving license Bilateral lower extremity cellulitis: Wound cx grew staph aureus MSSA Completed a course of antibiotics during his hospital stay and no further evidence of cellulitis. Wound present on admission has healed. Arterial Doppler of right lower extremity showed Moderate atherosclerotic plaque is seen. No elevated velocities are seen, however monophasic flow is seen below the popliteal artery. 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 Continue Lantus and novolog sliding scale History of atrial fibrillation: Rate control Continueatenolol and Xarelto. History of gout: On allopurinol and chronic low dose prednisone. Hypertension Continue lisinopril. Chronic diastolic congestive heart failure-chronic, stable. Continue Torsemide Gastroesophageal reflux disease-chronic, stable. Continue PPI. BPH Continue Flomax. Xarelto Full Code Dispo-to SNF awaiting placement. Medically stable and awaiting placement Admission and Anticipated Discharge Date Admission Date: January 09, 2022 Subjective Patient was taken off restraints today, he has been calm and cooperative Son visited today Physical Exam Physical Exam: Pleasantly demented, no acute distress, sitting in chair Respiratory: breathing comfortably on room air, no wheezing/rhonchi/rales Cardiovascular: regular rate and rhythm, no murmurs/rubs/gallops Gastrointestinal (Abdomen): soft, non tender, non distended Musculoskeletal: no edema Neurologic: awake, spontaneously moving extremities, pleasantly demented Results & Data Results & Data ([facility]) Vital Signs (Past 12 Hours) Vital Signs Temp Pulse Resp BP BP Pulse Ox O2 Del Method 02/05/22 15:53 37 C 78 18 109/71 96 Room Air 02/05/22 08:39 36.4 C L 92 H 20 151/103 H 163/104 H 97 02/05/22 07:30 Room Air
[2022-02-05] MEDS: OLANZAPINE 2.5 MG TAB PO SCH (19:27)
[2022-02-05] MEDS: TAMSULOSIN HCL 0.4 MG CAP PO SCH (19:28)
[2022-02-06] MEDS: ACETAMINOPHEN 500 MG TAB PO SCH ×3 (05:21→19:56)
[2022-02-06] MEDS: predniSONE 5 MG TAB PO SCH (08:05)
[2022-02-06] MEDS: ATORVASTATIN 40 MG TAB PO SCH (08:05)
[2022-02-06] MEDS: lisinopril 20 MG TAB PO SCH (08:05)
[2022-02-06] MEDS: ATENOLOL 25 MG TABLET PO SCH (08:05)
[2022-02-06] MEDS: LIDOCAINE 5% 1 PATCH TD SCH (08:05)
[2022-02-06] MEDS: guaiFENesin 600 MG TABCR PO SCH ×2 (08:05→19:57)
[2022-02-06] MEDS: allopurinoL 100 MG TAB PO SCH (08:05)
[2022-02-06] MEDS: PANTOprazole 40 MG TAB PO SCH (08:06)
[2022-02-06] MEDS: MUPIROCIN 2% OINT 22 GM TUBE TOP SCH ×3 (08:07→19:58)
[2022-02-06] MEDS: INSULIN ASPART PER UNIT SC SCH ×5 (09:00→21:00)
[2022-02-06] MEDS: LANTUS PER UNIT CHARGE SC SCH ×2 (09:01→20:41)
[2022-02-06] MEDS: OLANZapine 5 MG TABLET PO SCH (12:47)
--- NOTE | 2022-02-06 13:24 | Hospitalist Progress Note ---
Date of Service February 06, 2022 Assessment & Plan (1) Cellulitis: Plan Dementia Delirium -Night time delirium has improved -continue Zyprexa 5mg at 1pm and 7.5mg at 9pm Bilateral lower extremity cellulitis: Wound cx grew staph aureus MSSA Completed a course of antibiotics during his hospital stay and no further evidence of cellulitis. Wound present on admission has healed. Arterial Doppler of right lower extremity showed Moderate atherosclerotic plaque is seen. No elevated velocities are seen, however monophasic flow is seen below the popliteal artery. 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 Continue Lantus and novolog sliding scale History of atrial fibrillation: Rate control Continueatenolol and Xarelto. History of gout: On allopurinol and chronic low dose prednisone. Hypertension Continue lisinopril. Chronic diastolic congestive heart failure-chronic, stable. Continue Torsemide Gastroesophageal reflux disease-chronic, stable. Continue PPI. BPH Continue Flomax. Xarelto Full Code Dispo-to SNF awaiting placement. Medically stable and awaiting placement Admission and Anticipated Discharge Date Admission Date: January 09, 2022 Subjective No agitation overnight He has been off restraints for >24 hours and has not received any PRN behavior medications after adjustment of his evening Zyprexa yesterday Very calm and pleasant today, no new complaints Physical Exam Physical Exam: Sitting in chair, watching tv, just finished lunch Respiratory: Breathing comfortably on room air, no wheezing/rhonchi/rales Cardiovascular: Regular rate and rhythm, no murmurs/rubs/gallops Gastrointestinal (Abdomen): hypoactive, soft, non tender Musculoskeletal: no edema Neurologic: awake, alert, spontaneously moving extremities Results & Data Results & Data ([facility]) Vital Signs (Past 12 Hours) Vital Signs Temp Pulse Resp BP Pulse Ox O2 Del Method 02/06/22 07:17 36.6 C 67 16 137/83 95 Room Air Medications Administered Current Inpatient Medications Acetaminophen (Acetaminophen 500 Mg Tab) 1,000 mg PO Q8 [facility] Stop: 02/24/22 14:29 Last Admin: 02/06/22 05:21 Dose: 1,000 mg Allopurinol (Allopurinol 100 Mg Tab) 100 mg PO DAILY [facility] Stop: 02/09/22 08:59 Last Admin: 02/06/22 08:05 Dose: 100 mg Atenolol (Atenolol 25 Mg Tablet) 12.5 mg PO DAILY [facility] Stop: 02/09/22 08:59 Last Admin: 02/06/22 08:05 Dose: 12.5 mg Atorvastatin Calcium (Atorvastatin 40 Mg Tab) 40 mg PO DAILY [facility] Stop: 02/09/22 08:59 Last Admin: 02/06/22 08:05 Dose: 40 mg Dextrose (Dextrose 50% 50 Ml Syringe) 25 - 50 ml IV UD PRN; Protocol PRN Reason: Hypoglycemia Protocol Stop: 02/09/22 02:29 Diclofenac Sodium (Diclofenac Sod 1% Gel 100 Gm Tube) 2 gm EXT QID PRN; Protocol PRN Reason: joint pain Stop: 02/19/22 04:31 Last Admin: 01/26/22 20:26 Dose: 2 gm Glucagon (Glucagon For Inj 1 Mg Vial) 1 mg IM UD PRN; Protocol PRN Reason: Hypoglycemia Protocol Stop: 02/09/22 02:29 Glucose (Glucose 40% Gel 15 Gm Tube) 15 - 30 gm PO UD PRN; Protocol PRN Reason: Hypoglycemia Protocol Stop: 02/09/22 02:29 Glucose (Glucose 10 Tabs/Tube) 4 - 8 tabs PO UD PRN; Protocol PRN Reason: Hypoglycemia Protocol Stop: 02/09/22 02:29 Guaifenesin (Guaifenesin 600 Mg Tabcr) 600 mg PO Q12 [facility] Stop: 02/26/22 20:59 Last Admin: 02/06/22 08:05 Dose: 600 mg Insulin Aspart (Insulin Aspart Per Unit) 0 units SC ACHS [facility] Stop: 02/09/22 07:29 Last Admin: 02/06/22 12:48 Dose: 9 units Insulin Glargine (Lantus Per Unit Charge) 15 units SC BID [facility] Stop: 03/04/22 09:44 Last Admin: 02/06/22 09:01 Dose: 15 units Lidocaine (Lidocaine 5% 1 Patch) 1 patch TD QAM [facility] Stop: 02/19/22 04:34 Last Admin: 02/06/22 08:05 Dose: 1 patch Lisinopril (Lisinopril 20 Mg Tab) 20 mg PO DAILY [facility] Stop: 02/09/22 08:59 Last Admin: 02/06/22 08:05 Dose: 20 mg Miscellaneous (Carbohydrates For Hypoglycemia ) 15 - 30 gm PO UD PRN PRN Reason: Hypoglycemia Treatment Stop: 02/09/22 02:29 Last Admin: 02/05/22 08:37 Dose: 15 gm Miscellaneous (Remove Lidoderm Patch) 1 ea N/A DAILY@2100 [facility] Stop: 02/19/22 20:59 Last Admin: 02/05/22 19:28 Dose: 1 each Mupirocin (Mupirocin 2% Oint 22 Gm Tube) 1 appln TOP TID [facility] Stop: 02/09/22 08:59 Last Admin: 02/06/22 08:07 Dose: 1 appln Olanzapine (Olanzapine 5 Mg Tablet) 5 mg PO DAILY@1300 [facility] Stop: 02/14/22 12:59 Last Admin: 02/06/22 12:47 Dose: 5 mg Olanzapine (Olanzapine 2.5 Mg Tab) 7.5 mg PO HS [facility] Stop: 03/07/22 20:59 Last Admin: 02/05/22 19:27 Dose: 7.5 mg Pantoprazole Sodium (Pantoprazole 40 Mg Tab) 40 mg PO DAILY [facility] Stop: 02/09/22 08:59 Last Admin: 02/06/22 08:06 Dose: 40 mg Polyethylene Glycol (Polyethylene (Miralax) 17 Gm Pack) 17 gm PO DAILY PRN PRN Reason: Constipation Stop: 02/09/22 02:10 Prednisone (Prednisone 5 Mg Tab) 5 mg PO DAILY [facility] Stop: 02/09/22 08:59 Last Admin: 02/06/22 08:05 Dose: 5 mg Rivaroxaban (Rivaroxaban 15 Mg Tab) 15 mg PO QDD [facility] Stop: 02/09/22 16:29 Last Admin: 02/05/22 16:47 Dose: 15 mg Tamsulosin HCl (Tamsulosin Hcl 0.4 Mg Cap) 0.4 mg PO HS [facility] Stop: 02/09/22 20:59 Last Admin: 02/05/22 19:28 Dose: 0.4 mg Torsemide (Torsemide 10 Mg Tab) 10 mg PO DAILY [facility] Stop: 02/09/22 08:59 Last Admin: 02/01/22 08:02 Dose: 10 mg
[2022-02-06] MEDS: RIVAROXABAN 15 MG TAB PO SCH (16:50)
[2022-02-06] MEDS: OLANZAPINE 2.5 MG TAB PO SCH (19:57)
[2022-02-06] MEDS: TAMSULOSIN HCL 0.4 MG CAP PO SCH (19:57)
[2022-02-06] MEDS ORDERED: OLANZapine 10 MG/2.1 ML SDV IM STA (22:23)
[2022-02-07] MEDS: lisinopril 20 MG TAB PO SCH (07:53)
[2022-02-07] MEDS: ATENOLOL 25 MG TABLET PO SCH (07:54)
[2022-02-07] MEDS: PANTOprazole 40 MG TAB PO SCH (07:54)
[2022-02-07] MEDS: predniSONE 5 MG TAB PO SCH (07:54)
[2022-02-07] MEDS: ATORVASTATIN 40 MG TAB PO SCH (07:55)
[2022-02-07] MEDS: allopurinoL 100 MG TAB PO SCH (07:55)
[2022-02-07] MEDS: ACETAMINOPHEN 500 MG TAB PO SCH ×3 (07:55→20:30)
[2022-02-07] MEDS: guaiFENesin 600 MG TABCR PO SCH ×2 (07:55→20:28)
[2022-02-07] MEDS: LIDOCAINE 5% 1 PATCH TD SCH (07:56)
[2022-02-07] MEDS: MUPIROCIN 2% OINT 22 GM TUBE TOP SCH ×3 (07:57→20:28)
[2022-02-07] MEDS: POLYETHYLENE (MIRALAX) 17 GM PACK PO SCH (07:57)
[2022-02-07] MEDS: INSULIN ASPART PER UNIT SC SCH ×4 (08:27→21:29)
[2022-02-07] MEDS: LANTUS PER UNIT CHARGE SC SCH ×2 (09:40→21:28)
[2022-02-07] MEDS: OLANZapine 5 MG TABLET PO SCH (13:54)
[2022-02-07 16:54] LABS: Appearance Urine Clear (Clear); Bilirubin Urine Negative (Negative); Blood Urine Negative (Negative); Color Urine Yellow; Glucose Urine UA 1+ (Negative); Ketones Urine Negative (Negative); Leukocyte Esterase Urine Negative (Negative); Nitrite Urine Negative (Negative); Protein Urine Negative (Negative); Specific Gravity Urine 1.018 (1.000-1.030); Urobilinogen Urine Negative (Negative); pH Urine 5.5 (4.5-7.5)
--- NOTE | 2022-02-07 17:43 | Hospitalist Progress Note ---
Date of Service February 07, 2022 Assessment & Plan (1) Cellulitis: Plan Dementia Delirium -Again required IM zyprexa overnight. Today was agitated when he wasn't allowed to wander around -Discussed with psychiatry, will switch to Seroquel to see if he responds better. Continue IM zyprexa PRN for agitation. Also start clonidine patch -with new day time confusion, will check UA to evaluate for UTI (when able). Bilateral lower extremity cellulitis: Wound cx grew staph aureus MSSA Completed a course of antibiotics during his hospital stay and no further evidence of cellulitis. Wound present on admission has healed. Arterial Doppler of right lower extremity showed Moderate atherosclerotic plaque is seen. No elevated velocities are seen, however monophasic flow is seen below the popliteal artery. 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 Continue Lantus and novolog sliding scale History of atrial fibrillation: Rate control Continueatenolol and Xarelto. History of gout: On allopurinol and chronic low dose prednisone. Hypertension Continue lisinopril. Chronic diastolic congestive heart failure-chronic, stable. Continue Torsemide Gastroesophageal reflux disease-chronic, stable. Continue PPI. BPH Continue Flomax. Xarelto Full Code Dispo- Awaiting placement Admission and Anticipated Discharge Date Admission Date: January 09, 2022 Subjective Wandered the hallway today and become combative when staff attempted to lead him back to his room Eventually he was led back to room and was calmer Physical Exam Physical Exam: I did not approach patient during his combative episode. Patient was observed sitting in his bed. He was loud at times, insisting that he is at home and yelling at staff to let him out Respiratory: No respiratory distress. Breathing comfortably on room air Neurologic: awake, not oriented, spontaneously moving all extremities Psychiatric: agitated, loud at times, difficult to redirect Results & Data Results & Data ([facility]) Vital Signs (Past 12 Hours) Vital Signs Temp Pulse Resp BP Pulse Ox O2 Del Method 02/07/22 16:18 36.7 C 79 16 124/70 98 Room Air
[2022-02-07] MEDS: cloNIDine HCL 0.1 MG/24 HR TRANSDERM SYS TD SCH (17:52)
[2022-02-07] MEDS: RIVAROXABAN 15 MG TAB PO SCH (17:54)
[2022-02-07] MEDS: CHECK CLONIDINE PATCH PLACEMENT SCH ×2 (18:45→21:35)
[2022-02-07] MEDS: OLANZapine 10 MG/2.1 ML SDV IM PRN (19:34)
[2022-02-07] MEDS: TAMSULOSIN HCL 0.4 MG CAP PO SCH (20:29)
[2022-02-07] MEDS ORDERED: OLANZapine 10 MG TAB PO SCH (21:00)
[2022-02-07] MEDS ORDERED: QUEtiapine FUMARATE 50 MG TABCR PO SCH (21:00)
[2022-02-08] MEDS: ACETAMINOPHEN 500 MG TAB PO SCH ×3 (05:04→20:05)
[2022-02-08 06:38] LABS: Hemoglobin 14.9 g/dl (14.0-18.0); Mean Corpuscular Hemoglobin 28.8 pg (25.0-34.0); Mean Corpuscular Hgb Conc 33.1 g/dL (32.0-36.0); Mean Platelet Volume 10.3 fL (9.4-12.4); Platelet Count 189 K/uL (130-400); RDW Coefficient of Variation 12.7 % (11.5-14.5); RDW Standard Deviation 40.2 fL (36.4-46.3); Red Blood Count 5.17 M/uL (4.63-6.08); White Blood Count 8.79 K/ul (4.8-10.8)
[2022-02-08 07:06] LABS: Albumin Globulin Ratio 1.3 (0.9-2); BUN Creatinine Ratio 25.5 (10-20); Calcium 9.2 mg/dl (8.5-10.1); Creatinine Clr Calc Pharmacy 58.4 ml/min; Est GFR (African American) 74.9 ml/min; Est GFR (Non-African American) 64.6 ml/min; Potassium 3.8 mmol/L (3.5-5.1)
[2022-02-08] MEDS: PANTOprazole 40 MG TAB PO SCH (08:08)
[2022-02-08] MEDS: LIDOCAINE 5% 1 PATCH TD SCH (08:08)
[2022-02-08] MEDS: allopurinoL 100 MG TAB PO SCH (08:08)
[2022-02-08] MEDS: lisinopril 20 MG TAB PO SCH (08:08)
[2022-02-08] MEDS: predniSONE 5 MG TAB PO SCH (08:08)
[2022-02-08] MEDS: guaiFENesin 600 MG TABCR PO SCH ×2 (08:08→20:07)
[2022-02-08] MEDS: ATENOLOL 25 MG TABLET PO SCH (08:08)
[2022-02-08] MEDS: ATORVASTATIN 40 MG TAB PO SCH (08:08)
[2022-02-08] MEDS: CHECK CLONIDINE PATCH PLACEMENT SCH ×2 (08:09→15:13)
[2022-02-08] MEDS: MUPIROCIN 2% OINT 22 GM TUBE TOP SCH ×3 (08:15→20:06)
[2022-02-08] MEDS: POLYETHYLENE (MIRALAX) 17 GM PACK PO SCH (08:15)
[2022-02-08] MEDS: CARBOHYDRATES FOR HYPOGLYCEMIA PO PRN (08:18)
[2022-02-08] MEDS ORDERED: PHARMACY GLYCEMIC MGMT CONSULT PRN (08:42)
[2022-02-08] MEDS: INSULIN ASPART PER UNIT SC SCH ×4 (09:10→20:14)
--- NOTE | 2022-02-08 10:09 | Psychiatric Progress Note ---
Date of Service February 08, 2022 Impression / Recommendations Impression 81 yo male with cognitive impairment and AMS concerning for delirium following cellulitis. 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 Intermittent agitation initially responded well to zyprexa but recent worsening in agitation and insomnia. Swicthed to seroquel and clonidine patch added to see if this would help with agitation. (1) Dementia associated with other underlying disease with behavioral disturbance: Plan -Consider reducing or discontinuing prednisone, if gout is stable enough to allow this, as it could be contributing to agitation and insomnia -Increase seroquel to 25mg qhs and 12.5 mg BID prn for agitation -Zyprexa 2.5 mg IM for behavioral emergencies -Ongoing behavioral strategies/non-pharmacological approaches to identify triggers and reduce stimulation to help with periods of behavioral dysregulation Interval History Identifying Information 81 yo male who lives with his son in [place]. Patient admit for cellulitis and mental status change. Consult if for agitation. Chief Complaint "hello". Review of Systems Notes multiple awakenings overnight but easily fell back asleep with nursing encouragement, eating Subjective Subjective Patient was seen & assessed and interval progress reviewed. Mitul has been experiencing worsening agitation, especially in the afternoons and evenings, over the last few days. Hospitalist team increased his olanzapine with no perceivable benefit and after another event of behavioral agitation yesterday switched to seroquel. This morning Mitul is allowing nursing care to get cleaned up and dressed for the day without any evidence for agitation. No signs of any side effects from the seroquel. He presents as pleasantly confused, difficult to interpret his thought content as some of the words are difficult to comprehend. Taking his medications. Physical Exam Psychiatric Orientation: alert and oriented to person; + not oriented to place and + not o riented to time Apperance: appropriately groomed Eye Contact: + fair eye contact Motor Behavior: no abnormal motor movements; n EPS Speech: normal rate/rhythm/volume of speech Affect: + constricted affect Mood: no depressed mood, no anxious mood and no irritable mood Thought Process: + concrete thought process and + incoherent thought process Thought Content: reality based without delusions Hallucinations: no auditory hallucinations and no visual hallucinations Cognition: + recent memory not intact, + remote memory not intact, + attention not intact and + language not intact Insight: + severely impaired insight Judgement: + severely impaired judgement Vital Signs (Past 24 Hours) Last Vital Signs Temp 36.6 C 02/08/22 07:59 Pulse 73 02/08/22 07:59 Resp 18 02/08/22 07:59 BP 121/77 02/08/22 07:59 Pulse Ox 98 02/08/22 07:59 O2 Del Method 02/08/22 08:23 Results & Data ([facility]) Laboratory Results Laboratory Results - last 24 hr 02/07/22 02/07/22 02/07/22 12:03 16:23 17:15 WBC RBC Hgb Hct MCV MCH MCHC RDW Std Deviation RDW Coeff of Bryanna Plt Count MPV Sodium Potassium Chloride Carbon Dioxide Anion Gap BUN Creatinine Est Cr Clr Drug Dosing Est GFR ( Amer) Est GFR (Non-Af Amer) BUN/Creatinine Ratio Glucose POC Glucose 85 228 H Calcium Total Bilirubin AST ALT Alkaline Phosphatase Total Protein Albumin Globulin Albumin/Globulin Ratio Urine Color Yellow Urine Appearance Clear Urine pH 5.5 Ur Specific [place] 1.018 Urine Protein Negative Urine Glucose (UA) 1+ H Urine Ketones Negative Urine Blood Negative Urine Nitrite Negative Urine Bilirubin Negative Urine Urobilinogen Negative Ur Leukocyte Esterase Negative 02/07/22 02/08/22 02/08/22 21:12 06:15 06:15 WBC 8.79 RBC 5.17 Hgb 14.9 Hct 45.0 MCV 87.0 MCH 28.8 MCHC 33.1 RDW Std Deviation 40.2 RDW Coeff of Bryanna 12.7 Plt Count 189 MPV 10.3 Sodium 142 Potassium 3.8 Chloride 108 H Carbon Dioxide 28 Anion Gap 6 BUN 27 H Creatinine 1.06 Est Cr Clr Drug Dosing 58.4 Est GFR ( Amer) 74.9 Est GFR (Non-Af Amer) 64.6 BUN/Creatinine Ratio 25.5 H Glucose 74 POC Glucose 115 H Calcium 9.2 Total Bilirubin 1.0 AST 21 ALT 24 Alkaline Phosphatase 76 Total Protein 7.0 Albumin 4.0 Globulin 3.0 Albumin/Globulin Ratio 1.3 Urine Color Urine Appearance Urine pH Ur Specific [place] Urine Protein Urine Glucose (UA) Urine Ketones Urine Blood Urine Nitrite Urine Bilirubin Urine Urobilinogen Ur Leukocyte Esterase 02/08/22 08:35 WBC RBC Hgb Hct MCV MCH MCHC RDW Std Deviation RDW Coeff of Bryanna Plt Count MPV Sodium Potassium Chloride Carbon Dioxide Anion Gap BUN Creatinine Est Cr Clr Drug Dosing Est GFR ( Amer) Est GFR (Non-Af Amer) BUN/Creatinine Ratio Glucose POC Glucose 88 Calcium Total Bilirubin AST ALT Alkaline Phosphatase Total Protein Albumin Globulin Albumin/Globulin Ratio Urine Color Urine Appearance Urine pH Ur Specific [place] Urine Protein Urine Glucose (UA) Urine Ketones Urine Blood Urine Nitrite Urine Bilirubin Urine Urobilinogen Ur Leukocyte Esterase Current Inpatient Medications Current Inpatient Medications: Current Inpatient Medications Acetaminophen (Acetaminophen 500 Mg Tab) 1,000 mg PO Q8 [facility] Stop: 02/24/22 14:29 Last Admin: 02/08/22 05:04 Dose: 1,000 mg Allopurinol (Allopurinol 100 Mg Tab) 100 mg PO DAILY [facility] Stop: 03/11/22 08:59 Last Admin: 02/08/22 08:08 Dose: 100 mg Atenolol (Atenolol 25 Mg Tablet) 12.5 mg PO DAILY [facility] Stop: 03/11/22 08:59 Last Admin: 02/08/22 08:08 Dose: 12.5 mg Atorvastatin Calcium (Atorvastatin 40 Mg Tab) 40 mg PO DAILY [facility] Stop: 03/11/22 08:59 Last Admin: 02/08/22 08:08 Dose: 40 mg Clonidine HCl (Clonidine Hcl 0.1 Mg/24 Hr Transderm Sys) 1 patch TD Q7D [facility] Stop: 03/09/22 14:59 Last Admin: 02/07/22 17:52 Dose: 1 patch Dextrose (Dextrose 50% 50 Ml Syringe) 25 - 50 ml IV UD PRN; Protocol PRN Reason: Hypoglycemia Protocol Stop: 02/09/22 02:29 Diclofenac Sodium (Diclofenac Sod 1% Gel 100 Gm Tube) 2 gm EXT QID PRN; Protocol PRN Reason: joint pain Stop: 02/19/22 04:31 Last Admin: 01/26/22 20:26 Dose: 2 gm Glucagon (Glucagon For Inj 1 Mg Vial) 1 mg IM UD PRN; Protocol PRN Reason: Hypoglycemia Protocol Stop: 02/09/22 02:29 Glucose (Glucose 40% Gel 15 Gm Tube) 15 - 30 gm PO UD PRN; Protocol PRN Reason: Hypoglycemia Protocol Stop: 03/11/22 02:29 Glucose (Glucose 10 Tabs/Tube) 4 - 8 tab PO UD PRN; Protocol PRN Reason: Hypoglycemia Protocol Stop: 03/11/22 02:29 Guaifenesin (Guaifenesin 600 Mg Tabcr) [address] [facility] Stop: 02/26/22 20:59 Last Admin: 02/08/22 08:08 Dose: 600 mg Insulin Aspart (Insulin Aspart Per Unit) [address] [facility] Stop: 03/11/22 07:29 Last Admin: 02/08/22 09:10 Dose: 5 units Lidocaine (Lidocaine 5% 1 Patch) [address] [facility] Stop: 02/19/22 04:34 Last Admin: 02/08/22 08:08 Dose: 1 patch Lisinopril (Lisinopril 20 Mg Tab) [address] [facility] Stop: 03/11/22 08:59 Last Admin: 02/08/22 08:08 Dose: 20 mg Miscellaneous (Carbohydrates For Hypoglycemia ) 15 - 30 gm PO UD PRN PRN Reason: Hypoglycemia Treatment Stop: 03/11/22 02:29 Last Admin: 02/08/22 08:18 Dose: 15 gm Miscellaneous (Remove Lidoderm Patch) 1 ea N/A DAILY@2100 [facility] Stop: 02/19/22 20:59 Last Admin: 02/07/22 20:29 Dose: 1 each Miscellaneous (Remove Clonidine Patch) 1 each N/A CQWK [facility] Stop: 03/09/22 14:59 Last Admin: 02/07/22 17:47 Dose: Not Given Miscellaneous (Check Clonidine Patch Placement) 1 each N/A QS [facility] Stop: 03/09/22 15:59 Last Admin: 02/08/22 08:09 Dose: 1 each Miscellaneous Information (Pharmacy Glycemic Mgmt Consult) 1 each N/A UD PRN PRN Reason: Consult Stop: 03/10/22 08:41 Mupirocin (Mupirocin 2% Oint 22 Gm Tube) [address] [facility] Stop: 03/11/22 08:59 Last Admin: 02/08/22 08:15 Dose: 1 appln Olanzapine (Olanzapine 10 Mg/2.1 Ml Sdv) 2.5 mg IM Q8 PRN PRN Reason: Agitation Stop: 03/09/22 14:50 Last Admin: 02/07/22 19:34 Dose: 2.5 mg Pantoprazole Sodium (Pantoprazole 40 Mg Tab) [address] [facility] Stop: 03/11/22 08:59 Last Admin: 02/08/22 08:08 Dose: 40 mg Polyethylene Glycol (Polyethylene (Miralax) 17 Gm Pack) 17 gm PO DAILY [facility] Stop: 03/09/22 08:59 Last Admin: 02/08/22 08:15 Dose: 17 gm Prednisone (Prednisone 5 Mg Tab) 5 mg PO DAILY [facility] Stop: 03/11/22 08:59 Last Admin: 02/08/22 08:08 Dose: 5 mg Quetiapine Fumarate (Quetiapine Fumarate 50 Mg Tabcr) 12.5 mg PO HS [facility] Stop: 03/09/22 20:59 Last Admin: 02/07/22 20:29 Dose: 12.5 mg Rivaroxaban (Rivaroxaban 15 Mg Tab) 15 mg PO QDD [facility] Stop: 02/09/22 16:29 Last Admin: 02/07/22 17:54 Dose: 15 mg Tamsulosin HCl (Tamsulosin Hcl 0.4 Mg Cap) 0.4 mg PO HS [facility] Stop: 02/09/22 20:59 Last Admin: 02/07/22 20:29 Dose: 0.4 mg Torsemide (Torsemide 10 Mg Tab) 10 mg PO DAILY [facility] Stop: 02/09/22 08:59 Last Admin: 02/01/22 08:02 Dose: 10 mg
[2022-02-08] MEDS: QUEtiapine FUMARATE 25 MG TABLET PO PRN (11:16)
--- NOTE | 2022-02-08 13:45 | Pharmacy Report ---
Pharmacy Glycemic Short Note 2 - Date of Service February 08, 2022 - Glycemic Short BSG Results (Last 24 hours): 02/07/22 02/07/22 02/08/22 17:15 21:12 06:15 Glucose 74 POC Glucose 228 H 115 H 02/08/22 02/08/22 02/08/22 08:15 08:17 08:35 Glucose POC Glucose 67 L* 74 88 02/08/22 12:11 Glucose POC Glucose 125 H OUTPATIENT ANTIDIABETIC REGIMEN: * Jardiance 10 mg daily * amaryl 2 mg po daily * HbA1C = 9.9% ASSESSMENT: * Mr Davila is an 81 y/o M with a PMH of T2DM who presents with cellulitis. * Pharmacy was consulted today after AM BSG was low at 67 mg/dL. * Since patient has had two hypoglycemic events in the morning (02/07 and 02/08) will decrease Lantus to 10 units HS (50% reduction). * Continue Novolog. Patient will need more carbohydrate coverage due to steroids (prednisone 5 mg daily). Yesterday patient's BSGs were relatively well controlled except for dinner -- this was most likely due to uncovered carbohydrate consumption. PLAN FOR INPATIENT GLYCEMIC CONTROL: * Hold outpatient oral diabetes medications * Basal insulin * Lantus 10 units SQ HS * Bolus insulin * NovoLog per scale ACHS or Q6hrs while NPO * Goal Range: Low 110 mg/dL - High 140 mg/dL * Correction Factor: 25 mg/dL/unit * Nutritional / Prandial insulin per carb ratio of 1 unit per 7 grams CHO consumed
--- NOTE | 2022-02-08 16:13 | Hospitalist Progress Note ---
Date of Service February 08, 2022 Assessment & Plan (1) Cellulitis: Plan Dementia Delirium -Appreciate psychiatry input. Zyprexa discontinued and started on Seroquel 12.5mg QHS--> 25mg QHS and clonidine patch. Bilateral lower extremity cellulitis: Wound cx grew staph aureus MSSA Completed a course of antibiotics during his hospital stay and no further evidence of cellulitis. Wound present on admission has healed. Arterial Doppler of right lower extremity showed Moderate atherosclerotic plaque is seen. No elevated velocities are seen, however monophasic flow is seen below the popliteal artery. 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 Continue Lantus and novolog sliding scale. Glycemic pharmacist consulted History of atrial fibrillation: Rate control Continueatenolol and Xarelto. History of gout: On allopurinol and chronic low dose prednisone. Hypertension Continue lisinopril. Chronic diastolic congestive heart failure-chronic, stable. Continue Torsemide Gastroesophageal reflux disease-chronic, stable. Continue PPI. BPH Continue Flomax. DVT ppx Xarelto Code status--Discussed with his son, Mitul Corbin Jr regarding code status 02/07--> code status changed to DNR/DNI Dispo- Awaiting placement Admission and Anticipated Discharge Date Admission Date: January 09, 2022 Subjective Yesterday patient wanted to walk the hallway and became upset when he was asked to return to his room. His medications were adjusted yesterday afternoon and he did well overnight and has been calm all day today Patient himself with no complaints Physical Exam Physical Exam: sitting in chair, reading magazine and watching tv, pleasant and comfortable Respiratory: breathing comfortably on room air, no wheezing, no accessory muscle use Cardiovascular: regular rate and rhythm, no murmurs/rubs/gallops Gastrointestinal (Abdomen): soft, non tender, non distended Musculoskeletal: no edema Skin: evidence of chronic venous stasis skin changes, some bruising on legs Neurologic: awake, pleasantly demented, spontaneously moving extremities Results & Data Results & Data ([facility]) Vital Signs (Past 12 Hours) Vital Signs Temp Pulse Resp BP Pulse Ox O2 Del Method 02/08/22 15:57 36.8 C 88 18 98/64 L 97 02/08/22 08:23 Room Air 02/08/22 07:59 36.6 C 73 18 121/77 98 Room Air Laboratory Results Short CBC 02/08/22 Range/Units 06:15 WBC 8.79 (4.8-10.8) K/ul Hgb 14.9 (14.0-18.0) g/dl Hct 45.0 (40.1-51.0) % Plt Count 189 (130-400) K/uL BMP 02/08/22 06:15 Sodium 142 Potassium 3.8 Chloride 108 H Carbon Dioxide 28 BUN 27 H Creatinine 1.06 Glucose 74 Calcium 9.2 Liver Function 02/08/22 Range/Units 06:15 Total Bilirubin 1.0 (0.2-1.0) mg/dl AST 21 (13-39) U/L ALT 24 (7-52) U/L Alkaline Phosphatase 76 (34-104) U/L Albumin 4.0 (3.4-5.0) gm/dl Urine 02/07/22 Range/Units 16:23 Urine Color Yellow Urine Appearance Clear (Clear) Urine pH 5.5 (4.5-7.5) Ur Specific [place] 1.018 (1.000-1.030) Urine Protein Negative (Negative) Urine Glucose (UA) 1+ H (Negative) Medications Administered Current Inpatient Medications Acetaminophen (Acetaminophen 500 Mg Tab) 1,000 mg PO Q8 [facility] Stop: 02/24/22 14:29 Last Admin: 02/08/22 13:48 Dose: 1,000 mg Allopurinol (Allopurinol 100 Mg Tab) 100 mg PO DAILY [facility] Stop: 03/11/22 08:59 Last Admin: 02/08/22 08:08 Dose: 100 mg Atenolol (Atenolol 25 Mg Tablet) 12.5 mg PO DAILY [facility] Stop: 03/11/22 08:59 Last Admin: 02/08/22 08:08 Dose: 12.5 mg Atorvastatin Calcium (Atorvastatin 40 Mg Tab) 40 mg PO DAILY [facility] Stop: 03/11/22 08:59 Last Admin: 02/08/22 08:08 Dose: 40 mg Clonidine HCl (Clonidine Hcl 0.1 Mg/24 Hr Transderm Sys) 1 patch TD Q7D [facility] Stop: 03/09/22 14:59 Last Admin: 02/07/22 17:52 Dose: 1 patch Dextrose (Dextrose 50% 50 Ml Syringe) 25 - 50 ml IV UD PRN; Protocol PRN Reason: Hypoglycemia Protocol Stop: 02/09/22 02:29 Diclofenac Sodium (Diclofenac Sod 1% Gel 100 Gm Tube) 2 gm EXT QID PRN; Protocol PRN Reason: joint pain Stop: 02/19/22 04:31 Last Admin: 01/26/22 20:26 Dose: 2 gm Glucagon (Glucagon For Inj 1 Mg Vial) 1 mg IM UD PRN; Protocol PRN Reason: Hypoglycemia Protocol Stop: 02/09/22 02:29 Glucose (Glucose 40% Gel 15 Gm Tube) 15 - 30 gm PO UD PRN; Protocol PRN Reason: Hypoglycemia Protocol Stop: 03/11/22 02:29 Glucose (Glucose 10 Tabs/Tube) 4 - 8 tab PO UD PRN; Protocol PRN Reason: Hypoglycemia Protocol Stop: 03/11/22 02:29 Guaifenesin (Guaifenesin 600 Mg Tabcr) 600 mg PO Q12 [facility] Stop: 02/26/22 20:59 Last Admin: 02/08/22 08:08 Dose: 600 mg Insulin Aspart (Insulin Aspart Per Unit) 0 units SC ACHS [facility] Stop: 03/11/22 07:29 Last Admin: 02/08/22 13:26 Dose: 6 units Insulin Glargine (Lantus Per Unit Charge) 10 units SC HS [facility] Stop: 03/10/22 20:59 Lidocaine (Lidocaine 5% 1 Patch) 1 patch TD QAM [facility] Stop: 02/19/22 04:34 Last Admin: 02/08/22 08:08 Dose: 1 patch Lisinopril (Lisinopril 20 Mg Tab) 20 mg PO DAILY [facility] Stop: 03/11/22 08:59 Last Admin: 02/08/22 08:08 Dose: 20 mg Miscellaneous (Carbohydrates For Hypoglycemia ) 15 - 30 gm PO UD PRN PRN Reason: Hypoglycemia Treatment Stop: 03/11/22 02:29 Last Admin: 02/08/22 08:18 Dose: 15 gm Miscellaneous (Remove Lidoderm Patch) 1 ea N/A DAILY@2100 [facility] Stop: 02/19/22 20:59 Last Admin: 02/07/22 20:29 Dose: 1 each Miscellaneous (Remove Clonidine Patch) 1 each N/A CQWK [facility] Stop: 03/09/22 14:59 Last Admin: 02/07/22 17:47 Dose: Not Given Miscellaneous (Check Clonidine Patch Placement) 1 each N/A QS [facility] Stop: 03/09/22 15:59 Last Admin: 02/08/22 15:13 Dose: 1 each Miscellaneous Information (Pharmacy Glycemic Mgmt Consult) 1 each N/A UD PRN PRN Reason: Consult Stop: 03/10/22 08:41 Mupirocin (Mupirocin 2% Oint 22 Gm Tube) 1 appln TOP TID [facility] Stop: 03/11/22 08:59 Last Admin: 02/08/22 13:48 Dose: 1 appln Olanzapine (Olanzapine 10 Mg/2.1 Ml Sdv) 2.5 mg IM Q8 PRN PRN Reason: Agitation Stop: 03/09/22 14:50 Last Admin: 02/07/22 19:34 Dose: 2.5 mg Pantoprazole Sodium (Pantoprazole 40 Mg Tab) 40 mg PO DAILY [facility] Stop: 03/11/22 08:59 Last Admin: 02/08/22 08:08 Dose: 40 mg Polyethylene Glycol (Polyethylene (Miralax) 17 Gm Pack) 17 gm PO DAILY [facility] Stop: 03/09/22 08:59 Last Admin: 02/08/22 08:15 Dose: 17 gm Prednisone (Prednisone 5 Mg Tab) 5 mg PO DAILY [facility] Stop: 03/11/22 08:59 Last Admin: 02/08/22 08:08 Dose: 5 mg Quetiapine Fumarate (Quetiapine Fumarate 25 Mg Tablet) 25 mg PO HS [facility] Stop: 03/10/22 20:59 Quetiapine Fumarate (Quetiapine Fumarate 25 Mg Tablet) 12.5 mg PO BID PRN PRN Reason: Agitation Stop: 03/10/22 20:59 Last Admin: 02/08/22 11:16 Dose: 12.5 mg Rivaroxaban (Rivaroxaban 15 Mg Tab) 15 mg PO QDD [facility] Stop: 02/09/22 16:29 Last Admin: 02/07/22 17:54 Dose: 15 mg Tamsulosin HCl (Tamsulosin Hcl 0.4 Mg Cap) 0.4 mg PO HS [facility] Stop: 02/09/22 20:59 Last Admin: 02/07/22 20:29 Dose: 0.4 mg Torsemide (Torsemide 10 Mg Tab) 10 mg PO DAILY [facility] Stop: 02/09/22 08:59 Last Admin: 02/01/22 08:02 Dose: 10 mg
[2022-02-08] MEDS: RIVAROXABAN 15 MG TAB PO SCH (17:36)
[2022-02-08] MEDS: TAMSULOSIN HCL 0.4 MG CAP PO SCH (20:06)
[2022-02-08] MEDS ORDERED: INSULIN GLARGINE SOLOSTAR 100 UNITS/ML 3 ML PEN SC SCH (21:00)
[2022-02-08] MEDS ORDERED: LANTUS PER UNIT CHARGE SC SCH (21:00)
[2022-02-08] MEDS ORDERED: QUEtiapine FUMARATE 25 MG TABLET PO SCH (21:00)
[2022-02-08] MEDS: OLANZapine 10 MG/2.1 ML SDV IM PRN (23:22)
[2022-02-09] MEDS ORDERED: OLANZapine 10 MG/2.1 ML SDV IM STA (00:37)
[2022-02-09] MEDS: CHECK CLONIDINE PATCH PLACEMENT SCH ×4 (01:39→23:28)
[2022-02-09] MEDS: ACETAMINOPHEN 500 MG TAB PO SCH ×3 (05:28→21:55)
[2022-02-09] MEDS: INSULIN ASPART PER UNIT SC SCH ×4 (09:17→21:53)
[2022-02-09] MEDS: allopurinoL 100 MG TAB PO SCH (09:20)
[2022-02-09] MEDS: LIDOCAINE 5% 1 PATCH TD SCH (09:20)
[2022-02-09] MEDS: predniSONE 5 MG TAB PO SCH (09:20)
[2022-02-09] MEDS: lisinopril 20 MG TAB PO SCH (09:20)
[2022-02-09] MEDS: ATENOLOL 25 MG TABLET PO SCH (09:20)
[2022-02-09] MEDS: guaiFENesin 600 MG TABCR PO SCH ×2 (09:20→20:51)
[2022-02-09] MEDS: ATORVASTATIN 40 MG TAB PO SCH (09:20)
[2022-02-09] MEDS: PANTOprazole 40 MG TAB PO SCH (09:20)
[2022-02-09] MEDS: MUPIROCIN 2% OINT 22 GM TUBE TOP SCH ×3 (09:21→20:51)
[2022-02-09] MEDS: POLYETHYLENE (MIRALAX) 17 GM PACK PO SCH (09:21)
--- NOTE | 2022-02-09 15:44 | Psychiatric Progress Note ---
Date of Service February 09, 2022 Impression / Recommendations Impression 81 yo male with cognitive impairment and AMS concerning for delirium following cellulitis. 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 Intermittent agitation initially responded well to zyprexa but recent worsening in agitation and insomnia. Swicthed to seroquel and clonidine patch added for help with agitation. 02/09/22: Seemed to respond well to seroquel yesterday during the day but increased irritability in the evening consistent with likely ing with dementia. Given no evidence for side effects with seroquel and no EPS will increase qhs dose to 50mg. Continue to work on identifying triggers for agitation/irritability so that additional non-pharmacologic strategies can be used. Unfortunately the hospital environment tends to be very stimulating, even with efforts to reduce interventions and interactions as much as possible, which seems to be the main challenge in the evenings/overnight. (1) Dementia associated with other underlying disease with behavioral disturbance: Plan 02/09/22: -Increase seroquel to 50mg qhs and continue with 12.5 mg BID prn for agitation 02/08/22: -Consider reducing or discontinuing prednisone, if gout is stable enough to allow this, as it could be contributing to agitation and insomnia -Increase seroquel to 25mg qhs and 12.5 mg BID prn for agitation -Zyprexa 2.5 mg IM for behavioral emergencies -Ongoing behavioral strategies/non-pharmacological approaches to identify triggers and reduce stimulation to help with periods of behavioral dysregulation Interval History Identifying Information 81 yo male who lives with his son in [place]. Patient admit for cellulitis and mental status change. Consult if for agitation. Chief Complaint "Get out of here". Review of Systems Notes Decreased sleep overnight, stable appetite Subjective Subjective Patient was seen & assessed and interval progress reviewed. History gathered from discussion with his RN and Dr. Mandel at bedside. Mitul seemed to do better yesterday with less irritable after switching to seroquel however, over night had another behavioral event requiring IM zyprexa. This morning he is sitting in his chair and watching TV. Engages with me briefly but then asks me to leave. Per RN he tends to believe that he is at his home and gets upset when providers enter his room asking them to leave his home. Allowing nursing care today and took his medications. Physical Exam Psychiatric Orientation: alert and oriented to person; + not oriented to place and + not oriented to time Apperance: appropriately groomed Eye Contact: + fair eye contact Motor Behavior: no abnormal motor movements; n EPS Speech: normal rate/rhythm/volume of speech Affect: + constricted affect Mood: no depressed mood and no anxious mood Thought Process: + concrete thought process and + incoherent thought process Thought Content: reality based without delusions Hallucinations: no auditory hallucinations and no visual hallucinations Cognition: + recent memory not intact, + remote memory not intact, + attention not intact and + language not intact Insight: + severely impaired insight Judgement: + severely impaired judgement Vital Signs (Past 24 Hours) Last Vital Signs Temp 36.3 C L 02/09/22 07:46 Pulse 89 02/09/22 07:46 Resp 18 02/09/22 07:46 BP 144/89 H 02/09/22 07:46 Pulse Ox 96 02/09/22 07:46 O2 Del Method 02/09/22 07:46 Results & Data ([facility]) Laboratory Results Laboratory Results - last 24 hr 02/08/22 02/08/22 02/09/22 16:57 20:12 08:14 POC Glucose 224 H 126 H 89 02/09/22 12:08 POC Glucose 141 H Current Inpatient Medications Current Inpatient Medications: Current Inpatient Medications Acetaminophen (Acetaminophen 500 Mg Tab) 1,000 mg PO Q8 [facility] Stop: 02/24/22 14:29 Last Admin: 02/09/22 14:07 Dose: 1,000 mg Allopurinol (Allopurinol 100 Mg Tab) 100 mg PO DAILY [facility] Stop: 03/11/22 08:59 Last Admin: 02/09/22 09:20 Dose: 100 mg Atenolol (Atenolol 25 Mg Tablet) 12.5 mg PO DAILY [facility] Stop: 03/11/22 08:59 Last Admin: 02/09/22 09:20 Dose: 12.5 mg Atorvastatin Calcium (Atorvastatin 40 Mg Tab) 40 mg PO DAILY [facility] Stop: 03/11/22 08:59 Last Admin: 02/09/22 09:20 Dose: 40 mg Clonidine HCl (Clonidine Hcl 0.1 Mg/24 Hr Transderm Sys) 1 patch TD Q7D [facility] Stop: 03/09/22 14:59 Last Admin: 02/07/22 17:52 Dose: 1 patch Diclofenac Sodium (Diclofenac Sod 1% Gel 100 Gm Tube) 2 gm EXT QID PRN; Protocol PRN Reason: joint pain Stop: 02/19/22 04:31 Last Admin: 01/26/22 20:26 Dose: 2 gm Glucose (Glucose 40% Gel 15 Gm Tube) 15 - 30 gm PO UD PRN; Protocol PRN Reason: Hypoglycemia Protocol Stop: 03/11/22 02:29 Glucose (Glucose 10 Tabs/Tube) 4 - 8 tab PO UD PRN; Protocol PRN Reason: Hypoglycemia Protocol Stop: 03/11/22 02:29 Guaifenesin (Guaifenesin 600 Mg Tabcr) 600 mg PO Q12 [facility] Stop: 02/26/22 20:59 Last Admin: 02/09/22 09:20 Dose: 600 mg Insulin Aspart (Insulin Aspart Per Unit) 0 units SC ACHS [facility] Stop: 03/11/22 07:29 Last Admin: 02/09/22 12:42 Dose: 13 units Insulin Glargine (Lantus Per Unit Charge) 8 units SC HS [facility] Stop: 03/11/22 20:59 Lidocaine (Lidocaine 5% 1 Patch) 1 patch TD QAM [facility] Stop: 02/19/22 04:34 Last Admin: 02/09/22 09:20 Dose: 1 patch Lisinopril (Lisinopril 20 Mg Tab) 20 mg PO DAILY [facility] Stop: 03/11/22 08:59 Last Admin: 02/09/22 09:20 Dose: 20 mg Miscellaneous (Carbohydrates For Hypoglycemia ) 15 - 30 gm PO UD PRN PRN Reason: Hypoglycemia Treatment Stop: 03/11/22 02:29 Last Admin: 02/08/22 08:18 Dose: 15 gm Miscellaneous (Remove Lidoderm Patch) 1 ea N/A DAILY@2100 [facility] Stop: 02/19/22 20:59 Last Admin: 02/08/22 20:08 Dose: 1 each Miscellaneous (Remove Clonidine Patch) 1 each N/A CQWK [facility] Stop: 03/09/22 14:59 Last Admin: 02/07/22 17:47 Dose: Not Given Miscellaneous (Check Clonidine Patch Placement) 1 each N/A QS [facility] Stop: 03/09/22 15:59 Last Admin: 02/09/22 14:57 Dose: 1 each Miscellaneous Information (Pharmacy Glycemic Mgmt Consult) 1 each N/A UD PRN PRN Reason: Consult Stop: 03/10/22 08:41 Mupirocin (Mupirocin 2% Oint 22 Gm Tube) 1 appln TOP TID [facility] Stop: 03/11/22 08:59 Last Admin: 02/09/22 14:07 Dose: 1 appln Olanzapine (Olanzapine 10 Mg/2.1 Ml Sdv) 2.5 mg IM Q8 PRN PRN Reason: Agitation Stop: 03/09/22 14:50 Last Admin: 02/08/22 23:22 Dose: 2.5 mg Pantoprazole Sodium (Pantoprazole 40 Mg Tab) 40 mg PO DAILY [facility] Stop: 03/11/22 08:59 Last Admin: 02/09/22 09:20 Dose: 40 mg Polyethylene Glycol (Polyethylene (Miralax) 17 Gm Pack) 17 gm PO DAILY [facility] Stop: 03/09/22 08:59 Last Admin: 02/09/22 09:21 Dose: Not Given Prednisone (Prednisone 5 Mg Tab) 5 mg PO DAILY [facility] Stop: 03/11/22 08:59 Last Admin: 02/09/22 09:20 Dose: 5 mg Quetiapine Fumarate (Quetiapine Fumarate 25 Mg Tablet) 25 mg PO HS [facility] Stop: 03/10/22 20:59 Last Admin: 02/08/22 20:06 Dose: 25 mg Quetiapine Fumarate (Quetiapine Fumarate 25 Mg Tablet) 12.5 mg PO BID PRN PRN Reason: Agitation Stop: 03/10/22 20:59 Last Admin: 02/08/22 11:16 Dose: 12.5 mg Rivaroxaban (Rivaroxaban 15 Mg Tab) 15 mg PO QDD [facility] Stop: 02/09/22 16:29 Last Admin: 02/08/22 17:36 Dose: 15 mg Tamsulosin HCl (Tamsulosin Hcl 0.4 Mg Cap) 0.4 mg PO HS [facility] Stop: 02/09/22 20:59 Last Admin: 02/08/22 20:06 Dose: 0.4 mg
[2022-02-09] MEDS: QUEtiapine FUMARATE 25 MG TABLET PO PRN (15:53)
[2022-02-09] MEDS: OLANZapine 10 MG/2.1 ML SDV IM PRN (16:37)
--- NOTE | 2022-02-09 17:50 | Hospitalist Progress Note ---
Date of Service February 09, 2022 Assessment & Plan (1) Cellulitis: Plan Dementia Delirium -Appreciate psychiatry input. Zyprexa discontinued and started on Seroquel --> uptitrated today to Seroquel 50mg QHS, seroquel 12.5mg BID PRN added (1st option for agitation), available is IM zyprexa (2nd option for agitation) Bilateral lower extremity cellulitis: Wound cx grew staph aureus MSSA Completed a course of antibiotics during his hospital stay and no further evidence of cellulitis. Wound present on admission has healed. Arterial Doppler of right lower extremity showed Moderate atherosclerotic plaque is seen. No elevated velocities are seen, however monophasic flow is seen below the popliteal artery. 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 Continue Lantus and novolog sliding scale. Glycemic pharmacist consulted History of atrial fibrillation: Rate control Continueatenolol and Xarelto. History of gout: On allopurinol and chronic low dose prednisone 5mg--> will reduce 2.5mg and ideally should be weaned off. Hypertension Continue lisinopril. Chronic diastolic congestive heart failure-chronic, stable. Continue Torsemide Gastroesophageal reflux disease-chronic, stable. Continue PPI. BPH Continue Flomax. DVT ppx Xarelto Code status--Discussed with his son, Mitul Davila Mitul Johnston regarding code status 02/07--> code status changed to DNR/DNI Dispo- Awaiting placement Admission and Anticipated Discharge Date Admission Date: January 09, 2022 Subjective Patient was walked in hallway by nursing staff twice today. Does become con fused and tries to leave the unit and then becomes upset when he is asked to return to his room. Patient thinks he is at home. Did require an extra dose of oral Seroquel this afternoon Physical Exam Physical Exam: He is observed sitting in bed, calm currently (but earlier was reportedly trying to leave the unit) ENMT: normocephalic, atraumatic Respiratory: No accessory muscle use, breathing comfortably on room air Neurologic: awake, ambulates in hallway with no difficult, spontaneously moving extremities Results & Data Results & Data ([facility]) Vital Signs (Past 12 Hours) Vital Signs Temp Pulse Pulse Resp BP BP Pulse Ox 02/09/22 15:30 36.5 C 84 18 117/78 96 02/09/22 07:46 36.3 C L 89 18 144/89 H 96 O2 Del Method 02/09/22 15:30 Room Air 02/09/22 07:46 Room Air
[2022-02-09] MEDS: QUEtiapine FUMARATE 25 MG TABLET PO SCH (20:51)
[2022-02-09] MEDS ORDERED: LANTUS PER UNIT CHARGE SC SCH (21:00)
[2022-02-10] MEDS: ACETAMINOPHEN 500 MG TAB PO SCH ×3 (06:07→18:13)
[2022-02-10] MEDS: lisinopril 20 MG TAB PO SCH (08:46)
[2022-02-10] MEDS: allopurinoL 100 MG TAB PO SCH (08:47)
[2022-02-10] MEDS: ATORVASTATIN 40 MG TAB PO SCH (08:47)
[2022-02-10] MEDS: ATENOLOL 25 MG TABLET PO SCH (08:47)
[2022-02-10] MEDS: PANTOprazole 40 MG TAB PO SCH (08:48)
[2022-02-10] MEDS: LIDOCAINE 5% 1 PATCH TD SCH (08:49)
[2022-02-10] MEDS: guaiFENesin 600 MG TABCR PO SCH ×2 (08:49→19:36)
[2022-02-10] MEDS: CHECK CLONIDINE PATCH PLACEMENT SCH ×3 (08:49→21:20)
[2022-02-10] MEDS: POLYETHYLENE (MIRALAX) 17 GM PACK PO SCH (08:51)
[2022-02-10] MEDS: MUPIROCIN 2% OINT 22 GM TUBE TOP SCH ×3 (08:51→19:35)
[2022-02-10] MEDS: INSULIN ASPART PER UNIT SC SCH ×4 (08:52→21:12)
[2022-02-10] MEDS: predniSONE 2.5 MG TAB PO SCH (09:02)
--- NOTE | 2022-02-10 11:35 | Psychiatric Progress Note ---
Date of Service February 10, 2022 Impression / Recommendations Impression 81 yo male with cognitive impairment and AMS concerning for delirium following cellulitis. 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 Intermittent agitation initially responded well to zyprexa but recent worsening in agitation and insomnia. Switched to seroquel and clonidine patch added for help with agitation. 02/10/22: as per Dr. Bocanegra, calm this am, afternoon more difficult due to sundowning. (1) Dementia associated with other underlying disease with behavioral disturbance: Plan Seroquel just increased to 50 mg last pm, monitor pm, if afternoons still clearly sundowning would suggest 12.5 mg around 2 pm. . Interval History Identifying Information 81 yo male who lives with his son in [place]. Patient admit for cellulitis and mental status change. Consult if for agitation. Chief Complaint "we need the rain for the tomatos" Subjective Subjective Patient was seen & assessed and interval progress reviewed with nursing and 1-on-1 aide. Patient is pleasant and cooperative this am. No evidence of EPS. Able to have a conversation about gardening and the weather. Tolerating medication changes. Physical Exam Psychiatric Orientation: alert Apperance: appropriately groomed Eye Contact: + fair eye contact Motor Behavior: no abnormal motor movements Speech: normal rate/rhythm/volume of speech Affect: euthymic affect Mood: no depressed mood Thought Process: + concrete thought process Hallucinations: no auditory hallucinations and no visual hallucinations Cognition: attention grossly intact and language grossly intact Insight: + poor insight Judgement: + poor judgement Vital Signs (Past 24 Hours) Last Vital Signs Temp 36.4 C L 02/10/22 06:55 Pulse 102 H 02/10/22 06:55 Resp 20 02/10/22 06:55 BP 110/66 02/10/22 06:55 Pulse Ox 96 02/10/22 06:55 O2 Del Method 02/10/22 07:32 Results & Data ([facility]) Laboratory Results Laboratory Results - last 24 hr 02/09/22 02/09/22 02/09/22 12:08 17:20 20:41 POC Glucose 141 H 183 H 149 H 02/10/22 08:02 POC Glucose 123 H Current Inpatient Medications Current Inpatient Medications: Current Inpatient Medications Acetaminophen (Acetaminophen 500 Mg Tab) 1,000 mg PO Q8 [facility] Stop: 02/24/22 14:29 Last Admin: 02/10/22 06:07 Dose: 1,000 mg Allopurinol (Allopurinol 100 Mg Tab) 100 mg PO DAILY [facility] Stop: 03/11/22 08:59 Last Admin: 02/10/22 08:47 Dose: 100 mg Atenolol (Atenolol 25 Mg Tablet) 12.5 mg PO DAILY [facility] Stop: 03/11/22 08:59 Last Admin: 02/10/22 08:47 Dose: 12.5 mg Atorvastatin Calcium (Atorvastatin 40 Mg Tab) 40 mg PO DAILY [facility] Stop: 03/11/22 08:59 Last Admin: 02/10/22 08:47 Dose: 40 mg Clonidine HCl (Clonidine Hcl 0.1 Mg/24 Hr Transderm Sys) 1 patch TD Q7D [facility] Stop: 03/09/22 14:59 Last Admin: 02/07/22 17:52 Dose: 1 patch Diclofenac Sodium (Diclofenac Sod 1% Gel 100 Gm Tube) 2 gm EXT QID PRN; Protocol PRN Reason: joint pain Stop: 02/19/22 04:31 Last Admin: 01/26/22 20:26 Dose: 2 gm Glucose (Glucose 40% Gel 15 Gm Tube) 15 - 30 gm PO UD PRN; Protocol PRN Reason: Hypoglycemia Protocol Stop: 03/11/22 02:29 Glucose (Glucose 10 Tabs/Tube) 4 - 8 tab PO UD PRN; Protocol PRN Reason: Hypoglycemia Protocol Stop: 03/11/22 02:29 Guaifenesin (Guaifenesin 600 Mg Tabcr) 600 mg PO Q12 [facility] Stop: 02/26/22 20:59 Last Admin: 02/10/22 08:49 Dose: 600 mg Insulin Aspart (Insulin Aspart Per Unit) 0 units SC ACHS [facility] Stop: 03/11/22 07:29 Last Admin: 02/10/22 08:52 Dose: 4 units Insulin Glargine (Lantus Per Unit Charge) 8 units SC HS [facility] Stop: 03/12/22 20:59 Lidocaine (Lidocaine 5% 1 Patch) 1 patch TD QAM [facility] Stop: 02/19/22 04:34 Last Admin: 02/10/22 08:49 Dose: 1 patch Lisinopril (Lisinopril 20 Mg Tab) 20 mg PO DAILY [facility] Stop: 03/11/22 08:59 Last Admin: 02/10/22 08:46 Dose: 20 mg Miscellaneous (Carbohydrates For Hypoglycemia ) 15 - 30 gm PO UD PRN PRN Reason: Hypoglycemia Treatment Stop: 03/11/22 02:29 Last Admin: 02/08/22 08:18 Dose: 15 gm Miscellaneous (Remove Lidoderm Patch) 1 ea N/A DAILY@2100 [facility] Stop: 02/19/22 20:59 Last Admin: 02/09/22 21:54 Dose: 1 each Miscellaneous (Remove Clonidine Patch) 1 each N/A CQWK [facility] Stop: 03/09/22 14:59 Last Admin: 02/07/22 17:47 Dose: Not Given Miscellaneous (Check Clonidine Patch Placement) 1 each N/A QS [facility] Stop: 03/09/22 15:59 Last Admin: 02/10/22 08:49 Dose: 1 each Miscellaneous Information (Pharmacy Glycemic Mgmt Consult) 1 each N/A UD PRN PRN Reason: Consult Stop: 03/10/22 08:41 Mupirocin (Mupirocin 2% Oint 22 Gm Tube) 1 appln TOP TID [facility] Stop: 03/11/22 08:59 Last Admin: 02/10/22 08:51 Dose: 1 appln Olanzapine (Olanzapine 10 Mg/2.1 Ml Sdv) 2.5 mg IM Q8 PRN PRN Reason: Agitation Stop: 03/09/22 14:50 Last Admin: 02/09/22 16:37 Dose: 2.5 mg Pantoprazole Sodium (Pantoprazole 40 Mg Tab) 40 mg PO DAILY [facility] Stop: 03/11/22 08:59 Last Admin: 02/10/22 08:48 Dose: 40 mg Polyethylene Glycol (Polyethylene (Miralax) 17 Gm Pack) 17 gm PO DAILY [facility] Stop: 03/09/22 08:59 Last Admin: 02/10/22 08:51 Dose: 17 gm Prednisone (Prednisone 2.5 Mg Tab) 2.5 mg PO DAILY [facility] Stop: 02/13/22 08:59 Last Admin: 02/10/22 09:02 Dose: 2.5 mg Quetiapine Fumarate (Quetiapine Fumarate 25 Mg Tablet) 12.5 mg PO BID PRN PRN Reason: Agitation Stop: 03/10/22 20:59 Last Admin: 02/09/22 15:53 Dose: 12.5 mg Quetiapine Fumarate (Quetiapine Fumarate 25 Mg Tablet) 50 mg PO [facility] Stop: 03/11/22 20:59 Last Admin: 02/09/22 20:51 Dose: 50 mg
--- NOTE | 2022-02-10 13:09 | Pharmacy Report ---
Pharmacy Glycemic Short Note 2 - Date of Service February 10, 2022 - Glycemic Short BSG Results (Last 24 hours): 02/09/22 02/09/22 02/10/22 17:20 20:41 08:02 POC Glucose 183 H 149 H 123 H 02/10/22 12:08 POC Glucose 132 H OUTPATIENT ANTIDIABETIC REGIMEN: * Jardiance 10 mg daily * amaryl 2 mg po daily * HbA1C = 9.9% ASSESSMENT: 02/10 * Steroids tapering today, with plan to taper off at some point per hospitalist note * BSG's adequately controlled yesterday, although post-prandial BSG's were slightly above goal. Will not modify CHO ratio as anticipate a slight increase in sensitivity with the steroid taper * AM fasting BSG in goal range - no change to Lantus 02/08 * Mr Davila is an 81 y/o M with a PMH of T2DM who presents with cellulitis. * Pharmacy was consulted today after AM BSG was low at 67 mg/dL. * Since patient has had two hypoglycemic events in the morning (02/07 and 02/08) will decrease Lantus to 10 units HS (50% reduction). * Continue Novolog. Patient will need more carbohydrate coverage due to steroids (prednisone 5 mg daily). Yesterday patient's BSGs were relatively well controlled except for dinner -- this was most likely due to uncovered carbohydrate consumption. PLAN FOR INPATIENT GLYCEMIC CONTROL: * Hold outpatient oral diabetes medications * Basal insulin * Lantus 8 units SQ HS * Bolus insulin * NovoLog per scale ACHS or Q6hrs while NPO * Goal Range: Low 110 mg/dL - High 140 mg/dL * Correction Factor: 25 mg/dL/unit * Nutritional / Prandial insulin per carb ratio of 1 unit per 6 grams CHO consumed
--- NOTE | 2022-02-10 13:21 | Hospitalist Progress Note ---
Date of Service February 10, 2022 Assessment & Plan (1) Cellulitis: Plan Dementia Delirium -Appreciate psychiatry input. Zyprexa discontinued and started on Seroquel --> uptitratedd to Seroquel 50mg QHS, seroquel 12.5mg BID PRN added (1st option for agitation), available is IM zyprexa (2nd option for agitation) Bilateral lower extremity cellulitis: Wound cx grew staph aureus MSSA Completed a course of antibiotics during his hospital stay and no further evidence of cellulitis. Wound present on admission has healed. Arterial Doppler of right lower extremity showed Moderate atherosclerotic plaque is seen. No elevated velocities are seen, however monophasic flow is seen below the popliteal artery. 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 Continue Lantus and novolog sliding scale. Glycemic pharmacist consulted History of atrial fibrillation: Rate control Continueatenolol and Xarelto. History of gout: On allopurinol and chronic low dose prednisone 5mg--> will reduce 2.5mg and ideally should be weaned off. Hypertension Continue lisinopril. Chronic diastolic congestive heart failure-chronic, stable. Continue Torsemide Gastroesophageal reflux disease-chronic, stable. Continue PPI. BPH Continue Flomax. DVT ppx Xarelto Code status--Discussed with his son, Mitul TorresMitul red Jr regarding code status 02/07--> code status changed to DNR/DNI Dispo- Awaiting placement Admission and Anticipated Discharge Date Admission Date: January 09, 2022 Subjective Calm today Ate his meals Yesterday afternoon required extra dose of Seroquel and in evening IM zyprexa Physical Exam Physical Exam: Sitting in chair, pleasant, comfortable Respiratory: breathing comfortably on room air, no wheezing/rhonchi Cardiovascular: regular rate and rhythm, no murmurs/rubs Musculoskeletal: trace edema Neurologic: awake, pleasantly demented Results & Data Results & Data ([facility]) Vital Signs (Past 12 Hours) Vital Signs Temp Pulse Resp BP Pulse Ox O2 Del Method 02/10/22 07:32 Room Air 02/10/22 06:55 36.4 C L 102 H 20 110/66 96
[2022-02-10] MEDS: QUEtiapine FUMARATE 25 MG TABLET PO SCH (19:35)
[2022-02-10] MEDS: LANTUS PER UNIT CHARGE SC SCH (21:11)
[2022-02-10] MEDS: DICLOFENAC SOD 1% GEL 100 GM TUBE EXT PRN (21:20)
[2022-02-11] MEDS: ACETAMINOPHEN 500 MG TAB PO SCH ×3 (07:30→22:02)
[2022-02-11] MEDS: DICLOFENAC SOD 1% GEL 100 GM TUBE EXT PRN (07:31)
[2022-02-11] MEDS: POLYETHYLENE (MIRALAX) 17 GM PACK PO SCH (08:09)
[2022-02-11] MEDS: ATORVASTATIN 40 MG TAB PO SCH (08:10)
[2022-02-11] MEDS: ATENOLOL 25 MG TABLET PO SCH (08:10)
[2022-02-11] MEDS: LIDOCAINE 5% 1 PATCH TD SCH (08:11)
[2022-02-11] MEDS: allopurinoL 100 MG TAB PO SCH (08:11)
[2022-02-11] MEDS: PANTOprazole 40 MG TAB PO SCH (08:11)
[2022-02-11] MEDS: MUPIROCIN 2% OINT 22 GM TUBE TOP SCH ×3 (08:12→21:31)
[2022-02-11] MEDS: predniSONE 2.5 MG TAB PO SCH (08:12)
[2022-02-11] MEDS: guaiFENesin 600 MG TABCR PO SCH ×2 (08:12→21:31)
[2022-02-11] MEDS: lisinopril 20 MG TAB PO SCH (08:12)
[2022-02-11] MEDS: CHECK CLONIDINE PATCH PLACEMENT SCH ×3 (08:16→23:53)
[2022-02-11] MEDS: INSULIN ASPART PER UNIT SC SCH ×4 (08:23→21:27)
--- NOTE | 2022-02-11 17:37 | Hospitalist Progress Note ---
Date of Service February 11, 2022 Assessment & Plan (1) Cellulitis: Plan Dementia Delirium -Appreciate psychiatry input. Zyprexa discontinued and started on Seroquel --> uptitratedd to Seroquel 50mg QHS, seroquel 12.5mg BID PRN added (1st option for agitation), available is IM zyprexa (2nd option for agitation) Bilateral lower extremity cellulitis: Wound cx grew staph aureus MSSA Completed a course of antibiotics during his hospital stay and no further evidence of cellulitis. Wound present on admission has healed. Arterial Doppler of right lower extremity showed Moderate atherosclerotic plaque is seen. No elevated velocities are seen, however monophasic flow is seen below the popliteal artery. 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 Continue Lantus and novolog sliding scale. Glycemic pharmacist consulted History of atrial fibrillation: Rate control Continueatenolol and Xarelto. History of gout: On allopurinol and chronic low dose prednisone 5mg--> reduced to 2.5mg and plan to wean off completely (to help reduce agitation) Hypertension Continue lisinopril. Chronic diastolic congestive heart failure-chronic, stable. Continue Torsemide Gastroesophageal reflux disease-chronic, stable. Continue PPI. BPH Continue Flomax. DVT ppx Xarelto Code status--Discussed with his son, Mitul Davila Mitul Johnston regarding code status 02/07--> code status changed to DNR/DNI Dispo- Awaiting placement, patient is medically stable for discharge Admission and Anticipated Discharge Date Admission Date: January 09, 2022 Subjective Patient was pleasant yesterday and today Has not required PRN seroquel or zyprexa Physical Exam Physical Exam: Sitting in his chair, coloring with crayons and watching tv He is less talkative today and did not agree to physical exam ENMT: normocephalic, atraumatic Respiratory: Breathing comfortably on room air, no accessory muscle use Neurologic: awake, pleasantly demented, spontaneously moving extremities Psychiatric: calm today, less talkative Results & Data Results & Data ([place]) Vital Signs (Past 12 Hours) Vital Signs Temp Pulse Pulse Resp BP Pulse Ox O2 Del Method 02/11/22 15:36 36.6 C 82 16 126/77 97 02/11/22 07:43 Room Air 02/11/22 07:36 37.5 C 83 18 124/84 97 Room Air Medications Administered Current Inpatient Medications Acetaminophen (Acetaminophen 500 Mg Tab) 1,000 mg PO Q8 ANASTASIA Stop: 02/24/22 14:29 Last Admin: 02/11/22 14:05 Dose: 1,000 mg Allopurinol (Allopurinol 100 Mg Tab) 100 mg PO DAILY ANASTASIA Stop: 03/11/22 08:59 Last Admin: 02/11/22 08:11 Dose: 100 mg Atenolol (Atenolol 25 Mg Tablet) 12.5 mg PO DAILY ANASTASIA Stop: 03/11/22 08:59 Last Admin: 02/11/22 08:10 Dose: 12.5 mg Atorvastatin Calcium (Atorvastatin 40 Mg Tab) 40 mg PO DAILY ANASTASIA Stop: 03/11/22 08:59 Last Admin: 02/11/22 08:10 Dose: 40 mg Clonidine HCl (Clonidine Hcl 0.1 Mg/24 Hr Transderm Sys) 1 patch TD Q7D ANASTASIA Stop: 03/09/22 14:59 Last Admin: 02/07/22 17:52 Dose: 1 patch Diclofenac Sodium (Diclofenac Sod 1% Gel 100 Gm Tube) 2 gm EXT QID PRN; Protocol PRN Reason: joint pain Stop: 02/19/22 04:31 Last Admin: 02/11/22 07:31 Dose: 2 gm Glucose (Glucose 40% Gel 15 Gm Tube) 15 - 30 gm PO UD PRN; Protocol PRN Reason: Hypoglycemia Protocol Stop: 03/11/22 02:29 Glucose (Glucose 10 Tabs/Tube) 4 - 8 tab PO UD PRN; Protocol PRN Reason: Hypoglycemia Protocol Stop: 03/11/22 02:29 Guaifenesin (Guaifenesin 600 Mg Tabcr) 600 mg PO Q12 ANASTASIA Stop: 02/26/22 20:59 Last Admin: 02/11/22 08:12 Dose: 600 mg Insulin Aspart (Insulin Aspart Per Unit) 0 units SC ACHS ANASTASIA Stop: 03/11/22 07:29 Last Admin: 02/11/22 13:18 Dose: 10 units Insulin Glargine (Lantus Per Unit Charge) 8 units SC HS [facility] Stop: 03/12/22 20:59 Last Admin: 02/10/22 21:11 Dose: 8 units Lidocaine (Lidocaine 5% 1 Patch) 1 patch TD QAM [facility] Stop: 02/19/22 04:34 Last Admin: 02/11/22 08:11 Dose: 1 patch Lisinopril (Lisinopril 20 Mg Tab) 20 mg PO DAILY ANASTASIA Stop: 03/11/22 08:59 Last Admin: 02/11/22 08:12 Dose: 20 mg Miscellaneous (Carbohydrates For Hypoglycemia ) 15 - 30 gm PO UD PRN PRN Reason: Hypoglycemia Treatment Stop: 03/11/22 02:29 Last Admin: 02/08/22 08:18 Dose: 15 gm Miscellaneous (Remove Lidoderm Patch) 1 ea N/A DAILY@2100 [facility] Stop: 02/19/22 20:59 Last Admin: 02/10/22 19:35 Dose: 1 each Miscellaneous (Remove Clonidine Patch) 1 each N/A CQWK [facility] Stop: 03/09/22 14:59 Last Admin: 02/07/22 17:47 Dose: Not Given Miscellaneous (Check Clonidine Patch Placement) 1 each N/A QS [facility] Stop: 03/09/22 15:59 Last Admin: 02/11/22 17:25 Dose: 1 each Miscellaneous Information (Pharmacy Glycemic Mgmt Consult) 1 each N/A UD PRN PRN Reason: Consult Stop: 03/10/22 08:41 Mupirocin (Mupirocin 2% Oint 22 Gm Tube) 1 appln TOP TID [facility] Stop: 03/11/22 08:59 Last Admin: 02/11/22 14:05 Dose: 1 appln Olanzapine (Olanzapine 10 Mg/2.1 Ml Sdv) 2.5 mg IM Q8 PRN PRN Reason: Agitation Stop: 03/09/22 14:50 Last Admin: 02/09/22 16:37 Dose: 2.5 mg Pantoprazole Sodium (Pantoprazole 40 Mg Tab) 40 mg PO DAILY [facility] Stop: 03/11/22 08:59 Last Admin: 02/11/22 08:11 Dose: 40 mg Polyethylene Glycol (Polyethylene (Miralax) 17 Gm Pack) 17 gm PO DAILY ANASTASIA Stop: 03/09/22 08:59 Last Admin: 02/11/22 08:09 Dose: 17 gm Prednisone (Prednisone 2.5 Mg Tab) 2.5 mg PO DAILY ANASTASIA Stop: 02/13/22 08:59 Last Admin: 02/11/22 08:12 Dose: 2.5 mg Quetiapine Fumarate (Quetiapine Fumarate 25 Mg Tablet) 12.5 mg PO BID PRN PRN Reason: Agitation Stop: 03/10/22 20:59 Last Admin: 02/09/22 15:53 Dose: 12.5 mg Quetiapine Fumarate (Quetiapine Fumarate 25 Mg Tablet) 50 mg PO HS ANASTASIA Stop: 03/11/22 20:59 Last Admin: 02/10/22 19:35 Dose: 50 mg
[2022-02-11] MEDS: LANTUS PER UNIT CHARGE SC SCH (21:28)
[2022-02-11] MEDS: QUEtiapine FUMARATE 25 MG TABLET PO SCH ×2 (22:01→23:50)
[2022-02-11] MEDS: QUEtiapine FUMARATE 25 MG TABLET PO PRN (23:49)
[2022-02-12] MEDS: ACETAMINOPHEN 500 MG TAB PO SCH ×3 (05:25→21:15)
[2022-02-12] MEDS: DICLOFENAC SOD 1% GEL 100 GM TUBE EXT PRN ×2 (07:06→13:49)
[2022-02-12] MEDS: CHECK CLONIDINE PATCH PLACEMENT SCH ×3 (08:22→23:31)
[2022-02-12] MEDS: guaiFENesin 600 MG TABCR PO SCH ×2 (08:23→21:15)
[2022-02-12] MEDS: allopurinoL 100 MG TAB PO SCH (08:24)
[2022-02-12] MEDS: PANTOprazole 40 MG TAB PO SCH (08:24)
[2022-02-12] MEDS: ATENOLOL 25 MG TABLET PO SCH (08:24)
[2022-02-12] MEDS: lisinopril 20 MG TAB PO SCH (08:24)
[2022-02-12] MEDS: predniSONE 2.5 MG TAB PO SCH (08:25)
[2022-02-12] MEDS: POLYETHYLENE (MIRALAX) 17 GM PACK PO SCH (08:25)
[2022-02-12] MEDS: MUPIROCIN 2% OINT 22 GM TUBE TOP SCH ×3 (08:26→20:18)
[2022-02-12] MEDS: LIDOCAINE 5% 1 PATCH TD SCH (08:26)
[2022-02-12] MEDS: ATORVASTATIN 40 MG TAB PO SCH (08:27)
[2022-02-12] MEDS: INSULIN ASPART PER UNIT SC SCH ×4 (08:28→21:24)
--- NOTE | 2022-02-12 12:48 | Pharmacy Report ---
Pharmacy Glycemic Short Note 2 - Date of Service February 12, 2022 - Glycemic Short BSG Results (Last 24 hours): 02/11/22 02/12/22 02/12/22 16:55 04:07 08:10 POC Glucose 117 H 116 H 140 H 02/12/22 12:05 POC Glucose 204 H OUTPATIENT ANTIDIABETIC REGIMEN: * Jardiance 10 mg daily * amaryl 2 mg po daily * HbA1C = 9.9% ASSESSMENT: 02/12 * Steroids continue with 2.5 mg today * BSGs with good control yesterday, patient refused PM insulin (lantus) and fasting this AM 140 mg/dL * Did slightly loosen carb ratio with breakfast, lunch BSG elevated therefore tightened again at lunch 02/10 * Steroids tapering today, with plan to taper off at some point per hospitalist note * BSG's adequately controlled yesterday, although post-prandial BSG's were slightly above goal. Will not modify CHO ratio as anticipate a slight increase in sensitivity with the steroid taper * AM fasting BSG in goal range - no change to Lantus 02/08 * Mr Davila is an 81 y/o M with a PMH of T2DM who presents with cellulitis. * Pharmacy was consulted today after AM BSG was low at 67 mg/dL. * Since patient has had two hypoglycemic events in the morning (02/07 and 02/08) will decrease Lantus to 10 units HS (50% reduction). * Continue Novolog. Patient will need more carbohydrate coverage due to steroids (prednisone 5 mg daily). Yesterday patient's BSGs were relatively well controlled except for dinner -- this was most likely due to uncovered carbohydrate consumption. PLAN FOR INPATIENT GLYCEMIC CONTROL: * Hold outpatient oral diabetes medications * Basal insulin * Lantus 8 units SQ HS * Bolus insulin * NovoLog per scale ACHS or Q6hrs while NPO * Goal Range: Low 110 mg/dL - High 140 mg/dL * Correction Factor: 25 mg/dL/unit * Nutritional / Prandial insulin per carb ratio of 1 unit per 6 grams CHO consumed
--- NOTE | 2022-02-12 18:21 | Hospitalist Progress Note ---
Date of Service February 12, 2022 Assessment & Plan (1) Cellulitis: Plan Dementia, Delirium -Appreciate psychiatry input. Zyprexa discontinued and started on Seroquel --> uptitrated to Seroquel 50mg QHS, seroquel 12.5mg BID PRN added (1st option for agitation), available is IM zyprexa (2nd option for agitation) Bilateral lower extremity cellulitis:Wound cx grew staph aureus MSSA Completed a course of antibiotics during his hospital stay and no further evidence of cellulitis. Wound present on admission has healed. Arterial Doppler of right lower extremity showed Moderate atherosclerotic plaque is seen. No elevated velocities are seen, however monophasic flow is seen below the popliteal artery. 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 Continue Lantus and novolog sliding scale. Glycemic pharmacist managing History of atrial fibrillation:Rate controlled; Continueatenolol and Xarelto. History of gout:On allopurinol and chronic low dose prednisone 5mg--> reduced to 2.5mg and plan to wean off completely (to help reduce agitation) Hypertension- Continue lisinopril. Chronic diastolic congestive heart failure-chronic, stable. Continue Torsemide Gastroesophageal reflux disease-chronic, stable. Continue PPI. BPH- Continue Flomax. DVT ppx- Xarelto Code status-Prior hospitalist discussed with his son, Mitul Davila Jr regarding code status 02/07--> code status changed to DNR/DNI Dispo- Awaiting placement, patient is medically stable for discharge Admission and Anticipated Discharge Date Admission Date: January 09, 2022 Subjective Sitting in chair, pleasant, denies any issues. Eating lunch. No fever, shortness of breath, N/V. Physical Exam Physical Exam: General: Sitting in chair eating lunch, not in distress, on room air Chest: Clear breath sounds bilaterally, no wheezes or crackles CVS: Regular rate and rhythm, normal heart sounds, no murmur Abdomen: Soft, non tender, not distended, normal bowel sounds Neuro: Awake, alert, pleasantly demented, spontaneously moving all extremities Extremities: No cyanosis, clubbing or edema Results & Data Results & Data ([facility]) Vital Signs (Past 12 Hours) Vital Signs Temp Pulse Pulse Resp BP BP Pulse Ox 02/12/22 15:47 36.8 C 88 18 109/74 97 02/12/22 07:00 36.5 C 87 16 132/88 94 O2 Del Method 02/12/22 15:47 Room Air 02/12/22 07:00 Room Air Medications Administered Current Inpatient Medications Acetaminophen (Acetaminophen 500 Mg Tab) 1,000 mg PO Q8 ANASTASIA Stop: 02/24/22 14:29 Last Admin: 02/12/22 13:49 Dose: 1,000 mg Allopurinol (Allopurinol 100 Mg Tab) 100 mg PO DAILY ANASTASIA Stop: 03/11/22 08:59 Last Admin: 02/12/22 08:24 Dose: 100 mg Atenolol (Atenolol 25 Mg Tablet) 12.5 mg PO DAILY ANASTASIA Stop: 03/11/22 08:59 Last Admin: 02/12/22 08:24 Dose: 12.5 mg Atorvastatin Calcium (Atorvastatin 40 Mg Tab) 40 mg PO DAILY ANASTASIA Stop: 03/11/22 08:59 Last Admin: 02/12/22 08:27 Dose: 40 mg Clonidine HCl (Clonidine Hcl 0.1 Mg/24 Hr Transderm Sys) 1 patch TD Q7D ANASTASIA Stop: 03/09/22 14:59 Last Admin: 02/07/22 17:52 Dose: 1 patch Diclofenac Sodium (Diclofenac Sod 1% Gel 100 Gm Tube) 2 gm EXT QID PRN; Protocol PRN Reason: joint pain Stop: 02/19/22 04:31 Last Admin: 02/12/22 13:49 Dose: 2 gm Glucose (Glucose 40% Gel 15 Gm Tube) 15 - 30 gm PO UD PRN; Protocol PRN Reason: Hypoglycemia Protocol Stop: 03/11/22 02:29 Glucose (Glucose 10 Tabs/Tube) 4 - 8 tab PO UD PRN; Protocol PRN Reason: Hypoglycemia Protocol Stop: 03/11/22 02:29 Guaifenesin (Guaifenesin 600 Mg Tabcr) 600 mg PO Q12 ANASTASIA Stop: 02/26/22 20:59 Last Admin: 02/12/22 08:23 Dose: 600 mg Insulin Aspart (Insulin Aspart Per Unit) 0 units SC ACHS [facility] Stop: 03/11/22 07:29 Last Admin: 02/12/22 17:15 Dose: 10 units Insulin Glargine (Lantus Per Unit Charge) 8 units SC HS [facility] Stop: 03/12/22 20:59 Last Admin: 02/11/22 21:28 Dose: Not Given Lidocaine (Lidocaine 5% 1 Patch) 1 patch TD QAM [facility] Stop: 02/19/22 04:34 Last Admin: 02/12/22 08:26 Dose: 1 patch Lisinopril (Lisinopril 20 Mg Tab) 20 mg PO DAILY [facility] Stop: 03/11/22 08:59 Last Admin: 02/12/22 08:24 Dose: 20 mg Miscellaneous (Carbohydrates For Hypoglycemia ) 15 - 30 gm PO UD PRN PRN Reason: Hypoglycemia Treatment Stop: 03/11/22 02:29 Last Admin: 02/08/22 08:18 Dose: 15 gm Miscellaneous (Remove Lidoderm Patch) 1 ea N/A DAILY@2100 [facility] Stop: 02/19/22 20:59 Last Admin: 02/11/22 21:42 Dose: 1 each Miscellaneous (Remove Clonidine Patch) 1 each N/A CQWK [facility] Stop: 03/09/22 14:59 Last Admin: 02/07/22 17:47 Dose: Not Given Miscellaneous (Check Clonidine Patch Placement) 1 each N/A QS [facility] Stop: 03/09/22 15:59 Last Admin: 02/12/22 16:05 Dose: 1 each Miscellaneous Information (Pharmacy Glycemic Mgmt Consult) 1 each N/A UD PRN PRN Reason: Consult Stop: 03/10/22 08:41 Mupirocin (Mupirocin 2% Oint 22 Gm Tube) 1 appln TOP TID [facility] Stop: 03/11/22 08:59 Last Admin: 02/12/22 13:50 Dose: 1 appln Olanzapine (Olanzapine 10 Mg/2.1 Ml Sdv) 2.5 mg IM Q8 PRN PRN Reason: Agitation Stop: 03/09/22 14:50 Last Admin: 02/09/22 16:37 Dose: 2.5 mg Pantoprazole Sodium (Pantoprazole 40 Mg Tab) 40 mg PO DAILY [facility] Stop: 03/11/22 08:59 Last Admin: 02/12/22 08:24 Dose: 40 mg Polyethylene Glycol (Polyethylene (Miralax) 17 Gm Pack) 17 gm PO DAILY ANASTASIA Stop: 03/09/22 08:59 Last Admin: 02/12/22 08:25 Dose: 17 gm Prednisone (Prednisone 2.5 Mg Tab) 2.5 mg PO DAILY ANASTASIA Stop: 02/13/22 08:59 Last Admin: 02/12/22 08:25 Dose: 2.5 mg Quetiapine Fumarate (Quetiapine Fumarate 25 Mg Tablet) 12.5 mg PO BID PRN PRN Reason: Agitation Stop: 03/10/22 20:59 Last Admin: 02/09/22 15:53 Dose: 12.5 mg Quetiapine Fumarate (Quetiapine Fumarate 25 Mg Tablet) 50 mg PO HS ANASTASIA Stop: 03/11/22 20:59 Last Admin: 02/11/22 23:50 Dose: 50 mg
[2022-02-12] MEDS: QUEtiapine FUMARATE 25 MG TABLET PO SCH (19:13)
[2022-02-12] MEDS ORDERED: Nursing to Pharmacy Communication SCH (19:15)
[2022-02-12] MEDS: LANTUS PER UNIT CHARGE SC SCH (21:23)
[2022-02-13] MEDS: ACETAMINOPHEN 500 MG TAB PO SCH ×3 (05:57→20:45)
[2022-02-13 06:08] LABS: Hematocrit (blood only) 40.1 % (40.1-51.0); Hemoglobin 13.3 g/dl (14.0-18.0); Mean Corpuscular Hgb Conc 33.2 g/dL (32.0-36.0); Mean Corpuscular Volume 87.4 fL (80.0-100.0); Mean Platelet Volume 10.5 fL (9.4-12.4); Platelet Count 173 K/uL (130-400); RDW Coefficient of Variation 13.1 % (11.5-14.5); RDW Standard Deviation 41.3 fL (36.4-46.3); Red Blood Count 4.59 M/uL (4.63-6.08); White Blood Count 6.97 K/ul (4.8-10.8)
--- NOTE | 2022-02-13 06:18 | Communication Note ---
Date of Service: February 13, 2022 Interim progress reviewed on 02/12/22 and this am. Patient was more cooperative with meds yesterday, hs Seroquel moved slightly earlier. Breakthrough wandering yesterday midday likely due to length of hospitalization pending placement and limited activities, plus had refused meds previous hs but was redirectible and did not require prn. Continue behavioral measures. If owning despite med compliance would suggest early afternoon dose of Seroquel 12.5 mg.
[2022-02-13 06:44] LABS: BUN Creatinine Ratio 24.6 (10-20); Calcium 8.5 mg/dl (8.5-10.1); Creatinine Clr Calc Pharmacy 54.3 ml/min; Est GFR (African American) 68.5 ml/min; Est GFR (Non-African American) 59.1 ml/min; Magnesium 1.7 mg/dl (1.7-2.4); Potassium 4.1 mmol/L (3.5-5.1)
[2022-02-13] MEDS: QUEtiapine FUMARATE 25 MG TABLET PO PRN ×2 (07:45→15:14)
[2022-02-13] MEDS: allopurinoL 100 MG TAB PO SCH (07:49)
[2022-02-13] MEDS: guaiFENesin 600 MG TABCR PO SCH ×2 (07:49→20:44)
[2022-02-13] MEDS: ATORVASTATIN 40 MG TAB PO SCH (07:49)
[2022-02-13] MEDS: ATENOLOL 25 MG TABLET PO SCH (07:49)
[2022-02-13] MEDS: lisinopril 20 MG TAB PO SCH (07:49)
[2022-02-13] MEDS: PANTOprazole 40 MG TAB PO SCH (07:49)
[2022-02-13] MEDS: CHECK CLONIDINE PATCH PLACEMENT SCH ×2 (07:51→15:11)
[2022-02-13] MEDS: MUPIROCIN 2% OINT 22 GM TUBE TOP SCH ×3 (07:51→20:45)
[2022-02-13] MEDS: LIDOCAINE 5% 1 PATCH TD SCH (07:51)
[2022-02-13] MEDS: POLYETHYLENE (MIRALAX) 17 GM PACK PO SCH (07:51)
[2022-02-13] MEDS: INSULIN ASPART PER UNIT SC SCH ×4 (08:50→20:43)
--- NOTE | 2022-02-13 10:49 | Pharmacy Report ---
Pharmacy Glycemic Short Note 2 - Date of Service February 13, 2022 - Glycemic Short BSG Results (Last 24 hours): 02/12/22 02/12/22 02/12/22 12:05 17:02 21:17 Glucose POC Glucose 204 H 186 H 208 H 02/13/22 02/13/22 05:44 08:05 Glucose 205 H POC Glucose 243 H OUTPATIENT ANTIDIABETIC REGIMEN: * Jardiance 10 mg daily * amaryl 2 mg po daily * HbA1C = 9.9% ASSESSMENT: 02/13: * Mitul received 34 units of insulin yesterday - 8 units Lantus + 26 units novolog * Unable to determine appropriateness of basal insulin dose. Patient ate pudding and PB with crackers prior to "fasting" BSG this morning. * Post prandial BSGs fluctuated yesterday with majority of BSGs above goal. I suspect this is partially due to patient refusing Lantus dose on 02/11. Carb coverage was tightened last evening. Lunchtime BSG today was 68 mg/dL. Uncertain if this is due to aggressive carb coverage or correctional insulin given for previous BSG of 243 mg/dL. Will slightly loosen carb coverage. 02/12 * Steroids continue with 2.5 mg today * BSGs with good control yesterday, patient refused PM insulin (lantus) and fasting this AM 140 mg/dL * Did slightly loosen carb ratio with breakfast, lunch BSG elevated therefore tightened again at lunch 02/10 * Steroids tapering today, with plan to taper off at some point per hospitalist note * BSG's adequately controlled yesterday, although post-prandial BSG's were slightly above goal. Will not modify CHO ratio as anticipate a slight increase in sensitivity with the steroid taper * AM fasting BSG in goal range - no change to Lantus 02/08 * Mr Davila is an 81 y/o M with a PMH of T2DM who presents with cellulitis. * Pharmacy was consulted today after AM BSG was low at 67 mg/dL. * Since patient has had two hypoglycemic events in the morning (02/07 and 02/08) will decrease Lantus to 10 units HS (50% reduction). * Continue Novolog. Patient will need more carbohydrate coverage due to steroids (prednisone 5 mg daily). Yesterday patient's BSGs were relatively well controlled except for dinner -- this was most likely due to uncovered carbohydrate consumption. PLAN FOR INPATIENT GLYCEMIC CONTROL: * Hold outpatient oral diabetes medications * Basal insulin * Lantus 8 units SQ HS * Bolus insulin * NovoLog per scale ACHS or Q6hrs while NPO * Goal Range: Low 110 mg/dL - High 140 mg/dL * Correction Factor: 25 mg/dL/unit * Nutritional / Prandial insulin per carb ratio of 1 unit per 7 grams CHO consumed
[2022-02-13] MEDS: CARBOHYDRATES FOR HYPOGLYCEMIA PO PRN ×2 (12:20→12:38)
--- NOTE | 2022-02-13 14:47 | Hospitalist Progress Note ---
Date of Service February 13, 2022 Assessment & Plan (1) Cellulitis: Plan Dementia, Delirium-Appreciate psychiatry input. Zyprexa discontinued and started on Seroquel --> uptitrated to Seroquel 50mg QHS, seroquel 12.5mg BID PRN added (1st option for agitation), available is IM zyprexa (2nd option for agitation) Bilateral lower extremity cellulitis:Wound cx grew staph aureus MSSA Completed a course of antibiotics during his hospital stay and no further evidence of cellulitis. Wound present on admission has healed. Arterial Doppler of right lower extremity showed Moderate atherosclerotic plaque is seen. No elevated velocities are seen, however monophasic flow is seen below the popliteal artery. 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 Continue Lantus and novolog sliding scale. Glycemic pharmacist managing History of atrial fibrillation:Rate controlled; Continueatenolol and Xarelto. History of gout:On allopurinol and chronic low dose prednisone 5mg--> reduced to 2.5mg and plan to wean off completely (to help reduce agitation) Hypertension- Continue lisinopril. Chronic diastolic congestive heart failure-chronic, stable. Continue Torsemide Gastroesophageal reflux disease-chronic, stable. Continue PPI. BPH- Continue Flomax. DVT ppx- Xarelto Code status-Prior hospitalist discussed with his son, Mitul Davila Jr regarding code status 02/07--> code status changed to DNR/DNI Dispo- Awaiting placement, patient is medically stable for discharge Admission and Anticipated Discharge Date Admission Date: January 09, 2022 Subjective He is calm and cooperative during my encounter. States he wanted to walk around more. Denies any pain. No fever, chills, chest pain, shortness of breath, nausea, vomiting. Normal oral intake. Physical Exam Physical Exam: General: Sitting in chair comfortably, not in distress, on room air Chest: Clear breath sounds bilaterally, no wheezes or crackles CVS: Regular rate and rhythm, normal heart sounds, no murmur Abdomen: Soft, non tender, not distended, normal bowel sounds Neuro: Awake, alert, conversing okay Extremities: No cyanosis, clubbing or edema Results & Data Results & Data ([facility]) Laboratory Results Short CBC 02/13/22 Range/Units 05:44 WBC 6.97 (4.8-10.8) K/ul Hgb 13.3 L (14.0-18.0) g/dl Hct 40.1 (40.1-51.0) % Plt Count 173 (130-400) K/uL BMP 02/13/22 05:44 Sodium 138 Potassium 4.1 Chloride 108 H Carbon Dioxide 24 BUN 28 H Creatinine 1.14 Glucose 205 H Calcium 8.5
[2022-02-13] MEDS: QUEtiapine FUMARATE 25 MG TABLET PO SCH (19:09)
[2022-02-13] MEDS: LANTUS PER UNIT CHARGE SC SCH (20:43)
[2022-02-14] MEDS: CHECK CLONIDINE PATCH PLACEMENT SCH ×3 (01:51→15:03)
[2022-02-14] MEDS ORDERED: IBUPROFEN 200 MG TAB PO STA (02:01)
[2022-02-14] MEDS: ACETAMINOPHEN 500 MG TAB PO SCH ×3 (06:13→21:11)
[2022-02-14] MEDS: guaiFENesin 600 MG TABCR PO SCH ×2 (07:27→20:25)
[2022-02-14] MEDS: POLYETHYLENE (MIRALAX) 17 GM PACK PO SCH (07:27)
[2022-02-14] MEDS: ATORVASTATIN 40 MG TAB PO SCH (07:28)
[2022-02-14] MEDS: PANTOprazole 40 MG TAB PO SCH (07:28)
[2022-02-14] MEDS: ATENOLOL 25 MG TABLET PO SCH (07:28)
[2022-02-14] MEDS: allopurinoL 100 MG TAB PO SCH (07:29)
[2022-02-14] MEDS: lisinopril 20 MG TAB PO SCH (07:29)
[2022-02-14] MEDS: LIDOCAINE 5% 1 PATCH TD SCH (07:29)
[2022-02-14] MEDS: QUEtiapine FUMARATE 25 MG TABLET PO PRN ×2 (07:33→13:57)
--- NOTE | 2022-02-14 08:03 | Communication Note ---
Date of Service: February 14, 2022 patient had an episode of agitation just after my last review note precipitated by him wanting his shoes to leave the hospital and even ran from wheelchair. Calmer this am though expressing anger about stolen $ (patient misspent due to cognitive disorder). There is no clear pattern to his acting out, will increase hs Seroquel to 75 mg as last incident was early am and less concern for fall risk overnight though he does ambulate to BR.
[2022-02-14] MEDS: INSULIN ASPART PER UNIT SC SCH ×4 (08:40→20:26)
[2022-02-14] MEDS: MUPIROCIN 2% OINT 22 GM TUBE TOP SCH ×3 (10:43→20:25)
--- NOTE | 2022-02-14 12:04 | Hospitalist Progress Note ---
Date of Service February 14, 2022 Assessment & Plan (1) Cellulitis: Plan Dementia, Delirium-Appreciate psychiatry input. Zyprexa discontinued and started on Seroquel --> uptitrated to Seroquel 50mg QHS, seroquel 12.5mg BID PRN added (1st option for agitation), available is IM zyprexa (2nd option for agitation) Bilateral lower extremity cellulitis:Wound cx grew staph aureus MSSA Completed a course of antibiotics during his hospital stay and no further evidence of cellulitis. Wound present on admission has healed. Arterial Doppler of right lower extremity showed Moderate atherosclerotic plaque is seen. No elevated velocities are seen, however monophasic flow is seen below the popliteal artery. 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 Continue Lantus and novolog sliding scale. Glycemic pharmacist managing History of atrial fibrillation:Rate controlled; Continueatenolol and Xarelto. History of gout:On allopurinol and chronic low dose prednisone 5mg--> reduced to 2.5mg and plan to wean off completely (to help reduce agitation) Hypertension- Continue lisinopril. Chronic diastolic congestive heart failure-chronic, stable. Continue Torsemide Gastroesophageal reflux disease-chronic, stable. Continue PPI. BPH- Continue Flomax. DVT ppx- Xarelto Code status-Prior hospitalist discussed with his son, Mitul Davila Jr regarding code status 02/07--> code status changed to DNR/DNI Dispo- Awaiting placement, patient is medically stable for discharge Admission and Anticipated Discharge Date Admission Date: January 09, 2022 Subjective No new issues. Feels fine. Eating breakfast and he invited me to join. No fever, chills, nausea, vomiting. Physical Exam Physical Exam: General: Sitting in chair comfortably eating breakfast, not in distress, on room air Chest: Clear breath sounds bilaterally, no wheezes or crackles CVS: Regular rate and rhythm, normal heart sounds, no murmur Abdomen: Soft, non tender, not distended, normal bowel sounds Neuro: Awake, alert, conversing okay Extremities: No cyanosis, clubbing or edema Results & Data Results & Data ([facility]) Vital Signs (Past 12 Hours) Vital Signs Temp Pulse Resp BP Pulse Ox O2 Del Method 02/14/22 07:30 Room Air 02/14/22 07:20 36.3 C L 105 H 18 108/67 92 Room Air Medications Administered Current Inpatient Medications Acetaminophen (Acetaminophen 500 Mg Tab) 1,000 mg PO Q8 ANASTASIA Stop: 02/24/22 14:29 Last Admin: 02/14/22 06:13 Dose: 1,000 mg Allopurinol (Allopurinol 100 Mg Tab) 100 mg PO DAILY ANASTASIA Stop: 03/11/22 08:59 Last Admin: 02/14/22 07:29 Dose: 100 mg Atenolol (Atenolol 25 Mg Tablet) 12.5 mg PO DAILY ANASTASIA Stop: 03/11/22 08:59 Last Admin: 02/14/22 07:28 Dose: 12.5 mg Atorvastatin Calcium (Atorvastatin 40 Mg Tab) 40 mg PO DAILY ANASTASIA Stop: 03/11/22 08:59 Last Admin: 02/14/22 07:28 Dose: 40 mg Clonidine HCl (Clonidine Hcl 0.1 Mg/24 Hr Transderm Sys) 1 patch TD Q7D ANASTASIA Stop: 03/09/22 14:59 Last Admin: 02/07/22 17:52 Dose: 1 patch Diclofenac Sodium (Diclofenac Sod 1% Gel 100 Gm Tube) 2 gm EXT QID PRN; Protocol PRN Reason: joint pain Stop: 02/19/22 04:31 Last Admin: 02/12/22 13:49 Dose: 2 gm Glucose (Glucose 40% Gel 15 Gm Tube) 15 - 30 gm PO UD PRN; Protocol PRN Reason: Hypoglycemia Protocol Stop: 03/11/22 02:29 Glucose (Glucose 10 Tabs/Tube) 4 - 8 tab PO UD PRN; Protocol PRN Reason: Hypoglycemia Protocol Stop: 03/11/22 02:29 Guaifenesin (Guaifenesin 600 Mg Tabcr) 600 mg PO Q12 ANASTASIA Stop: 02/26/22 20:59 Last Admin: 02/14/22 07:27 Dose: 600 mg Insulin Aspart (Insulin Aspart Per Unit) 0 units SC ACHS ANASTASIA Stop: 03/11/22 07:29 Last Admin: 02/14/22 08:40 Dose: 13 units Insulin Glargine (Lantus Per Unit Charge) 8 units SC HS [facility] Stop: 03/12/22 20:59 Last Admin: 02/13/22 20:43 Dose: 8 units Lidocaine (Lidocaine 5% 1 Patch) 1 patch TD QAM [facility] Stop: 02/19/22 04:34 Last Admin: 02/14/22 07:29 Dose: 1 patch Lisinopril (Lisinopril 20 Mg Tab) 20 mg PO DAILY ANASTASIA Stop: 03/11/22 08:59 Last Admin: 02/14/22 07:29 Dose: 20 mg Miscellaneous (Carbohydrates For Hypoglycemia ) 15 - 30 gm PO UD PRN PRN Reason: Hypoglycemia Treatment Stop: 03/11/22 02:29 Last Admin: 02/13/22 12:38 Dose: 15 gm Miscellaneous (Remove Lidoderm Patch) 1 ea N/A DAILY@2100 [facility] Stop: 02/19/22 20:59 Last Admin: 02/13/22 21:04 Dose: Not Given Miscellaneous (Remove Clonidine Patch) 1 each N/A CQWK [facility] Stop: 03/09/22 14:59 Last Admin: 02/07/22 17:47 Dose: Not Given Miscellaneous (Check Clonidine Patch Placement) 1 each N/A QS [facility] Stop: 03/09/22 15:59 Last Admin: 02/14/22 07:31 Dose: 1 each Miscellaneous Information (Pharmacy Glycemic Mgmt Consult) 1 each N/A UD PRN PRN Reason: Consult Stop: 03/10/22 08:41 Mupirocin (Mupirocin 2% Oint 22 Gm Tube) 1 appln TOP TID [facility] Stop: 03/11/22 08:59 Last Admin: 02/14/22 10:43 Dose: Not Given Olanzapine (Olanzapine 10 Mg/2.1 Ml Sdv) 2.5 mg IM Q8 PRN PRN Reason: Agitation Stop: 03/09/22 14:50 Last Admin: 02/09/22 16:37 Dose: 2.5 mg Pantoprazole Sodium (Pantoprazole 40 Mg Tab) 40 mg PO DAILY [facility] Stop: 03/11/22 08:59 Last Admin: 02/14/22 07:28 Dose: 40 mg Polyethylene Glycol (Polyethylene (Miralax) 17 Gm Pack) 17 gm PO DAILY [facility] Stop: 03/09/22 08:59 Last Admin: 02/14/22 07:27 Dose: 17 gm Quetiapine Fumarate (Quetiapine Fumarate 25 Mg Tablet) 12.5 mg PO BID PRN PRN Reason: Agitation Stop: 03/10/22 20:59 Last Admin: 02/14/22 07:33 Dose: 12.5 mg Quetiapine Fumarate (Quetiapine Fumarate 25 Mg Tablet) 50 mg PO DAILY@1999 [facility] Stop: 03/14/22 19:59 Last Admin: 02/13/22 19:09 Dose: 50 mg
--- NOTE | 2022-02-14 13:42 | Pharmacy Report ---
Pharmacy Glycemic Short Note 2 - Date of Service February 14, 2022 - Glycemic Short BSG Results (Last 24 hours): 02/13/22 02/13/22 02/14/22 17:00 20:15 07:52 POC Glucose 242 H 143 H 234 H OUTPATIENT ANTIDIABETIC REGIMEN: * Jardiance 10 mg daily * amaryl 2 mg po daily * HbA1C = 9.9% ASSESSMENT: 02/14/22 * Patient's BSGs yesterday were 226-86-150-143 mg/dL. Patient's BSGs today are 234 and 119 mg/dL. * Patient ate prior to morning BSGs and prior to dinner BSG yesterday. * Unable to evaluate fasting so continue Lantus 8 units for now. * Most likely patient is overcorrecting with current CF. Therefore loosen CF. Continue CR. 02/13: * Mitul received 34 units of insulin yesterday - 8 units Lantus + 26 units novolog * Unable to determine appropriateness of basal insulin dose. Patient ate pudding and PB with crackers prior to "fasting" BSG this morning. * Post prandial BSGs fluctuated yesterday with majority of BSGs above goal. I suspect this is partially due to patient refusing Lantus dose on 02/11. Carb coverage was tightened last evening. Lunchtime BSG today was 68 mg/dL. Uncertain if this is due to aggressive carb coverage or correctional insulin given for previous BSG of 243 mg/dL. Will slightly loosen carb coverage. 02/12 * Steroids continue with 2.5 mg today * BSGs with good control yesterday, patient refused PM insulin (lantus) and fasting this AM 140 mg/dL * Did slightly loosen carb ratio with breakfast, lunch BSG elevated therefore tightened again at lunch 02/10 * Steroids tapering today, with plan to taper off at some point per hospitalist note * BSG's adequately controlled yesterday, although post-prandial BSG's were slightly above goal. Will not modify CHO ratio as anticipate a slight increase in sensitivity with the steroid taper * AM fasting BSG in goal range - no change to Lantus 02/08 * Mr Davila is an 81 y/o M with a PMH of T2DM who presents with cellulitis. * Pharmacy was consulted today after AM BSG was low at 67 mg/dL. * Since patient has had two hypoglycemic events in the morning (02/07 and 02/08) will decrease Lantus to 10 units HS (50% reduction). * Continue Novolog. Patient will need more carbohydrate coverage due to steroids (prednisone 5 mg daily). Yesterday patient's BSGs were relatively well controlled except for dinner -- this was most likely due to uncovered carbohydrate consumption. PLAN FOR INPATIENT GLYCEMIC CONTROL: * Hold outpatient oral diabetes medications * Basal insulin * Lantus 8 units SQ HS * Bolus insulin * NovoLog per scale ACHS or Q6hrs while NPO * Goal Range: Low 110 mg/dL - High 140 mg/dL * Correction Factor: 35 mg/dL/unit * Nutritional / Prandial insulin per carb ratio of 1 unit per 7 grams CHO consumed
[2022-02-14] MEDS: cloNIDine HCL 0.1 MG/24 HR TRANSDERM SYS TD SCH (14:47)
[2022-02-14] MEDS: QUEtiapine FUMARATE 25 MG TABLET PO SCH (19:10)
[2022-02-14] MEDS: LANTUS PER UNIT CHARGE SC SCH (20:26)
[2022-02-14] MEDS: DICLOFENAC SOD 1% GEL 100 GM TUBE EXT PRN (20:26)
[2022-02-15] MEDS: INSULIN ASPART PER UNIT SC SCH ×6 (01:20→20:49)
[2022-02-15] MEDS: CHECK CLONIDINE PATCH PLACEMENT SCH ×4 (02:25→23:11)
[2022-02-15] MEDS: ACETAMINOPHEN 500 MG TAB PO SCH ×3 (06:22→21:24)
[2022-02-15] MEDS: DICLOFENAC SOD 1% GEL 100 GM TUBE EXT PRN ×2 (07:21→19:51)
[2022-02-15] MEDS: guaiFENesin 600 MG TABCR PO SCH ×2 (07:22→19:51)
[2022-02-15] MEDS: PANTOprazole 40 MG TAB PO SCH (07:22)
[2022-02-15] MEDS: allopurinoL 100 MG TAB PO SCH (07:22)
[2022-02-15] MEDS: lisinopril 20 MG TAB PO SCH (07:22)
[2022-02-15] MEDS: LIDOCAINE 5% 1 PATCH TD SCH (07:23)
[2022-02-15] MEDS: POLYETHYLENE (MIRALAX) 17 GM PACK PO SCH (07:23)
[2022-02-15] MEDS: ATORVASTATIN 40 MG TAB PO SCH (07:24)
[2022-02-15] MEDS: ATENOLOL 25 MG TABLET PO SCH (07:24)
[2022-02-15] MEDS: MUPIROCIN 2% OINT 22 GM TUBE TOP SCH ×3 (07:25→19:51)
--- NOTE | 2022-02-15 13:03 | Hospitalist Progress Note ---
Date of Service February 15, 2022 Assessment & Plan (1) Cellulitis: Plan Dementia, Delirium-Appreciate psychiatry input. Zyprexa discontinued and started on Seroquel --> uptitrated to Seroquel 50mg QHS, seroquel 12.5mg BID PRN added (1st option for agitation), available is IM zyprexa (2nd option for agitation) Bilateral lower extremity cellulitis:Wound cx grew staph aureus MSSA Completed a course of antibiotics during his hospital stay and no further evidence of cellulitis. Wound present on admission has healed. Arterial Doppler of right lower extremity showed Moderate atherosclerotic plaque is seen. No elevated velocities are seen, however monophasic flow is seen below the popliteal artery. 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 Continue Lantus and novolog sliding scale. Glycemic pharmacist managing History of atrial fibrillation:Rate controlled; Continueatenolol and Xarelto. History of gout:On allopurinol and chronic low dose prednisone 5mg--> reduced to 2.5mg and plan to wean off completely (to help reduce agitation) Hypertension- Continue lisinopril. Chronic diastolic congestive heart failure-chronic, stable. Continue Torsemide Gastroesophageal reflux disease-chronic, stable. Continue PPI. BPH- Continue Flomax. DVT ppx- Xarelto Code status-Prior hospitalist discussed with his son, Mitul Davila Jr regarding code status 02/07--> code status changed to DNR/DNI Dispo- Awaiting placement, patient is medically stable for discharge Admission and Anticipated Discharge Date Admission Date: January 09, 2022 Subjective He is in good mood. He was thankful for my stopping by. He denies any issues. Asking when he can go. Physical Exam Physical Exam: General: Sitting comfortably in chair eating breakfast, not in distress, on room air Chest: Clear breath sounds bilaterally, no wheezes or crackles CVS: Regular rate and rhythm, normal heart sounds, no murmur Abdomen: Soft, non tender, not distended, normal bowel sounds Neuro: Awake, alert, conversing okay Extremities: No cyanosis, clubbing or edema Results & Data Results & Data ([facility]) Vital Signs (Past 12 Hours) Vital Signs Temp Pulse Resp BP Pulse Ox O2 Del Method 02/15/22 07:58 36.5 C 83 16 126/81 97 Room Air
[2022-02-15] MEDS: OLANZapine 10 MG/2.1 ML SDV IM PRN (13:17)
[2022-02-15] MEDS: QUEtiapine FUMARATE 25 MG TABLET PO SCH (19:08)
[2022-02-15] MEDS: LANTUS PER UNIT CHARGE SC SCH (20:49)
[2022-02-16] MEDS: ACETAMINOPHEN 500 MG TAB PO SCH ×3 (06:37→21:45)
[2022-02-16] MEDS: QUEtiapine FUMARATE 25 MG TABLET PO PRN (07:02)
[2022-02-16] MEDS: allopurinoL 100 MG TAB PO SCH (07:16)
[2022-02-16] MEDS: ATENOLOL 25 MG TABLET PO SCH (07:16)
[2022-02-16] MEDS: ATORVASTATIN 40 MG TAB PO SCH (07:17)
[2022-02-16] MEDS: LIDOCAINE 5% 1 PATCH TD SCH (07:17)
[2022-02-16] MEDS: lisinopril 20 MG TAB PO SCH (07:17)
[2022-02-16] MEDS: PANTOprazole 40 MG TAB PO SCH (07:17)
[2022-02-16] MEDS: MUPIROCIN 2% OINT 22 GM TUBE TOP SCH ×3 (07:17→21:45)
[2022-02-16] MEDS: guaiFENesin 600 MG TABCR PO SCH ×2 (07:17→21:44)
[2022-02-16] MEDS: POLYETHYLENE (MIRALAX) 17 GM PACK PO SCH (07:17)
[2022-02-16] MEDS: CHECK CLONIDINE PATCH PLACEMENT SCH ×3 (07:18→23:05)
[2022-02-16] MEDS: INSULIN ASPART PER UNIT SC SCH ×4 (08:47→21:42)
--- NOTE | 2022-02-16 11:15 | Hospitalist Progress Note ---
Date of Service February 16, 2022 Assessment & Plan Admission and Anticipated Discharge Date Admission Date: January 09, 2022 Subjective No new issues. Enjoying breakfast. Asking when he will be released. No nausea, v omiting, pain. Physical Exam Physical Exam: General: Sitting comfortably in chair eating breakfast, not in distress, on room air Chest: Clear breath sounds bilaterally, no wheezes or crackles CVS: Regular rate and rhythm, normal heart sounds, no murmur Abdomen: Soft, non tender, not distended, normal bowel sounds Neuro: Awake, alert, conversing okay Extremities: No cyanosis, clubbing or edema
--- NOTE | 2022-02-16 11:16 | Hospitalist Progress Note ---
Date of Service February 16, 2022 Assessment & Plan (1) Cellulitis: Plan Dementia, Delirium-Appreciate psychiatry input. Zyprexa discontinued and started on Seroquel --> uptitrated to Seroquel 50mg QHS, seroquel 12.5mg BID PRN added (1st option for agitation), available is IM zyprexa (2nd option for agitation) Bilateral lower extremity cellulitis:Wound cx grew staph aureus MSSA Completed a course of antibiotics during his hospital stay and no further evidence of cellulitis. Wound present on admission has healed. Arterial Doppler of right lower extremity showed Moderate atherosclerotic plaque is seen. No elevated velocities are seen, however monophasic flow is seen below the popliteal artery. 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 Continue Lantus and novolog sliding scale. Glycemic pharmacist managing History of atrial fibrillation:Rate controlled; Continueatenolol and Xarelto. History of gout:On allopurinol and chronic low dose prednisone 5mg--> reduced to 2.5mg and plan to wean off completely (to help reduce agitation) Hypertension- Continue lisinopril. Chronic diastolic congestive heart failure-chronic, stable. Continue Torsemide Gastroesophageal reflux disease-chronic, stable. Continue PPI. BPH- Continue Flomax. DVT ppx- Xarelto Code status-Prior hospitalist discussed with his son, Mitul Davila Jr regarding code status 02/07--> code status changed to DNR/DNI Dispo- Awaiting placement, patient is medically stable for discharge Admission and Anticipated Discharge Date Admission Date: January 09, 2022 Subjective No new issues. Enjoying breakfast. Asking when he will be released. No nausea, vomiting, pain. Physical Exam Physical Exam: General: Sitting comfortably in chair eating breakfast, not in distress, on room air Chest: Clear breath sounds bilaterally, no wheezes or crackles CVS: Regular rate and rhythm, normal heart sounds, no murmur Abdomen: Soft, non tender, not distended, normal bowel sounds Neuro: Awake, alert, conversing okay Extremities: No cyanosis, clubbing or edema
[2022-02-16] MEDS: QUEtiapine FUMARATE 25 MG TABLET PO SCH (19:30)
[2022-02-16] MEDS: LANTUS PER UNIT CHARGE SC SCH (21:42)
[2022-02-17] MEDS: ACETAMINOPHEN 500 MG TAB PO SCH ×3 (06:07→21:27)
[2022-02-17] MEDS: CHECK CLONIDINE PATCH PLACEMENT SCH ×2 (08:00→17:10)
[2022-02-17] MEDS: PANTOprazole 40 MG TAB PO SCH (08:04)
[2022-02-17] MEDS: QUEtiapine FUMARATE 25 MG TABLET PO PRN ×2 (08:05→13:07)
[2022-02-17] MEDS: lisinopril 20 MG TAB PO SCH (08:05)
[2022-02-17] MEDS: guaiFENesin 600 MG TABCR PO SCH ×2 (08:05→20:03)
[2022-02-17] MEDS: ATENOLOL 25 MG TABLET PO SCH (08:06)
[2022-02-17] MEDS: allopurinoL 100 MG TAB PO SCH (08:06)
[2022-02-17] MEDS: ATORVASTATIN 40 MG TAB PO SCH (08:06)
[2022-02-17] MEDS: POLYETHYLENE (MIRALAX) 17 GM PACK PO SCH (08:07)
[2022-02-17] MEDS: LIDOCAINE 5% 1 PATCH TD SCH (08:07)
[2022-02-17] MEDS: INSULIN ASPART PER UNIT SC SCH ×4 (08:22→21:27)
[2022-02-17] MEDS: MUPIROCIN 2% OINT 22 GM TUBE TOP SCH ×3 (08:23→20:05)
--- NOTE | 2022-02-17 11:38 | Pharmacy Report ---
Pharmacy Glycemic Short Note 2 - Date of Service February 17, 2022 - Glycemic Short BSG Results (Last 24 hours): 02/16/22 02/16/22 02/16/22 12:01 17:02 20:28 POC Glucose 135 H 95 180 H 02/17/22 07:45 POC Glucose 126 H OUTPATIENT ANTIDIABETIC REGIMEN: * Jardiance 10 mg daily * amaryl 2 mg po daily * HbA1C = 9.9% ASSESSMENT: 02/17/22 * Patient's BSGs yesterday were 591-809-65-180 mg/dL. Today's fasting is 126 mg/dL. * Patient received 23 units of insulin yesterday (8 units of basal and 15 units of bolus). This is steady over the past 5 days were patient requires roughly 23-24 units of insulin per day. * Continue current regimen. 02/14/22 * Patient's BSGs yesterday were 011-06-458-143 mg/dL. Patient's BSGs today are 234 and 119 mg/dL. * Patient ate prior to morning BSGs and prior to dinner BSG yesterday. * Unable to evaluate fasting so continue Lantus 8 units for now. * Most likely patient is overcorrecting with current CF. Therefore loosen CF. Continue CR. 02/13: * Mitul received 34 units of insulin yesterday - 8 units Lantus + 26 units novolog * Unable to determine appropriateness of basal insulin dose. Patient ate pudding and PB with crackers prior to "fasting" BSG this morning. * Post prandial BSGs fluctuated yesterday with majority of BSGs above goal. I suspect this is partially due to patient refusing Lantus dose on 02/11. Carb coverage was tightened last evening. Lunchtime BSG today was 68 mg/dL. Uncertain if this is due to aggressive carb coverage or correctional insulin given for previous BSG of 243 mg/dL. Will slightly loosen carb coverage. 02/12 * Steroids continue with 2.5 mg today * BSGs with good control yesterday, patient refused PM insulin (lantus) and fasting this AM 140 mg/dL * Did slightly loosen carb ratio with breakfast, lunch BSG elevated therefore tightened again at lunch 02/10 * Steroids tapering today, with plan to taper off at some point per hospitalist note * BSG's adequately controlled yesterday, although post-prandial BSG's were slightly above goal. Will not modify CHO ratio as anticipate a slight increase in sensitivity with the steroid taper * AM fasting BSG in goal range - no change to Lantus 02/08 * Mr Davila is an 81 y/o M with a PMH of T2DM who presents with cellulitis. * Pharmacy was consulted today after AM BSG was low at 67 mg/dL. * Since patient has had two hypoglycemic events in the morning (02/07 and 02/08) will decrease Lantus to 10 units HS (50% reduction). * Continue Novolog. Patient will need more carbohydrate coverage due to steroids (prednisone 5 mg daily). Yesterday patient's BSGs were relatively well controlled except for dinner -- this was most likely due to uncovered carbohydrate consumption. PLAN FOR INPATIENT GLYCEMIC CONTROL: * Hold outpatient oral diabetes medications * Basal insulin * Lantus 8 units SQ HS * Bolus insulin * NovoLog per scale ACHS or Q6hrs while NPO * Goal Range: Low 110 mg/dL - High 140 mg/dL * Correction Factor: 35 mg/dL/unit * Nutritional / Prandial insulin per carb ratio of 1 unit per 10 grams CHO consumed
--- NOTE | 2022-02-17 14:27 | Electrocardiogram Report ---
Test Reason : Blood Pressure : / mmHG Vent. Rate : 096 BPM Atrial Rate : 092 BPM P-R Int : 000 ms QRS Dur : 098 ms QT Int : 306 ms P-R-T Axes : 000 007 -13 degrees QTc Int : 386 ms Atrial fibrillation Possible Inferior infarct (cited on or before 16-FEB-2022) Abnormal ECG When compared with ECG of 09-JAN-2022 21:36, No significant change was found Confirmed by Pasquale Hale ([id number] on 02/17/2022 2:27:12 PM Referred By: Larry Diego Confirmed By:Pasquale Hale
--- NOTE | 2022-02-17 19:13 | Hospitalist Progress Note ---
Date of Service February 17, 2022 Assessment & Plan (1) Fever: (2) Dementia associated with other underlying disease with behavioral disturbance: Plan Fever- fever of 38.1 today, clinically stable, recently completed antibiotic course. will check for covid, UA and blood clx. Monitor clinically for now. Consider empiric antibiotic if covid negative but persistent fever or clinical status change. Dementia, Delirium-Appreciate psychiatry input. Zyprexa discontinued and started on Seroquel --> uptitrated to Seroquel 50mg QHS, seroquel 12.5mg BID PRN added (1st option for agitation), available is IM zyprexa (2nd option for agitation) Bilateral lower extremity cellulitis:Wound cx grew staph aureus MSSA Completed a course of antibiotics during his hospital stay and no further evidence of cellulitis. Wound present on admission has healed. Arterial Doppler of right lower extremity showed Moderate atherosclerotic plaque is seen. No elevated velocities are seen, however monophasic flow is seen below the popliteal artery. 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 Continue Lantus and novolog sliding scale. Glycemic pharmacist managing History of atrial fibrillation:Rate controlled; Continueatenolol and Xarelto. History of gout:On allopurinol and chronic low dose prednisone 5mg--> reduced to 2.5mg and plan to wean off completely (to help reduce agitation) Hypertension- Continue lisinopril. Chronic diastolic congestive heart failure-chronic, stable. Continue Torsemide Gastroesophageal reflux disease-chronic, stable. Continue PPI. BPH- Continue Flomax. DVT ppx- Xarelto Code status-Prior hospitalist discussed with his son, Mitul Davila Jr regarding code status 02/07--> code status changed to DNR/DNI Dispo- Fever work up in process. Awaiting placement Admission and Anticipated Discharge Date Admission Date: January 09, 2022 Subjective Feels fine. Denies any issues. No chest pain, shortness of breath, nausea, vomiting. Asking when he will be released. Noted to have fever later today. Physical Exam Physical Exam: General: Sitting comfortably in chair coloring, not in distress, on room air HEENT: EOMI, DANNA, MMM Chest: Clear breath sounds bilaterally, no wheezes or crackles CVS: Regular rate and rhythm, normal heart sounds, no murmur Abdomen: Soft, non tender, not distended, normal bowel sounds Neuro: Awake, alert, conversing ok Extremities: No edema Results & Data Results & Data ([facility]) Vital Signs (Past 12 Hours) Vital Signs Temp Pulse Resp BP Pulse Ox O2 Del Method 02/17/22 14:19 38.1 C H 84 16 98/61 L 93 Room Air 02/17/22 07:50 36.7 C 89 18 125/78 95 Room Air Medications Administered Current Inpatient Medications Acetaminophen (Acetaminophen 500 Mg Tab) 1,000 mg PO Q8 ANASTASIA Stop: 02/24/22 14:29 Last Admin: 02/17/22 13:08 Dose: 1,000 mg Allopurinol (Allopurinol 100 Mg Tab) 100 mg PO DAILY ANASTASIA Stop: 03/11/22 08:59 Last Admin: 02/17/22 08:06 Dose: 100 mg Atenolol (Atenolol 25 Mg Tablet) 12.5 mg PO DAILY ANASTASIA Stop: 03/11/22 08:59 Last Admin: 02/17/22 08:06 Dose: 12.5 mg Atorvastatin Calcium (Atorvastatin 40 Mg Tab) 40 mg PO DAILY ANASTASIA Stop: 03/11/22 08:59 Last Admin: 02/17/22 08:06 Dose: 40 mg Clonidine HCl (Clonidine Hcl 0.1 Mg/24 Hr Transderm Sys) 1 patch TD Q7D ANASTASIA Stop: 03/09/22 14:59 Last Admin: 02/14/22 14:47 Dose: 1 patch Diclofenac Sodium (Diclofenac Sod 1% Gel 100 Gm Tube) 2 gm EXT QID PRN; Protocol PRN Reason: joint pain Stop: 02/19/22 04:31 Last Admin: 02/15/22 19:51 Dose: 2 gm Glucose (Glucose 40% Gel 15 Gm Tube) 15 - 30 gm PO UD PRN; Protocol PRN Reason: Hypoglycemia Protocol Stop: 03/11/22 02:29 Glucose (Glucose 10 Tabs/Tube) 4 - 8 tab PO UD PRN; Protocol PRN Reason: Hypoglycemia Protocol Stop: 03/11/22 02:29 Guaifenesin (Guaifenesin 600 Mg Tabcr) 600 mg PO Q12 [facility] Stop: 02/26/22 20:59 Last Admin: 02/17/22 08:05 Dose: 600 mg Insulin Aspart (Insulin Aspart Per Unit) 0 units SC ACHS [facility] Stop: 03/11/22 07:29 Last Admin: 02/17/22 17:11 Dose: 6 units Insulin Glargine (Lantus Per Unit Charge) 8 units SC HS [facility] Stop: 03/12/22 20:59 Last Admin: 02/16/22 21:42 Dose: 8 units Lidocaine (Lidocaine 5% 1 Patch) 1 patch TD QAM [facility] Stop: 02/19/22 04:34 Last Admin: 02/17/22 08:07 Dose: 1 patch Lisinopril (Lisinopril 20 Mg Tab) 20 mg PO DAILY [facility] Stop: 03/11/22 08:59 Last Admin: 02/17/22 08:05 Dose: 20 mg Miscellaneous (Carbohydrates For Hypoglycemia ) 15 - 30 gm PO UD PRN PRN Reason: Hypoglycemia Treatment Stop: 03/11/22 02:29 Last Admin: 02/13/22 12:38 Dose: 15 gm Miscellaneous (Remove Lidoderm Patch) 1 ea N/A DAILY@2100 [facility] Stop: 02/19/22 20:59 Last Admin: 02/16/22 21:45 Dose: 1 each Miscellaneous (Remove Clonidine Patch) 1 each N/A CQWK [facility] Stop: 03/09/22 14:59 Last Admin: 02/14/22 14:47 Dose: 1 each Miscellaneous (Check Clonidine Patch Placement) 1 each N/A QS [facility] Stop: 03/09/22 15:59 Last Admin: 02/17/22 17:10 Dose: 1 each Miscellaneous Information (Pharmacy Glycemic Mgmt Consult) 1 each N/A UD PRN PRN Reason: Consult Stop: 03/10/22 08:41 Mupirocin (Mupirocin 2% Oint 22 Gm Tube) 1 appln TOP TID [facility] Stop: 03/11/22 08:59 Last Admin: 02/17/22 13:10 Dose: 1 appln Olanzapine (Olanzapine 10 Mg/2.1 Ml Sdv) 2.5 mg IM Q8 PRN PRN Reason: Agitation Stop: 03/09/22 14:50 Last Admin: 02/15/22 13:17 Dose: 2.5 mg Pantoprazole Sodium (Pantoprazole 40 Mg Tab) 40 mg PO DAILY [facility] Stop: 03/11/22 08:59 Last Admin: 02/17/22 08:04 Dose: 40 mg Polyethylene Glycol (Polyethylene (Miralax) 17 Gm Pack) 17 gm PO DAILY [facility] Stop: 03/09/22 08:59 Last Admin: 02/17/22 08:07 Dose: 17 gm Quetiapine Fumarate (Quetiapine Fumarate 25 Mg Tablet) 12.5 mg PO BID PRN PRN Reason: Agitation Stop: 03/10/22 20:59 Last Admin: 02/17/22 13:07 Dose: 12.5 mg Quetiapine Fumarate (Quetiapine Fumarate 25 Mg Tablet) 75 mg PO DAILY@1999 [facility] Stop: 03/16/22 19:59 Last Admin: 02/16/22 19:30 Dose: 75 mg
[2022-02-17] MEDS: QUEtiapine FUMARATE 25 MG TABLET PO SCH (20:04)
[2022-02-17] MEDS: DICLOFENAC SOD 1% GEL 100 GM TUBE EXT PRN (20:04)
[2022-02-17 20:11] LABS: Basophils # (auto) 0.04 K/uL (0-0.2); Basophils % (auto) 0.7 %; Eosinophils # (auto) 0.06 K/uL (0-0.50); Eosinophils % (auto) 1.1 %; Hematocrit (blood only) 40.6 % (40.1-51.0); Hemoglobin 13.3 g/dl (14.0-18.0); Immature Granulocytes # (auto) 0.05 K/uL (0.00-0.02); Immature Granulocytes % (auto) 0.9 %; Lymphocytes # (auto) 0.92 K/uL (1.2-3.4); Lymphocytes % (auto) 16.5 %; Mean Corpuscular Hgb Conc 32.8 g/dL (32.0-36.0); Mean Corpuscular Volume 88.6 fL (80.0-100.0); Mean Platelet Volume 10.3 fL (9.4-12.4); Monocytes # (auto) 1.12 K/uL (0.24-0.82); Monocytes % (auto) 20.1 %; Neutrophils # (auto) 3.39 K/uL (1.4-6.5); Neutrophils % (auto) 60.7 %; Platelet Count 164 K/uL (130-400); RDW Coefficient of Variation 13.6 % (11.5-14.5); RDW Standard Deviation 43.9 fL (36.4-46.3); Red Blood Count 4.58 M/uL (4.63-6.08); White Blood Count 5.58 K/ul (4.8-10.8)
[2022-02-17] MEDS: LANTUS PER UNIT CHARGE SC SCH (21:27)
[2022-02-18 00:39] LABS: Appearance Urine Clear (Clear); Bilirubin Urine Negative (Negative); Blood Urine Negative (Negative); Color Urine Yellow; Glucose Urine UA Negative (Negative); Ketones Urine Negative (Negative); Leukocyte Esterase Urine Negative (Negative); Nitrite Urine Negative (Negative); Protein Urine Negative (Negative); Urobilinogen Urine Negative (Negative); pH Urine 5.5 (4.5-7.5)
[2022-02-18] MEDS ORDERED: D5W AND 1/2NSS 1,000 ML IV SCH (00:45)
[2022-02-18] MEDS: CHECK CLONIDINE PATCH PLACEMENT SCH ×4 (06:30→22:44)
[2022-02-18] MEDS: ACETAMINOPHEN 500 MG TAB PO SCH ×3 (06:31→20:53)
[2022-02-18] MEDS: PANTOprazole 40 MG TAB PO SCH (08:39)
[2022-02-18] MEDS: allopurinoL 100 MG TAB PO SCH (08:39)
[2022-02-18] MEDS: lisinopril 20 MG TAB PO SCH (08:39)
[2022-02-18] MEDS: guaiFENesin 600 MG TABCR PO SCH ×2 (08:40→20:52)
[2022-02-18] MEDS: ATENOLOL 25 MG TABLET PO SCH (08:40)
[2022-02-18] MEDS: ATORVASTATIN 40 MG TAB PO SCH (08:40)
[2022-02-18] MEDS: LIDOCAINE 5% 1 PATCH TD SCH (08:41)
[2022-02-18] MEDS: MUPIROCIN 2% OINT 22 GM TUBE TOP SCH ×3 (08:42→20:53)
[2022-02-18] MEDS: POLYETHYLENE (MIRALAX) 17 GM PACK PO SCH (08:42)
[2022-02-18] MEDS: INSULIN ASPART PER UNIT SC SCH ×3 (09:07→18:01)
[2022-02-18] MEDS: QUEtiapine FUMARATE 25 MG TABLET PO PRN (09:15)
--- NOTE | 2022-02-18 13:29 | Pharmacy Report ---
Pharmacy Glycemic Short Note 2 - Date of Service February 18, 2022 - Glycemic Short BSG Results (Last 24 hours): 02/17/22 02/17/22 02/18/22 17:03 20:37 07:56 POC Glucose 137 H 197 H 261 H 02/18/22 11:57 POC Glucose 160 H OUTPATIENT ANTIDIABETIC REGIMEN: * Jardiance 10 mg daily * amaryl 2 mg po daily * HbA1C = 9.9% ASSESSMENT: 02/18/22 * Patient's BSGs yesterday were 096-556-118-197 mg/dL. BSGs today are 261 - 160 mg/dL. * Patient received 30 units of insulin yesterday (8 units of basal and 22 units of bolus). * Patient has been here for an extended period of time and is medically stable. Will transition to a more appropriate regimen for home. * As patient is on Jardiance 25 mg PO daily at home and pharmacy does not stock this medication, continue Lantus 8 units daily. * Amaryl is on the BEERS list so transition to glipizide 2.5 mg PO BIDM. Novolog checks with glipizide + light CF. 02/17/22 * Patient's BSGs yesterday were 799-137-96-180 mg/dL. Today's fasting is 126 mg/dL. * Patient received 23 units of insulin yesterday (8 units of basal and 15 units of bolus). This is steady over the past 5 days were patient requires roughly 23-24 units of insulin per day. * Continue current regimen. 02/14/22 * Patient's BSGs yesterday were 776-90-462-143 mg/dL. Patient's BSGs today are 234 and 119 mg/dL. * Patient ate prior to morning BSGs and prior to dinner BSG yesterday. * Unable to evaluate fasting so continue Lantus 8 units for now. * Most likely patient is overcorrecting with current CF. Therefore loosen CF. Continue CR. 02/13: * Mitul received 34 units of insulin yesterday - 8 units Lantus + 26 units novolog * Unable to determine appropriateness of basal insulin dose. Patient ate pudding and PB with crackers prior to "fasting" BSG this morning. * Post prandial BSGs fluctuated yesterday with majority of BSGs above goal. I suspect this is partially due to patient refusing Lantus dose on 02/11. Carb coverage was tightened last evening. Lunchtime BSG today was 68 mg/dL. Uncertain if this is due to aggressive carb coverage or correctional insulin given for previous BSG of 243 mg/dL. Will slightly loosen carb coverage. PLAN FOR INPATIENT GLYCEMIC CONTROL: * glipizide 2.5 mg PO BIDM * Basal insulin * Lantus 8 units SQ HS * Bolus insulin * NovoLog per scale ACHS or Q6hrs while NPO * Goal Range: Low 110 mg/dL - High 140 mg/dL * Correction Factor: 40 mg/dL/unit * Nutritional / Prandial insulin per carb ratio of 1 unit per -- grams CHO consumed
[2022-02-18] MEDS: glipiZIDE 5 MG TAB PO SCH (16:42)
--- NOTE | 2022-02-18 17:15 | Hospitalist Progress Note ---
Date of Service February 18, 2022 Assessment & Plan (1) Fever: (2) Dementia associated with other underlying disease with behavioral disturbance: Plan Covid 19- Had fever of 38.1 last night and tested positive for COVID 19 02/17. No hypoxia or respiratory issues to warrant treatment. WBC normal, UA unremarkable, blood clx pending. - Symptomatic treatment. No more fever today. Dementia, Delirium- Appreciate psychiatry input. Zyprexa discontinued and started on Seroquel --> uptitrated to Seroquel 50mg QHS, seroquel 12.5mg BID PRN added (1st option for agitation), available is IM zyprexa (2nd option for agitation) Bilateral lower extremity cellulitis:Wound cx grew staph aureus MSSA Completed a course of antibiotics during his hospital stay and no further evidence of cellulitis. Wound present on admission has healed. Arterial Doppler of right lower extremity showed Moderate atherosclerotic plaque is seen. No elevated velocities are seen, however monophasic flow is seen below the popliteal artery. 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 Continue Lantus and novolog sliding scale. Glycemic pharmacist managing History of atrial fibrillation:Rate controlled; Continueatenolol and Xarelto. History of gout:On allopurinol and chronic low dose prednisone 5mg--> reduced to 2.5mg and plan to wean off completely (to help reduce agitation) Hypertension- Continue lisinopril. Chronic diastolic congestive heart failure-chronic, stable. Continue Torsemide Gastroesophageal reflux disease-chronic, stable. Continue PPI. BPH- Continue Flomax. DVT ppx- Xarelto Code status-Prior hospitalist discussed with his son, Mitul Davila Jr regarding code status 02/07--> code status changed to DNR/DNI Dispo- Needs placement- can discharge to facility that accepts Covid patient. Admission and Anticipated Discharge Date Admission Date: January 09, 2022 Subjective He tested positive for COVID 19 yesterday after having a fever. Now he is in isolation and not allowed to walk around- hence currently on 1:1. Feels weak. No fever today. No N/V. Physical Exam Physical Exam: General: Sitting comfortably in bed, not in distress, on room air HEENT: EOMI, DANNA, MMM Chest: Clear breath sounds bilaterally, no wheezes or crackles CVS: Regular rate and rhythm, normal heart sounds, no murmur Abdomen: Soft, non tender, not distended, normal bowel sounds Neuro: Awake, alert, conversing ok Extremities: No edema Results & Data Results & Data ([facility] [place]) Vital Signs (Past 12 Hours) Vital Signs Temp Pulse Resp BP Pulse Ox O2 Del Method 02/18/22 08:15 Room Air 02/18/22 08:38 100 H 135/93 02/18/22 07:53 37.1 C 95 H 18 104/69 95 Room Air Laboratory Results Short CBC 02/17/22 Range/Units 19:54 WBC 5.58 (4.8-10.8) K/ul Hgb 13.3 L (14.0-18.0) g/dl Hct 40.6 (40.1-51.0) % Plt Count 164 (130-400) K/uL Urine 02/18/22 Range/Units Unknown Urine Color Yellow Urine Appearance Clear (Clear) Urine pH 5.5 (4.5-7.5) Ur Specific [place] 1.010 (1.000-1.030) Urine Protein Negative (Negative) Urine Glucose (UA) Negative (Negative)
[2022-02-18] MEDS: LANTUS PER UNIT CHARGE SC SCH (20:49)
[2022-02-18] MEDS: QUEtiapine FUMARATE 25 MG TABLET PO SCH (20:53)
[2022-02-19] MEDS ORDERED: DICLOFENAC SOD 1% GEL 100 GM TUBE EXT PRN (04:59)
[2022-02-19] MEDS: ACETAMINOPHEN 500 MG TAB PO SCH ×3 (05:26→21:21)
[2022-02-19] MEDS: LIDOCAINE 5% 1 PATCH TD SCH (05:26)
[2022-02-19] MEDS: INSULIN ASPART PER UNIT SC SCH ×2 (07:45→17:25)
[2022-02-19] MEDS: guaiFENesin 600 MG TABCR PO SCH ×2 (07:53→21:22)
[2022-02-19] MEDS: glipiZIDE 5 MG TAB PO SCH ×2 (07:54→17:33)
[2022-02-19] MEDS: ATORVASTATIN 40 MG TAB PO SCH (07:54)
[2022-02-19] MEDS: ATENOLOL 25 MG TABLET PO SCH (07:54)
[2022-02-19] MEDS: allopurinoL 100 MG TAB PO SCH (07:55)
[2022-02-19] MEDS: PANTOprazole 40 MG TAB PO SCH (07:56)
[2022-02-19] MEDS: lisinopril 20 MG TAB PO SCH (07:56)
[2022-02-19] MEDS: CHECK CLONIDINE PATCH PLACEMENT SCH ×3 (07:56→23:21)
[2022-02-19] MEDS: MUPIROCIN 2% OINT 22 GM TUBE TOP SCH ×3 (07:56→21:23)
[2022-02-19] MEDS: POLYETHYLENE (MIRALAX) 17 GM PACK PO SCH (07:57)
--- NOTE | 2022-02-19 18:15 | Hospitalist Progress Note ---
Date of Service February 19, 2022 Assessment & Plan (1) Fever: (2) Dementia associated with other underlying disease with behavioral disturbance: Plan Covid 19- Had fever of 38.1 last night and tested positive for COVID 19 02/17. No hypoxia or respiratory issues to warrant treatment. WBC normal, UA unremarkable, blood clx pending. - Symptomatic treatment. No more fever today. -Remains asymptomatic secondary to COVID infection -We will need to finish the quarantine time before transferring to facility if accepted Other medical conditions remained stable as below Dementia, Delirium- Appreciate psychiatry input. Zyprexa discontinued and started on Seroquel --> uptitrated to Seroquel 50mg QHS, seroquel 12.5mg BID PRN added (1st option for agitation), available is IM zyprexa (2nd option for agitation) Bilateral lower extremity cellulitis:Wound cx grew staph aureus MSSA Completed a course of antibiotics during his hospital stay and no further evidence of cellulitis. Wound present on admission has healed. Arterial Doppler of right lower extremity showed Moderate atherosclerotic plaque is seen. No elevated velocities are seen, however monophasic flow is seen below the popliteal artery. 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 Continue Lantus and novolog sliding scale. Glycemic pharmacist managing History of atrial fibrillation:Rate controlled; Continueatenolol and Xarelto. History of gout:On allopurinol and chronic low dose prednisone 5mg--> reduced to 2.5mg and plan to wean off completely (to help reduce agitation) Hypertension- Continue lisinopril. Chronic diastolic congestive heart failure-chronic, stable. Continue Torsemide Gastroesophageal reflux disease-chronic, stable. Continue PPI. BPH- Continue Flomax. DVT ppx- Xarelto Code status-Prior hospitalist discussed with his son, Mitul Davila Jr regarding code status 02/07--> code status changed to DNR/DNI Dispo- Needs placement- can discharge to facility that accepts Covid patient. Admission and Anticipated Discharge Date Admission Date: January 09, 2022 Subjective 02/19/2022 The patient was seen and examined in medical floor He is diagnosed to have COVID 19 virus infection on of this month and remains in isolation Denies any symptoms Review of Systems Review of Systems: Unobtainable due to cognitive status Physical Exam Physical Exam: Sitting on a chair without any acute distress Constitutional: well developed, well nourished and + obese Eyes: PERRL, conjunctivae normal, anicteric sclerae ENMT: external ear and nose normal, oropharynx normal Neck: trachea midline, no thyromegaly Respiratory: no respiratory distress Auscultation: lungs clear to auscultation bilaterally Cardiovascular: Rate/Rhythm: regular rate and regular rhythm; not tachycardic Heart Sounds: normal S1 and normal S2; no murmur Extremities: no edema Gastrointestinal (Abdomen): Inspection/Auscultation: normal bowel sounds; abdomen not distended Percussion/Palpation: abdomen soft; abdomen nontender Neurologic: Alert and awake. Pleasantly confused Lymphatic: no cervical or axillary lymphadenopathy Results & Data Results & Data ([facility]) Vital Signs (Past 12 Hours) Vital Signs Temp Pulse Resp BP Pulse Ox O2 Del Method 02/19/22 15:00 36.4 C L 77 18 127/85 97 Room Air 02/19/22 07:50 Room Air 02/19/22 06:59 36.7 C 90 16 113/76 96 Room Air Medications Administered Current Inpatient Medications Acetaminophen (Acetaminophen 500 Mg Tab) 1,000 mg PO Q8 ANASTASIA Stop: 02/24/22 14:29 Last Admin: 02/19/22 14:32 Dose: 1,000 mg Allopurinol (Allopurinol 100 Mg Tab) 100 mg PO DAILY [facility]STAS[facility] Stop: 03/11/22 08:59 Last Admin: 02/19/22 07:55 Dose: 100 mg Atenolol (Atenolol 25 Mg Tablet) 12.5 mg PO DAILY [facility] Stop: 03/11/22 08:59 Last Admin: 02/19/22 07:54 Dose: 12.5 mg Atorvastatin Calcium (Atorvastatin 40 Mg Tab) 40 mg PO DAILY [facility] Stop: 03/11/22 08:59 Last Admin: 02/19/22 07:54 Dose: 40 mg Clonidine HCl (Clonidine Hcl 0.1 Mg/24 Hr Transderm Sys) 1 patch TD Q7D [facility] Stop: 03/09/22 14:59 Last Admin: 02/14/22 14:47 Dose: 1 patch Diclofenac Sodium (Diclofenac Sod 1% Gel 100 Gm Tube) 2 gm EXT QID PRN; Protocol PRN Reason: joint pain Stop: 03/21/22 04:58 Glipizide (Glipizide 5 Mg Tab) 2.5 mg PO DAILY@0730,1630 [facility] Stop: 03/20/22 16:29 Last Admin: 02/19/22 17:33 Dose: 2.5 mg Glucose (Glucose 40% Gel 15 Gm Tube) 15 - 30 gm PO UD PRN; Protocol PRN Reason: Hypoglycemia Protocol Stop: 03/11/22 02:29 Glucose (Glucose 10 Tabs/Tube) 4 - 8 tab PO UD PRN; Protocol PRN Reason: Hypoglycemia Protocol Stop: 03/11/22 02:29 Guaifenesin (Guaifenesin 600 Mg Tabcr) 600 mg PO Q12 [facility] Stop: 02/26/22 20:59 Last Admin: 02/19/22 07:53 Dose: 600 mg Insulin Aspart (Insulin Aspart Per Unit) 0 units SC BIDM [facility] Stop: 03/20/22 16:59 Last Admin: 02/19/22 17:25 Dose: Not Given Insulin Glargine (Lantus Per Unit Charge) 8 units SC HS [facility] Stop: 03/12/22 20:59 Last Admin: 02/18/22 20:49 Dose: 8 units Lidocaine (Lidocaine 5% 1 Patch) 1 patch TD QAM [facility] Stop: 03/21/22 04:59 Last Admin: 02/19/22 05:26 Dose: 1 patch Lisinopril (Lisinopril 20 Mg Tab) 20 mg PO DAILY [facility] Stop: 03/11/22 08:59 Last Admin: 02/19/22 07:56 Dose: 20 mg Miscellaneous (Carbohydrates For Hypoglycemia ) 15 - 30 gm PO UD PRN PRN Reason: Hypoglycemia Treatment Stop: 03/11/22 02:29 Last Admin: 02/13/22 12:38 Dose: 15 gm Miscellaneous (Remove Lidoderm Patch) 1 ea N/A DAILY@2100 [facility] Stop: 02/19/22 20:59 Last Admin: 02/18/22 20:53 Dose: 1 each Miscellaneous (Remove Clonidine Patch) 1 each N/A CQWK [facility] Stop: 03/09/22 14:59 Last Admin: 02/14/22 14:47 Dose: 1 each Miscellaneous (Check Clonidine Patch Placement) 1 each N/A QS [facility] Stop: 03/09/22 15:59 Last Admin: 02/19/22 16:03 Dose: 1 each Miscellaneous (Remove Lidoderm Patch) 1 each N/A DAILY@2100 [facility] Stop: 03/21/22 20:59 Miscellaneous Information (Pharmacy Glycemic Mgmt Consult) 1 each N/A UD PRN PRN Reason: Consult Stop: 03/10/22 08:41 Mupirocin (Mupirocin 2% Oint 22 Gm Tube) 1 appln TOP TID [facility] Stop: 03/11/22 08:59 Last Admin: 02/19/22 14:33 Dose: 1 appln Olanzapine (Olanzapine 10 Mg/2.1 Ml Sdv) 2.5 mg IM Q8 PRN PRN Reason: Agitation Stop: 03/09/22 14:50 Last Admin: 02/15/22 13:17 Dose: 2.5 mg Pantoprazole Sodium (Pantoprazole 40 Mg Tab) 40 mg PO DAILY [facility] Stop: 03/11/22 08:59 Last Admin: 02/19/22 07:56 Dose: 40 mg Polyethylene Glycol (Polyethylene (Miralax) 17 Gm Pack) 17 gm PO DAILY [facility] Stop: 03/09/22 08:59 Last Admin: 02/19/22 07:57 Dose: 17 gm Quetiapine Fumarate (Quetiapine Fumarate 25 Mg Tablet) 12.5 mg PO BID PRN PRN Reason: Agitation Stop: 03/10/22 20:59 Last Admin: 02/18/22 09:15 Dose: 12.5 mg Quetiapine Fumarate (Quetiapine Fumarate 25 Mg Tablet) 75 mg PO DAILY@1999 [facility] Stop: 03/16/22 19:59 Last Admin: 02/18/22 20:53 Dose: 75 mg
[2022-02-19] MEDS: QUEtiapine FUMARATE 25 MG TABLET PO SCH (18:50)
[2022-02-19] MEDS: LANTUS PER UNIT CHARGE SC SCH (21:35)
[2022-02-20] MEDS ORDERED: traMADol HCL 50 MG TABLET PO STA (01:52)
[2022-02-20] MEDS ORDERED: OLANZapine 10 MG/2.1 ML SDV IM ONE (03:00)
[2022-02-20] MEDS: ACETAMINOPHEN 500 MG TAB PO SCH ×3 (08:22→21:01)
[2022-02-20] MEDS: LIDOCAINE 5% 1 PATCH TD SCH (08:23)
[2022-02-20] MEDS: CHECK CLONIDINE PATCH PLACEMENT SCH ×2 (08:24→15:35)
[2022-02-20] MEDS: QUEtiapine FUMARATE 25 MG TABLET PO PRN ×2 (08:24→13:44)
[2022-02-20] MEDS: INSULIN ASPART PER UNIT SC SCH ×2 (08:24→17:12)
[2022-02-20] MEDS: POLYETHYLENE (MIRALAX) 17 GM PACK PO SCH (08:24)
[2022-02-20] MEDS: lisinopril 20 MG TAB PO SCH (08:25)
[2022-02-20] MEDS: PANTOprazole 40 MG TAB PO SCH (08:25)
[2022-02-20] MEDS: ATENOLOL 25 MG TABLET PO SCH (08:26)
[2022-02-20] MEDS: guaiFENesin 600 MG TABCR PO SCH ×2 (08:26→21:01)
[2022-02-20] MEDS: ATORVASTATIN 40 MG TAB PO SCH (08:26)
[2022-02-20] MEDS: allopurinoL 100 MG TAB PO SCH (08:27)
[2022-02-20] MEDS: MUPIROCIN 2% OINT 22 GM TUBE TOP SCH ×3 (08:28→21:02)
[2022-02-20] MEDS: glipiZIDE 5 MG TAB PO SCH ×2 (08:28→16:59)
--- NOTE | 2022-02-20 08:55 | Pharmacy Report ---
Pharmacy Glycemic Short Note 2 - Date of Service February 20, 2022 - Glycemic Short BSG Results (Last 24 hours): 02/19/22 02/19/22 02/19/22 12:00 17:19 20:56 POC Glucose 159 H 85 142 H 02/20/22 08:17 POC Glucose 87 OUTPATIENT ANTIDIABETIC REGIMEN: * Jardiance 10 mg daily * amaryl 2 mg po daily * HbA1C = 9.9% ASSESSMENT: 02/20/22 * Patient received total of 8 units of insulin yesterday, previously started on glipizide 2.5 mg bidm. BSGs continue to improve more yesterday * Fasting BSG 87 mg/dL - will hold further basal as likely seeing effects of oral agent now. Notified provider that switch to glipizide was made (from home glimepiride) and that likely glipizide and jardiance could be continued on discharge as long as patient is eating/BSGs stable 02/18/22 * Patient's BSGs yesterday were [phone] mg/dL. BSGs today are 261 - 160 mg/dL. * Patient received 30 units of insulin yesterday (8 units of basal and 22 units of bolus). * Patient has been here for an extended period of time and is medically stable. Will transition to a more appropriate regimen for home. * As patient is on Jardiance 25 mg PO daily at home and pharmacy does not stock this medication, continue Lantus 8 units daily. * Amaryl is on the BEERS list so transition to glipizide 2.5 mg PO BIDM. Novolog checks with glipizide + light CF. 02/17/22 * Patient's BSGs yesterday were [phone] mg/dL. Today's fasting is 126 mg/dL. * Patient received 23 units of insulin yesterday (8 units of basal and 15 units of bolus). This is steady over the past 5 days were patient requires roughly 23-24 units of insulin per day. * Continue current regimen. 02/14/22 * Patient's BSGs yesterday were [phone] mg/dL. Patient's BSGs today are 234 and 119 mg/dL. * Patient ate prior to morning BSGs and prior to dinner BSG yesterday. * Unable to evaluate fasting so continue Lantus 8 units for now. * Most likely patient is overcorrecting with current CF. Therefore loosen CF. Continue CR. 02/13: * Mitul received 34 units of insulin yesterday - 8 units Lantus + 26 units novolog * Unable to determine appropriateness of basal insulin dose. Patient ate pudding and PB with crackers prior to "fasting" BSG this morning. * Post prandial BSGs fluctuated yesterday with majority of BSGs above goal. I suspect this is partially due to patient refusing Lantus dose on 02/11. Carb coverage was tightened last evening. Lunchtime BSG today was 68 mg/dL. Uncertain if this is due to aggressive carb coverage or correctional insulin given for previous BSG of 243 mg/dL. Will slightly loosen carb coverage. PLAN FOR INPATIENT GLYCEMIC CONTROL: * glipizide 2.5 mg PO BIDM * Basal insulin * Lantus - hold * Bolus insulin * NovoLog per scale ACHS or Q6hrs while NPO * Goal Range: Low 110 mg/dL - High 140 mg/dL * Correction Factor: 40 mg/dL/unit * Nutritional / Prandial insulin per carb ratio of 1 unit per -- grams CHO consumed
--- NOTE | 2022-02-20 10:24 | Communication Note ---
Date of Service: February 20, 2022 Patient now COVID+ and in isolation. Had a multiple day stretch without any behavioral events requiring emergency medication until last night when he became confused and wanted to leave his room. he received zyprexa 5mg IM and then was able to calmly allow nursing care and return to his bed. Evening behaviors remain consistent with dementia/sundowning. Would not recommend any medication changes at this time but could consider trial of melatonin 3mg qhs if sundowning/wandering at night persists as sometimes this can help. Continue with non-pharmacological efforts at de- escalation/distraction/reassurance.
--- NOTE | 2022-02-20 14:50 | Hospitalist Progress Note ---
Date of Service February 20, 2022 Assessment & Plan (1) Fever: (2) Dementia associated with other underlying disease with behavioral disturbance: Plan Covid 19- Had fever of 38.1 last night and tested positive for COVID 19 02/17. No hypoxia or respiratory issues to warrant treatment. WBC normal, UA unremarkable, blood clx pending. - Symptomatic treatment. No more fever today. -Remains asymptomatic secondary to COVID infection -We will need to finish the quarantine time before transferring to facility if accepted Other medical conditions remained stable as below Remains stable without any symptoms Dementia, Delirium- Appreciate psychiatry input. Zyprexa discontinued and started on Seroquel --> uptitrated to Seroquel 50mg QHS, seroquel 12.5mg BID PRN added (1st option for agitation), available is IM zyprexa (2nd option for agitation) Bilateral lower extremity cellulitis:Wound cx grew staph aureus MSSA Completed a course of antibiotics during his hospital stay and no further evidence of cellulitis. Wound present on admission has healed. Arterial Doppler of right lower extremity showed Moderate atherosclerotic plaque is seen. No elevated velocities are seen, however monophasic flow is seen below the popliteal artery. 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 Continue Lantus and novolog sliding scale. Glycemic pharmacist managing History of atrial fibrillation:Rate controlled; Continueatenolol and Xarelto. History of gout:On allopurinol and chronic low dose prednisone 5mg--> reduced to 2.5mg and plan to wean off completely (to help reduce agitation) Hypertension- Continue lisinopril. Chronic diastolic congestive heart failure-chronic, stable. Continue Torsemide Gastroesophageal reflux disease-chronic, stable. Continue PPI. BPH- Continue Flomax. DVT ppx- Xarelto Code status-Prior hospitalist discussed with his son, Mitul Davila Jr regarding code status 02/07--> code status changed to DNR/DNI Dispo- Needs placement- can discharge to facility that accepts Covid patient. Admission and Anticipated Discharge Date Admission Date: January 09, 2022 Subjective 02/19/2022 The patient was seen and examined in medical floor He is diagnosed to have COVID 19 virus infection on of this month and remains in isolation Denies any symptoms 02/20/2022 The patient was seen and examined in medical floor He denies any symptoms He remains stable Review of Systems Review of Systems: Unobtainable due to cognitive status Physical Exam Physical Exam: Sitting on a chair without any acute distress Constitutional: well developed, well nourished and + obese Eyes: PERRL, conjunctivae normal, anicteric sclerae ENMT: external ear and nose normal, oropharynx normal Neck: trachea midline, no thyromegaly Respiratory: no respiratory distress Auscultation: lungs clear to auscultation bilaterally Cardiovascular: Rate/Rhythm: regular rate and regular rhythm; not tachycardic Heart Sounds: normal S1 and normal S2; no murmur Extremities: no edema Gastrointestinal (Abdomen): Inspection/Auscultation: normal bowel sounds; abd omen not distended Percussion/Palpation: abdomen soft; abdomen nontender Musculoskeletal: No acute arthritis in any joint Neurologic: not confused Lymphatic: no cervical or axillary lymphadenopathy Results & Data Results & Data ([facility]) Vital Signs (Past 12 Hours) Vital Signs Temp Pulse Resp BP Pulse Ox O2 Del Method 02/20/22 08:10 Room Air 02/20/22 08:20 36.6 C 94 H 16 111/79 99 Room Air Medications Administered Current Inpatient Medications Acetaminophen (Acetaminophen 500 Mg Tab) 1,000 mg PO Q8 [facility] Stop: 02/24/22 14:29 Last Admin: 02/20/22 13:44 Dose: 1,000 mg Allopurinol (Allopurinol 100 Mg Tab) 100 mg PO DAILY [facility] Stop: 03/11/22 08:59 Last Admin: 02/20/22 08:27 Dose: 100 mg Atenolol (Atenolol 25 Mg Tablet) 12.5 mg PO DAILY [facility] Stop: 03/11/22 08:59 Last Admin: 02/20/22 08:26 Dose: Not Given Atorvastatin Calcium (Atorvastatin 40 Mg Tab) 40 mg PO DAILY [facility] Stop: 03/11/22 08:59 Last Admin: 02/20/22 08:26 Dose: 40 mg Clonidine HCl (Clonidine Hcl 0.1 Mg/24 Hr Transderm Sys) 1 patch TD Q7D [facility] Stop: 03/09/22 14:59 Last Admin: 02/14/22 14:47 Dose: 1 patch Diclofenac Sodium (Diclofenac Sod 1% Gel 100 Gm Tube) 2 gm EXT QID PRN; Protocol PRN Reason: joint pain Stop: 03/21/22 04:58 Glipizide (Glipizide 5 Mg Tab) 2.5 mg PO DAILY@0730,1630 [facility] Stop: 03/20/22 16:29 Last Admin: 02/20/22 08:28 Dose: 2.5 mg Glucose (Glucose 40% Gel 15 Gm Tube) 15 - 30 gm PO UD PRN; Protocol PRN Reason: Hypoglycemia Protocol Stop: 03/11/22 02:29 Glucose (Glucose 10 Tabs/Tube) 4 - 8 tab PO UD PRN; Protocol PRN Reason: Hypoglycemia Protocol Stop: 03/11/22 02:29 Guaifenesin (Guaifenesin 600 Mg Tabcr) 600 mg PO Q12 [facility] Stop: 02/26/22 20:59 Last Admin: 02/20/22 08:26 Dose: 600 mg Insulin Aspart (Insulin Aspart Per Unit) 0 units SC BIDM [facility] Stop: 03/20/22 16:59 Last Admin: 02/20/22 08:24 Dose: Not Given Lidocaine (Lidocaine 5% 1 Patch) 1 patch TD QAM [facility] Stop: 03/21/22 04:59 Last Admin: 02/20/22 08:23 Dose: 1 patch Lisinopril (Lisinopril 20 Mg Tab) 20 mg PO DAILY [facility] Stop: 03/11/22 08:59 Last Admin: 02/20/22 08:25 Dose: 20 mg Miscellaneous (Carbohydrates For Hypoglycemia ) 15 - 30 gm PO UD PRN PRN Reason: Hypoglycemia Treatment Stop: 03/11/22 02:29 Last Admin: 02/13/22 12:38 Dose: 15 gm Miscellaneous (Remove Clonidine Patch) 1 each N/A CQWK [facility] Stop: 03/09/22 14:59 Last Admin: 02/14/22 14:47 Dose: 1 each Miscellaneous (Check Clonidine Patch Placement) 1 each N/A QS [facility] Stop: 03/09/22 15:59 Last Admin: 02/20/22 08:24 Dose: 1 each Miscellaneous (Remove Lidoderm Patch) 1 each N/A DAILY@2100 [facility] Stop: 03/21/22 20:59 Last Admin: 02/19/22 21:23 Dose: 1 each Miscellaneous Information (Pharmacy Glycemic Mgmt Consult) 1 each N/A UD PRN PRN Reason: Consult Stop: 03/10/22 08:41 Mupirocin (Mupirocin 2% Oint 22 Gm Tube) 1 appln TOP TID [facility] Stop: 03/11/22 08:59 Last Admin: 02/20/22 13:44 Dose: 1 appln Olanzapine (Olanzapine 10 Mg/2.1 Ml Sdv) 2.5 mg IM Q8 PRN PRN Reason: Agitation Stop: 03/09/22 14:50 Last Admin: 02/15/22 13:17 Dose: 2.5 mg Pantoprazole Sodium (Pantoprazole 40 Mg Tab) 40 mg PO DAILY [facility] Stop: 03/11/22 08:59 Last Admin: 02/20/22 08:25 Dose: 40 mg Polyethylene Glycol (Polyethylene (Miralax) 17 Gm Pack) 17 gm PO DAILY [facility] Stop: 03/09/22 08:59 Last Admin: 02/20/22 08:24 Dose: 17 gm Quetiapine Fumarate (Quetiapine Fumarate 25 Mg Tablet) 12.5 mg PO BID PRN PRN Reason: Agitation Stop: 03/10/22 20:59 Last Admin: 02/20/22 13:44 Dose: 12.5 mg Quetiapine Fumarate (Quetiapine Fumarate 25 Mg Tablet) 75 mg PO DAILY@1999 [facility] Stop: 03/16/22 19:59 Last Admin: 02/19/22 18:50 Dose: 75 mg
[2022-02-20] MEDS: QUEtiapine FUMARATE 25 MG TABLET PO SCH (19:02)
[2022-02-21] MEDS: CHECK CLONIDINE PATCH PLACEMENT SCH ×4 (00:13→23:47)
[2022-02-21] MEDS: ACETAMINOPHEN 500 MG TAB PO SCH ×3 (05:43→21:02)
[2022-02-21] MEDS: QUEtiapine FUMARATE 25 MG TABLET PO PRN ×2 (05:44→13:33)
[2022-02-21] MEDS: glipiZIDE 5 MG TAB PO SCH ×2 (08:21→15:21)
[2022-02-21] MEDS: INSULIN ASPART PER UNIT SC SCH ×2 (08:22→18:21)
[2022-02-21] MEDS: allopurinoL 100 MG TAB PO SCH (08:23)
[2022-02-21] MEDS: ATORVASTATIN 40 MG TAB PO SCH (08:24)
[2022-02-21] MEDS: lisinopril 20 MG TAB PO SCH (08:24)
[2022-02-21] MEDS: ATENOLOL 25 MG TABLET PO SCH (08:24)
[2022-02-21] MEDS: LIDOCAINE 5% 1 PATCH TD SCH (08:24)
[2022-02-21] MEDS: MUPIROCIN 2% OINT 22 GM TUBE TOP SCH ×3 (08:24→20:18)
[2022-02-21] MEDS: guaiFENesin 600 MG TABCR PO SCH ×2 (08:24→20:17)
[2022-02-21] MEDS: POLYETHYLENE (MIRALAX) 17 GM PACK PO SCH (08:25)
[2022-02-21] MEDS: PANTOprazole 40 MG TAB PO SCH (08:25)
[2022-02-21] MEDS: cloNIDine HCL 0.1 MG/24 HR TRANSDERM SYS TD SCH (15:19)
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
[2022-02-21] MEDS: QUEtiapine FUMARATE 25 MG TABLET PO SCH (19:12)
[2022-02-22] MEDS: QUEtiapine FUMARATE 25 MG TABLET PO PRN ×2 (07:26→13:13)
[2022-02-22] MEDS: ACETAMINOPHEN 500 MG TAB PO SCH ×3 (07:26→21:15)
[2022-02-22] MEDS: glipiZIDE 5 MG TAB PO SCH ×2 (07:27→17:39)
[2022-02-22] MEDS: CHECK CLONIDINE PATCH PLACEMENT SCH ×3 (07:29→23:30)
[2022-02-22] MEDS: PANTOprazole 40 MG TAB PO SCH (08:08)
[2022-02-22] MEDS: lisinopril 20 MG TAB PO SCH (08:09)
[2022-02-22] MEDS: guaiFENesin 600 MG TABCR PO SCH ×2 (08:09→21:15)
[2022-02-22] MEDS: ATENOLOL 25 MG TABLET PO SCH (08:10)
[2022-02-22] MEDS: ATORVASTATIN 40 MG TAB PO SCH (08:10)
[2022-02-22] MEDS: allopurinoL 100 MG TAB PO SCH (08:11)
[2022-02-22] MEDS: LIDOCAINE 5% 1 PATCH TD SCH (08:11)
[2022-02-22] MEDS: MUPIROCIN 2% OINT 22 GM TUBE TOP SCH ×3 (08:12→21:16)
[2022-02-22] MEDS: POLYETHYLENE (MIRALAX) 17 GM PACK PO SCH (08:12)
[2022-02-22] MEDS: INSULIN ASPART PER UNIT SC SCH ×2 (09:06→17:39)
--- NOTE | 2022-02-22 11:15 | Hospitalist Progress Note ---
Date of Service February 22, 2022 Assessment & Plan (1) Fever: (2) Dementia associated with other underlying disease with behavioral disturbance: Plan Covid 19- Tested positive for COVID 19 02/17 with fever. Fever since resolved. Asymptomatic from covid. Not on any treatment - He will need to complete isolation before transferring to facility if accepted Dementia, Delirium- Appreciate psychiatry input. Zyprexa discontinued and started on Seroquel --> uptitrated to Seroquel 75 mg QHS, seroquel 12.5mg BID PRN added (1st option for agitation), available is IM zyprexa (2nd option for agitation) No acute delirium during examination Bilateral lower extremity cellulitis:Wound cx grew staph aureus MSSA Completed a course of antibiotics during his hospital stay and no further evidence of cellulitis. Wound present on admission has healed. Arterial Doppler of right lower extremity showed Moderate atherosclerotic plaque is seen. No elevated velocities are seen, however monophasic flow is seen below the popliteal artery. 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 On glipizide bid and SSI prn. Glycemic pharmacist managing History of atrial fibrillation:Rate controlled; Continueatenolol and Xarelto. History of gout:On allopurinol and chronic low dose prednisone 5mg--> reduced to 2.5mg and now completely off (to reduce agitation) Hypertension- Continue lisinopril, clonidine patch Chronic diastolic congestive heart failure-chronic, stable. Continue Torsemide Gastroesophageal reflux disease-chronic, stable. Continue protonix DVT ppx- Xarelto Code status-Prior hospitalist discussed with his son, Mitul Davila Jr regarding code status 02/07--> code status changed to DNR/DNI Dispo- Needs placement- can discharge to facility that accepts Covid patient otherwise will need to complete isolation 02/27 prior to transfer. Reviewed his meds list. Some medications dropped off. Discussed with pharmacy and will be resumed. Admission and Anticipated Discharge Date Admission Date: January 09, 2022 Subjective Sitting in chair, coloring. Hopes he will get released in 2 days. No N/V/chest pain, shortness of breath, fever. Physical Exam Physical Exam: General: Sitting comfortably in bed, not in distress, on room air HEENT: EOMI, DANNA, MMM Chest: Clear breath sounds bilaterally, no wheezes or crackles CVS: Regular rate and rhythm, normal heart sounds, no murmur Abdomen: Soft, non tender, not distended, normal bowel sounds Neuro: Awake, alert, conversing ok Extremities: No edema
[2022-02-22] MEDS: RIVAROXABAN 15 MG TAB PO SCH ×4 (13:42→21:15)
[2022-02-22] MEDS: TAMSULOSIN HCL 0.4 MG CAP PO SCH ×4 (13:42→21:15)
[2022-02-22] MEDS: QUEtiapine FUMARATE 25 MG TABLET PO SCH (21:14)
[2022-02-23] MEDS: PANTOprazole 40 MG TAB PO SCH (09:11)
[2022-02-23] MEDS: ATENOLOL 25 MG TABLET PO SCH (09:11)
[2022-02-23] MEDS: allopurinoL 100 MG TAB PO SCH (09:12)
[2022-02-23] MEDS: lisinopril 20 MG TAB PO SCH (09:12)
[2022-02-23] MEDS: ATORVASTATIN 40 MG TAB PO SCH (09:12)
[2022-02-23] MEDS: CHECK CLONIDINE PATCH PLACEMENT SCH ×3 (09:13→23:51)
[2022-02-23] MEDS: INSULIN ASPART PER UNIT SC SCH ×2 (09:13→17:18)
[2022-02-23] MEDS: LIDOCAINE 5% 1 PATCH TD SCH (09:13)
[2022-02-23] MEDS: MUPIROCIN 2% OINT 22 GM TUBE TOP SCH ×3 (09:14→21:51)
[2022-02-23] MEDS: POLYETHYLENE (MIRALAX) 17 GM PACK PO SCH (09:14)
[2022-02-23] MEDS: glipiZIDE 5 MG TAB PO SCH ×2 (09:23→15:09)
[2022-02-23] MEDS: TORSEMIDE 10 MG TAB PO SCH (09:24)
[2022-02-23] MEDS: guaiFENesin 600 MG TABCR PO SCH ×2 (09:24→21:50)
[2022-02-23] MEDS: ACETAMINOPHEN 500 MG TAB PO SCH ×3 (09:25→21:49)
[2022-02-23] MEDS: QUEtiapine FUMARATE 25 MG TABLET PO PRN (09:25)
--- NOTE | 2022-02-23 09:34 | Pharmacy Report ---
Pharmacy Glycemic Sign Off Nt - Date of Service February 23, 2022 - Assessment & Plan ASSESSMENT: * Pharmacy was consulted by Dr Mandel on 02/08/22 for glycemic control and to write orders per [facility] inpatient glycemic control protocol. * Major changes made by pharmacy to antidiabetic regimen include: * Addition of glipizide 2.5 mg PO BIDM * Novolog adjustments * Patient has been receiving/requiring 1 unit of insulin per day for adequate glycemic control * BSGs ranging 116-146 mg/dl * Regimen has not required any adjustments over the past 48hrs to achieve this level of control * Do not anticipate further changes in patient status that would quickly deteriorate glycemic control (i.e. patient to be NPO for upcoming procedure, steroids tapering, starting tube feedings, etc). * Please see recommendations for outpatient antidiabetic regimen below. PLAN FOR INPATIENT GLYCEMIC CONTROL: No changes needed to current regimen. * Continue glipizide 2.5 mg PO BIDM * Continue NovoLog per scale ACHS/Q6hrs while NPO * Goal range = 110 -140 mg/dl * CF = 40 mg/dl/unit at breakfast and dinner only * No carb coverage * Pharmacy is signing off of glycemic consult and will no longer be making adjustments to inpatient regimen. Please feel free to re-consult if needed. Thank you.
--- NOTE | 2022-02-23 13:13 | Hospitalist Progress Note ---
Date of Service February 23, 2022 Assessment & Plan (1) Fever: (2) Dementia associated with other underlying disease with behavioral disturbance: Plan Covid 19- Tested positive for COVID 19 02/17 with fever. Fever since resolved. Asymptomatic from covid. Not on any treatment - He will need to complete isolation before transferring to facility if accepted Dementia, Delirium- Appreciate psychiatry input. Zyprexa discontinued and started on Seroquel --> uptitrated to Seroquel 75 mg QHS, seroquel 12.5mg BID PRN added (1st option for agitation), available is IM zyprexa (2nd option for agitation) No acute delirium during examination Bilateral lower extremity cellulitis:Wound cx grew staph aureus MSSA Completed a course of antibiotics during his hospital stay and no further evidence of cellulitis. Wound present on admission has healed. Arterial Doppler of right lower extremity showed Moderate atherosclerotic plaque is seen. No elevated velocities are seen, however monophasic flow is seen below the popliteal artery. 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 On glipizide bid and SSI prn. Glycemic pharmacist managing History of atrial fibrillation:Rate controlled; Continueatenolol and Xarelto. History of gout:On allopurinol and chronic low dose prednisone 5mg--> reduced to 2.5mg and now completely off (to reduce agitation) Hypertension- Continue lisinopril, clonidine patch Chronic diastolic congestive heart failure-chronic, stable. Continue Torsemide Gastroesophageal reflux disease-chronic, stable. Continue protonix DVT ppx- Xarelto Code status-Prior hospitalist discussed with his son, Mitul Davila Jr regarding code status 02/07--> code status changed to DNR/DNI Dispo- Needs placement- can discharge to facility that accepts Covid patient otherwise will need to complete isolation 02/27 prior to transfer. Admission and Anticipated Discharge Date Admission Date: January 09, 2022 Subjective No new issues. No fever, chills, nausea, vomiting. Physical Exam Physical Exam: General:Lying comfortably in bed, not in distress, on room air HEENT: EOMI, DANNA, MMM Chest: Clear breath sounds bilaterally, no wheezes or crackles CVS: Regular rate and rhythm, normal heart sounds, no murmur Abdomen: Soft, non tender, not distended, normal bowel sounds Neuro: Awake, alert, conversing ok Extremities: No edema Results & Data Results & Data ([facility]) Vital Signs (Past 12 Hours) Vital Signs Temp Pulse Resp BP Pulse Ox O2 Del Method 02/23/22 09:00 Room Air 02/23/22 08:12 36.7 C 87 20 125/87 95 Room Air
[2022-02-23] MEDS: RIVAROXABAN 15 MG TAB PO SCH (15:09)
--- NOTE | 2022-02-23 15:13 | Communication Note ---
Date of Service: February 23, 2022 Interim progress reviewed. Patient has been more cooperative last 24+ hrs. despite COVID isolation. No additional recs at this time, awaiting placement.
[2022-02-23] MEDS: QUEtiapine FUMARATE 25 MG TABLET PO SCH (21:49)
[2022-02-23] MEDS: TAMSULOSIN HCL 0.4 MG CAP PO SCH (21:50)
[2022-02-24] MEDS: TORSEMIDE 10 MG TAB PO SCH (08:00)
[2022-02-24] MEDS: ATORVASTATIN 40 MG TAB PO SCH (08:00)
[2022-02-24] MEDS: glipiZIDE 5 MG TAB PO SCH ×2 (08:00→17:14)
[2022-02-24] MEDS: allopurinoL 100 MG TAB PO SCH (08:00)
[2022-02-24] MEDS: INSULIN ASPART PER UNIT SC SCH ×2 (08:01→17:08)
[2022-02-24] MEDS: guaiFENesin 600 MG TABCR PO SCH ×2 (08:01→19:50)
[2022-02-24] MEDS: ATENOLOL 25 MG TABLET PO SCH (08:01)
[2022-02-24] MEDS: PANTOprazole 40 MG TAB PO SCH (08:01)
[2022-02-24] MEDS: lisinopril 20 MG TAB PO SCH (08:02)
[2022-02-24] MEDS: CHECK CLONIDINE PATCH PLACEMENT SCH ×3 (08:02→22:44)
[2022-02-24] MEDS: MUPIROCIN 2% OINT 22 GM TUBE TOP SCH ×3 (08:03→19:49)
[2022-02-24] MEDS: POLYETHYLENE (MIRALAX) 17 GM PACK PO SCH (08:03)
[2022-02-24] MEDS: LIDOCAINE 5% 1 PATCH TD SCH (08:03)
[2022-02-24] MEDS: ACETAMINOPHEN 500 MG TAB PO SCH ×2 (08:04→14:47)
--- NOTE | 2022-02-24 10:32 | Hospitalist Progress Note ---
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 Fever since resolved. Asymptomatic from covid. Not on any treatment - He will need to complete isolation before transferring to facility if accepted Dementia, Delirium- Appreciate psychiatry input. Zyprexa discontinued and started on Seroquel --> uptitrated to Seroquel 75 mg QHS, seroquel 12.5mg BID PRN added (1st option for agitation), available is IM zyprexa (2nd option for agitation) No acute delirium during examination Bilateral lower extremity cellulitis:Wound cx grew staph aureus MSSA Completed a course of antibiotics during his hospital stay and no further evidence of cellulitis. Wound present on admission has healed. Arterial Doppler of right lower extremity showed Moderate atherosclerotic plaque is seen. No elevated velocities are seen, however monophasic flow is seen below the popliteal artery. 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 On glipizide bid and SSI prn. Glycemic pharmacist managing History of atrial fibrillation:Rate controlled; Continueatenolol and Xarelto. History of gout:On allopurinol and chronic low dose prednisone 5mg--> reduced to 2.5mg and now completely off (to reduce agitation) Hypertension- Continue lisinopril, clonidine patch Chronic diastolic congestive heart failure-chronic, stable. Continue Torsemide Gastroesophageal reflux disease-chronic, stable. Continue protonix DVT ppx- Xarelto Code status-Prior hospitalist discussed with his son, Mitul Davila Jr regarding code status 02/07--> code status changed to DNR/DNI Dispo- Needs placement- can discharge to facility that accepts Covid patient otherwise will need to complete isolation 02/27 prior to transfer. Admission and Anticipated Discharge Date Admission Date: January 09, 2022 Subjective Feels okay. asks when will he be allowed to walk outside. No fever, N/V, SOB. Physical Exam Physical Exam: General:Sitting in chair, not in distress, on room air HEENT: EOMI, DANNA, MMM Chest: Clear breath sounds bilaterally, no wheezes or crackles CVS: Regular rate and rhythm, normal heart sounds, no murmur Abdomen: Soft, non tender, not distended, normal bowel sounds Neuro: Awake, alert, conversing well, moving extremities independently Extremities: trace edema Results & Data Results & Data ([facility]) Vital Signs (Past 12 Hours) Vital Signs Temp Pulse Resp BP Pulse Ox O2 Del Method 02/24/22 09:48 36.5 C 92 H 16 104/68 97 Room Air 02/24/22 08:00 Room Air Medications Administered Current Inpatient Medications Acetaminophen (Acetaminophen 500 Mg Tab) 1,000 mg PO Q8 ANASTASIA Stop: 02/24/22 14:29 Last Admin: 02/24/22 08:04 Dose: 1,000 mg Allopurinol (Allopurinol 100 Mg Tab) 100 mg PO DAILY ANASTASIA Stop: 03/11/22 08:59 Last Admin: 02/24/22 08:00 Dose: 100 mg Atenolol (Atenolol 25 Mg Tablet) 12.5 mg PO DAILY ANASTASIA Stop: 03/11/22 08:59 Last Admin: 02/24/22 08:01 Dose: 12.5 mg Atorvastatin Calcium (Atorvastatin 40 Mg Tab) 40 mg PO DAILY ANASTASIA Stop: 03/11/22 08:59 Last Admin: 02/24/22 08:00 Dose: 40 mg Clonidine HCl (Clonidine Hcl 0.1 Mg/24 Hr Transderm Sys) 1 patch TD Q7D ANASTASIA Stop: 03/09/22 14:59 Last Admin: 02/21/22 15:19 Dose: 1 patch Diclofenac Sodium (Diclofenac Sod 1% Gel 100 Gm Tube) 2 gm EXT QID PRN; Protocol PRN Reason: joint pain Stop: 03/24/22 04:31 Last Admin: 02/17/22 20:04 Dose: 2 gm Glipizide (Glipizide 5 Mg Tab) 2.5 mg PO DAILY@0730,1630 ANASTASIA Stop: 03/20/22 16:29 Last Admin: 02/24/22 08:00 Dose: 2.5 mg Glucose (Glucose 40% Gel 15 Gm Tube) 15 - 30 gm PO UD PRN; Protocol PRN Reason: Hypoglycemia Protocol Stop: 03/11/22 02:29 Glucose (Glucose 10 Tabs/Tube) 4 - 8 tab PO UD PRN; Protocol PRN Reason: Hypoglycemia Protocol Stop: 03/11/22 02:29 Guaifenesin (Guaifenesin 600 Mg Tabcr) 600 mg PO Q12 ANASTASIA Stop: 02/26/22 20:59 Last Admin: 02/24/22 08:01 Dose: 600 mg Insulin Aspart (Insulin Aspart Per Unit) 0 units SC BIDM ANASTASIA Stop: 03/20/22 16:59 Last Admin: 02/24/22 08:01 Dose: Not Given Lidocaine (Lidocaine 5% 1 Patch) 1 patch TD QAM ANASTASIA Stop: 03/21/22 04:59 Last Admin: 02/24/22 08:03 Dose: 1 patch Lisinopril (Lisinopril 20 Mg Tab) 20 mg PO DAILY ANASTASIA Stop: 03/11/22 08:59 Last Admin: 02/24/22 08:02 Dose: 20 mg Miscellaneous (Carbohydrates For Hypoglycemia ) 15 - 30 gm PO UD PRN PRN Reason: Hypoglycemia Treatment Stop: 03/11/22 02:29 Last Admin: 02/13/22 12:38 Dose: 15 gm Miscellaneous (Remove Clonidine Patch) 1 each N/A CQWK [facility] Stop: 03/09/22 14:59 Last Admin: 02/21/22 15:18 Dose: 1 each Miscellaneous (Check Clonidine Patch Placement) 1 each N/A QS [facility] Stop: 03/09/22 15:59 Last Admin: 02/24/22 08:02 Dose: 1 each Miscellaneous (Remove Lidoderm Patch) 1 each N/A DAILY@2100 [facility] Stop: 03/21/22 20:59 Last Admin: 02/23/22 21:51 Dose: 1 each Mupirocin (Mupirocin 2% Oint 22 Gm Tube) 1 appln TOP TID ANASTASIA Stop: 03/11/22 08:59 Last Admin: 02/24/22 08:03 Dose: 1 appln Olanzapine (Olanzapine 10 Mg/2.1 Ml Sdv) 2.5 mg IM Q8 PRN PRN Reason: Agitation Stop: 03/09/22 14:50 Last Admin: 02/15/22 13:17 Dose: 2.5 mg Pantoprazole Sodium (Pantoprazole 40 Mg Tab) 40 mg PO DAILY ANASTASIA Stop: 03/11/22 08:59 Last Admin: 02/24/22 08:01 Dose: 40 mg Polyethylene Glycol (Polyethylene (Miralax) 17 Gm Pack) 17 gm PO DAILY [facility] Stop: 03/09/22 08:59 Last Admin: 02/24/22 08:03 Dose: 17 gm Quetiapine Fumarate (Quetiapine Fumarate 25 Mg Tablet) 12.5 mg PO BID PRN PRN Reason: Agitation Stop: 03/10/22 20:59 Last Admin: 02/23/22 09:25 Dose: 12.5 mg Quetiapine Fumarate (Quetiapine Fumarate 25 Mg Tablet) 75 mg PO DAILY@1999 [facility] Stop: 03/16/22 19:59 Last Admin: 02/23/22 21:49 Dose: 75 mg Rivaroxaban (Rivaroxaban 15 Mg Tab) 15 mg PO QDD [facility] Stop: 03/24/22 16:29 Last Admin: 02/23/22 15:09 Dose: 15 mg Tamsulosin HCl (Tamsulosin Hcl 0.4 Mg Cap) 0.4 mg PO HS [facility] Stop: 03/26/22 20:59 Torsemide (Torsemide 10 Mg Tab) 10 mg PO DAILY [facility] Stop: 03/24/22 08:59 Last Admin: 02/24/22 08:00 Dose: 10 mg
[2022-02-24] MEDS: RIVAROXABAN 15 MG TAB PO SCH (17:13)
[2022-02-24] MEDS: QUEtiapine FUMARATE 25 MG TABLET PO SCH (19:49)
[2022-02-24] MEDS: TAMSULOSIN HCL 0.4 MG CAP PO SCH (19:50)
[2022-02-25 06:37] LABS: Creatinine Clr Calc Pharmacy 50.2 ml/min; Est GFR (African American) 61.9 ml/min; Est GFR (Non-African American) 53.4 ml/min
[2022-02-25] MEDS: guaiFENesin 600 MG TABCR PO SCH ×2 (07:57→21:11)
[2022-02-25] MEDS: ATENOLOL 25 MG TABLET PO SCH (07:57)
[2022-02-25] MEDS: allopurinoL 100 MG TAB PO SCH (07:57)
[2022-02-25] MEDS: glipiZIDE 5 MG TAB PO SCH ×2 (07:58→18:15)
[2022-02-25] MEDS: ATORVASTATIN 40 MG TAB PO SCH (07:58)
[2022-02-25] MEDS: lisinopril 20 MG TAB PO SCH (07:58)
[2022-02-25] MEDS: CHECK CLONIDINE PATCH PLACEMENT SCH ×3 (07:58→23:37)
[2022-02-25] MEDS: PANTOprazole 40 MG TAB PO SCH (07:59)
[2022-02-25] MEDS: LIDOCAINE 5% 1 PATCH TD SCH (07:59)
[2022-02-25] MEDS: TORSEMIDE 10 MG TAB PO SCH (07:59)
[2022-02-25] MEDS: MUPIROCIN 2% OINT 22 GM TUBE TOP SCH ×3 (07:59→20:45)
[2022-02-25] MEDS: POLYETHYLENE (MIRALAX) 17 GM PACK PO SCH (08:00)
[2022-02-25] MEDS: INSULIN ASPART PER UNIT SC SCH ×2 (08:33→18:15)
--- NOTE | 2022-02-25 16:06 | Hospitalist Progress Note ---
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 Fever since resolved. Asymptomatic from covid. Not on any treatment - He will need to complete isolation before transferring to facility if accepted Dementia, Delirium- Appreciate psychiatry input. Zyprexa discontinued and started on Seroquel --> uptitrated to Seroquel 75 mg QHS, seroquel 12.5mg BID PRN added (1st option for agitation), available is IM zyprexa (2nd option for agitation) No acute delirium during examination Bilateral lower extremity cellulitis:Wound cx grew staph aureus MSSA Completed a course of antibiotics during his hospital stay and no further evidence of cellulitis. Wound present on admission has healed. Arterial Doppler of right lower extremity showed Moderate atherosclerotic plaque is seen. No elevated velocities are seen, however monophasic flow is seen below the popliteal artery. 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 On glipizide bid and SSI prn. Glycemic pharmacist managing History of atrial fibrillation:Rate controlled; Continueatenolol and Xarelto. History of gout:On allopurinol and chronic low dose prednisone 5mg--> reduced to 2.5mg and now completely off (to reduce agitation) Hypertension- Continue lisinopril, clonidine patch Chronic diastolic congestive heart failure-chronic, stable. Continue Torsemide Gastroesophageal reflux disease-chronic, stable. Continue protonix DVT ppx- Xarelto Code status-Prior hospitalist discussed with his son, Mitul Davila Jr regarding code status 02/07--> code status changed to DNR/DNI Dispo- Needs placement- can discharge to facility that accepts Covid patient otherwise will need to complete isolation 02/27 prior to transfer. Admission and Anticipated Discharge Date Admission Date: January 09, 2022 Subjective No new issue. Feels fine. No chest pain, shortness of breath, fever, chills. Physical Exam Physical Exam: General:Sitting in chair, not in distress, on room air HEENT: EOMI, DANNA, MMM Chest: Clear breath sounds bilaterally, no wheezes or crackles CVS: Regular rate and rhythm, normal heart sounds, no murmur Abdomen: Soft, non tender, not distended, normal bowel sounds Neuro: Awake, alert, conversing well, moving extremities independently Extremities: trace edema Results & Data Results & Data ([facility]) Vital Signs (Past 12 Hours) Vital Signs Temp Pulse Resp BP Pulse Ox O2 Del Method 02/25/22 08:00 Room Air 02/25/22 08:06 36.6 C 82 18 123/77 97 Room Air
[2022-02-25] MEDS: RIVAROXABAN 15 MG TAB PO SCH (18:15)
[2022-02-25] MEDS: TAMSULOSIN HCL 0.4 MG CAP PO SCH (20:43)
[2022-02-25] MEDS: QUEtiapine FUMARATE 25 MG TABLET PO SCH (20:43)
[2022-02-26] MEDS: glipiZIDE 5 MG TAB PO SCH ×2 (09:10→15:28)
[2022-02-26] MEDS: ATENOLOL 25 MG TABLET PO SCH (09:11)
[2022-02-26] MEDS: ATORVASTATIN 40 MG TAB PO SCH (09:12)
[2022-02-26] MEDS: lisinopril 20 MG TAB PO SCH (09:12)
[2022-02-26] MEDS: PANTOprazole 40 MG TAB PO SCH (09:13)
[2022-02-26] MEDS: MUPIROCIN 2% OINT 22 GM TUBE TOP SCH ×3 (09:13→19:50)
[2022-02-26] MEDS: allopurinoL 100 MG TAB PO SCH (09:13)
[2022-02-26] MEDS: guaiFENesin 600 MG TABCR PO SCH (09:14)
[2022-02-26] MEDS: LIDOCAINE 5% 1 PATCH TD SCH (09:15)
[2022-02-26 09:25] LABS: Hematocrit (blood only) 42.6 % (40.1-51.0); Hemoglobin 14.3 g/dl (14.0-18.0); Mean Corpuscular Hemoglobin 28.5 pg (25.0-34.0); Mean Corpuscular Hgb Conc 33.6 g/dL (32.0-36.0); Mean Platelet Volume 9.9 fL (9.4-12.4); Platelet Count 212 K/uL (130-400); RDW Coefficient of Variation 13.6 % (11.5-14.5); Red Blood Count 5.01 M/uL (4.63-6.08); White Blood Count 6.09 K/ul (4.8-10.8)
[2022-02-26] MEDS: CHECK CLONIDINE PATCH PLACEMENT SCH ×2 (09:29→15:28)
[2022-02-26 09:50] LABS: BUN Creatinine Ratio 16.5 (10-20); Calcium 9.1 mg/dl (8.5-10.1); Creatinine Clr Calc Pharmacy 46.8 ml/min; Est GFR (African American) 56.9 ml/min; Est GFR (Non-African American) 49.1 ml/min; Magnesium 1.8 mg/dl (1.7-2.4); Potassium 4.5 mmol/L (3.5-5.1)
[2022-02-26] MEDS: INSULIN ASPART PER UNIT SC SCH ×2 (10:09→17:29)
[2022-02-26] MEDS: POLYETHYLENE (MIRALAX) 17 GM PACK PO SCH (10:10)
[2022-02-26] MEDS ORDERED: ACETAMINOPHEN 325 MG TAB PO PRN (14:47)
--- NOTE | 2022-02-26 14:50 | Hospitalist Progress Note ---
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 Fever since resolved. Asymptomatic from covid. Not on any treatment On isolation Dementia, Delirium Appreciate psychiatry input. Was started on Seroquel --> uptitrated to Seroquel 75 mg QHS, seroquel 12.5mg BID PRN added (1st option for agitation), available is IM zyprexa prn (2nd option for agitation) Bilateral lower extremity cellulitis:Wound cx grew staph aureus MSSA Completed a course of antibiotics during hospital stay and no further evidence of cellulitis. Wound present on admission has healed. Arterial Doppler of right lower extremity showed Moderate atherosclerotic plaque is seen. No elevated velocities are seen, however monophasic flow is seen below the popliteal artery. Dysphagia Evaluated by speech consult Moist easy to chew diet, assistance with tray set up as needed Aspiration precaution and no additional speech therapy indicated at this time Lower back pain Tylenol prn Severe OA seen on L spine xray Diabetes type 2 Recent hab1c 9.9. On glipizide bid and SSI prn. Glycemic pharmacist managing History of atrial fibrillation: Rate controlled; Continueatenolol and Xarelto. History of gout: On allopurinol and chronic low dose prednisone 5mg--> reduced to 2.5mg and now completely off (to reduce agitation) Hypertension- Continue lisinopril, clonidine patch Chronic diastolic congestive heart failure- chronic, stable. Continue Torsemide Gastroesophageal reflux disease- chronic, stable. Continue protonix DVT ppx- Xarelto Code status-Prior hospitalist discussed with his son, Mitul Davila Jr regarding code status 02/07--> code status changed to DNR/DNI Dispo- CM working on placement Admission and Anticipated Discharge Date Admission Date: January 09, 2022 Subjective Patient seen and examined. No new events per marble setter of Systems Review of Systems: Unobtainable due to cognitive status Physical Exam Constitutional: + well hydrated; no acute distress Eyes: PERRL, conjunctivae normal, anicteric sclerae ENMT: external ear and nose normal, oropharynx normal Respiratory: normal respiratory effort, lungs clear to auscultation Gastrointestinal (Abdomen): normal bowel sounds, soft, nontender, no hepatosplenomegaly Musculoskeletal: No pedal edema Neurologic: PERRL, EOMI, accommodation nl, no face palsy, no dysarthria Alert, not oriented to person, place or time Results & Data Results & Data ([facility]) Vital Signs (Past 12 Hours) Vital Signs Pulse Resp BP Pulse Ox 02/26/22 08:23 106 H 16 107/73 97 Laboratory Results Abnormal lab results 02/25/22 02/26/22 02/26/22 Range/Units 20:41 08:10 09:08 Glucose (70-99(Fasting)) mg/dl POC Glucose 186 H 162 H 168 H (70-99) mg/dl 02/26/22 02/26/22 Range/Units 09:13 12:19 Glucose 178 H (70-99(Fasting)) mg/dl POC Glucose 197 H (70-99) mg/dl
[2022-02-26] MEDS: RIVAROXABAN 15 MG TAB PO SCH (15:28)
[2022-02-26] MEDS: QUEtiapine FUMARATE 25 MG TABLET PO SCH (19:49)
[2022-02-26] MEDS: TAMSULOSIN HCL 0.4 MG CAP PO SCH (19:49)
[2022-02-27] MEDS: CHECK CLONIDINE PATCH PLACEMENT SCH ×3 (00:22→15:31)
[2022-02-27] MEDS: glipiZIDE 5 MG TAB PO SCH ×2 (09:19→15:30)
[2022-02-27] MEDS: LIDOCAINE 5% 1 PATCH TD SCH (09:19)
[2022-02-27] MEDS: ATENOLOL 25 MG TABLET PO SCH (09:20)
[2022-02-27] MEDS: lisinopril 20 MG TAB PO SCH (09:20)
[2022-02-27] MEDS: ATORVASTATIN 40 MG TAB PO SCH (09:20)
[2022-02-27] MEDS: MUPIROCIN 2% OINT 22 GM TUBE TOP SCH ×3 (09:22→20:35)
[2022-02-27] MEDS: allopurinoL 100 MG TAB PO SCH (09:22)
[2022-02-27] MEDS: PANTOprazole 40 MG TAB PO SCH (09:22)
[2022-02-27] MEDS: DICLOFENAC SOD 1% GEL 100 GM TUBE EXT PRN ×2 (09:23→13:11)
[2022-02-27] MEDS: INSULIN ASPART PER UNIT SC SCH ×2 (09:35→16:52)
[2022-02-27] MEDS: POLYETHYLENE (MIRALAX) 17 GM PACK PO SCH (09:54)
--- NOTE | 2022-02-27 14:24 | Hospitalist Progress Note ---
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 Fever since resolved. Asymptomatic from covid. Not on any treatment Will follow up with infection control tomorrow about discontinuing isolation Dementia, Delirium Appreciate psychiatry input. Was started on Seroquel --> uptitrated to Seroquel 75 mg QHS, seroquel 12.5mg BID PRN added (1st option for agitation), available is IM zyprexa prn (2nd option for agitation) Bilateral lower extremity cellulitis:Wound cx grew staph aureus MSSA Completed a course of antibiotics during hospital stay and no further evidence of cellulitis. Wound present on admission has healed. Arterial Doppler of right lower extremity showed Moderate atherosclerotic plaque is seen. No elevated velocities are seen, however monophasic flow is seen below the popliteal artery. Dysphagia Evaluated by speech consult Moist easy to chew diet, assistance with tray set up as needed Aspiration precaution and no additional speech therapy indicated at this time Lower back pain Tylenol prn Severe OA seen on L spine xray Diabetes type 2 Recent hab1c 9.9. On glipizide bid and SSI prn. Glycemic pharmacist managing History of atrial fibrillation: Rate controlled; Continueatenolol and Xarelto. History of gout: On allopurinol and chronic low dose prednisone 5mg--> reduced to 2.5mg and now completely off (to reduce agitation) Hypertension- Continue lisinopril, clonidine patch Chronic diastolic congestive heart failure- chronic, stable. Continue Torsemide Gastroesophageal reflux disease- chronic, stable. Continue protonix DVT ppx- Xarelto Code status-Prior hospitalist discussed with his son, Mitul Davila Jr regarding code status 02/07--> code status changed to DNR/DNI Dispo- CM working on placement Admission and Anticipated Discharge Date Admission Date: January 09, 2022 Subjective Patient seen and examined. He is alert and oriented to person only Occasionally answers question but usually starts talking about different things Occasionally follows simple commands Review of Systems Review of Systems: Unobtainable due to cognitive status Physical Exam Constitutional: + well hydrated; no acute distress Eyes: PERRL, conjunctivae normal, anicteric sclerae ENMT: external ear and nose normal, oropharynx normal Respiratory: normal respiratory effort, lungs clear to auscultation Cardiovascular: Rate/Rhythm: + irregularly irregular S1 S2 Gastrointestinal (Abdomen): normal bowel sounds, soft, nontender, no hepatosplenomegaly Musculoskeletal: +pedal edema Neurologic: PERRL, EOMI, accommodation nl, no face palsy, no dysarthria Limited exam. occasionally follows commands Results & Data Results & Data ([facility]) Vital Signs (Past 12 Hours) Vital Signs Temp Pulse Resp BP Pulse Ox O2 Del Method 02/27/22 08:06 36.5 C 97 H 19 117/81 98 Room Air Laboratory Results Abnormal lab results 02/26/22 02/27/22 02/27/22 Range/Units 17:28 08:17 11:40 POC Glucose 120 H 144 H 231 H (70-99) mg/dl
[2022-02-27] MEDS: RIVAROXABAN 15 MG TAB PO SCH (15:30)
[2022-02-27] MEDS: TAMSULOSIN HCL 0.4 MG CAP PO SCH (20:35)
[2022-02-27] MEDS: QUEtiapine FUMARATE 25 MG TABLET PO SCH (20:35)
[2022-02-28] MEDS: CHECK CLONIDINE PATCH PLACEMENT SCH ×2 (00:36→09:02)
[2022-02-28 07:18] LABS: Creatinine Clr Calc Pharmacy 47.2 ml/min; Est GFR (African American) 57.4 ml/min; Est GFR (Non-African American) 49.5 ml/min
[2022-02-28] MEDS: ATORVASTATIN 40 MG TAB PO SCH (08:59)
[2022-02-28] MEDS: glipiZIDE 5 MG TAB PO SCH (08:59)
[2022-02-28] MEDS: allopurinoL 100 MG TAB PO SCH (08:59)
[2022-02-28] MEDS: LIDOCAINE 5% 1 PATCH TD SCH (09:00)
[2022-02-28] MEDS: PANTOprazole 40 MG TAB PO SCH (09:00)
[2022-02-28] MEDS: ATENOLOL 25 MG TABLET PO SCH (09:00)
[2022-02-28] MEDS: lisinopril 20 MG TAB PO SCH (09:00)
[2022-02-28] MEDS: MUPIROCIN 2% OINT 22 GM TUBE TOP SCH (09:01)
[2022-02-28] MEDS: POLYETHYLENE (MIRALAX) 17 GM PACK PO SCH (09:01)
[2022-02-28] MEDS: INSULIN ASPART PER UNIT SC SCH (09:16)
[2022-02-28] MEDS ORDERED: COVID-19 VACC, TRIS(PFIZER)/PF 30 MCG/0.3 ML VIAL IM ONE (10:48)
[2022-02-28] MEDS: DICLOFENAC SOD 1% GEL 100 GM TUBE EXT PRN (12:32)
--- NOTE | 2022-02-28 13:14 | Discharge Summary ---
Date of Service February 28, 2022 Admission HPI Per Admitting Provider This is an 81-year-old male with past medical history significant for type 2 diabetes, hyperlipidemia, history of hyperkalemia, hypertension, history of sinus bradycardia, history of longstanding persistent atrial fibrillation, history of calculus of kidney, history of BPH, chronic kidney disease stage III, gout, aspirin intolerance. The patient lives with his son, was brought in because of ongoing infection of lower extremities. Son says this infection has been going on since last summer. He used to see the family doctor, office was closed and he did not follow through with doctors for a long time, and saw this [facility] doctor recently, and also advised to come to the hospital because he is a diabetic and infection is not getting better. The son says also since May he is getting more delirious and hallucinating at home. He speaks to the people who are not in the house. He is falling frequently. He has no concentration. Sometimes in the middle of night, he runs outside flashing light on the neighbor's house. He says that he is having a difficult time to take care of him at home. Son is also on disability. He wanted to be admitted to the hospital and decide what to do next. Son also says the patient had TIAs, mini strokes in the past. In October 2019, when he was in the hospital, MRI scan was done without any evidence of stroke. At that time, he had acute right- sided weakness, which has completely resolved. He is on Xarelto and atenolol for his AFib. He is on prednisone for gout. As per son, he eats regular food. Once in a while, when he eats fast he sometimes chokes. He ambulates without any support, but falls frequently. Denies any recent fevers. Denies any nausea or vomiting. Denies any abdominal pain. No recent diarrhea, he uses stool softeners for a long time for constipation. The patient is alert and awake, oriented to name only. Could not get much history from the patient. Admission Exam Per Admitting Provider GENERAL: The patient is old and frail, not in acute distress. VITAL SIGNS: Temperature 36.6, pulse 82, respiratory rate 18, blood pressure 162/101, oxygen 97% on room air. HEENT: Pupils equal, round and reactive to light. Oral mucosa moist. NECK: No JVD, no neck masses. CARDIOVASCULAR: S1 and S2 heard. Regular rate and rhythm. No murmur, no gallop. RESPIRATORY SYSTEM: Normal AP diameter. No accessory muscle use. No wheezing, no crackles. ABDOMEN: Soft. Bowel sounds are present, nontender, no distention. CENTRAL NERVOUS SYSTEM: Alert and awake, oriented to name only. No facial droop. Sometimes obeys simple commands. Moves extremities. EXTREMITIES: Bilateral lower extremity edema present with erythematous changes. On the right otto in the posterior aspect, a 4 x 4 cm open ulcer seen. Principal Diagnosis Dementia with behavioral disturbance Delirium Lower extremity cellulitis Hypertension Discharge Exam Constitutional + well hydrated; no acute distress Eyes PERRL, conjunctivae normal, anicteric sclerae ENMT external ear and nose normal, oropharynx normal Respiratory normal respiratory effort, lungs clear to auscultation Cardiovascular Rate/Rhythm: + irregularly irregular S1 S2 Gastrointestinal (Abdomen) normal bowel sounds, soft, nontender, no hepatosplenomegaly Musculoskeletal +pedal edema Neurologic PERRL, EOMI, accommodation nl, no face palsy, no dysarthria Psychiatric Orientation: alert and oriented to person; + not oriented to place and + not oriented to time Discharge Data Allergies Allergy/AdvReac Type Severity Reaction Status Date / Time coal tar AdvReac Intermediate INCREASES Verified 01/09/22 21:43 BLEEDING Consultations 01/09/22 23:02 ED Decision to Admit Stat 01/11/22 05:47 Consult Psychiatry Routine 02/07/22 10:30 Consult Psychiatry Routine Ordered Studies 01/13/22 US arterial duplex LE RT Routine Exam is limited by patient tolerance. Ankle brachial index cannot be performed. RIGHT: Common femoral artery: Triphasic waveforms. Peak systolic velocity (PSV) 64 cm/s. Deep femoral artery: Triphasic waveforms. PSV 57 cm/s. Superficial femoral artery: Triphasic waveforms. PSV 54 cm/s. Popliteal artery: Triphasic waveforms. PSV 32 cm/s. Anterior tibial artery: Monophasic waveforms. PSV 36 cm/s. Posterior tibial artery: Monophasic waveforms. PSV 42 cm/s. Peroneal artery: Monophasic waveforms. PSV 63 cm/s. Dorsalis pedis: Monophasic waveforms. PSV 39 cm/s. Moderate atherosclerotic plaque is seen. Reference ranges: Normal Ankle/Brachial Index (GUILLE) 1.0-1.4; 0.91-0.99 borderline; < or = 0.9 abnormal (0.7-0.89 mild, 0.51-0.69 moderate, < or = 0.5 severe peripheral arterial disease). Normal Toe/Brachial Index (TBI) > or = 0.6; < 0.6 abnormal (0.34-0.59 mild, 0 .12-0.34 moderate, < or = 0.11 severe peripheral arterial disease). IMPRESSION: Moderate atherosclerotic plaque is seen. No elevated velocities are seen, however monophasic flow is seen below the popliteal artery. Diabetes Follow up Diabetes Follow-up Needed for HgbA1c >9% Hospital Course (1) Dementia associated with other underlying disease with behavioral disturbance: Plan Patient was treated for lower extremity cellulitis Wound culture grew MSSA Completed antibiotics while inpatient Arterial Doppler of right lower extremity showed Moderate atherosclerotic plaque is seen. No elevated velocities are seen, however monophasic flow is seen below the popliteal artery. Had delirious episodes while inpatient. Patient has baseline dementia that has been worsening per son. Was weaned off prednisone which he was on for gout Was evaluated by psych while inpatient. Was started on seroquel which was continued on discharged Had a prolonged hospital course with difficulty getting placement Tested positive forCOVID-19 02/17/22 with fever. Fever since resolved. Did not require any oxygen supplementation or COVID specific therapies. Completed isolation Got COVID booster after approval from son prior to discharge -Diabetes type 2 Recent HbA1c 9.9. Continue home antidiabetics -History of atrial fibrillation: Rate controlled; Continueatenolol and Xarelto. -History of gout: On allopurinol -Hypertension- Continue lisinopril Was started on clonidine patch while inpatient. BP now controlled -Chronic diastolic congestive heart failure- Continue Torsemide Called son and updated him. He reported he is not able to take care of patient anymore at home with his progressive demential and will likely put him in intermediate designer placement after his SNF stay. Total Time Total Time Spent Total Time Spent (In Minutes): 50 Total Time Includes: Examination of the Patient, Discharge Planning and Medication Reconciliation Discharge Plan Discharge Items Patient Disposition: Transfer [facility] Reason For Visit: LEG PAIN Discharge Diagnosis: Dementia with behavioral disturbance Delirium Lower extremity cellulitis Hypertension Condition on Discharge: Fair Activity: As commented below Activity Comment: Per therapist recommendations Non-emergency contact: Primary Care Provider Call non-emergency contact if: you have any medication questions and your symptoms worsen Follow-up/Referrals: Larry Diego DO [Primary Care Provider] - Diet: Carb Consistent or DM2, Heart Healthy and Low Sodium (2gm) Diet Texture: Easy to Chew Diet Comment: Moist Addtl Attending Provider Instructions: Mr Angulo You were brought to the hospital for leg infection and worsening mental status at home. You were evaluated and managed for the diagnoses listed above. [facility] Please continue to follow up with your doctor. It was a pleasure taking care of you. Pending Studies at Discharge: No Stand-Alone Forms: [facility] Skilled Items Patient informed of condition?: Yes (Son called and updated) DNR: Yes Discharge Level of Care: Skilled Communicable Disease: No Discharge Prognosis: Stable Lines: None Urinary Catheter: No Medications and DC Order Prescriptions: New clonidine 0.1 mg/24 hr Patch Weekly 1 patch transdermal Q7D Qty: 3 0RF quetiapine 25 mg Tablet 12.5 mg PO BID PRN (Reason: agitation) Qty: 14 0RF quetiapine 25 mg Tablet 75 mg PO DAILY@1999 Qty: 90 0RF Continued mupirocin 2 % Ointment 1 applic TOPICAL TID Rx Instructions: Apply to Legs atorvastatin 40 mg tablet 40 mg PO DAILY Qty: 30 0RF lisinopril 20 mg tablet 20 mg PO DAILY Qty: 30 3RF atenolol 25 mg tablet 12.5 mg PO DAILY Qty: 15 0RF torsemide 10 mg Tablet 10 mg PO DAILY Qty: 30 0RF allopurinol 100 mg tablet 100 mg PO DAILY Qty: 30 0RF omeprazole 40 mg capsule,delayed release(DR/EC) 40 mg PO DAILY Qty: 30 0RF glimepiride 2 mg tablet 2 mg PO QAM Qty: 30 0RF tamsulosin 0.4 mg capsule 0.4 mg PO HS Qty: 30 0RF Xarelto 15 mg tablet 15 mg PO PM Qty: 30 0RF Jardiance 10 mg Tablet 10 mg PO DAILY Qty: 30 0RF Changed acetaminophen 650 mg Tablet Extended Release 650 mg PO Q6H PRN (Reason: Pain) Qty: 50 0RF Discontinued prednisone 5 mg tablet 5 mg PO DAILY cephalexin 500 mg capsule 500 mg PO BID Rx Instructions: PER PT'S SON "PICKED UP SCRIPT, GIVEN TO HIM, SUDDENLY DISAPPEARED, NOT SURE HOW MANY TAKEN PRIOR TO DISAPPEARING". Discharge Orders: Discharge Order (Routine); Ordered 02/28/22 Ordered By: Barbara Dykes Admission Data Admit Date/Time: 01/09/22 23:48 Attending Provider: Barbara Dykes I. Admit Provider: Shay Urbina Primary Care Provider: Larry Diego Other Providers: Tio Mckee ; Shay Urbina ; Glenny Bocanegra ; Nargis Payne ; Cee King ; [facility] ; Jessica Panda ; Esme Jamison ; Samuel Glover Other Interventions: Discharge Summary Assessment (RN) Last Done: 02/28/22 13:33
--- NOTE | 2022-03-07 08:43 | Coding Query ---
CODING QUERY To promote full compliance with coding requirements relating to patient care, provider participation is requested in all cases of instructional technology instructor uncertainty. Please assist us with the question(s) below: Coding Question(s): Several Progress Notes, as in Progress Note 01/22 document, "81-year-old demented male presented with increased leg pain and concerns for infection. Admitted for bilateral lower extremity cellulitis and started on Rocephin. Source is a traumatic ulceration on right posterior calf, treated with wound care. He is completed a full course of antibiotics at this point and has no complaints". There is also documentation of Diabetes type 2. It is not clear if the Cellulitis is a result of Diabetic skin complication. Please specify below, in your clinical opinion. ( x ) Bilateral Lower Extremity Cellulitis is Not likely due to Diabetic skin complication ( ) Bilateral Lower Extremity Cellulitis is Likely due to Diabetic skin complication ( ) Other: Please Specify Physician's Response(s): Thank you Mercedes Vazquez Principal Diagnosis: "that condition established after study, to be chiefly responsible for occasioning the admission of the patient to the hospital for care." Co-Existing Principal Diagnosis: "when two or more diagnoses equally meet the criteria for principal diagnosis as determined by the circumstances of admission, diagnostic work up, and/or therapy provided, and the Alphabetic Index, Tabular List, or another coding guideline does not provide sequencing direction, any one of the diagnoses may be sequenced first." "When the physician has documented what appears to be a current diagnosis in the body of the record, but has not included the diagnosis in the final diagnostic statement, the physician should be asked whether the diagnosis should be added." ([facility] 2 QTR90. p3-4) SARAH BETH
== END 2022-02-28 14:39 | DRG 602 ==
LOC: ED 21:14 → SUATTDRO 23:48 → 3E 23:48
DX: E78.5 Hyperlipidemia, unspecified; Z79.01 Long term (current) use of anticoagulants; Z79.899 Other long term (current) drug therapy; X58.XXXD Exposure to other specified factors, subsequent encounter; S81.801D Unspecified open wound, right lower leg, subsequent encounter; M47.816 Spondylosis without myelopathy or radiculopathy, lumbar region; L03.116 Cellulitis of left lower limb; N18.30 Chronic kidney disease, stage 3 unspecified; M10.9 Gout, unspecified; B95.61 Methicillin susceptible Staphylococcus aureus infection as the cause of diseases classified elsewhere; Z91.048 Other nonmedicinal substance allergy status; I48.11 Longstanding persistent atrial fibrillation; Z79.52 Long term (current) use of systemic steroids; R50.81 Fever presenting with conditions classified elsewhere; F05 Delirium due to known physiological condition; E11.51 Type 2 diabetes mellitus with diabetic peripheral angiopathy without gangrene; Z78.1 Physical restraint status; E11.22 Type 2 diabetes mellitus with diabetic chronic kidney disease; Z83.3 Family history of diabetes mellitus; Z82.49 Family history of ischemic heart disease and other diseases of the circulatory system; F01.51 Vascular dementia, unspecified severity, with behavioral disturbance; I13.0 Hypertensive heart and chronic kidney disease with heart failure and stage 1 through stage 4 chronic kidney disease, or unspecified chronic kidney disease; I50.32 Chronic diastolic (congestive) heart failure; Z66 Do not resuscitate; K21.9 Gastro-esophageal reflux disease without esophagitis; E11.622 Type 2 diabetes mellitus with other skin ulcer; Z91.83 Wandering in diseases classified elsewhere; R29.6 Repeated falls; M54.50 Low back pain, unspecified; Z79.84 Long term (current) use of oral hypoglycemic drugs; G47.00 Insomnia, unspecified; L03.115 Cellulitis of right lower limb; N40.0 Benign prostatic hyperplasia without lower urinary tract symptoms; L97.219 Non-pressure chronic ulcer of right calf with unspecified severity; Z91.81 History of falling; R13.10 Dysphagia, unspecified; U07.1 COVID-19